=== PATIENT | female | born 1950 | race Hispanic/Latino ===

== ENCOUNTER 2017-07-13 16:51 | Inpatient (IN) | payer BC, MEDICARE ==
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
[2017-07-13 18:06] LABS: BASO # 0.05 K/mm3 (0.0-2.0); BASO % 0.6 % (0.0-3.0); EOS # 0.1 (0.0-0.7); EOS % 0.7 % (1.5-5.0); GRAN # 4.95 (1.4-6.5); GRAN % 60.2 % (50.0-68.0); LYMPH # 2.2 (1.2-3.4); LYMPH % 27.3 % (22.0-35.0); MEAN CELL VOLUME 53.1 fl (80.0-105.0); MEAN CORPUSCULAR HEMOGLOBIN 13.8 pg (25.0-35.0); MEAN PLATELET VOLUME 8.6 fl (7.0-11.0); MONO # 0.9 (0.1-0.6); MONO % 11.2 % (1.0-6.0); RED CELL DISTRIBUTION WIDTH 19.2 % (11.5-14.5); WHITE BLOOD COUNT 8.2 10^3/ul (4.5-11.0)
[2017-07-13 18:09] LABS: HEMATOCRIT 17.3 % (36.0-48.0)
[2017-07-13 18:13] LABS: PARTIAL THROMBOPLASTIN TIME 22.7 Seconds (23.7-30.8)
[2017-07-13 18:19] LABS: ALB/GLOB RATIO 1.3 (1.1-1.8); ALKALINE PHOSPHATASE 119 U/L (38-126); ALT/SGPT 19 U/L (7-56); AMYLASE 57 U/L (35-125); AST/SGOT 71 U/L (14-36); BILIRUBIN,TOTAL 0.6 mg/dL (0.2-1.3); BLOOD UREA NITROGEN 15 mg/dL (7-21); CARBON DIOXIDE 22 mmol/L (21-33); CHLORIDE 100 mmol/L (98-107); GFR AFRICAN-AMERICAN > 60; GLUCOSE,RANDOM 108 mg/dL (70-110); LIPASE 113 U/L (23-300); POTASSIUM 4.6 mmol/L (3.6-5.0); SODIUM 132 mmol/L (132-148); TOTAL PROTEIN 7.3 g/dL (5.8-8.3)
[2017-07-13 18:41] LABS: TROPONIN I 0.01 ng/mL
[2017-07-13 18:52] LABS: PH,URINE 6.5 (4.7-8.0); URINE APPEARANCE CLEAR (CLEAR); URINE BILIRUBIN NEGATIVE (NEGATIVE); URINE BLOOD NEGATIVE (NEGATIVE); URINE COLOR YELLOW (YELLOW); URINE GLUCOSE (UA) NEGATIVE (NEGATIVE); URINE KETONE NEGATIVE (NEGATIVE)
[2017-07-13 18:53] LABS: URINE LEUKOCYTE ESTERASE SMALL Leu/uL (NEGATIVE); URINE PROTEIN NEGATIVE mg/dL (<30 mg/dL); URINE UROBILINOGEN 0.2 E.U./dL (<1 E.U./dL)
[2017-07-13 18:54] LABS: URINE BACTERIA OCC (NEG); URINE RBC NEGATIVE /hpf (0-2)
[2017-07-13 22:00] VITALS: BMI 30.9
[2017-07-14 06:26] LABS: HEMATOCRIT 24.3 % (36.0-48.0)
[2017-07-14 06:51] LABS: ALB/GLOB RATIO 1.1 (1.1-1.8); ALKALINE PHOSPHATASE 113 U/L (38-126); ALT/SGPT 27 U/L (7-56); AST/SGOT 26 U/L (14-36); BILIRUBIN,TOTAL 1.7 mg/dL (0.2-1.3); BLOOD UREA NITROGEN 12 mg/dL (7-21); CALCIUM 8.9 mg/dL (8.4-10.5); CARBON DIOXIDE 24 mmol/L (21-33); CHLORIDE 101 mmol/L (95-110); GFR AFRICAN-AMERICAN > 60; GLUCOSE,RANDOM 103 mg/dL (70-110); SODIUM 138 mmol/L (132-148); TOTAL PROTEIN 7.2 g/dL (5.8-8.3)
--- NOTE | 2017-07-14 07:28 | RAD ---
HISTORY: gen weakness COMPARISON: 08/07/2012 radiographs. FINDINGS: LUNGS: No active pulmonary disease. PLEURA: No significant pleural effusion identified, no pneumothorax apparent. CARDIOVASCULAR: Cardiac silhouette appears somewhat prominent in the interval with possible magnification in effect technically though mild cardiac enlargement is possible intrinsically. No pulmonary vascular derangement nevertheless. OSSEOUS STRUCTURES: No significant abnormalities. VISUALIZED UPPER ABDOMEN: Normal. OTHER FINDINGS: None. IMPRESSION: No acute pulmonary disease. Cardiac silhouette is in the technically magnified or intrinsically borderline enlarged in the interval. No pulmonary vascular derangement appreciated.
--- NOTE | 2017-07-14 09:17 | CARD ---
APPROVED REPORT EKG Measurement Heart [id number] <Conclusion> Sinus rhythm with premature atrial complexes Possible Inferior infarct,old Improved repolarization c/w ECG 04/27/15
[2017-07-14] MEDS ORDERED: Barium Sulfate Susp 2.1% w/v, 2.0% w/w 450 mL Bottle PO ONE (14:18)
--- NOTE | 2017-07-14 14:31 | HP ---
HISTORY OF PRESENT ILLNESS: A 67-year-old white female with a history of mild aortic stenosis and hypertension. The patient was found to be more short of breath and dyspnea on exertion and was found to have an increase in her systolic ejection murmur at the left sternal border. Blood work revealed a hemoglobin of 4.4. The patient was directed to the emergency room for admission. PHYSICAL EXAMINATION: GENERAL: The patient is a 67-year-old well-developed, well-nourished white female, in mild distress. HEENT: Essentially normal. HEART: Regular sinus rhythm with systolic ejection murmur present, 3/6 at the left sternal border with radiation to the neck. ABDOMEN: Benign. EXTREMITIES: Without cyanosis, clubbing, or edema. NEUROLOGIC: Grossly intact. IMPRESSION: A 67-year-old white male presenting with severe anemia, Hemoglobin in the emergency room was 4.5 with MCV of 53 and platelet count of 604,000. Rest of the laboratory data were unremarkable. Platelets for transfusion and GI workup and hematology consultation. Alexis Bush MD
--- NOTE | 2017-07-14 15:01 | CON ---
DATE: 07/14/2017 GASTROENTEROLOGY CONSULTATION REASON FOR CONSULT: I have been asked to see this 67-year-old female who came to the emergency room because of increasing fatigue over the last several weeks. She felt extremely weak. In the emergency room, the patient was found to be severely anemic with hemoglobin at 4.5. She denies any abdominal pain, nausea, vomiting, rectal bleeding, chest pain or shortness of breath. The patient states that she did have an endoscopy and colonoscopy many years ago but does not recall exactly when. She denies any chest pain, shortness of breath or palpitations. She denies use of any nonsteroidals, but is on a baby aspirin. PAST MEDICAL HISTORY: Notable for mitral valve prolapse, hypertension, fracture of the left wrist. PAST SURGICAL HISTORY: Notable for right knee surgery and D&C. SOCIAL HISTORY: She denies cigarette smoking or alcohol use. She quit smoking many years ago. FAMILY HISTORY: Noncontributory. REVIEW OF SYSTEMS: A 14-point review of systems is notable for generalized weakness. PHYSICAL EXAMINATION: GENERAL: A well-developed female lying in bed, in no acute distress. VITAL SIGNS: Reveal temperature of 98.5, blood pressure 150/71, heart rate 78. HEENT: Reveal sclerae to be white. Conjunctivae pale. NECK: Supple. CHEST: Reveal lungs to be clear. HEART: Exam reveals a regular rate and rhythm. ABDOMEN: Soft, nontender. EXTREMITIES: Show no edema. LABORATORY DATA: Reveal on admission to the hospital, hemoglobin of 4.5. Her hemoglobin has increased to 7 after blood transfusion. Chemistries reveal normal electrolytes. AST, ALT, alkaline phosphatase this morning are all normal. IMPRESSION: A 67-year-old female with profound anemia without clinical evidence of active GI bleeding, one must rule out chronic gastrointestinal blood loss. RECOMMENDATIONS: 1. We will transfuse 2 more units of packed red blood cells. 2. We will check stool guaiacs. 3. We will schedule the patient for an upper endoscopy for the morning. Satinder Bruno MD
[2017-07-14 17:16] LABS: HEMATOCRIT 30.9 % (36.0-48.0); MEAN CELL VOLUME 65.5 fl (80.0-105.0); MEAN CORPUSCULAR HEMOGLOBIN 20.1 pg (25.0-35.0); MEAN CORPUSCULAR HGB CONC 30.7 g/dl (31.0-37.0); MEAN PLATELET VOLUME 8.9 fl (7.0-11.0); PLATELET COUNT 492 10^3/uL (120.0-450.0); WHITE BLOOD COUNT 8.6 10^3/ul (4.5-11.0)
[2017-07-14] MEDS ORDERED: Iohexol 350 MG/100 ML VIAL ONE (18:30)
--- NOTE | 2017-07-14 20:59 | CT ---
EXAM: CT Abdomen and Pelvis With Intravenous Contrast CLINICAL HISTORY: 67 years old, female; Screening exam; Other: R/O abd mass; Additional info: R/O abdominal mass, hb 4.2 TECHNIQUE: Axial computed tomography images of the abdomen and pelvis with intravenous contrast. All CT scans at this facility use one or more dose reduction techniques, viz.: automated exposure control; ma/kV adjustment per patient size (including targeted exams where dose is matched to indication; i.e. head); or iterative reconstruction technique. Coronal and sagittal reformatted images were created and reviewed. CONTRAST: 93 mL of OMNI 350 administered intravenously. COMPARISON: No relevant prior studies available. FINDINGS: Lower thorax: Mild cardiomegaly. Mild peripheral atelectasis/scarring. Trace LEFT pleural effusion/thickening. Moderate-sized hiatal hernia. ABDOMEN: Liver: Unremarkable. No mass. Gallbladder and bile ducts: No calcified stones. No ductal dilation. Pancreas: No ductal dilation. No mass. Spleen: No splenomegaly. Adrenals: No mass. Kidneys and ureters: No mass. No hydronephrosis. Stomach and bowel: Scattered diverticula within colon. No associated inflammatory stranding. No definite mural thickening. No obstruction. Appendix: Normal caliber. No inflammation. PELVIS: Bladder: Unremarkable. Reproductive: Unremarkable as visualized. ABDOMEN and PELVIS: Intraperitoneal space: No significant fluid collection. No free air. Bones/joints: Mild degenerative changes of spine. Moderate degenerative changes of RIGHT hip joint. Chronic compression deformity superior endplate L2 vertebral body. No acute fracture. Soft tissues: Unremarkable. Vasculature: Mild to moderate atherosclerotic disease of aorta and iliac arteries. No aneurysm. Lymph nodes: No pathologically enlarged lymph nodes. IMPRESSION: 1. No CT evidence of intraabdominal mass. 2. Incidental/non-acute findings are described above.
--- NOTE | 2017-07-14 22:50 | CP.PCM.CON ---
History of Present Illness - History of Present Illness History of Present Illness: HISTORY OF PRESENT ILLNESS: Ms. Mcneil is a 67-year-old female admitted to the hospital with fatigue and shortness of breath. She was found to have hemoglobin of 4 g/dL. She denies any dark colored stools. No nausea, vomiting. No bleeding from any site. She never had low hemoglobin. She has hypertension, which has fairly controlled on Losartan. She had colonoscopy many years ago, never had EGD. Denies any weight loss. She does not remember when she had her last mammogram. She denies any abdominal pain. She also has a history of mitral valve prolapse. She sees cardiology once a year. Currently, she has dizziness, shortness of breath, and fatigue for few weeks. PAST MEDICAL HISTORY: Hypertension, mitral valve prolapse, dizziness. PAST SURGICAL HISTORY: Left wrist fracture. Right knee surgery. FAMILY HISTORY: Noncontributory. PERSONAL HISTORY: Former smoker. No history of alcohol abuse. SOCIAL HISTORY: Lives at home. ALLERGIES: NO KNOWN DRUG ALLERGIES. HOME MEDICATION: Losartan 50 mg daily, aspirin 81 mg daily. REVIEW OF SYSTEMS: As per HPI. Rest of the 12-point review of systems reviewed negative. PHYSICAL EXAMINATION: GENERAL: Comfortable in bed, in no acute distress. VITAL SIGNS: Temperature 98.5, heart rate 88 per minute, respiratory 18 per minute, blood pressure 114/51, pulse oximetry 100% on room air. HEENT: Pallor positive. Oral mucosa moist. NECK: Supple. No lymphadenopathy. CHEST: Air entry present and equal bilateral. No added sound. BREAST: Bilateral no lumps felt. CARDIOVASCULAR: Tachycardia present. S1 and S2 normal. No murmur and no gallop. ABDOMEN: Soft and nontender. No hepatosplenomegaly. Obese. EXTREMITIES: No edema. SKIN: Warm and dry. Pallor positive. No petechia and no rash. LABORATORY DATA: White count 8.2, hemoglobin 4.5, hematocrit 17.3, platelet count 604. Sodium 132, potassium 4.6, BUN 15, creatinine 0.8, glucose 108. Chest x-ray, no infiltrate. ASSESSMENT: 1. Severe anemia. 2. Hypertension. 3. Dizziness. PLAN: She will be admitted to the hospital. I would recommend telemetry monitoring, 2 units of blood ongoing, Lasix after second unit of blood transfusion, 20 mg IV ordered. Repeat hemoglobin an hour after 2 units of blood transfusion 7 g/dL, 2 more units of PRBC ordered. CAT scan of the abdomen and pelvis with p.o. and IV contrast ordered to be done today. GI consultation Dr. Bruno, she will be for EGD tomorrow. Colonoscopy will be done electively as an outpatient. Stool occult blood ordered, iron studies will not be accurate now because of the blood transfusion. Differential diagnosis include occult GI bleed. She does not have any signs of hemolysis. If iron studies are normal, she might have myelodysplasia, possibly refractory anemia. Bone marrow aspiration biopsy would be helpful in diagnosis of that. Discussed the differential diagnosis with the patient. Answered all her question to her satisfaction. Discussed with the staff nurse. Thank You Dr. Bush for allowing us to participate in her care. Raina Kohler MD Past Patient History - Infectious Disease Hx of Infectious Diseases: None - Past Social History Smoking Status: Never Smoked - CARDIAC Hx Hypercholesterolemia: Yes Hx Hypertension: Yes - PULMONARY Hx Bronchitis: Yes Hx Pneumonia: Yes Hx Respiratory Tract Infection: Yes - NEUROLOGICAL Hx Neurological Disorder: Yes Hx Dizziness: Yes - HEENT Hx HEENT Problems: No - RENAL Hx Chronic Kidney Disease: No - ENDOCRINE/METABOLIC Hx Endocrine Disorders: No - HEMATOLOGICAL/ONCOLOGICAL Hx Blood Disorders: No - INTEGUMENTARY Hx Dermatological Problems: No - MUSCULOSKELETAL/RHEUMATOLOGICAL Hx Falls: No - GASTROINTESTINAL Hx Gastrointestinal Disorders: No - GENITOURINARY/GYNECOLOGICAL Hx Urinary Tract Infection: Yes - PSYCHIATRIC Hx Panic Symptoms: Yes - SURGICAL HISTORY Hx Dilation and Curettage: Yes Other/Comment: R knee surgery - ANESTHESIA Hx Anesthesia: Yes Hx Anesthesia Reactions: No Meds Allergies/Adverse Reactions: Allergies Allergy/AdvReac Type Severity Reaction Status Date / Time No Known Allergies Allergy Verified 07/13/17 17:09 - Medications Medications: Current Medications Sodium Chloride (Sodium Chloride 0.9%) 1,000 mls @ 80 mls/hr IV .[id number] ORION Losartan Potassium (Cozaar) 50 mg PO DAILY ORION Last Admin: 07/14/17 10:02 Dose: 50 mg Results - Vital Signs Recent Vital Signs: Last Vital Signs Temp 98.3 F 07/14/17 18:53 Pulse 79 07/14/17 18:53 Resp 20 07/14/17 18:53 BP 179/89 H 07/14/17 21:46 Pulse Ox 99 07/14/17 06:00 - Labs Result Diagrams: 07/14/17 16:45 07/14/17 06:00 Labs: Laboratory Results - last 24 hr 07/14/17 07/14/17 07/14/17 06:00 06:00 16:45 WBC 8.6 RBC 4.72 Hgb 7.0 L D 9.5 L D Hct 24.3 L 30.9 L MCV 65.5 L D MCH 20.1 L MCHC 30.7 L Plt Count 492 H MPV 8.9 Sodium 138 Potassium 4.0 Chloride 101 Carbon Dioxide 24 Anion Gap 17 BUN 12 Creatinine 0.8 Est GFR ( Amer) > 60 Est GFR (Non-Af Amer) > 60 Random Glucose 103 Calcium 8.9 Total Bilirubin 1.7 H AST 26 ALT 27 Alkaline Phosphatase 113 Lactate Dehydrogenase 425 Total Protein 7.2 Albumin 3.8 Globulin 3.4 Albumin/Globulin Ratio 1.1 Stool Occult Blood 07/14/17 19:45 WBC RBC Hgb Hct MCV MCH MCHC Plt Count MPV Sodium Potassium Chloride Carbon Dioxide Anion Gap BUN Creatinine Est GFR ( Amer) Est GFR (Non-Af Amer) Random Glucose Calcium Total Bilirubin AST ALT Alkaline Phosphatase Lactate Dehydrogenase Total Protein Albumin Globulin Albumin/Globulin Ratio Stool Occult Blood Negative
[2017-07-15] MEDS ORDERED: Sodium Chloride 0.9% 1,000 ML IV SCH ×2 (06:00→11:00)
[2017-07-15 07:00] VITALS: TEMP 98.5
[2017-07-15 07:23] LABS: HEMATOCRIT 33.7 % (36.0-48.0); MEAN CELL VOLUME 65.3 fl (80.0-105.0); MEAN CORPUSCULAR HEMOGLOBIN 20.2 pg (25.0-35.0); MEAN CORPUSCULAR HGB CONC 30.9 g/dl (31.0-37.0); MEAN PLATELET VOLUME 9.2 fl (7.0-11.0); PLATELET COUNT 486 10^3/uL (120.0-450.0); WHITE BLOOD COUNT 9.4 10^3/ul (4.5-11.0)
[2017-07-15 07:38] LABS: IRON 28 ug/dL (45-180)
[2017-07-15 07:58] LABS: ALB/GLOB RATIO 1.2 (1.1-1.8); ALKALINE PHOSPHATASE 136 U/L (38-126); ALT/SGPT 26 U/L (7-56); AST/SGOT 37 U/L (14-36); BILIRUBIN,TOTAL 1.9 mg/dL (0.2-1.3); BLOOD UREA NITROGEN 8 mg/dL (7-21); CALCIUM 9.4 mg/dL (8.4-10.5); CARBON DIOXIDE 22 mmol/L (21-33); CHLORIDE 101 mmol/L (98-107); GFR AFRICAN-AMERICAN > 60; GLUCOSE,RANDOM 102 mg/dL (70-110); POTASSIUM 4.2 mmol/L (3.6-5.0); SODIUM 137 mmol/L (132-148); TOTAL PROTEIN 7.9 g/dL (5.8-8.3)
[2017-07-15] MEDS ORDERED: Midazolam 2 MG/2 ML VIAL ONE (10:30)
[2017-07-15] MEDS ORDERED: Propofol 10 mg/ml Inj (20 ML) ONE (10:30)
[2017-07-15 11:16] VITALS: RESP 16
[2017-07-15 11:28] VITALS: O2SAT 99
[2017-07-15 12:08] VITALS: BP 165/79
[2017-07-15 15:24] VITALS: PULSE 80
[2017-07-15] MEDS ORDERED: Pantoprazole 40 mg EC Tab PO SCH (16:00)
== END 2017-07-15 17:16 | disposition home or self-care (01) | DRG 812 ==
LOC: ED 16:51 → ERH 18:38 → 3RNO 20:49 → 2RSO 07-14 00:29
PROVIDERS: ADMIT Internal Medicine; ATTEND Internal Medicine
PROC: 30233N1 Transfusion of Nonautologous Red Blood Cells into Peripheral Vein, Percutaneous Approach (ICD-10-PCS; 2017-07-13)
PROC: 0DB68ZX Excision of Stomach, Via Natural or Artificial Opening Endoscopic, Diagnostic (ICD-10-PCS; principal; 2017-07-15 10:00)
DX: D64.9 Anemia, unspecified (principal); K25.9 Gastric ulcer, unspecified as acute or chronic, without hemorrhage or perforation; K29.50 Unspecified chronic gastritis without bleeding; I10 Essential (primary) hypertension; E78.00 Pure hypercholesterolemia, unspecified; I34.1 Nonrheumatic mitral (valve) prolapse; I35.0 Nonrheumatic aortic (valve) stenosis; Z79.82 Long term (current) use of aspirin; Z87.01 Personal history of pneumonia (recurrent); Z87.440 Personal history of urinary (tract) infections; Z87.891 Personal history of nicotine dependence; Z87.81 Personal history of (healed) traumatic fracture; R42 Dizziness and giddiness; K44.9 Diaphragmatic hernia without obstruction or gangrene

== ENCOUNTER 2017-07-16 10:12 | Inpatient (IN) | payer BC, MEDICARE ==
[2017-07-16] MEDS ORDERED: Morphine 2 mg/ml ISec IVP STA (10:36)
[2017-07-16 11:00] LABS: BASO # 0.04 K/mm3 (0.0-2.0); BASO % 0.4 % (0.0-3.0); EOS # 0.1 (0.0-0.7); EOS % 1.2 % (1.5-5.0); GRAN # 7.18 (1.4-6.5); GRAN % 70.3 % (50.0-68.0); HEMATOCRIT 34.3 % (36.0-48.0); LYMPH # 2.1 (1.2-3.4); LYMPH % 20.1 % (22.0-35.0); MEAN CELL VOLUME 65.8 fl (80.0-105.0); MEAN CORPUSCULAR HEMOGLOBIN 20.3 pg (25.0-35.0); MEAN CORPUSCULAR HGB CONC 30.9 g/dl (31.0-37.0); MEAN PLATELET VOLUME 8.5 fl (7.0-11.0); MONO # 0.8 (0.1-0.6); PLATELET COUNT 425 10^3/uL (120.0-450.0); WHITE BLOOD COUNT 10.2 10^3/ul (4.5-11.0)
[2017-07-16 11:21] LABS: ALB/GLOB RATIO 1.2 (1.1-1.8); ALKALINE PHOSPHATASE 128 U/L (38-126); ALT/SGPT 17 U/L (7-56); AST/SGOT 30 U/L (14-36); BILIRUBIN,TOTAL 1.4 mg/dL (0.2-1.3); BLOOD UREA NITROGEN 16 mg/dL (7-21); CALCIUM 9.3 mg/dL (8.4-10.5); CARBON DIOXIDE 20 mmol/L (21-33); CHLORIDE 100 mmol/L (98-107); GFR AFRICAN-AMERICAN > 60; GLUCOSE,RANDOM 144 mg/dL (70-110); POTASSIUM 3.8 mmol/L (3.6-5.0); SODIUM 134 mmol/L (132-148); TOTAL PROTEIN 7.7 g/dL (5.8-8.3)
[2017-07-16 12:23] LABS: INR 1.04 (0.93-1.08); PARTIAL THROMBOPLASTIN TIME 24.3 Seconds (23.7-30.8)
[2017-07-16] MEDS: Heparin 25,000units in D5W 25,000 UNITS/250 ML BAG IV PRN (12:31)
[2017-07-16] MEDS ORDERED: Iohexol 350 MG/100 ML VIAL ONE (13:29)
[2017-07-16] MEDS ORDERED: Morphine 4 mg/ml ISec IVP STA (13:59)
--- NOTE | 2017-07-16 14:49 | CT ---
PROCEDURE: CT Angiography Abdomen, Pelvis and Lower Extremity with Contrast HISTORY: f/u to arterial duplex done today ?embolism COMPARISON: None. TECHNIQUE: Technique: CT angiography of the abdomen, pelvis and bilateral lower extremities performed in the arterial phase of enhancement. Coronal and sagittal reformats, and well as rotating MIP images of the vessels generated at the workstation. Intravenous contrast dose: Visipaque 320, 150 cc Radiation dose: Total exam DLP = 2542.93 mGy-cm. This CT exam was performed using one or more of the following dose reduction techniques: Automated exposure control, adjustment of the mA and/or kV according to patient size, and/or use of iterative reconstruction technique. FINDINGS: CT ANGIOGRAPHY: ABDOMINAL AORTA:: Atherosclerotic without significant stenosis or aneurysm formation. Patent through its bifurcation. MAJOR AORTIC BRANCHES: Celiac Colgate: Unremarkable. Superior mesenteric artery: Unremarkable. Inferior mesenteric artery: Unremarkable. Renal arteries: Unremarkable. PELVIC ARTERIES: Right Common Iliac: Atherosclerotic but widely patent nevertheless. Right External Iliac: Widely patent. Right Internal Iliac: Moderately diseased. Left Common Iliac: Widely patent. Left External Iliac: Widely patent. Left Internal Iliac: Mildly diseased. RIGHT LOWER EXTREMITY ARTERIES: Right Common Femoral: Distally occluded without reconstitution. Right Superficial Femoral: Occluded without reconstitution. Right Profunda Femoris: Reconstituted by inferior epigastric branch collaterals. Right Popliteal:Occluded. Right Anterior Tibial: Occluded. Right Tibioperoneal Trunk: Occluded. Right Posterior Tibial: Occluded. Right Peroneal: Occluded.. Right dorsalis pedis : Occluded. LEFT LOWER EXTREMITY ARTERIES: Left Common Femoral: Mildly atherosclerotic but widely patent nevertheless. . Left Superficial Femoral: Minimally disease without significant stenosis. Widely patent from its origin to the popliteal artery. Left Profunda Femoris: Occludes distally without reconstitution. Left Popliteal: No significant stenosis identified throughout. Left Anterior Tibial: Patent at throughout the proximal 2/3 but occludes distally just above the level of the ankle. Left Tibioperoneal Trunk: Occluded without reconstitution. Left Posterior Tibial: Occluded proximally with collateral reconstitution seen at the mid calf level and remains patent subsequently occluding a few cm proximal to the ankle. It reconstitutes at the level of the medial malleolus feeding the plantar arch subsequently. Left Peroneal: Reconstitutes in short segments from the mid calf to several cm chest approximately ankle with variable segmental occlusion scattered throughout. Proximal segment is completely occluded. Left Dorsalis pedis: Occluded. NON-ANGIOGRAPHIC ASPECT OF THE EXAM: LOWER THORAX: COPD and pulmonary fibrosis are identified as well as a moderate size hiatal hernia. LIVER: Unremarkable. No gross lesion or ductal dilatation. GALLBLADDER AND BILE DUCTS: Unremarkable. PANCREAS: Unremarkable. No gross lesion or ductal dilatation. SPLEEN: Unremarkable. ADRENALS: Unremarkable. No mass. KIDNEYS AND URETERS: Unremarkable. No hydronephrosis. No solid mass. STOMACH AND BOWEL: Sigmoid diverticulosis without diverticulitis. No bowel obstruction is appreciated. No suspicious mural thickness grossly evident. Evaluation the bowel is compromised by lack of oral contrast administration in the CT angiogram based examination. APPENDIX: Normal appendix. PERITONEUM: Unremarkable. No free fluid. No free air. LYMPH NODES: Unremarkable. No enlarged lymph nodes. BLADDER: Unremarkable. REPRODUCTIVE: Unremarkable. BONES: No acute fracture. OTHER FINDINGS: None. IMPRESSION: 1. Occluded right common femoral artery with remaining main arterial systems occluded from the right groin to the ankle as per above. Please see details above. 2. Severely diseased left lower extremity runoff with plantar arch served by the posterior artery. The entire extent of the posterior tibial artery at the left exhibits numerous occlusions followed by reconstitution is as discussed above. The age to artery is patent at its proximal and mid segments and included distally just above the ankle. The parent artery is severely diseased nearly throughout its entire extent.
--- NOTE | 2017-07-16 15:06 | RAD ---
HISTORY: pre-op COMPARISON: 07/13/2017 FINDINGS: LUNGS: No active pulmonary disease. PLEURA: No significant pleural effusion identified, no pneumothorax apparent. CARDIOVASCULAR: Normal heart size. Hiatal hernia noted. OSSEOUS STRUCTURES: No significant abnormalities. VISUALIZED UPPER ABDOMEN: Normal. OTHER FINDINGS: None. IMPRESSION: No infiltrate. Hiatal hernia noted.
--- NOTE | 2017-07-16 15:39 | US ---
PROCEDURE: Lower extremity EVA exam HISTORY: Peripheral vascular disease with acute onset right lower extremity pain PHYSICIAN(S): Saeed Caballero MD. FINDINGS: The right PVR waveforms are flat at all levels. The right EVA is not obtainable. The findings are consistent with right iliac and/ or common femoral artery occlusive disease. The PVR waveforms are normal on the left. The left VEA is normal, 1.12. IMPRESSION: 1. The PVR waveforms are flat at all levels on the right. Given asymmetry of the disease, this likely represents a right iliac and/ or common femoral artery embolus.
--- NOTE | 2017-07-16 15:40 | US ---
PROCEDURE: Right lower extremity venous US HISTORY: Leg pain and swelling. Evaluate for DVT. PHYSICIAN(S): Saeed Caballero M.D. TECHNIQUE: Duplex sonography and color-flow Doppler with graded compression were used to evaluate the deep venous system of the right lower extremity. FINDINGS: The visualized deep venous system of the right lower extremity is sonographically normal and compressible. Normal waveforms and augmentation are seen. There is no sonographic evidence for deep venous thrombosis in the visualized segments of the right lower extremity. IMPRESSION: 1. No sonographic evidence for deep venous thrombosis in the visualized segments of the right lower extremity.
[2017-07-16] MEDS ORDERED: Lidocaine 2% Inj (20ml) ONE (15:41)
[2017-07-16] MEDS ORDERED: Iodixanol 320 MG/ML 200 ML BOTTLE IV ONE (15:42)
[2017-07-16] MEDS ORDERED: Nitroglycerin 50mg in D5W 0 MG/0 ML BOTTLE IV ONE (15:42)
[2017-07-16] MEDS ORDERED: Iodixanol 320 mg/ml 150 ml Bottle IV ONE (15:42)
[2017-07-16] MEDS ORDERED: Heparin 25,000units in D5W 25,000 UNITS/250 ML BAG IV ONE (15:43)
--- NOTE | 2017-07-16 16:05 | CP.PCM.CON ---
<Benji Zelayaophe - Last Filed: 07/16/17 18:09> History of Present Illness - History of Present Illness History of Present Illness: ICU Consult Note - Edson Zelaya PGY-[address] Pickett CC: Right lower extremity pain HPI: Patient is a 67 yo female with PMH of HTN, MVP, mild , anemia, and hx of syncopal episodes who presents to the [facility] ED for left lower extremity pain. Patient reports that earlier this AM she began to feel a cramping sensation in her right lower leg at rest. She reports that as the cramping began to worsen she also began to experience weakness in her right leg, numbness in her toes, and sharp shooting pains. She stated that the pain was worse with movement. Patient reports her symptoms have progressively worsened since their initial onset this AM. She denies any alleviating factors or taking any analgesic medication. She denies any previous history of such symptoms. Patient was recently treated at [facility] on 07/14 for a Hgb of 4.1. Patient was admitted and transfused 4 units of blood. An EGD was done showing 3 medium sized non- bleeding ulcers with no evidence of bleeding during the exam. The patient was discharged to home and reported no symptoms of dizziness or syncope upon return. Patient reports feeling fine prior to going to bed last evening and states her symptoms came on at rest and without evidence of trauma or compression. Patient denies chest pain, shob, abdominal pain, n/v/f/c. PMH: As stated above PSH: R knee meniscus repair 2011, D&C FMH: HTN, Mother with history of phlebitis SocHx: - Tobacco: Former smoker. 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 All: Levaquin Meds: ASA 81mg, Losartan, Protonix 40 Daily , Ferosol 325mg TID Review of Systems - Review of Systems Review of Systems: 12 point ROS is negative except for as stated in HPI Past Patient History - Infectious Disease Hx of Infectious Diseases: None - Past Social History Smoking Status: Former Smoker Alcohol: None Drugs: Denies - CARDIAC Hx Hypercholesterolemia: Yes Hx Hypertension: Yes - PULMONARY Hx Bronchitis: Yes Hx Pneumonia: Yes Hx Respiratory Tract Infection: Yes - NEUROLOGICAL Hx Neurological Disorder: Yes Hx Dizziness: Yes - HEENT Hx HEENT Problems: No - RENAL Hx Chronic Kidney Disease: No - ENDOCRINE/METABOLIC Hx Endocrine Disorders: No - HEMATOLOGICAL/ONCOLOGICAL Hx Blood Transfusions: Yes (07/14/17) Hx Blood Transfusion Reaction: No - INTEGUMENTARY Hx Dermatological Problems: No - MUSCULOSKELETAL/RHEUMATOLOGICAL Hx Falls: No - GASTROINTESTINAL Hx Gastrointestinal Disorders: No - GENITOURINARY/GYNECOLOGICAL Hx Urinary Tract Infection: Yes - PSYCHIATRIC Hx Panic Symptoms: Yes Hx Substance Use: No - SURGICAL HISTORY Hx Surgeries: Yes - ANESTHESIA Hx Anesthesia Reactions: No Hx Malignant Hyperthermia: No Meds Allergies/Adverse Reactions: Allergies Allergy/AdvReac Type Severity Reaction Status Date / Time levofloxacin [From Levaquin] Allergy RASH Verified 07/16/17 15:50 - Medications Medications: Current Medications Heparin Sodium/Dextrose (Heparin 25,000 Units/250ml In D5w) 25,000 units in 250 mls @ 14.696 mls/hr IV .Q17H1M PRN; Protocol; 18 UNITS/KG/HR PRN Reason: ADJUST RATE PER PROTOCOL Last Admin: 07/16/17 12:31 Dose: 14.696 mls/hr Physical Exam - Head Exam Head Exam: ATRAUMATIC, NORMAL INSPECTION, NORMOCEPHALIC - Eye Exam Eye Exam: EOMI, Normal appearance, PERRL Pupil Exam: NORMAL ACCOMODATION Additional comments: Pale conjunctiva - ENT Exam ENT Exam: Mucous Membranes Dry, Normal Exam - Neck Exam Neck exam: Positive for: Full Rom, Normal Inspection - Respiratory Exam Respiratory Exam: Clear to Auscultation Bilateral, NORMAL BREATHING PATTERN. absent: Rhonchi - Cardiovascular Exam Cardiovascular Exam: REGULAR RHYTHM, +S1, +S2, Systolic Murmur (3/6) - GI/Abdominal Exam GI & Abdominal Exam: Normal Bowel Sounds, Soft - Extremities Exam Extremities exam: Positive for: calf tenderness Additional comments: RLE: tenderness to palpation, mottled skin appearance from toes to mid thigh, cool to touch, peripheral pulses absent, no discolaration of toes noted on exam LLE: warm, dry, FOM, no tenderness to palpation, DP and PT present - Back Exam Back exam: NORMAL INSPECTION - Neurological Exam Neurological exam: Alert, CN II-XII Intact, Oriented x3 - Psychiatric Exam Psychiatric exam: Normal Affect, Normal Mood - Skin Additional comments: RLE with evidence of livedo reticularis, otherwise rest of exam normal warm and dry Results - Vital Signs Recent Vital Signs: Last Vital Signs Temp 98.2 F 07/16/17 10:19 Pulse 73 07/16/17 15:40 Resp 16 07/16/17 14:32 BP 181/94 H 07/16/17 15:40 Pulse Ox 100 07/16/17 14:32 - Labs Result Diagrams: 07/16/17 10:50 07/16/17 10:50 Assessment & Plan (1) Lower limb ischemia Status: Acute - Assessment and Plan (Free Text) Assessment: Patient is a 67 year old female with PMH of anemia, HTN, MVP, and stomach ulcer who presents to the [facility] ED with RLE pain. Patient evaluated to have cool limb with absence of peripheral pulses per US. Patient to be taken to vascular lab for IR intervention for possible acute limb ischemia. Patient will be transferred to ICU s/p procedure for further management and observation. Plan: Neuro: AAOx3 Stable CV: RLE pain likely 2/2 acute limb ischemia Diff Dx: arterial thrombus (possibly 2/2 afib vs. plaque rupture) vs. transfusion induced vs. trauma, vs. thomboangitis obliterans - Patient denies trauma, hx of 4 units of pRBC transfusion on recent prior admission on 07/14, denies hx of raynauds phenomenon like symptoms, unknown hx of peripheral artery disease - Doppler US showing absence of pulses in RLE - Patient given heparin bolus for anticoagulation in ED - Patient to go for IR procedure with possible intervention - Will return to ICU s/p procedure for further management and observation BP 181/94, HR 72 NSR, Maintain MAP >65 Hx of HTN. - Will hold anti-HTN meds at this time, allowing for permissive HTN for aid in perfusion of RLE Hemodynamically stable. Cont to monitor. Pulm: - On RA. Saturating well. - Maintain O2 sat>90% - Stable GI: - NPO.Protonix for PPX : - Stable Renal: BUN/Cr: 16/0.9 - Replace lytes, maintain euvolemia. Continue to monitor. ID: - Afebrile, no leukocytosis. Heme: - H/H: 10.6/34.3 - Plts: 425 - Stable. Cont to monitor. Psych: - Normal mood. DVT ppx: Heparin GI ppx: Protonix Case and plan discussed with attending - Date & Time Date: 07/16/17 Time: 16:23 <Everotn Pickett MD - Last Filed: 07/16/17 18:22> Meds - Medications Medications: Current Medications Gabapentin (Neurontin) 100 mg PO Q8 ORION PRN Reason: Protocol Hydromorphone HCl (Dilaudid) 1 mg IVP Q4H PRN PRN Reason: Pain, severe (8-10) Heparin Sodium/Dextrose (Heparin 25,000 Units/250ml In D5w) 25,000 units in 250 mls @ 14.696 mls/hr IV .Q17H1M PRN; Protocol; 18 UNITS/KG/HR PRN Reason: ADJUST RATE PER PROTOCOL Last Admin: 07/16/17 12:31 Dose: 14.696 mls/hr Alteplase, Recombinant 10 mg/ (Sodium Chloride) 250 mls @ 25 mls/hr IV .Q10H ONE Stop: 07/17/17 02:19 Heparin Sodium (Porcine) 1,000 (units/ Sodium Chloride) 1,000 mls @ 5 mls/hr IV ONCE ONE Stop: 07/25/17 01:32 Ramipril (Altace) 5 mg PO DAILY [facility] Results - Vital Signs Recent Vital Signs: Last Vital Signs Temp 98.2 F 07/16/17 18:12 Pulse 86 07/16/17 18:12 Resp 19 07/16/17 18:12 BP 140/65 07/16/17 18:12 Pulse Ox 98 07/16/17 18:09 - Labs Result Diagrams: 07/16/17 10:50 07/16/17 10:50 Attending/Attestation - Attestation I have personally seen and examined this patient.: Yes I have fully participated in the care of the patient.: Yes I have reviewed all pertinent clinical information: Yes Notes (Text): 07/16/17 18:20 67 y/o F seen in the ER prior to IR intervention. Acute ischemic limb. Confirmed arterial thrombus Recent blood transfusion PRBC no platelets , EPO . No signs or history of a.fib or PFO. NO malignancy history or symptoms. Will need full hypercoag work up after this episode. Ir intervention w/ Heparin and TPA/ EKOS to be done. If flow is not established then Vascular surgery ,may need to intervene from thrombectomy. Neuro/ limb check q 1hr. Pain control. Follow up blood work for EKOS per IR and nursing protocol. cc time 65 min
[2017-07-16] MEDS ORDERED: Midazolam 2 MG/2 ML VIAL ONE ×3 (16:17→22:11)
--- NOTE | 2017-07-16 16:57 | ED PDOC ---
Arrival/HPI - General Chief Complaint: Lower Extremity Problem/Injury Time Seen by Provider: 07/16/17 10:14 Historian: Patient - History of Present Illness Narrative History of Present Illness (Text): 07/16/17 16:54 A year old female whose past medical history includes, hypertension, presents to the emergency department with a complaint of right leg pain and numbness. She states that the symptoms suddenly began at 9/9:30 AM. She notes that she was taking a shower when the pain began. The patient states that she has never experience these symptoms in the past. She also mentioned that she was discharged yesterday for anemia s/p transfusion. She denies fevers, chills, headache, dizziness, chest pain, shortness of breath, dyspnea on exertion, cough , abdominal pain, nausea, vomiting, diarrhea, back pain, neck pain, urinary/ bowel changes, trauma/injury or any other complaint. PMD: Dr. Alexis Bush Time/Duration: Other (9/9:30AM) Symptom Onset: Sudden Symptom Course: Unchanged Activities at Onset: Rest, Light Context: Home Past Medical History - Provider Review Nursing Documentation Reviewed: Yes - Infectious Disease Hx of Infectious Diseases: None - Cardiac Hx Hypertension: Yes - Pulmonary Hx Bronchitis: Yes Hx Pneumonia: Yes Hx Respiratory Tract Infection: Yes - Neurological Hx Neurological Disorder: Yes Hx Dizziness: Yes - HEENT Hx HEENT Disorder: No - Renal Hx Renal Disorder: No - Endocrine/Metabolic Hx Endocrine Disorders: No - Hematological/Oncological Hx Blood Transfusions: Yes (07/14/17) Hx Blood Transfusion Reaction: No - Integumentary Hx Dermatological Disorder: No - Musculoskeletal/Rheumatological Hx Falls: No - Gastrointestinal Hx Gastrointestinal Disorders: No - Genitourinary/Gynecological Hx Urinary Tract Infection: Yes - Psychiatric Hx Panic Disorder: Yes Hx Substance Use: No - Surgical History Hx Dilation and Curettage: Yes Other/Comment: R knee surgery - Anesthesia Hx Anesthesia Reactions: No Hx Malignant Hyperthermia: No - Suicidal Assessment Feels Threatened In Home Enviroment: No Family/Social History - Physician Review Nursing Documentation Reviewed: Yes Family/Social History: No Known Family HX Smoking Status: Former Smoker Hx Alcohol Use: No Hx Substance Use: No Hx Substance Use Treatment: No Allergies/Home Meds Allergies/Adverse Reactions: Allergies levofloxacin [From Levaquin] Allergy (Verified 07/16/17 15:50) RASH Home Medications: Home Meds Medication Instructions Recorded Confirmed Aspirin [Adult Low Dose Aspirin EC] 81 mg PO DAILY 07/13/17 07/16/17 Losartan [Cozaar] 50 g PO DAILY 07/13/17 07/16/17 Pantoprazole Sodium [Protonix] 40 mg PO DAILY 07/15/17 07/16/17 Review of Systems - Physician Review All systems were reviewed & negative as marked: Yes - Review of Systems Constitutional: absent: Fevers, Night Sweats ENT: absent: Sore Throat Respiratory: absent: SOB Cardiovascular: absent: Chest Pain, RIVERA Gastrointestinal: absent: Abdominal Pain, Stool Changes, Diarrhea, Nausea, Vomiting Genitourinary Female: absent: Urine Output Changes Musculoskeletal: Other (Right Leg Pain). absent: Back Pain, Neck Pain Neurological: absent: Headache, Dizziness Physical Exam Vital Signs Reviewed: Yes Vital Signs Temp Pulse Resp BP Pulse Ox 07/16/17 18:12 98.2 F 86 19 140/65 07/16/17 18:09 98.2 F 86 19 140/65 98 07/16/17 15:40 73 181/94 H 07/16/17 14:32 73 16 186/95 H 100 07/16/17 10:19 98.2 F 72 18 138/67 100 Temperature: Afebrile Blood Pressure: Normal Pulse: Regular Respiratory Rate: Normal Appearance: Positive for: Well-Appearing, Non-Toxic, Comfortable Pain Distress: Mild Mental Status: Positive for: Alert and Oriented X 3 - Systems Exam Head: Present: Atraumatic, Normocephalic Pupils: Present: PERRL Extroacular Muscles: Present: EOMI Conjunctiva: Present: Normal Mouth: Present: Moist Mucous Membranes Neck: Present: Normal Range of Motion Respiratory/Chest: Present: Clear to Auscultation, Good Air Exchange. No: Respiratory Distress, Accessory Muscle Use Cardiovascular: Present: Regular Rate and Rhythm, Normal S1, S2. No: Murmurs Abdomen: Present: Normal Bowel Sounds. No: Tenderness, Distention, Peritoneal Signs Back: Present: Normal Inspection Upper Extremity: Present: Normal Inspection. No: Cyanosis, Edema Lower Extremity: Present: Capillary Refill < 2 s (Right lower extremity: delayed cap refill), Other (subjective numbness from mid thigh distally ). No: NORMAL PULSES (lle good pulses. Right lower extremity: No palpable pulses.), Normal ROM (Decreased ROM right lower extremity), Tenderness Neurological: Present: GCS=15, CN II-XII Intact, Speech Normal Skin: Present: Cold (On initial exam, the right leg was cold to the touch. ) Psychiatric: Present: Alert, Oriented x 3, Normal Insight, Normal Concentration Medical Decision Making ED Course and Treatment: 07/16/17 17:05 Impression: A 67 year old female presents to the emergency department with right lower extremity pain and numbness since this morning (99:30AM) Plan: -- EKG -- Right Lower Extremity US -- Abdominal Angiogram -- Heparin, Neutronin, Morphine, Alctace, and IV Fluids, -- Reassess and disposition Prior Visits: Notes and results from previous visits were reviewed. Patient was last seen in the emergency department on 07/13/2017. Patient presented to the emergency department complaining of fatigue for several weeks. Progress Notes: EKG: Ordered, reviewed, and independently interpreted the EKG. Rate : 75 BPM Rhythm : NSR Interpretation : Left [place] Deviation. Chest X-ray read and interpreted by me, within normal limit. Progress note: Upon completion of the Physical Exam, the patient emergently sent for US venous outputs and arterial duplexes of the right lower extremity. Received a call from radiology with result which showed occlusion of right common femoral artery. Upon obtaining the report, Heparin was immediately ordered and vascular surgeons were contacted. Janes Ohara, and Jake (spoke to them and they were unable to respond to the hospital) Dr. Santiago initially left message ,called back after OR procedure at another hopital. Dr. Herrera was called, and left a message for emergent call back, no response. Dr. Sarwat Sierra who requested CT angiogram of the RLE. CT angiogram done immediately upon request, Dr. Sierra called immediately after completion who stated he will do an intervention at [facility]. Dr. 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 Patient went to IR suite at 15:30. Patient was given 2 doses of morphine IV push with slight resolution of pain symptoms. - Lab Interpretations Lab Results: 07/16/17 10:50 07/16/17 10:50 Lab Results 07/16/17 10:50: Blood Type AB POSITIVE, Antibody Screen Negative, BBK History Checked Patient has bt 07/16/17 10:50: PT 11.2, INR 1.04, APTT 24.3 07/16/17 10:50: Sodium 134, Potassium 3.8, Chloride 100, Carbon Dioxide 20 L, Anion Gap 18, BUN 16, Creatinine 0.9, Est GFR ( Amer) > 60, Est GFR (Non- Af Amer) > 60, Random Glucose 144 H, Calcium 9.3, Total Bilirubin 1.4 H, AST 30 , ALT 17, Alkaline Phosphatase 128 H, Total Protein 7.7, Albumin 4.2, Globulin 3.5, Albumin/Globulin Ratio 1.2 07/16/17 10:50: WBC 10.2, RBC 5.21, Hgb 10.6 L, Hct 34.3 L, MCV 65.8 L, MCH 20.3 L, MCHC 30.9 L, Plt Count 425, MPV 8.5, Gran % 70.3 H, Lymph % (Auto) 20.1 L, [place] % (Auto) 8.0 H, Eos % (Auto) 1.2 L, Baso % (Auto) 0.4, Gran # 7.18 H, Lymph # 2.1, [place] # 0.8 H, Eos # 0.1, Baso # 0.04 I have reviewed the lab results: Yes - RAD Interpretation Radiology Orders: 07/16/17 10:34 DUPLEX LOWER EXTRM VEIN RIGHT [US] Stat LOWER EXT ART NON-INV COMPL [US] Stat 07/16/17 12:44 ANGIOGRAPHY ABD ILEOFEM RUNOFF [CT] Stat 07/16/17 14:39 CHEST PORTABLE [RAD] Stat - EKG Interpretation Interpreted by ED Physician: Yes Type: 12 lead EKG - Medication Orders Current Medication Orders: Gabapentin (Neurontin) 100 mg PO Q8 ORION PRN Reason: Protocol Hydromorphone HCl (Dilaudid) 1 mg IVP Q4H PRN PRN Reason: Pain, severe (8-10) Heparin Sodium/Dextrose (Heparin 25,000 Units/250ml In D5w) 25,000 units in 250 mls @ 14.696 mls/hr IV .Q17H1M PRN; Protocol; 18 UNITS/KG/HR PRN Reason: ADJUST RATE PER PROTOCOL Last Admin: 07/16/17 12:31 Dose: 14.696 mls/hr eMAR Start Stop Document 07/16/17 12:31 AD (Rec: 07/16/17 12:32 AD [id number]) Intravenous Solution Start Date 07/16/17 Start Time 12:32 MAR aPTT Document 07/16/17 12:31 AD (Rec: 07/16/17 12:32 AD [id number]) aPTT aPTT (secs) 24.3 Alteplase, Recombinant 10 mg/ (Sodium Chloride) 250 mls @ 25 mls/hr IV .Q10H ONE Stop: 07/17/17 02:19 Heparin Sodium (Porcine) 1,000 (units/ Sodium Chloride) 1,000 mls @ 5 mls/hr IV ONCE ONE Stop: 07/25/17 01:32 Ramipril (Altace) 5 mg PO DAILY ORION Discontinued Medications Heparin Sodium (Porcine) (Heparin) 6,500 units 80 units/kg (6500 units) IV ONCE ONE PRN Reason: Protocol Stop: 07/16/17 12:15 Last Admin: 07/16/17 12:30 Dose: 6,500 units eMAR Start Stop Document 07/16/17 12:30 AD (Rec: 07/16/17 12:31 AD [id number]) Intravenous Solution Start Date 07/16/17 Start Time 12:31 End Date 07/16/17 End time 12:32 Total Infusion Time 1 DEC aPTT Document 07/16/17 12:30 AD (Rec: 07/16/17 12:31 AD [id number]) aPTT aPTT (secs) 24.3 Morphine Sulfate (Morphine) 2 mg IVP STAT STA Stop: 07/16/17 10:37 Last Admin: 07/16/17 10:50 Dose: 2 mg MAR Pain Assessment Document 07/16/17 10:50 AD (Rec: 07/16/17 10:50 AD [id number]) Pain Reassessment Is this a pain reassessment? No Sleep Is patient sleeping during reassessment? No Pain Scale Used Pain Scale Used Numeric Location Left, Right or Bilateral Right Pain Location Body Site Leg Description Description Constant Pain Behavior Moaning Guarding IVP Administration Document 07/16/17 10:50 AD (Rec: 07/16/17 10:50 AD [id number]) Charges for Administration # of IVP Administrations 1 Re-Assess: SHARRON Pain Assessment Document 07/16/17 11:50 AD (Rec: 07/16/17 11:55 AD [id number]) Pain Reassessment Is this a pain reassessment? Yes Sleep Is patient sleeping during reassessment? No Presence of Pain Presence of Pain Yes Pain Scale Used Pain Scale Used Numeric Location Left, Right or Bilateral Right Pain Location Body Site Leg Description Description Constant Intensity of Pain at present 7 Pain Behavior Moaning Facial Grimacing Aggravating Factors Changing Position Exercise/Activity Pain not relieved and LIP/MD was Yes notified Morphine Sulfate (Morphine) 4 mg IVP STAT STA Stop: 07/16/17 14:00 Last Admin: 07/16/17 14:06 Dose: 4 mg [facility] Pain Assessment Document 07/16/17 14:06 EWO (Rec: 07/16/17 14:06 [facility] [id number]) Pain Reassessment Is this a pain reassessment? Yes Sleep Is patient sleeping during reassessment? No Presence of Pain Presence of Pain Yes Pain Scale Used Pain Scale Used Numeric Location Pain Location Body Site Leg Description Description Constant Intensity of Pain at present 8 IVP Administration Document 07/16/17 14:06 EWO (Rec: 07/16/17 14:06 [facility] [id number]) Charges for Administration # of IVP Administrations 1 - Scribe Statement The provider has reviewed the documentation as recorded by the Scribe Bri Ghotra Provider Scribe Attestation: All medical record entries made by the Scribe were at my direction and personally dictated by me. I have reviewed the chart and agree that the record accurately reflects my personal performance of the history, physical exam, medical decision making, and the department course for this patient. I have also personally directed, reviewed, and agree with the discharge instructions and disposition. Disposition/Present on Arrival - Present on Arrival Any Indicators Present on Arrival: No History of DVT/PE: No History of Uncontrolled Diabetes: No Urinary Catheter: No History of Decub. Ulcer: No History Surgical Site Infection Following: None - Disposition Have Diagnosis and Disposition been Completed?: Yes Diagnosis: Lower limb ischemia Disposition: HOSPITALIZED Disposition Time: 14:22 Patient Problems: Current Active Problems Problem Status Onset Lower limb ischemia Acute Condition: GUARDED Critical Care Time - Critical Care Note Total Time (in mins): 120 Documented critical care: time excludes all time spent performing seperately billable procedures.
--- NOTE | 2017-07-16 17:33 | PCM.SURG1 ---
Surgeon's Initial Post Op Note - Surgeon's Notes Surgeon: Sarwat Sierra MD Furniture Upholsterer Apprentice: None Type of Anesthesia: Moderate Sedation{RN} Pre-Operative Diagnosis: Acute arterial thrombosis. Operative Findings: Arterial thrombosis Post-Operative Diagnosis: Occlusion of SFA, Profunda femoral artery, Popliteal artery, PT atery, peroneal artery. Operation Performed: Arterial thrombosis Specimen/Specimens Removed: Right lower extremity angiogram,. Rheolytic thrombectomy with Angiojet, NEON TECHNICIAN 5 mm x 200 mm, placement of EKOS catheter 50 cm treatment for catheter directed thrombolysis. Estimated Blood Loss: EBL {In ML}: 30 Blood Products Given: N/A Drains Used: No Drains Post-Op Condition: Poor Date of Surgery/Procedure: 07/16/17 Time of Surgery/Procedure: 17:30
[2017-07-16] MEDS: HYDROmorphone 1 mg/ml ISec IVP PRN (18:21)
[2017-07-16 18:59] VITALS: BMI 31.4
[2017-07-16] MEDS ORDERED: Pneumococcal 23-Valent Vaccine IM ONE (18:59)
--- NOTE | 2017-07-16 20:59 | CP.PCM.CON ---
History of Present Illness - History of Present Illness History of Present Illness: SURGERY CONSULT NOTE FOR DR. ISLAS Consult: ischemic lower extremities 67F presents to [facility] [place] for sudden right leg pain. Patient states the pain stated this morning after getting out the shower. She describes it has sudden, sharp and beginning in the right foot. Pain has made it's way up the leg into the calf. She admits to loss of sensation and is unable to bare weight on it. She states she had a pain in her left leg in the past but no has severe as what she had earlier in the day. She denies dizziness, chest pain, shortness of breath, abdominal pain, nausea, vomiting. She denies any current symptoms in her right leg. Admits to generalized fatigue. PMH: HTN PSH: R knee meniscus repair Social: distant history of tobacco, smoked for 10 years, quit 30 years ago Allergies: NKDA Past Patient History - Infectious Disease Hx of Infectious Diseases: None - Past Social History Smoking Status: Former Smoker - CARDIAC Hx Cardiac Disorders: Yes (MV PROLAPSE) Hx Hypercholesterolemia: Yes Hx Hypertension: Yes Hx Peripheral Vascular Disease: Yes - PULMONARY Hx Respiratory Disorders: Yes (SMOKED PPD .QUIT 10 YRS AGO) Hx Bronchitis: Yes Hx Pneumonia: Yes Hx Respiratory Tract Infection: Yes - NEUROLOGICAL Hx Neurological Disorder: Yes Hx Dizziness: Yes - HEENT Hx HEENT Problems: No - RENAL Hx Chronic Kidney Disease: No - ENDOCRINE/METABOLIC Hx Endocrine Disorders: No - HEMATOLOGICAL/ONCOLOGICAL Hx Blood Transfusions: Yes Hx Blood Transfusion Reaction: No - INTEGUMENTARY Hx Dermatological Problems: No - MUSCULOSKELETAL/RHEUMATOLOGICAL Hx Musculoskeletal Disorders: Yes (RIGHT LEG NUMBNESS,PAIN AND WEAK-ISCHEMIC LOWER EXTREMITY) Hx Falls: No Hx Unsteady Gait: Yes - GASTROINTESTINAL Hx Gastrointestinal Disorders: Yes Hx Ulcer: Yes (NON BLEEDING.) - GENITOURINARY/GYNECOLOGICAL Hx Genitourinary Disorders: Yes Hx Urinary Tract Infection: Yes - PSYCHIATRIC Hx Psychophysiologic Disorder: Yes Hx Panic Symptoms: Yes Hx Substance Use: No - SURGICAL HISTORY Hx Surgeries: Yes - ANESTHESIA Hx Anesthesia Reactions: No Hx Malignant Hyperthermia: No Meds Allergies/Adverse Reactions: Allergies Allergy/AdvReac Type Severity Reaction Status Date / Time levofloxacin [From Levaquin] Allergy RASH Verified 07/16/17 15:50 - Medications Medications: Current Medications Gabapentin (Neurontin) 100 mg PO Q8 ORION PRN Reason: Protocol Hydromorphone HCl (Dilaudid) 1 mg IVP Q4H PRN PRN Reason: Pain, severe (8-10) Last Admin: 07/16/17 18:21 Dose: 1 mg Heparin Sodium/Dextrose (Heparin 25,000 Units/250ml In D5w) 25,000 units in 250 mls @ 14.696 mls/hr IV .Q17H1M PRN; Protocol; 18 UNITS/KG/HR PRN Reason: ADJUST RATE PER PROTOCOL Last Admin: 07/16/17 12:31 Dose: 14.696 mls/hr Alteplase, Recombinant 10 mg/ (Sodium Chloride) 250 mls @ 25 mls/hr IV .Q10H ONE Stop: 07/17/17 02:19 Last Admin: 07/16/17 18:31 Dose: 25 mls/hr Heparin Sodium (Porcine) 1,000 (units/ Sodium Chloride) 1,000 mls @ 5 mls/hr IV ONCE ONE Stop: 07/25/17 01:32 Ramipril (Altace) 5 mg PO DAILY ORION Last Admin: 07/16/17 18:24 Dose: 5 mg Physical Exam - Constitutional Appears: Non-toxic, No Acute Distress, Other (uncomfortable) - Head Exam Head Exam: ATRAUMATIC - ENT Exam ENT Exam: Mucous Membranes Moist - Respiratory Exam Respiratory Exam: Clear to Auscultation Bilateral, NORMAL BREATHING PATTERN - Cardiovascular Exam Cardiovascular Exam: REGULAR RHYTHM, +S1, +S2 - GI/Abdominal Exam GI & Abdominal Exam: Soft. absent: Distended, Firm, Guarding, Rebound, Rigid, Tenderness - Extremities Exam Additional comments: No doppler signal on the right leg/ No doppler signal DP on left Dopplerable signals PT on left leg No sensation on right leg from feet to mid calf Poor sensation till the knee on right leg Normal left sensation on left leg Unable to wiggle toes and move feet on right leg. - Neurological Exam Neurological exam: Alert, Oriented x3 - Psychiatric Exam Psychiatric exam: Normal Affect, Normal Mood - Skin Skin Exam: Dry, Intact, Normal Color Additional comments: cold leg up until knee on right leg Results - Vital Signs Recent Vital Signs: Last Vital Signs Temp 98.2 F 07/16/17 18:29 Pulse 101 H 07/16/17 18:57 Resp 22 07/16/17 18:57 BP 137/80 07/16/17 18:57 Pulse Ox 98 07/16/17 18:09 - Labs Result Diagrams: 07/16/17 10:50 07/16/17 10:50 Assessment & Plan - Assessment and Plan (Free Text) Assessment: 67F with Acute ischemic right leg Plan: - Pre-op patienT - emergent OR intervention - Consent patient thrombectomy/embolectomy/fasciotomy Case discussed with Dr. Khoa Bazan, PGY2
[2017-07-16 21:01] LABS: INR 1.08 (0.93-1.08); PARTIAL THROMBOPLASTIN TIME 62.3 Seconds (23.7-30.8)
[2017-07-16] MEDS ORDERED: Lidocaine 1% Inj (20ml) ONE (21:20)
[2017-07-16] MEDS ORDERED: Thrombin Topical 20,000 Intl Units Spray Kit TOP ONE (21:20)
[2017-07-16] MEDS ORDERED: Heparin 10,000 Units/ml ONE (21:20)
[2017-07-16] MEDS ORDERED: Propofol 10 mg/ml Inj (20 ML) ONE (21:41)
[2017-07-16] MEDS ORDERED: Succinylcholine 200 mg/10 ml Inj IV ONE (21:43)
[2017-07-16] MEDS ORDERED: Iohexol 240 (50 ml) ONE (22:36)
[2017-07-16] MEDS ORDERED: CeFAZolin 1 gm in NS 100ml IVPB ONE (23:00)
[2017-07-16] MEDS ORDERED: Rocuronium 10 mg/ml (5 ml) ONE (23:04)
[2017-07-17] MEDS ORDERED: Iohexol 240 (50 ml) ONE ×2 (00:26→02:03)
[2017-07-17] MEDS ORDERED: Heparin 10,000 Units/ml ONE (00:29)
[2017-07-17 00:46] LABS: INR 1.18 (0.93-1.08)
[2017-07-17 00:47] LABS: PARTIAL THROMBOPLASTIN TIME > 180.0 Seconds (23.7-30.8)
[2017-07-17] MEDS ORDERED: Midazolam 2 MG/2 ML VIAL ONE ×2 (00:56→02:47)
[2017-07-17 03:07] LABS: INR 1.19 (0.93-1.08)
[2017-07-17 03:11] LABS: PARTIAL THROMBOPLASTIN TIME > 180.0 Seconds (23.7-30.8)
[2017-07-17] MEDS ORDERED: Propofol 10 mg/ml 1,000 MG/100 ML VIAL IV PRN (03:18)
[2017-07-17] MEDS ORDERED: Propofol 10 mg/ml 1,000 MG/100 ML VIAL ONE (03:25)
[2017-07-17] MEDS: HYDROmorphone 1 mg/ml ISec IVP PRN (03:30)
--- NOTE | 2017-07-17 03:37 | PCM.SURG1 ---
Surgeon's Initial Post Op Note - Surgeon's Notes Surgeon: MD Khoa Steel Rod Buster: Hortensia PGY2. Ana Maria PGY1. Pre-Operative Diagnosis: Acute right ischemic leg Operative Findings: Femoral embolus/popliteal embolus - white plaque removed with composition suspicious of cardiac origin Post-Operative Diagnosis: Acute right ischemic leg Operation Performed: Right leg Femoral embolectomy. Right leg Popliteal embolectomy. Right leg Popliteal/Tibial/Peroneal bypass with reversed saphaneous vein. Full 4 compartment right leg fasciotomy. Right lower extremity angiogram Specimen/Specimens Removed: multiple femoral emboli and popliteal emboli Estimated Blood Loss: EBL {In ML}: 400 Date of Surgery/Procedure: 07/16/17 Time of Surgery/Procedure: 22:00
[2017-07-17 03:41] LABS: ALB/GLOB RATIO 1.1 (1.1-1.8); ALKALINE PHOSPHATASE 87 U/L (38-126); ALT/SGPT 45 U/L (7-56); AST/SGOT 126 U/L (14-36); BILIRUBIN,TOTAL 1.1 mg/dL (0.2-1.3); BLOOD UREA NITROGEN 14 mg/dL (7-21); CARBON DIOXIDE 19 mmol/L (21-33); CHLORIDE 102 mmol/L (98-107); GFR AFRICAN-AMERICAN > 60; GLUCOSE,RANDOM 136 mg/dL (70-110); PHOSPHOROUS 5.9 mg/dL (2.5-4.5); POTASSIUM 5.1 mmol/L (3.6-5.0); SODIUM 130 mmol/L (132-148); TOTAL PROTEIN 5.8 g/dL (5.8-8.3)
[2017-07-17 03:45] LABS: WHITE BLOOD COUNT 17.3 10^3/ul (4.5-11.0)
[2017-07-17 03:48] LABS: BASO # 0.04 K/mm3 (0.0-2.0); BASO % 0.2 % (0.0-3.0); GRAN # 14.46 (1.4-6.5); GRAN % 83.6 % (50.0-68.0); HEMATOCRIT 25.4 % (36.0-48.0); LYMPH # 1.2 (1.2-3.4); LYMPH % 6.9 % (22.0-35.0); MEAN CELL VOLUME 65.6 fl (80.0-105.0); MEAN CORPUSCULAR HEMOGLOBIN 20.1 pg (25.0-35.0); MEAN CORPUSCULAR HGB CONC 30.7 g/dl (31.0-37.0); MEAN PLATELET VOLUME 9.4 fl (7.0-11.0); MONO # 1.6 (0.1-0.6); MONO % 9.3 % (1.0-6.0); PLATELET COUNT 365 10^3/uL (120.0-450.0)
[2017-07-17] MEDS ORDERED: Phenylephrine 10 mg/ml Inj ONE (03:48)
[2017-07-17 03:52] LABS: ARTERIAL BLOOD GAS HCO3 20.3 mmol/L (21-28); ARTERIAL BLOOD GAS PH 7.36 (7.35-7.45)
[2017-07-17] MEDS ORDERED: Sodium Chloride 0.9% 500 ML IV STA (04:01)
[2017-07-17] MEDS: Sodium Chloride 0.9% 1,000 ML IV SCH ×4 (04:34→21:37)
--- NOTE | 2017-07-17 05:17 | CON ---
DATE: REASON FOR CONSULTATION: Right leg ischemia. HISTORY OF PRESENT ILLNESS: The patient is a 67-year-old female with a past medical history of hypertension, mild aortic stenosis, anemia, who was presented to the emergency room with right lower extremities pain. Her history started five days ago on Tuesday when she presented at her PMD's office for weakness. CBC showed hemoglobin of 4.5. She was admitted. She was transfused four units of blood. An upper GI endoscopy showed gastric and peptic ulcers. A lower endoscopy was planned as an outpatient. She was discharged home yesterday and was fine until this morning when she complained of not feeling the ground she walked on. She was brought to the emergency room and found to have thrombosis of the entire right leg vasculature. CT angiogram showed a iliofemoral thrombosis with a clot extending to the tibial vessels. The left leg appeared to be normal. Interventional radiology was consulted and she was taken to the angio suite. AngioJet thrombectomy was attempted, with not much progress, so an Eco catheter for TPA infusion was placed and the patient sent to the ICU. I was consulted. PAST MEDICAL HISTORY: As stated above. PAST SURGICAL HISTORY: She had right knee meniscus repair in 2012, D and C. FAMILY HISTORY: Mother at 60s of possible cardiac disease and she also had a history of phlebitis. SOCIAL HISTORY: She is a former smoker, stopped smoking at least 25 years ago. MEDICATIONS: She took a aspirin, losartan, Protonix, and Seroquel. REVIEW OF SYSTEMS: A 12-point review of systems is negative otherwise. PHYSICAL EXAMINATION: GENERAL: The patient is awake, alert. HEENT: Appeared to be normal. CARDIAC: Appeared to be normal. VASCULAR: Pertinent physical exam from the vascular standpoint, she has palpable femoral pulse bilaterally. On the left side, there is no palpable pulse distal to that. There is a Doppler signal at the PT and no signal at the AT. On the right side, the leg is warm to the mid thigh and was cold distally, she has no motor function of the foot sensation. LABORATORY DATA: She has a hemoglobin of 10.6, WBC of 10.2. Chemistry was within normal limits. IMPRESSION: Hypercoagulable state, right leg ischemia, based on the AngioJet and angiogram findings. OR for emergency thrombectomy of the intravascular clot as indicated. The grim outlook was discussed with the patient and her . Elma Couch MD SHIVAM
[2017-07-17 06:11] LABS: BASO # 0.03 K/mm3 (0.0-2.0); BASO % 0.2 % (0.0-3.0); GRAN # 15.89 (1.4-6.5); GRAN % 84.6 % (50.0-68.0); HEMATOCRIT 31.5 % (36.0-48.0); LYMPH # 1.4 (1.2-3.4); LYMPH % 7.3 % (22.0-35.0); MEAN CELL VOLUME 69.8 fl (80.0-105.0); MEAN CORPUSCULAR HEMOGLOBIN 21.5 pg (25.0-35.0); MEAN CORPUSCULAR HGB CONC 30.8 g/dl (31.0-37.0); MEAN PLATELET VOLUME 8.9 fl (7.0-11.0); MONO # 1.5 (0.1-0.6); MONO % 7.9 % (1.0-6.0); PLATELET COUNT 290 10^3/uL (120.0-450.0); WHITE BLOOD COUNT 18.8 10^3/ul (4.5-11.0)
[2017-07-17 06:17] LABS: INR 1.12 (0.93-1.08)
[2017-07-17 06:25] LABS: ALB/GLOB RATIO 1.1 (1.1-1.8); ALKALINE PHOSPHATASE 84 U/L (38-126); ALT/SGPT 58 U/L (7-56); AST/SGOT 211 U/L (14-36); BILIRUBIN,TOTAL 1.3 mg/dL (0.2-1.3); BLOOD UREA NITROGEN 14 mg/dL (7-21); CALCIUM 7.6 mg/dL (8.4-10.5); CARBON DIOXIDE 18 mmol/L (21-33); CHLORIDE 103 mmol/L (98-107); GFR AFRICAN-AMERICAN > 60; GLUCOSE,RANDOM 129 mg/dL (70-110); POTASSIUM 5.3 mmol/L (3.6-5.0); SODIUM 132 mmol/L (132-148); TOTAL PROTEIN 5.7 g/dL (5.8-8.3)
[2017-07-17 07:37] LABS: TROPONIN I 0.17 ng/mL
--- NOTE | 2017-07-17 07:57 | CP.CCUPN ---
<Rajat Zelaya - Last Filed: 07/17/17 13:06> CCU Subjective - Physician Review Subjective (Free Text): 07/17/17 07:52 Patient is s/e at bedside this AM in ICU. Patient is intubated and sedated on ventilator. Patient was found to have minimal motor response in right leg and taken to the OR this AM with vascular surgery for right femoral endarterectomy, right leg fasciotomy and right pop/tib/per/ bypass. Patient was brought back to ICU sedated on ventilator. Patient was monitored and evaluated overnight. Patient is hemodynamically stable at this point and will be weaned off sedation and plan for extubation today. CCU Objective - Vital Signs / Intake & Output Vital Signs (Last 4 hours): Vital Signs Temp Pulse Resp BP Pulse Ox 07/17/17 07:05 70 17 100 07/17/17 07:00 70 16 100 07/17/17 06:55 70 17 100 07/17/17 06:50 70 16 100 07/17/17 06:45 70 15 100 07/17/17 06:40 69 15 100 07/17/17 06:35 70 16 100 07/17/17 06:30 70 15 100 07/17/17 06:25 70 16 100 07/17/17 06:20 72 15 100 07/17/17 06:15 76 17 100 07/17/17 06:10 70 15 100 07/17/17 06:05 69 15 100 07/17/17 06:00 72 16 100 07/17/17 05:55 72 16 100 07/17/17 05:50 72 17 100 07/17/17 05:45 98.7 F 74 16 100 07/17/17 05:40 73 19 100 07/17/17 05:35 79 19 100 07/17/17 05:30 74 19 100 07/17/17 05:25 73 19 100 07/17/17 05:20 76 17 100 07/17/17 05:15 75 15 100 07/17/17 05:10 74 15 100 07/17/17 05:05 75 17 100 07/17/17 05:00 76 19 100 07/17/17 04:55 77 17 100 07/17/17 04:50 76 17 100 07/17/17 04:45 78 18 100 07/17/17 04:40 77 16 100 07/17/17 04:30 78 16 100 07/17/17 04:15 73 15 100 07/17/17 04:00 99.0 F 75 15 124/60 100 Intake and Output (Last 8hrs): Intake & Output 07/16/17 07/17/17 07/17/17 22:59 06:59 14:59 Intake Total 140 1414 Output Total 125 Balance 140 1289 Weight 189 lb Intake: IV 140 814 .9NS Coolant 100 Activase 25 Heparin drip 15 Right Antecubital 787 Right Hand 27 Blood Product 600 Output: Urine 125 Urethral (Weaver) 125 Other: Voiding Method Indwelling Catheter - Physical Exam Head: Positive for: Atraumatic, Normocephalic Pupils: Positive for: PERRL Extroacular Muscles: Positive for: EOMI Conjunctiva: Positive for: Normal Mouth: Positive for: Moist Mucous Membranes Neck: Positive for: Normal Range of Motion Respiratory/Chest: Positive for: Clear to Auscultation, Good Air Exchange. Negative for: Respiratory Distress, Accessory Muscle Use Cardiovascular: Positive for: Regular Rate and Rhythm, Normal S1, S2, Other ( systolic ejection murmur grade 3/6). Negative for: Murmurs Abdomen: Positive for: Normal Bowel Sounds. Negative for: Tenderness, Distention, Peritoneal Signs Back: Positive for: Normal Inspection Upper Extremity: Positive for: Normal Inspection. Negative for: Cyanosis, Edema Lower Extremity: Positive for: Capillary Refill < 2 s (Right lower extremity: delayed cap refill), Other (Right leg immobolized and with surgical dressing c/d /i, RLE cool to touch but improvement from previous exam, Right DP pulses present via Doppler, Left DP, PT present via doppler ). Negative for: NORMAL PULSES (lle good pulses. Right lower extremity: No palpable pulses.), Normal ROM (Decreased ROM right lower extremity), Tenderness Neurological: Positive for: GCS=15, CN II-XII Intact, Speech Normal Skin: Positive for: Cold (Right leg cool to touch, improved from 24H prior,), Other (left antecubital fossa with bullous phemgoid appearing blister and open blister that is non-oozing and erythematous ) Psychiatric: Positive for: Other (patient sedated and on ventilator) - Medications Active Medications: Active Medications Generic Name Dose Route Start Last Admin Trade Name Freq PRN Reason Stop Dose Admin Fentanyl 75 mcg 07/17/17 07:22 Fentanyl IVP Q3H PRN Pain, severe (8-10) Heparin Sodium/Dextrose 25,000 units in 250 mls @ 14.696 mls/hr 07/16/17 12: 14 07/16/17 12:31 Heparin 25,000 Units/250ml In D5w IV 14.696 mls/hr .Q17H1M PRN Administration ADJUST RATE PER PROTOCOL Protocol 18 UNITS/KG/HR Heparin Sodium (Porcine) 1,000 1,000 mls @ 5 mls/hr 07/16/17 17:33 07/16/17 21:43 units/ Sodium Chloride IV 07/25/17 01:32 Not Given ONCE ONE Sodium Chloride 1,000 mls @ 150 mls/hr 07/17/17 03:30 07/17/17 04:34 Sodium Chloride 0.9% IV 150 mls/hr .Q6H40M ORION Administration Propofol 1,000 mg in 100 mls @ 2.572 mls/hr 07/17/17 03:18 07/17/17 03:35 Diprivan IV 15 mcg/kg/min .Q24H PRN 7.716 mls/hr TITRATE PER MD ORDER Administration Protocol 5 MCG/KG/MIN - Patient Studies Lab Studies: Lab Studies 07/17/17 07/17/17 07/17/17 Range/Units 05:45 05:45 05:45 WBC 18.8 H (4.5-11.0) 10^3/ul RBC 4.51 (3.5-6.1) 10^6/uL Hgb 9.7 L (12.0-16.0) g/dL Hct 31.5 L (36.0-48.0) % MCV 69.8 L D (80.0-105.0) fl MCH 21.5 L (25.0-35.0) pg MCHC 30.8 L (31.0-37.0) g/dl Plt Count 290 (120.0-450.0) 10^3/uL MPV 8.9 (7.0-11.0) fl Gran % 84.6 H (50.0-68.0) % Lymph % (Auto) 7.3 L (22.0-35.0) % Pinal % (Auto) 7.9 H (1.0-6.0) % Eos % (Auto) 0.0 L (1.5-5.0) % Baso % (Auto) 0.2 (0.0-3.0) % Gran # 15.89 H (1.4-6.5) Lymph # 1.4 (1.2-3.4) Pinal # 1.5 H (0.1-0.6) Eos # 0.0 (0.0-0.7) Baso # 0.03 (0.0-2.0) K/mm3 PT 12.1 H (9.9-11.8) Seconds INR 1.12 H (0.93-1.08) APTT (23.7-30.8) Seconds pCO2 (35-45) mm/Hg pO2 (80-100) mm/Hg HCO3 (21-28) mmol/L ABG pH (7.35-7.45) ABG Total CO2 (22-28) mmol.L ABG O2 Saturation (95-98) % ABG Base Excess (-2.0-3.0) mmol/L ABG Potassium (3.6-5.2) mmol/L Glucose (65-105) mg/dl Lactate (0.7-2.1) mmol/L FiO2 % Sodium 132 (132-148) mmol/L Potassium 5.3 H (3.6-5.0) mmol/L Chloride 103 (98-107) mmol/L Carbon Dioxide 18 L (21-33) mmol/L Anion Gap 16 (10-20) BUN 14 (7-21) mg/dL Creatinine 0.9 (0.5-1.4) mg/dL Est GFR ( Amer) > 60 Est GFR (Non-Af Amer) > 60 Random Glucose 129 H (70-110) mg/dL Calcium 7.6 L (8.4-10.5) mg/dL Phosphorus (2.5-4.5) mg/dL Magnesium (1.7-2.2) mg/dL Total Bilirubin 1.3 (0.2-1.3) mg/dL AST 211 H D (14-36) U/L ALT 58 H (7-56) U/L Alkaline Phosphatase 84 (38-126) U/L Lactate Dehydrogenase 1390 H (333-699) U/L Total Creatine Kinase 11859 H (35-230) U/L Troponin I 0.17 H* ng/mL Total Protein 5.7 L (5.8-8.3) g/dL Albumin 3.0 (3.0-4.8) g/dL Globulin 2.7 gm/dL Albumin/Globulin Ratio 1.1 (1.1-1.8) Arterial Blood Potassium (3.6-5.2) mmol/L 07/17/17 07/17/17 07/17/17 Range/Units 05:30 03:40 03:20 WBC (4.5-11.0) 10^3/ul RBC (3.5-6.1) 10^6/uL Hgb (12.0-16.0) g/dL Hct (36.0-48.0) % MCV (80.0-105.0) fl MCH (25.0-35.0) pg MCHC (31.0-37.0) g/dl Plt Count (120.0-450.0) 10^3/uL MPV (7.0-11.0) fl Gran % (50.0-68.0) % Lymph % (Auto) (22.0-35.0) % Pinal % (Auto) (1.0-6.0) % Eos % (Auto) (1.5-5.0) % Baso % (Auto) (0.0-3.0) % Gran # (1.4-6.5) Lymph # (1.2-3.4) Pinal # (0.1-0.6) Eos # (0.0-0.7) Baso # (0.0-2.0) K/mm3 PT (9.9-11.8) Seconds INR (0.93-1.08) APTT 58.9 H (23.7-30.8) Seconds pCO2 36 (35-45) mm/Hg pO2 273.0 H (80-100) mm/Hg HCO3 20.3 L (21-28) mmol/L ABG pH 7.36 (7.35-7.45) ABG Total CO2 21.4 L (22-28) mmol.L ABG O2 Saturation 100.1 H (95-98) % ABG Base Excess -4.5 L (-2.0-3.0) mmol/L ABG Potassium 4.9 (3.6-5.2) mmol/L Glucose 154 H (65-105) mg/dl Lactate 1.3 (0.7-2.1) mmol/L FiO2 100.0 % Sodium 129.0 L 130 L (132-148) mmol/L Potassium 5.1 H (3.6-5.0) mmol/L Chloride 103.0 102 (98-107) mmol/L Carbon Dioxide 19 L (21-33) mmol/L Anion Gap 14 (10-20) BUN 14 (7-21) mg/dL Creatinine 0.8 (0.5-1.4) mg/dL Est GFR ( Amer) > 60 Est GFR (Non-Af Amer) > 60 Random Glucose 136 H (70-110) mg/dL Calcium 8.0 L (8.4-10.5) mg/dL Phosphorus 5.9 H (2.5-4.5) mg/dL Magnesium 2.0 (1.7-2.2) mg/dL Total Bilirubin 1.1 (0.2-1.3) mg/dL AST 126 H D (14-36) U/L ALT 45 (7-56) U/L Alkaline Phosphatase 87 (38-126) U/L Lactate Dehydrogenase (333-699) U/L Total Creatine Kinase (35-230) U/L Troponin I ng/mL Total Protein 5.8 (5.8-8.3) g/dL Albumin 3.0 (3.0-4.8) g/dL Globulin 2.8 gm/dL Albumin/Globulin Ratio 1.1 (1.1-1.8) Arterial Blood Potassium 4.9 (3.6-5.2) mmol/L 07/17/17 07/17/17 07/17/17 Range/Units 03:20 02:25 02:00 WBC 17.3 H D (4.5-11.0) 10^3/ul RBC 3.88 (3.5-6.1) 10^6/uL Hgb 7.8 L D (12.0-16.0) g/dL Hct 25.4 L (36.0-48.0) % MCV 65.6 L (80.0-105.0) fl MCH 20.1 L (25.0-35.0) pg MCHC 30.7 L (31.0-37.0) g/dl Plt Count 365 (120.0-450.0) 10^3/uL MPV 9.4 (7.0-11.0) fl Gran % 83.6 H (50.0-68.0) % Lymph % (Auto) 6.9 L (22.0-35.0) % Pinal % (Auto) 9.3 H (1.0-6.0) % Eos % (Auto) 0.0 L (1.5-5.0) % Baso % (Auto) 0.2 (0.0-3.0) % Gran # 14.46 H (1.4-6.5) Lymph # 1.2 (1.2-3.4) Pinal # 1.6 H (0.1-0.6) Eos # 0.0 (0.0-0.7) Baso # 0.04 (0.0-2.0) K/mm3 PT 12.9 H (9.9-11.8) Seconds INR 1.19 H (0.93-1.08) APTT > 180.0 H* (23.7-30.8) Seconds pCO2 (35-45) mm/Hg pO2 (80-100) mm/Hg HCO3 (21-28) mmol/L ABG pH (7.35-7.45) ABG Total CO2 (22-28) mmol.L ABG O2 Saturation (95-98) % ABG Base Excess (-2.0-3.0) mmol/L ABG Potassium (3.6-5.2) mmol/L Glucose (65-105) mg/dl Lactate (0.7-2.1) mmol/L FiO2 % Sodium (132-148) mmol/L Potassium (3.6-5.0) mmol/L Chloride (98-107) mmol/L Carbon Dioxide (21-33) mmol/L Anion Gap (10-20) BUN (7-21) mg/dL Creatinine (0.5-1.4) mg/dL Est GFR ( Amer) Est GFR (Non-Af Amer) Random Glucose (70-110) mg/dL Calcium (8.4-10.5) mg/dL Phosphorus (2.5-4.5) mg/dL Magnesium (1.7-2.2) mg/dL Total Bilirubin (0.2-1.3) mg/dL AST (14-36) U/L ALT (7-56) U/L Alkaline Phosphatase (38-126) U/L Lactate Dehydrogenase (333-699) U/L Total Creatine Kinase (35-230) U/L Troponin I 0.18 H* D ng/mL Total Protein (5.8-8.3) g/dL Albumin (3.0-4.8) g/dL Globulin gm/dL Albumin/Globulin Ratio (1.1-1.8) Arterial Blood Potassium (3.6-5.2) mmol/L 07/16/17 07/16/17 Range/Units 23:55 20:40 WBC (4.5-11.0) 10^3/ul RBC (3.5-6.1) 10^6/uL Hgb (12.0-16.0) g/dL Hct (36.0-48.0) % MCV (80.0-105.0) fl MCH (25.0-35.0) pg MCHC (31.0-37.0) g/dl Plt Count (120.0-450.0) 10^3/uL MPV (7.0-11.0) fl Gran % (50.0-68.0) % Lymph % (Auto) (22.0-35.0) % Pinal % (Auto) (1.0-6.0) % Eos % (Auto) (1.5-5.0) % Baso % (Auto) (0.0-3.0) % Gran # (1.4-6.5) Lymph # (1.2-3.4) Pinal # (0.1-0.6) Eos # (0.0-0.7) Baso # (0.0-2.0) K/mm3 PT 12.7 H 11.7 (9.9-11.8) Seconds INR 1.18 H 1.08 (0.93-1.08) APTT > 180.0 H* 62.3 H (23.7-30.8) Seconds pCO2 (35-45) mm/Hg pO2 (80-100) mm/Hg HCO3 (21-28) mmol/L ABG pH (7.35-7.45) ABG Total CO2 (22-28) mmol.L ABG O2 Saturation (95-98) % ABG Base Excess (-2.0-3.0) mmol/L ABG Potassium (3.6-5.2) mmol/L Glucose (65-105) mg/dl Lactate (0.7-2.1) mmol/L FiO2 % Sodium (132-148) mmol/L Potassium (3.6-5.0) mmol/L Chloride (98-107) mmol/L Carbon Dioxide (21-33) mmol/L Anion Gap (10-20) BUN (7-21) mg/dL Creatinine (0.5-1.4) mg/dL Est GFR ( Amer) Est GFR (Non-Af Amer) Random Glucose (70-110) mg/dL Calcium (8.4-10.5) mg/dL Phosphorus (2.5-4.5) mg/dL Magnesium (1.7-2.2) mg/dL Total Bilirubin (0.2-1.3) mg/dL AST (14-36) U/L ALT (7-56) U/L Alkaline Phosphatase (38-126) U/L Lactate Dehydrogenase (333-699) U/L Total Creatine Kinase (35-230) U/L Troponin I ng/mL Total Protein (5.8-8.3) g/dL Albumin (3.0-4.8) g/dL Globulin gm/dL Albumin/Globulin Ratio (1.1-1.8) Arterial Blood Potassium (3.6-5.2) mmol/L Laboratory Results - last 24 hr 07/16/17 07/16/17 07/17/17 20:40 23:55 02:00 WBC RBC Hgb Hct MCV MCH MCHC Plt Count MPV Gran % Lymph % (Auto) Pinal % (Auto) Eos % (Auto) Baso % (Auto) Gran # Lymph # Pinal # Eos # Baso # PT 11.7 12.7 H INR 1.08 1.18 H APTT 62.3 H > 180.0 H* pCO2 pO2 HCO3 ABG pH ABG Total CO2 ABG O2 Saturation ABG Base Excess ABG Potassium Glucose Lactate FiO2 Sodium Potassium Chloride Carbon Dioxide Anion Gap BUN Creatinine Est GFR ( Amer) Est GFR (Non-Af Amer) Random Glucose Calcium Phosphorus Magnesium Total Bilirubin AST ALT Alkaline Phosphatase Lactate Dehydrogenase Total Creatine Kinase Troponin I 0.18 H* D Total Protein Albumin Globulin Albumin/Globulin Ratio Arterial Blood Potassium 07/17/17 07/17/17 07/17/17 02:25 03:20 03:20 WBC 17.3 H D RBC 3.88 Hgb 7.8 L D Hct 25.4 L MCV 65.6 L MCH 20.1 L MCHC 30.7 L Plt Count 365 MPV 9.4 Gran % 83.6 H Lymph % (Auto) 6.9 L Pinal % (Auto) 9.3 H Eos % (Auto) 0.0 L Baso % (Auto) 0.2 Gran # 14.46 H Lymph # 1.2 Pinal # 1.6 H Eos # 0.0 Baso # 0.04 PT 12.9 H INR 1.19 H APTT > 180.0 H* pCO2 pO2 HCO3 ABG pH ABG Total CO2 ABG O2 Saturation ABG Base Excess ABG Potassium Glucose Lactate FiO2 Sodium 130 L Potassium 5.1 H Chloride 102 Carbon Dioxide 19 L Anion Gap 14 BUN 14 Creatinine 0.8 Est GFR ( Amer) > 60 Est GFR (Non-Af Amer) > 60 Random Glucose 136 H Calcium 8.0 L Phosphorus 5.9 H Magnesium 2.0 Total Bilirubin 1.1 AST 126 H D ALT 45 Alkaline Phosphatase 87 Lactate Dehydrogenase Total Creatine Kinase Troponin I Total Protein 5.8 Albumin 3.0 Globulin 2.8 Albumin/Globulin Ratio 1.1 Arterial Blood Potassium 07/17/17 07/17/17 07/17/17 03:40 05:30 05:45 WBC 18.8 H RBC 4.51 Hgb 9.7 L Hct 31.5 L MCV 69.8 L D MCH 21.5 L MCHC 30.8 L Plt Count 290 MPV 8.9 Gran % 84.6 H Lymph % (Auto) 7.3 L P[place] % (Auto) 7.9 H Eos % (Auto) 0.0 L Baso % (Auto) 0.2 Gran # 15.89 H Lymph # 1.4 Pinal # 1.5 H Eos # 0.0 Baso # 0.03 PT INR APTT 58.9 H pCO2 36 pO2 273.0 H HCO3 20.3 L ABG pH 7.36 ABG Total CO2 21.4 L ABG O2 Saturation 100.1 H ABG Base Excess -4.5 L ABG Potassium 4.9 Glucose 154 H Lactate 1.3 FiO2 100.0 Sodium 129.0 L Potassium Chloride 103.0 Carbon Dioxide Anion Gap BUN Creatinine Est GFR ( Amer) Est GFR (Non-Af Amer) Random Glucose Calcium Phosphorus Magnesium Total Bilirubin AST ALT Alkaline Phosphatase Lactate Dehydrogenase Total Creatine Kinase Troponin I Total Protein Albumin Globulin Albumin/Globulin Ratio Arterial Blood Potassium 4.9 07/17/17 07/17/17 05:45 05:45 WBC RBC Hgb Hct MCV MCH MCHC Plt Count MPV Gran % Lymph % (Auto) Pinal % (Auto) Eos % (Auto) Baso % (Auto) Gran # Lymph # Pinal # Eos # Baso # PT 12.1 H INR 1.12 H APTT pCO2 pO2 HCO3 ABG pH ABG Total CO2 ABG O2 Saturation ABG Base Excess ABG Potassium Glucose Lactate FiO2 Sodium 132 Potassium 5.3 H Chloride 103 Carbon Dioxide 18 L Anion Gap 16 BUN 14 Creatinine 0.9 Est GFR ( Amer) > 60 Est GFR (Non-Af Amer) > 60 Random Glucose 129 H Calcium 7.6 L Phosphorus Magnesium Total Bilirubin 1.3 AST 211 H D ALT 58 H Alkaline Phosphatase 84 Lactate Dehydrogenase 1390 H Total Creatine Kinase 67474 H Troponin I 0.17 H* Total Protein 5.7 L Albumin 3.0 Globulin 2.7 Albumin/Globulin Ratio 1.1 Arterial Blood Potassium Review of Systems - Review of Systems Review of Systems: unable to obtain due to patient being sedated and on ventilator Critical Care Progress Note - Nutrition Nutrition: Nutrition Category Date Time Status NPO Diet [DIET] Diets 07/16/17 Breakfast Ordered Assessment/Plan (1) Lower limb ischemia Current Visit: Yes Status: Acute - Assessment and Plan (Free Text) Assessment: Patient is a 67 yo female with PMH of HTN, MVP, mild , anemia, and hx of syncopal episodes who presents to the [facility] ED for left lower extremity pain. Patient found to have absent pulses in RLE via US. Patient was taken by IR on for intervention with Dr. Sierra. IR unable to open Right femoral artery and placed EKOS catheter with alteplase drip. Patient was monitored in ICU and found overnight found to have limited motor function of RLE and taken to OR for vascular surgery. An endarterectomy of the right femoral artery, fasciotomy, and right pop/tib/peron bypass was preformed. Patient is currently in ICU intubated and sedated with plan for extubation today and further monitoring and management of her acute limb ischemia. Plan: Neuro: Intubated and sedated,. with plan to wean off sedation for possible extubation Stable CV: Acute Limb Ischemia of RLE - Patient underwent IR intervention 07/[address] Sierra, unable to open occluded right common femoral artery, EKOS catheter placed and transferred back to ICU for further observation - Overnight patient noted to have limited motor response of RLE, vascular team notified and patient taken to OR - Vascular preformed endarterectomy of right femoral artery, fasciotomy, and Right popliteal/tibial/peroneal bypass - Continue to keep patient in ICU for observation and management of acute condition - Continue with Vascular surgery protocol for anticoagulation and observation of limb - Q1H neuro checks BP 137/63, HR 70 NSR, Maintain MAP >65 Hx of HTN. - Will hold anti-HTN meds at this time, allowing for permissive HTN for aid in perfusion of RLE Hemodynamically stable. Cont to monitor. Pulm: - Extubate patient - Place patient on O2 NC with goal to maintain O2 sat >92% - Stable GI: - NPO.Protonix for PPX : - Stable Renal: BUN/Cr: 16/0.9 - Replace lytes, maintain euvolemia. Continue to monitor. ID: - Afebrile, no leukocytosis. Heme: - H/H: 9.7/31.5 - Plts: 290 - Patient on Heparin gtt protocol via vascular surgery - Stable. Cont to monitor. DVT ppx: Heparin GI ppx: Protonix Case and plan discussed with attending - Date & Time Date: 07/17/17 Time: 08:01 <Everton Pickett MD H - Last Filed: 07/17/17 13:29> CCU Objective - Vital Signs / Intake & Output Intake and Output (Last 8hrs): Intake & Output 07/16/17 07/17/17 07/17/17 22:59 06:59 14:59 Intake Total 140 1414 Output Total 125 Balance 140 1289 Weight 189 lb Intake: IV 140 814 .9NS Coolant 100 Activase 25 Heparin drip 15 Right Antecubital 787 Right Hand 27 Blood Product 600 Output: Urine 125 Urethral (Weaver) 125 Other: Voiding Method Indwelling Catheter - Medications Active Medications: Active Medications Generic Name Dose Route Start Last Admin Trade Name Freq PRN Reason Stop Dose Admin Fentanyl 75 mcg 07/17/17 07:22 Fentanyl IVP Q3H PRN Pain, severe (8-10) Heparin Sodium/Dextrose 25,000 units in 250 mls @ 14.696 mls/hr 07/16/17 12: 14 07/17/17 08:34 Heparin 25,000 Units/250ml In D5w IV 18.98 units/kg/hr .Q17H1M PRN 15.5 mls/hr ADJUST RATE PER PROTOCOL Administration Protocol 18 UNITS/KG/HR Heparin Sodium (Porcine) 1,000 1,000 mls @ 5 mls/hr 07/16/17 17:33 07/16/17 21:43 units/ Sodium Chloride IV 07/25/17 01:32 Not Given ONCE ONE Sodium Chloride 1,000 mls @ 150 mls/hr 07/17/17 03:30 07/17/17 10:25 Sodium Chloride 0.9% IV 150 mls/hr .Q6H40M ORION Administration Propofol 1,000 mg in 100 mls @ 2.572 mls/hr 07/17/17 03:18 07/17/17 03:35 Diprivan IV 15 mcg/kg/min .Q24H PRN 7.716 mls/hr TITRATE PER MD ORDER Administration Protocol 5 MCG/KG/MIN - Patient Studies Lab Studies: Lab Studies 07/17/17 07/17/17 07/17/17 Range/Units 05:45 05:45 05:45 WBC 18.8 H (4.5-11.0) 10^3/ul RBC 4.51 (3.5-6.1) 10^6/uL Hgb 9.7 L (12.0-16.0) g/dL Hct 31.5 L (36.0-48.0) % MCV 69.8 L D (80.0-105.0) fl MCH 21.5 L (25.0-35.0) pg MCHC 30.8 L (31.0-37.0) g/dl Plt Count 290 (120.0-450.0) 10^3/uL MPV 8.9 (7.0-11.0) fl Gran % 84.6 H (50.0-68.0) % Lymph % (Auto) 7.3 L (22.0-35.0) % Pinal % (Auto) 7.9 H (1.0-6.0) % Eos % (Auto) 0.0 L (1.5-5.0) % Baso % (Auto) 0.2 (0.0-3.0) % Gran # 15.89 H (1.4-6.5) Lymph # 1.4 (1.2-3.4) Pinal # 1.5 H (0.1-0.6) Eos # 0.0 (0.0-0.7) Baso # 0.03 (0.0-2.0) K/mm3 PT 12.1 H (9.9-11.8) Seconds INR 1.12 H (0.93-1.08) APTT (23.7-30.8) Seconds pCO2 (35-45) mm/Hg pO2 (80-100) mm/Hg HCO3 (21-28) mmol/L ABG pH (7.35-7.45) ABG Total CO2 (22-28) mmol.L ABG O2 Saturation (95-98) % ABG Base Excess (-2.0-3.0) mmol/L ABG Potassium (3.6-5.2) mmol/L Glucose (65-105) mg/dl Lactate (0.7-2.1) mmol/L FiO2 % Sodium 132 (132-148) mmol/L Potassium 5.3 H (3.6-5.0) mmol/L Chloride 103 (98-107) mmol/L Carbon Dioxide 18 L (21-33) mmol/L Anion Gap 16 (10-20) BUN 14 (7-21) mg/dL Creatinine 0.9 (0.5-1.4) mg/dL Est GFR ( Amer) > 60 Est GFR (Non-Af Amer) > 60 Random Glucose 129 H (70-110) mg/dL Calcium 7.6 L (8.4-10.5) mg/dL Phosphorus (2.5-4.5) mg/dL Magnesium (1.7-2.2) mg/dL Total Bilirubin 1.3 (0.2-1.3) mg/dL AST 211 H D (14-36) U/L ALT 58 H (7-56) U/L Alkaline Phosphatase 84 (38-126) U/L Lactate Dehydrogenase 1390 H (333-699) U/L Total Creatine Kinase 17503 H (35-230) U/L CK-MB (CK-2) 83.1 H (0.0-3.6) ng/mL CK-MB (CK-2) % 0.4 L (2.5-3.0) % Troponin I 0.17 H* ng/mL Total Protein 5.7 L (5.8-8.3) g/dL Albumin 3.0 (3.0-4.8) g/dL Globulin 2.7 gm/dL Albumin/Globulin Ratio 1.1 (1.1-1.8) Arterial Blood Potassium (3.6-5.2) mmol/L 07/17/17 07/17/17 07/17/17 Range/Units 05:30 03:40 03:20 WBC (4.5-11.0) 10^3/ul RBC (3.5-6.1) 10^6/uL Hgb (12.0-16.0) g/dL Hct (36.0-48.0) % MCV (80.0-105.0) fl MCH (25.0-35.0) pg MCHC (31.0-37.0) g/dl Plt Count (120.0-450.0) 10^3/uL MPV (7.0-11.0) fl Gran % (50.0-68.0) % Lymph % (Auto) (22.0-35.0) % Pinal % (Auto) (1.0-6.0) % Eos % (Auto) (1.5-5.0) % Baso % (Auto) (0.0-3.0) % Gran # (1.4-6.5) Lymph # (1.2-3.4) Pinal # (0.1-0.6) Eos # (0.0-0.7) Baso # (0.0-2.0) K/mm3 PT (9.9-11.8) Seconds INR (0.93-1.08) APTT 58.9 H (23.7-30.8) Seconds pCO2 36 (35-45) mm/Hg pO2 273.0 H (80-100) mm/Hg HCO3 20.3 L (21-28) mmol/L ABG pH 7.36 (7.35-7.45) ABG Total CO2 21.4 L (22-28) mmol.L ABG O2 Saturation 100.1 H (95-98) % ABG Base Excess -4.5 L (-2.0-3.0) mmol/L ABG Potassium 4.9 (3.6-5.2) mmol/L Glucose 154 H (65-105) mg/dl Lactate 1.3 (0.7-2.1) mmol/L FiO2 100.0 % Sodium 129.0 L 130 L (132-148) mmol/L Potassium 5.1 H (3.6-5.0) mmol/L Chloride 103.0 102 (98-107) mmol/L Carbon Dioxide 19 L (21-33) mmol/L Anion Gap 14 (10-20) BUN 14 (7-21) mg/dL Creatinine 0.8 (0.5-1.4) mg/dL Est GFR ( Amer) > 60 Est GFR (Non-Af Amer) > 60 Random Glucose 136 H (70-110) mg/dL Calcium 8.0 L (8.4-10.5) mg/dL Phosphorus 5.9 H (2.5-4.5) mg/dL Magnesium 2.0 (1.7-2.2) mg/dL Total Bilirubin 1.1 (0.2-1.3) mg/dL AST 126 H D (14-36) U/L ALT 45 (7-56) U/L Alkaline Phosphatase 87 (38-126) U/L Lactate Dehydrogenase (333-699) U/L Total Creatine Kinase (35-230) U/L CK-MB (CK-2) (0.0-3.6) ng/mL CK-MB (CK-2) % (2.5-3.0) % Troponin I ng/mL Total Protein 5.8 (5.8-8.3) g/dL Albumin 3.0 (3.0-4.8) g/dL Globulin 2.8 gm/dL Albumin/Globulin Ratio 1.1 (1.1-1.8) Arterial Blood Potassium 4.9 (3.6-5.2) mmol/L 07/17/17 07/17/17 07/17/17 Range/Units 03:20 02:25 02:00 WBC 17.3 H D (4.5-11.0) 10^3/ul RBC 3.88 (3.5-6.1) 10^6/uL Hgb 7.8 L D (12.0-16.0) g/dL Hct 25.4 L (36.0-48.0) % MCV 65.6 L (80.0-105.0) fl MCH 20.1 L (25.0-35.0) pg MCHC 30.7 L (31.0-37.0) g/dl Plt Count 365 (120.0-450.0) 10^3/uL MPV 9.4 (7.0-11.0) fl Gran % 83.6 H (50.0-68.0) % Lymph % (Auto) 6.9 L (22.0-35.0) % Pinal % (Auto) 9.3 H (1.0-6.0) % Eos % (Auto) 0.0 L (1.5-5.0) % Baso % (Auto) 0.2 (0.0-3.0) % Gran # 14.46 H (1.4-6.5) Lymph # 1.2 (1.2-3.4) Pinal # 1.6 H (0.1-0.6) Eos # 0.0 (0.0-0.7) Baso # 0.04 (0.0-2.0) K/mm3 PT 12.9 H (9.9-11.8) Seconds INR 1.19 H (0.93-1.08) APTT > 180.0 H* (23.7-30.8) Seconds pCO2 (35-45) mm/Hg pO2 (80-100) mm/Hg HCO3 (21-28) mmol/L ABG pH (7.35-7.45) ABG Total CO2 (22-28) mmol.L ABG O2 Saturation (95-98) % ABG Base Excess (-2.0-3.0) mmol/L ABG Potassium (3.6-5.2) mmol/L Glucose (65-105) mg/dl Lactate (0.7-2.1) mmol/L FiO2 % Sodium (132-148) mmol/L Potassium (3.6-5.0) mmol/L Chloride (98-107) mmol/L Carbon Dioxide (21-33) mmol/L Anion Gap (10-20) BUN (7-21) mg/dL Creatinine (0.5-1.4) mg/dL Est GFR ( Amer) Est GFR (Non-Af Amer) Random Glucose (70-110) mg/dL Calcium (8.4-10.5) mg/dL Phosphorus (2.5-4.5) mg/dL Magnesium (1.7-2.2) mg/dL Total Bilirubin (0.2-1.3) mg/dL AST (14-36) U/L ALT (7-56) U/L Alkaline Phosphatase (38-126) U/L Lactate Dehydrogenase (333-699) U/L Total Creatine Kinase (35-230) U/L CK-MB (CK-2) (0.0-3.6) ng/mL CK-MB (CK-2) % (2.5-3.0) % Troponin I 0.18 H* D ng/mL Total Protein (5.8-8.3) g/dL Albumin (3.0-4.8) g/dL Globulin gm/dL Albumin/Globulin Ratio (1.1-1.8) Arterial Blood Potassium (3.6-5.2) mmol/L 07/16/17 07/16/17 Range/Units 23:55 20:40 WBC (4.5-11.0) 10^3/ul RBC (3.5-6.1) 10^6/uL Hgb (12.0-16.0) g/dL Hct (36.0-48.0) % MCV (80.0-105.0) fl MCH (25.0-35.0) pg MCHC (31.0-37.0) g/dl Plt Count (120.0-450.0) 10^3/uL MPV (7.0-11.0) fl Gran % (50.0-68.0) % Lymph % (Auto) (22.0-35.0) % Pinal % (Auto) (1.0-6.0) % Eos % (Auto) (1.5-5.0) % Baso % (Auto) (0.0-3.0) % Gran # (1.4-6.5) Lymph # (1.2-3.4) Pinal # (0.1-0.6) Eos # (0.0-0.7) Baso # (0.0-2.0) K/mm3 PT 12.7 H 11.7 (9.9-11.8) Seconds INR 1.18 H 1.08 (0.93-1.08) APTT > 180.0 H* 62.3 H (23.7-30.8) Seconds pCO2 (35-45) mm/Hg pO2 (80-100) mm/Hg HCO3 (21-28) mmol/L ABG pH (7.35-7.45) ABG Total CO2 (22-28) mmol.L ABG O2 Saturation (95-98) % ABG Base Excess (-2.0-3.0) mmol/L ABG Potassium (3.6-5.2) mmol/L Glucose (65-105) mg/dl Lactate (0.7-2.1) mmol/L FiO2 % Sodium (132-148) mmol/L Potassium (3.6-5.0) mmol/L Chloride (98-107) mmol/L Carbon Dioxide (21-33) mmol/L Anion Gap (10-20) BUN (7-21) mg/dL Creatinine (0.5-1.4) mg/dL Est GFR ( Amer) Est GFR (Non-Af Amer) Random Glucose (70-110) mg/dL Calcium (8.4-10.5) mg/dL Phosphorus (2.5-4.5) mg/dL Magnesium (1.7-2.2) mg/dL Total Bilirubin (0.2-1.3) mg/dL AST (14-36) U/L ALT (7-56) U/L Alkaline Phosphatase (38-126) U/L Lactate Dehydrogenase (333-699) U/L Total Creatine Kinase (35-230) U/L CK-MB (CK-2) (0.0-3.6) ng/mL CK-MB (CK-2) % (2.5-3.0) % Troponin I ng/mL Total Protein (5.8-8.3) g/dL Albumin (3.0-4.8) g/dL Globulin gm/dL Albumin/Globulin Ratio (1.1-1.8) Arterial Blood Potassium (3.6-5.2) mmol/L Laboratory Results - last 24 hr 07/16/17 07/16/17 07/17/17 20:40 23:55 02:00 WBC RBC Hgb Hct MCV MCH MCHC Plt Count MPV Gran % Lymph % (Auto) [place] % (Auto) Eos % (Auto) Baso % (Auto) Gran # Lymph # [place] # Eos # Baso # PT 11.7 12.7 H INR 1.08 1.18 H APTT 62.3 H > 180.0 H* pCO2 pO2 HCO3 ABG pH ABG Total CO2 ABG O2 Saturation ABG Base Excess ABG Potassium Glucose Lactate FiO2 Sodium Potassium Chloride Carbon Dioxide Anion Gap BUN Creatinine Est GFR ( Amer) Est GFR (Non-Af Amer) Random Glucose Calcium Phosphorus Magnesium Total Bilirubin AST ALT Alkaline Phosphatase Lactate Dehydrogenase Total Creatine Kinase CK-MB (CK-2) CK-MB (CK-2) % Troponin I 0.18 H* D Total Protein Albumin Globulin Albumin/Globulin Ratio Arterial Blood Potassium 07/17/17 07/17/17 07/17/17 02:25 03:20 03:20 WBC 17.3 H D RBC 3.88 Hgb 7.8 L D Hct 25.4 L MCV 65.6 L MCH 20.1 L MCHC 30.7 L Plt Count 365 MPV 9.4 Gran % 83.6 H Lymph % (Auto) 6.9 L [place] % (Auto) 9.3 H Eos % (Auto) 0.0 L Baso % (Auto) 0.2 Gran # 14.46 H Lymph # 1.2 [place] # 1.6 H Eos # 0.0 Baso # 0.04 PT 12.9 H INR 1.19 H APTT > 180.0 H* pCO2 pO2 HCO3 ABG pH ABG Total CO2 ABG O2 Saturation ABG Base Excess ABG Potassium Glucose Lactate FiO2 Sodium 130 L Potassium 5.1 H Chloride 102 Carbon Dioxide 19 L Anion Gap 14 BUN 14 Creatinine 0.8 Est GFR ( Amer) > 60 Est GFR (Non-Af Amer) > 60 Random Glucose 136 H Calcium 8.0 L Phosphorus 5.9 H Magnesium 2.0 Total Bilirubin 1.1 AST 126 H D ALT 45 Alkaline Phosphatase 87 Lactate Dehydrogenase Total Creatine Kinase CK-MB (CK-2) CK-MB (CK-2) % Troponin I Total Protein 5.8 Albumin 3.0 Globulin 2.8 Albumin/Globulin Ratio 1.1 Arterial Blood Potassium 07/17/17 07/17/17 07/17/17 03:40 05:30 05:45 WBC 18.8 H RBC 4.51 Hgb 9.7 L Hct 31.5 L MCV 69.8 L D MCH 21.5 L MCHC 30.8 L Plt Count 290 MPV 8.9 Gran % 84.6 H Lymph % (Auto) 7.3 L [place] % (Auto) 7.9 H Eos % (Auto) 0.0 L Baso % (Auto) 0.2 Gran # 15.89 H Lymph # 1.4 [place] # 1.5 H Eos # 0.0 Baso # 0.03 PT INR APTT 58.9 H pCO2 36 pO2 273.0 H HCO3 20.3 L ABG pH 7.36 ABG Total CO2 21.4 L ABG O2 Saturation 100.1 H ABG Base Excess -4.5 L ABG Potassium 4.9 Glucose 154 H Lactate 1.3 FiO2 100.0 Sodium 129.0 L Potassium Chloride 103.0 Carbon Dioxide Anion Gap BUN Creatinine Est GFR ( Amer) Est GFR (Non-Af Amer) Random Glucose Calcium Phosphorus Magnesium Total Bilirubin AST ALT Alkaline Phosphatase Lactate Dehydrogenase Total Creatine Kinase CK-MB (CK-2) CK-MB (CK-2) % Troponin I Total Protein Albumin Globulin Albumin/Globulin Ratio Arterial Blood Potassium 4.9 07/17/17 07/17/17 05:45 05:45 WBC RBC Hgb Hct MCV MCH MCHC Plt Count MPV Gran % Lymph % (Auto) [place] % (Auto) Eos % (Auto) Baso % (Auto) Gran # Lymph # [place] # Eos # Baso # PT 12.1 H INR 1.12 H APTT pCO2 pO2 HCO3 ABG pH ABG Total CO2 ABG O2 Saturation ABG Base Excess ABG Potassium Glucose Lactate FiO2 Sodium 132 Potassium 5.3 H Chloride 103 Carbon Dioxide 18 L Anion Gap 16 BUN 14 Creatinine 0.9 Est GFR ( Amer) > 60 Est GFR (Non-Af Amer) > 60 Random Glucose 129 H Calcium 7.6 L Phosphorus Magnesium Total Bilirubin 1.3 AST 211 H D ALT 58 H Alkaline Phosphatase 84 Lactate Dehydrogenase 1390 H Total Creatine Kinase 23923 H CK-MB (CK-2) 83.1 H CK-MB (CK-2) % 0.4 L Troponin I 0.17 H* Total Protein 5.7 L Albumin 3.0 Globulin 2.7 Albumin/Globulin Ratio 1.1 Arterial Blood Potassium Critical Care Progress Note - Nutrition Nutrition: Nutrition Category Date Time Status Heart Healthy Diet [DIET] Diets 07/17/17 Lunch Ordered Attending/Attestation - Attestation I have personally seen and examined this patient.: Yes I have fully participated in the care of the patient.: Yes I have reviewed all pertinent clinical information: Yes Notes (Text): 07/17/17 13:27 67 y/o F s/p Ischemic limb s/p interventional Vascular procedure and Vascular surgery thereafter w/ fem-pop bypass and fasciotomy . Currently pulses restored, pain improved and movement enabled. Intubated post -op, extubated today without difficulty. Post -op check by surgery , pt/ ot . Vascular checks. Will eventually need hypercoag -work up. dvt P w/ Heparin. Transition to p.o soon. cc time 55 min
[2017-07-17] MEDS: Heparin 25,000units in D5W 25,000 UNITS/250 ML BAG IV PRN ×2 (08:34→21:34)
--- NOTE | 2017-07-17 08:38 | CARD ---
APPROVED REPORT EKG Measurement Heart [id number] <Conclusion> Sinus rhythm with premature atrial complexes Minimal voltage criteria for LVH, may be normal variant Inferior infarct, age undetermined No change
--- NOTE | 2017-07-17 12:54 | OP ---
PREOPERATIVE DIAGNOSES: Acute ischemia, right leg paralysis, status post AngioJet pharmaco-mechanical thrombectomy, persistent ischemia. POSTOPERATIVE DIAGNOSES: Acute ischemia, right leg paralysis, status post AngioJet mechanical and chemical thrombectomy, persistent ischemia, right leg ischemia from embolism most likely from the heart. SURGEON: Elma Couch MD TYPE OF ANESTHESIA: General. PROCEDURE: Removal of Ecos catheter, Right leg popliteal anterior tibial and tibioperoneal thrombectomy, femoral embolectomy on-table angiogram x5, patch angioplasty popliteal artery, srjhpjpro-wprlqa-zvsnomav trunk bypass using reverse, greatest saphenous vein, right lower leg 4 compartment fasciotomy, muscle flap closure of popliteal fossa DESCRIPTION OF PROCEDURE: The patient was brought to the OR and placed supine on the OR table. After adequate general anesthesia had been accomplished, the entire right leg and the left groin were prepped with ChloraPrep and draped out as a sterile field. The Eco catheter was removed, and incision was made in the medial calf area to access the popliteal artery. The incision was extended down to subcutaneous tissue and fascia. The gastrocnemius muscle was retracted posteriorly exposing the popliteal artery was dissected out. The soleus muscle was taken down from the tibia to expose the popliteal bifurcation. After ligation of the anterior tibial vein, the anterior tibial artery was identified looped by using vessel loop and the tibial peroneal trunk was also looped by using vessel loop. After the patient was systematically heparinized an oblique arteriotomy in the popliteal artery just cephalad out to its bifurcation was made. Retrograde thrombectomy of the femoral and superficial femoral artery was attempted, this was productive of small amount of whitish fibrous material, however, there was no pulsatile flow. At this time, the left groin sheath was pulled back into the left iliac artery and secured. A femoral incision was made, a femoral artery and its bifurcation was dissected out and looped using vessel loop via a transverse common femoral arteriotomy both the superficial femoral artery and the profundus femoral artery were embolectomized using with a Sarika catheter, this was productive of large amount of whitish fibrous tissue. After that, pulsatile flow was noted. The femoral arteriotomy was repaired with 5-0 nylon continuous suture. Next, attention was turned to the popliteal artery. Attempted primary repair of the popliteal artery was unsuccessful, angiogram via the right groin showed occlusion at the popliteal artery. After multiple attempts at closure, we elected to take a piece of the greatest saphenous vein from the groin, reversed it and performed a popliteal to tibial peroneal trunk bypass. This was performed using 6-0 Prolene continuous suture, both the proximal and distal anastomosis. Upon completion of that a triphasic Doppler signal was noted at the posterior tibia at the ankle and on table angiogram also showed dye going into the foot. At this point, we elected to close. The groin was closed in layers using 2-0 Monocryl for the subcutaneous tissue and 4-0 Monocryl for subcuticular suture for skin. The medial calf was closed in layers using the medial head of the gastrocnemius muscle to cover the popliteal artery bypass. This was performed by approximating the gastrocnemius muscle to the fascia of the leg using 2-0 Monocryl interrupted suture. The skin was closed in 2 layers using a combination of full thickness 2-0 nylon mattress suture and skin boom. A full compartment fasciotomy was performed in the single incision manner by making incision into the anterior and lateral compartment aiming backward to posterior to the fibula at the ankle. Incision was extended through subcutaneous tissue and the fascia. The muscle was already bulging through the fascia. The intercompartmental fascia between the anterior and lateral compartment, and the lateral and superficial posterior compartment was incised using a Bovie and the deep posterior compartment was also released just posterior to the fibula. Sterile dressing was applied. The patient tolerated the procedure. She was left intubated towards the end of the procedure. She had runs of V-tach, she was left extubated and brought to the intensive care in critical condition. FINDINGS: The embolus removed from the blood vessel consists of whitish hard fibrin material suggestive of cardiac origin. Elma Couch MD [facility]
--- NOTE | 2017-07-17 13:10 | RAD ---
HISTORY: eval ett COMPARISON: 07/16/2017 FINDINGS: LUNGS: No active pulmonary disease. PLEURA: No significant pleural effusion identified, no pneumothorax apparent. CARDIOVASCULAR: ET tube tip approximately 3.8 cm above tracheal becky. Retrocardiac opacity on left side may represent hernia. OSSEOUS STRUCTURES: No significant abnormalities. VISUALIZED UPPER ABDOMEN: Normal. OTHER FINDINGS: None. IMPRESSION: ETT tip positioned approximately 3.8 cm above tracheal becky.
[2017-07-17 13:53] LABS: TROPONIN I 0.11 ng/mL
[2017-07-17 15:15] LABS: INR 1.19 (0.93-1.08); PARTIAL THROMBOPLASTIN TIME 72.8 Seconds (23.7-30.8)
--- NOTE | 2017-07-18 00:06 | CP.PCM.HP ---
History of Present Illness - History of Present Illness History of Present Illness: Patient is a 67 year old female discharged from hospital when she was admitted with hemoglobin of 4 gm/dl . She presented to ED with inability to walk, pain , numbness, whitish discoloration of right leg. Doppler of right leg showed complete occlusion of illac, femoral artery. She underwent chemical thrombectomy by IR, Dr. Sierra. Spoke to Dr. Sierra yesterday. Spoke to Dr. Couch, Vacsular Surgeon. She did emergent surgery on the limb. Extensive thrombosis was found in entire leg. Whitish fibrinious material aspirated from the arteries. Leg is warm now. She is unable to move leg yet. Troponins elevated. Hb/Hct stable. She had EGD prior to discharge showed gastric ulcer. Present on Admission - Present on Admission Any Indicators Present on Admission: No Review of Systems - Review of Systems Systems not reviewed;Unavailable: Acuity of Condition - Constitutional Constitutional: Fatigue, Malaise, Weakness - EENT Eyes: absent: As Per HPI, Blind Spots, Blurred Vision, Change in Vision, Decreased Night Vision, Diplopia, Discharge, Dry Eye, Exophthalmos, Floaters, Irritation, Itchy Eyes, Loss of Peripheral Vision, Pain, Photophobia, Requires Corrective Lenses, Sees Flashes, Spots in Vision, Tunnel Vision, Other Visual Disturbances, Loss of Vision, Other Ears: absent: As Per HPI, Decreased Hearing, Ear Discharge, Ear Pain, Tinnitus, Abnormal Hearing, Disequilibrium, Dizziness, Other Nose/Mouth/Throat: absent: As Per HPI, Epistaxis, Nasal Congestion, Nasal Discharge, Nasal Obstruction, Nasal Trauma, Nose Pain, Post Nasal Drip, Sinus Pain, Sinus Pressure, Bleeding Gums, Change in Voice, Dental Pain, Dry Mouth, Dysphagia, Halitosis, Hoarsness, Lip Swelling, Mouth Lesions, Mouth Pain, Odynophagia, Sore Throat, Throat Swelling, Tongue Swelling, Facial Pain, Neck Pain, Neck Mass, Other - Breasts Breasts: absent: As Per HPI, Change in Shape, Mass, Pain, Nipple Discharge, Nipple Inversion, Skin Changes, Swelling, Other - Cardiovascular Cardiovascular: As Per HPI - Respiratory Respiratory: absent: As Per HPI, Cough, Dyspnea, Hemoptysis, Dyspnea on Exertion , Wheezing, Snoring, Stridor, Pain on Inspiration, Chest Congestion, Excessive Mucous Production, Change in Mucous Color, Pain with Coughing, Other - Gastrointestinal Gastrointestinal: absent: As Per HPI, Abdominal Pain, Belching, Bloating, Change in Bowel Habits, Change in Stool Character, Coffee Ground Emesis, Constipation, Cramping, Diarrhea, Dyspepsia, Dysphagia, Early Satiety, Excessive Flatus, Fecal Incontinence, Heartburn, Hematemesis, Hematochezia, Loose Stools, Melena, Nausea, Odynophagia, Temesmus, Vomiting, Other - Genitourinary Genitourinary: absent: As Per HPI, Change in Urinary Stream, Difficulty Urinating, Dysuria, Flank Pain, Hematuria, Pyuria, Nocturia, Urinary Incontinence, Urinary Frequency, Urinary Hesitance, Urinary Urgency, Voiding Freq/Small Amts, Freq UTI, Hx Renal/Bladder Calculi, Hx /Renal Surgery, Bladder Distension, Other - Musculoskeletal Musculoskeletal: As Per HPI - Neurological Neurological: absent: As Per HPI, Abnormal Gait, Abnormal Hearing, Abnormal Movements, Abnormal Speech, Behavioral Changes, Burning Sensations, Confusion, Convulsions, Disequilibrium, Dizziness, Numbness, Focal Weakness, Frequent Falls , Headaches, Lack of Coordination, Loss of Vision, Memory Loss, Paresthesias, Radicular Pain, Restless Legs, Sensory Deficit, Syncope, Tingling, Tremor, Vertigo, Weakness, Other Visual Disturbances, Other - Psychiatric Psychiatric: absent: As Per HPI, Abnormal Sleep Pattern, Anhedonia, Anxiety, Auditory Hallucinations, Behavioral Changes, Change in Appetite, Change in Libido, Confusion, Depression, Difficulty Concentrating, Hallucinations, Homicidal Ideation, Hopelessness, Irritability, Memory Loss, Mood Swings, Panic Attacks, Paranoia, Suicidal Ideation, Visual Hallucinations, Tactile Hallucinations, Other - Endocrine Endocrine: absent: As Per HPI, Change in Body Appearance, Change in Libido, Cold Intolorance, Deepening of Voice, Excessive Sweating, Fatigue, Flushing, Heat Intolorance, Increase in Ring/Shoe/Hat Size, Palpitations, Polydipsia, Polyphagia, Polyuria, Other - Hematologic/Lymphatic Hematologic: As Per HPI Past Patient History - Infectious Disease Hx of Infectious Diseases: None - Past Medical History & Family History Past Medical History?: Yes Past Family History: Reviewed and not pertinent - Past Social History Smoking Status: Former Smoker - CARDIAC Hx Cardiac Disorders: Yes (MV PROLAPSE) Hx Hypercholesterolemia: Yes Hx Hypertension: Yes Hx Peripheral Vascular Disease: Yes - PULMONARY Hx Respiratory Disorders: Yes (SMOKED PPD .QUIT 10 YRS AGO) Hx Bronchitis: Yes Hx Pneumonia: Yes Hx Respiratory Tract Infection: Yes - NEUROLOGICAL Hx Neurological Disorder: Yes Hx Dizziness: Yes - HEENT Hx HEENT Problems: No - RENAL Hx Chronic Kidney Disease: No - ENDOCRINE/METABOLIC Hx Endocrine Disorders: No - HEMATOLOGICAL/ONCOLOGICAL Hx Blood Transfusions: Yes Hx Blood Transfusion Reaction: No - INTEGUMENTARY Hx Dermatological Problems: No - MUSCULOSKELETAL/RHEUMATOLOGICAL Hx Musculoskeletal Disorders: Yes (RIGHT LEG NUMBNESS,PAIN AND WEAK-ISCHEMIC LOWER EXTREMITY) Hx Falls: No Hx Unsteady Gait: Yes - GASTROINTESTINAL Hx Gastrointestinal Disorders: Yes Hx Ulcer: Yes (NON BLEEDING.) - GENITOURINARY/GYNECOLOGICAL Hx Genitourinary Disorders: Yes Hx Urinary Tract Infection: Yes - PSYCHIATRIC Hx Psychophysiologic Disorder: Yes Hx Panic Symptoms: Yes Hx Substance Use: No - SURGICAL HISTORY Hx Surgeries: Yes - ANESTHESIA Hx Anesthesia Reactions: No Hx Malignant Hyperthermia: No Meds Allergies/Adverse Reactions: Allergies Allergy/AdvReac Type Severity Reaction Status Date / Time levofloxacin [From Levaquin] Allergy RASH Verified 07/16/17 15:50 Physical Exam - Constitutional Appears: Well - Head Exam Head Exam: ATRAUMATIC, NORMAL INSPECTION, NORMOCEPHALIC - Eye Exam Eye Exam: Normal appearance - ENT Exam ENT Exam: Mucous Membranes Dry, Mucous Membranes Moist, Normal Exam - Neck Exam Neck exam: Positive for: Normal Inspection - Respiratory Exam Respiratory Exam: Clear to Auscultation Bilateral, NORMAL BREATHING PATTERN - Cardiovascular Exam Cardiovascular Exam: REGULAR RHYTHM, +S1, +S2 - GI/Abdominal Exam GI & Abdominal Exam: Normal Bowel Sounds, Soft - Extremities Exam Additional comments: right leg in dressing. - Neurological Exam Neurological exam: Alert, CN II-XII Intact, Oriented x3 - Psychiatric Exam Psychiatric exam: Normal Affect, Normal Mood - Skin Skin Exam: Normal Color, Pallor Results - Vital Signs Recent Vital Signs: Last Vital Signs Temp 98.2 F 07/17/17 12:00 Pulse 90 07/17/17 21:41 Resp 21 07/17/17 21:41 BP 146/72 07/17/17 21:41 Pulse Ox 100 07/17/17 21:35 - Labs Result Diagrams: 07/17/17 05:45 07/17/17 05:45 Labs: Laboratory Results - last 24 hr 07/16/17 07/17/17 07/17/17 23:55 02:00 02:25 WBC RBC Hgb Hct MCV MCH MCHC Plt Count MPV Gran % Lymph % (Auto) [place] % (Auto) Eos % (Auto) Baso % (Auto) Gran # Lymph # [place] # Eos # Baso # PT 12.7 H 12.9 H INR 1.18 H 1.19 H APTT > 180.0 H* > 180.0 H* pCO2 pO2 HCO3 ABG pH ABG Total CO2 ABG O2 Saturation ABG Base Excess ABG Potassium Glucose Lactate FiO2 Sodium Potassium Chloride Carbon Dioxide Anion Gap BUN Creatinine Est GFR ( Amer) Est GFR (Non-Af Amer) POC Glucose (mg/dL) Random Glucose Calcium Phosphorus Magnesium Total Bilirubin AST ALT Alkaline Phosphatase Lactate Dehydrogenase Total Creatine Kinase CK-MB (CK-2) CK-MB (CK-2) % Troponin I 0.18 H* D Total Protein Albumin Globulin Albumin/Globulin Ratio Arterial Blood Potassium 07/17/17 07/17/17 07/17/17 03:20 03:20 03:40 WBC 17.3 H D RBC 3.88 Hgb 7.8 L D Hct 25.4 L MCV 65.6 L MCH 20.1 L MCHC 30.7 L Plt Count 365 MPV 9.4 Gran % 83.6 H Lymph % (Auto) 6.9 L [place] % (Auto) 9.3 H Eos % (Auto) 0.0 L Baso % (Auto) 0.2 Gran # 14.46 H Lymph # 1.2 [place] # 1.6 H Eos # 0.0 Baso # 0.04 PT INR APTT pCO2 36 pO2 273.0 H HCO3 20.3 L ABG pH 7.36 ABG Total CO2 21.4 L ABG O2 Saturation 100.1 H ABG Base Excess -4.5 L ABG Potassium 4.9 Glucose 154 H Lactate 1.3 FiO2 100.0 Sodium 130 L 129.0 L Potassium 5.1 H Chloride 102 103.0 Carbon Dioxide 19 L Anion Gap 14 BUN 14 Creatinine 0.8 Est GFR ( Amer) > 60 Est GFR (Non-Af Amer) > 60 POC Glucose (mg/dL) Random Glucose 136 H Calcium 8.0 L Phosphorus 5.9 H Magnesium 2.0 Total Bilirubin 1.1 AST 126 H D ALT 45 Alkaline Phosphatase 87 Lactate Dehydrogenase Total Creatine Kinase CK-MB (CK-2) CK-MB (CK-2) % Troponin I Total Protein 5.8 Albumin 3.0 Globulin 2.8 Albumin/Globulin Ratio 1.1 Arterial Blood Potassium 4.9 07/17/17 07/17/17 07/17/17 05:30 05:45 05:45 WBC 18.8 H RBC 4.51 Hgb 9.7 L Hct 31.5 L MCV 69.8 L D MCH 21.5 L MCHC 30.8 L Plt Count 290 MPV 8.9 Gran % 84.6 H Lymph % (Auto) 7.3 L [place] % (Auto) 7.9 H Eos % (Auto) 0.0 L Baso % (Auto) 0.2 Gran # 15.89 H Lymph # 1.4 [place] # 1.5 H Eos # 0.0 Baso # 0.03 PT 12.1 H INR 1.12 H APTT 58.9 H pCO2 pO2 HCO3 ABG pH ABG Total CO2 ABG O2 Saturation ABG Base Excess ABG Potassium Glucose Lactate FiO2 Sodium Potassium Chloride Carbon Dioxide Anion Gap BUN Creatinine Est GFR ( Amer) Est GFR (Non-Af Amer) POC Glucose (mg/dL) Random Glucose Calcium Phosphorus Magnesium Total Bilirubin AST ALT Alkaline Phosphatase Lactate Dehydrogenase Total Creatine Kinase CK-MB (CK-2) CK-MB (CK-2) % Troponin I Total Protein Albumin Globulin Albumin/Globulin Ratio Arterial Blood Potassium 07/17/17 07/17/17 07/17/17 05:45 13:20 14:15 WBC RBC Hgb Hct MCV MCH MCHC Plt Count MPV Gran % Lymph % (Auto) [place] % (Auto) Eos % (Auto) Baso % (Auto) Gran # Lymph # [place] # Eos # Baso # PT 12.8 H INR 1.19 H APTT 72.8 H* pCO2 pO2 HCO3 ABG pH ABG Total CO2 ABG O2 Saturation ABG Base Excess ABG Potassium Glucose Lactate FiO2 Sodium 132 Potassium 5.3 H Chloride 103 Carbon Dioxide 18 L Anion Gap 16 BUN 14 Creatinine 0.9 Est GFR ( Amer) > 60 Est GFR (Non-Af Amer) > 60 POC Glucose (mg/dL) Random Glucose 129 H Calcium 7.6 L Phosphorus Magnesium Total Bilirubin 1.3 AST 211 H D ALT 58 H Alkaline Phosphatase 84 Lactate Dehydrogenase 1390 H 2869 H Total Creatine Kinase 55629 H 82313 H CK-MB (CK-2) 83.1 H 311.0 H CK-MB (CK-2) % 0.4 L 0.5 L Troponin I 0.17 H* 0.11 D Total Protein 5.7 L Albumin 3.0 Globulin 2.7 Albumin/Globulin Ratio 1.1 Arterial Blood Potassium 07/17/17 07/17/17 17:56 20:42 WBC RBC Hgb Hct MCV MCH MCHC Plt Count MPV Gran % Lymph % (Auto) [place] % (Auto) Eos % (Auto) Baso % (Auto) Gran # Lymph # [place] # Eos # Baso # PT INR APTT pCO2 pO2 HCO3 ABG pH ABG Total CO2 ABG O2 Saturation ABG Base Excess ABG Potassium Glucose Lactate FiO2 Sodium Potassium Chloride Carbon Dioxide Anion Gap BUN Creatinine Est GFR ( Amer) Est GFR (Non-Af Amer) POC Glucose (mg/dL) 43 L 148 H Random Glucose Calcium Phosphorus Magnesium Total Bilirubin AST ALT Alkaline Phosphatase Lactate Dehydrogenase Total Creatine Kinase CK-MB (CK-2) CK-MB (CK-2) % Troponin I Total Protein Albumin Globulin Albumin/Globulin Ratio Arterial Blood Potassium Assessment & Plan - Assessment and Plan (Free Text) Assessment: 1. Right leg ischemia, s/p revascularization 2. s/p thrombectomy, fasciotomy right calf 3. Hypercoaguable state. 4. severe anemia s/p 4 units PRBC recent 5. Severe iron deficiency Plan : on heparin drip. therapeutic. Hypercoaguable work up ordered. She will need work to rule out occult malignancy because of extensive arterial thrombosis. She will need life long anticoagulation. Work for anemia in progress- EGD no evidence of active bleed. Colonoscopy electively. Cardiology consult Dr. Shannon requested. Discussed with the , daughter bed side. discussed with Dr. Couch.
[2017-07-18] MEDS: Sodium Chloride 0.9% 1,000 ML IV SCH (05:24)
[2017-07-18 07:29] LABS: BASO # 0.02 K/mm3 (0.0-2.0); BASO % 0.1 % (0.0-3.0); GRAN # 13.65 (1.4-6.5); GRAN % 79.5 % (50.0-68.0); LYMPH # 1.7 (1.2-3.4); LYMPH % 9.7 % (22.0-35.0); MEAN CELL VOLUME 70.8 fl (80.0-105.0); MEAN CORPUSCULAR HEMOGLOBIN 22.5 pg (25.0-35.0); MEAN CORPUSCULAR HGB CONC 31.8 g/dl (31.0-37.0); MONO # 1.8 (0.1-0.6); MONO % 10.7 % (1.0-6.0); PLATELET COUNT 179 10^3/uL (120.0-450.0); WHITE BLOOD COUNT 17.2 10^3/ul (4.5-11.0)
[2017-07-18 07:35] LABS: HEMATOCRIT 23.3 % (36.0-48.0)
[2017-07-18 07:45] LABS: ALB/GLOB RATIO 0.9 (1.1-1.8); BILIRUBIN,TOTAL 0.9 mg/dL (0.2-1.3); CALCIUM 7.2 mg/dL (8.4-10.5); MAGNESIUM 1.9 mg/dL (1.7-2.2); PHOSPHOROUS 3.6 mg/dL (2.5-4.5); POTASSIUM 4.6 mmol/L (3.6-5.0); TOTAL PROTEIN 4.5 g/dL (5.8-8.3)
[2017-07-18 07:54] LABS: INR 1.26 (0.93-1.08)
[2017-07-18 07:58] LABS: PARTIAL THROMBOPLASTIN TIME 171.8 Seconds (23.7-30.8)
--- NOTE | 2017-07-18 08:13 | CP.PCM.PN ---
Subjective - Date & Time of Evaluation Date of Evaluation: 07/18/17 Time of Evaluation: 07:30 - Subjective Subjective: SURGERY NOTE FOR DR. ISLAS 67F seen and examined at bedside. Patient resting comfortably, admits to mild pain in the leg at the site of operation, Denies numbness and tingling in the foot. Denies increase in pain. Objective - Vital Signs/Intake and Output Vital Signs (last 24 hours): Temp Pulse Resp BP Pulse Ox 98.8 F 84 18 122/68 99 07/18/17 02:00 07/18/17 06:00 07/18/17 02:00 07/18/17 02:00 07/18/17 02:00 Intake and Output: 07/18/17 07/18/17 06:59 18:59 Intake Total 2716 Output Total 600 Balance 2116 - Medications Medications: Current Medications Clopidogrel Bisulfate (Plavix) 75 mg PO DAILY ORION Fentanyl (Fentanyl) 75 mcg IVP Q3H PRN PRN Reason: Pain, severe (8-10) Heparin Sodium/Dextrose (Heparin 25,000 Units/250ml In D5w) 25,000 units in 250 mls @ 14.696 mls/hr IV .Q17H1M PRN; Protocol; 18 UNITS/KG/HR PRN Reason: ADJUST RATE PER PROTOCOL Last Admin: 07/17/17 21:34 Dose: 18.98 units/kg/hr, 15.5 mls/hr Heparin Sodium (Porcine) 1,000 (units/ Sodium Chloride) 1,000 mls @ 5 mls/hr IV ONCE ONE Stop: 07/25/17 01:32 Last Admin: 07/16/17 21:43 Dose: Not Given Sodium Chloride (Sodium Chloride 0.9%) 1,000 mls @ 150 mls/hr IV .Q6H40M ORION Last Admin: 07/18/17 05:24 Dose: 150 mls/hr Propofol (Diprivan) 1,000 mg in 100 mls @ 2.572 mls/hr IV .Q24H PRN; Protocol; 5 MCG/KG/MIN PRN Reason: TITRATE PER MD ORDER Last Admin: 07/17/17 03:35 Dose: 15 mcg/kg/min, 7.716 mls/hr - Labs Labs: 07/18/17 07:20 07/18/17 07:20 PT 13.6 Seconds (9.9-11.8) H 07/18/17 07:20 INR 1.26 (0.93-1.08) H 07/18/17 07:20 APTT 171.8 Seconds (23.7-30.8) H* 07/18/17 07:20 - Constitutional Appears: Non-toxic, No Acute Distress - Respiratory Exam Respiratory Exam: Clear to Ausculation Bilateral, NORMAL BREATHING PATTERN - Cardiovascular Exam Cardiovascular Exam: REGULAR RHYTHM, +S1, +S2 - Extremities Exam Additional comments: left leg: dopplerable signals in DP/PT Right leg: dopperable signals in DP/PT Right thigh incision/ mid lower leg incision CDI Right leg fasciotomy sign clean, dry. Dressing moderately saturated with serosang fluid. - leg redressed. - Neurological Exam Neurological Exam: Alert, Awake - Skin Skin Exam: Dry, Intact, Normal Color, Warm Assessment and Plan - Assessment and Plan (Free Text) Assessment: 67F s/p Right leg Femoral/Popliteal embolectomy. Right leg Popliteal/Tibial/ Peroneal bypass, Right leg fasciotomy. POD2 Plan: - LE vascular checks. - Continue to monitor vitals - continue heparin - Dressing changes - monitor Fasciotomy site - f/u CBC/PT/PTT this afternoon Further recs discuss with Dr. Khoa Bazan, PGY2
--- NOTE | 2017-07-18 09:02 | CP.CCUPN ---
<Rajat Zelaya - Last Filed: 07/18/17 17:11> CCU Subjective - Physician Review Subjective (Free Text): 07/18/17 08:59 Pt is s/e at bedside this AM in ICU. Overnight patient was noted to have saturated dressings of right lower leg, more dressings were applied. Hgb shown to drop today from 9.6 to 7.4. Patient is asymptomatic with VSS. Patient reports continued pain in right lower extremity. She reports motor and sensory intact and improved with in past 24H. Patient dressings were changed this AM. She remains hemodynamically stable at this time. Denies chest pain, shob, n/v/f/ c/ab pain. CCU Objective - Vital Signs / Intake & Output Vital Signs (Last 4 hours): Vital Signs Temp Pulse Resp BP Pulse Ox 07/18/17 08:10 82 25 H 97 07/18/17 08:05 84 22 96 07/18/17 08:00 83 25 H 98 07/18/17 07:55 79 18 100 07/18/17 07:50 84 30 H 100 07/18/17 07:49 82 17 07/18/17 07:48 83 13 07/18/17 07:47 82 27 H 07/18/17 07:45 83 20 100 07/18/17 07:43 83 18 07/18/17 07:42 87 07/18/17 07:40 82 21 96 07/18/17 07:35 86 25 H 95 07/18/17 07:33 87 17 112/58 L 99 07/18/17 07:30 89 99 07/18/17 07:25 89 28 H 100 07/18/17 07:20 84 27 H 99 07/18/17 07:17 85 27 H 127/57 L 97 07/18/17 07:15 85 26 H 98 07/18/17 07:13 86 25 H 120/66 98 07/18/17 07:10 94 H 26 H 100 07/18/17 07:05 84 26 H 98 07/18/17 07:00 87 27 H 99 07/18/17 06:55 85 31 H 99 07/18/17 06:50 87 31 H 99 07/18/17 06:45 84 25 H 99 07/18/17 06:42 85 28 H 115/55 L 97 07/18/17 06:40 85 26 H 98 07/18/17 06:35 85 28 H 98 07/18/17 06:30 82 27 H 99 07/18/17 06:25 84 22 98 07/18/17 06:20 86 27 H 100 07/18/17 06:15 85 26 H 99 07/18/17 06:12 83 29 H 124/65 99 07/18/17 06:10 84 23 97 07/18/17 06:05 83 26 H 99 07/18/17 06:00 98.9 F 82 26 H 122/68 98 07/18/17 05:55 85 21 100 07/18/17 05:50 85 24 97 07/18/17 05:45 90 29 H 99 07/18/17 05:40 85 28 H 98 07/18/17 05:35 86 29 H 98 07/18/17 05:30 87 29 H 98 Intake and Output (Last 8hrs): Intake & Output 07/17/17 07/18/17 07/18/17 22:59 06:59 14:59 Intake Total 2486 2466 147 Output Total 500 600 Balance 1985 1866 147 Intake: IV 2246 1985 147 Heparin drip 1985 186 Right Hand 10 1800 Oral 240 480 Output: Urine 500 600 Urethral (Weaver) 500 600 Other: # Bowel Movements 0 - Physical Exam Head: Positive for: Atraumatic, Normocephalic Pupils: Positive for: PERRL Extroacular Muscles: Positive for: EOMI Conjunctiva: Positive for: Normal Mouth: Positive for: Moist Mucous Membranes Neck: Positive for: Normal Range of Motion Respiratory/Chest: Positive for: Clear to Auscultation, Good Air Exchange. Negative for: Respiratory Distress, Accessory Muscle Use Cardiovascular: Positive for: Regular Rate and Rhythm, Normal S1, S2, Other ( systolic ejection murmur grade 3/6). Negative for: Murmurs Abdomen: Positive for: Normal Bowel Sounds. Negative for: Tenderness, Distention, Peritoneal Signs Back: Positive for: Normal Inspection Upper Extremity: Positive for: Normal Inspection. Negative for: Cyanosis, Edema Lower Extremity: Positive for: Capillary Refill < 2 s (Right lower extremity: delayed cap refill), Other (Right leg with surgical dressing c/d/i, RLE cool to touch continues to improve from previous exam, Right DP and PT pulses present via Doppler, Left DP, PT present via doppler ). Negative for: NORMAL PULSES ( lle good pulses. Right lower extremity: No palpable pulses.), Normal ROM ( Decreased ROM right lower extremity), Tenderness Neurological: Positive for: GCS=15, CN II-XII Intact, Speech Normal Skin: Positive for: Cold (Right leg cool to touch, improved from 24H prior,), Other (left antecubital fossa with bullous phemgoid appearing blister and open blister that is non-oozing and erythematous ) Psychiatric: Positive for: Alert, Oriented x 3, Normal Insight, Normal Concentration - Medications Active Medications: Active Medications Generic Name Dose Route Start Last Admin Trade Name Freq PRN Reason Stop Dose Admin Clopidogrel Bisulfate 75 mg 07/18/17 10:00 Plavix PO DAILY ORION Fentanyl 75 mcg 07/17/17 07:22 Fentanyl IVP Q3H PRN Pain, severe (8-10) Heparin Sodium/Dextrose 25,000 units in 250 mls @ 14.696 mls/hr 07/16/17 12: 14 07/18/17 08:29 Heparin 25,000 Units/250ml In D5w IV 0 units/kg/hr .Q17H1M PRN 0 mls/hr ADJUST RATE PER PROTOCOL Titration Protocol 18 UNITS/KG/HR Heparin Sodium (Porcine) 1,000 1,000 mls @ 5 mls/hr 07/16/17 17:33 07/16/17 21:43 units/ Sodium Chloride IV 07/25/17 01:32 Not Given ONCE ONE Sodium Chloride 1,000 mls @ 150 mls/hr 07/17/17 03:30 07/18/17 05:24 Sodium Chloride 0.9% IV 150 mls/hr .Q6H40M ORION Administration Propofol 1,000 mg in 100 mls @ 2.572 mls/hr 07/17/17 03:18 07/17/17 03:35 Diprivan IV 15 mcg/kg/min .Q24H PRN 7.716 mls/hr TITRATE PER MD ORDER Administration Protocol 5 MCG/KG/MIN - Patient Studies Lab Studies: Lab Studies 07/18/17 07/18/17 07/18/17 Range/Units 07:39 07:20 07:20 WBC 17.2 H RBC 3.29 L Hgb 7.4 L D Hct 23.3 L MCV 70.8 L MCH 22.5 L MCHC 31.8 RDW Plt Count 179 MPV Gran % 79.5 H Lymph % (Auto) 9.7 L [place] % (Auto) 10.7 H Eos % (Auto) 0.0 L Baso % (Auto) 0.1 Gran # 13.65 H Lymph # 1.7 [place] # 1.8 H Eos # 0.0 Baso # 0.02 PT 13.6 H (9.9-11.8) Seconds INR 1.26 H (0.93-1.08) APTT 171.8 H* (23.7-30.8) Seconds Sodium (132-148) mmol/L Potassium (3.6-5.0) mmol/L Chloride (98-107) mmol/L Carbon Dioxide (21-33) mmol/L Anion Gap (10-20) BUN (7-21) mg/dL Creatinine (0.5-1.4) mg/dL Est GFR ( Amer) Est GFR (Non-Af Amer) POC Glucose (mg/dL) 159 H (65-110) mg/dL Random Glucose (70-110) mg/dL Calcium (8.4-10.5) mg/dL Phosphorus (2.5-4.5) mg/dL Magnesium (1.7-2.2) mg/dL Total Bilirubin (0.2-1.3) mg/dL AST (14-36) U/L ALT (7-56) U/L Alkaline Phosphatase (38-126) U/L Lactate Dehydrogenase (333-699) U/L Total Creatine Kinase (35-230) U/L CK-MB (CK-2) (0.0-3.6) ng/mL CK-MB (CK-2) % (2.5-3.0) % Troponin I ng/mL Total Protein (5.8-8.3) g/dL Albumin (3.0-4.8) g/dL Globulin gm/dL Albumin/Globulin Ratio (1.1-1.8) 07/18/17 07/18/17 07/17/17 Range/Units 07:20 05:50 20:42 WBC Cancelled RBC Cancelled Hgb Cancelled Hct Cancelled MCV Cancelled MCH Cancelled MCHC Cancelled RDW Cancelled Plt Count Cancelled MPV Cancelled Gran % Cancelled Lymph % (Auto) Cancelled [place] % (Auto) Cancelled Eos % (Auto) Cancelled Baso % (Auto) Cancelled Gran # Cancelled Lymph # Cancelled [place] # Cancelled Eos # Cancelled Baso # Cancelled PT (9.9-11.8) Seconds INR (0.93-1.08) APTT (23.7-30.8) Seconds Sodium 132 (132-148) mmol/L Potassium 4.6 (3.6-5.0) mmol/L Chloride 108 H (98-107) mmol/L Carbon Dioxide 18 L (21-33) mmol/L Anion Gap 11 (10-20) BUN 37 H (7-21) mg/dL Creatinine 1.2 (0.5-1.4) mg/dL Est GFR ( Amer) 54 Est GFR (Non-Af Amer) 45 POC Glucose (mg/dL) 148 H (65-110) mg/dL Random Glucose 127 H (70-110) mg/dL Calcium 7.2 L (8.4-10.5) mg/dL Phosphorus 3.6 (2.5-4.5) mg/dL Magnesium 1.9 (1.7-2.2) mg/dL Total Bilirubin 0.9 (0.2-1.3) mg/dL AST 890 H D (14-36) U/L ALT 168 H (7-56) U/L Alkaline Phosphatase 59 (38-126) U/L Lactate Dehydrogenase (333-699) U/L Total Creatine Kinase (35-230) U/L CK-MB (CK-2) (0.0-3.6) ng/mL CK-MB (CK-2) % (2.5-3.0) % Troponin I ng/mL Total Protein 4.5 L (5.8-8.3) g/dL Albumin 2.1 L (3.0-4.8) g/dL Globulin 2.4 gm/dL Albumin/Globulin Ratio 0.9 L (1.1-1.8) 07/17/17 07/17/17 07/17/17 Range/Units 17:56 14:15 13:20 WBC RBC Hgb Hct MCV MCH MCHC RDW Plt Count MPV Gran % Lymph % (Auto) [place] % (Auto) Eos % (Auto) Baso % (Auto) Gran # Lymph # [place] # Eos # Baso # PT 12.8 H (9.9-11.8) Seconds INR 1.19 H (0.93-1.08) APTT 72.8 H* (23.7-30.8) Seconds Sodium (132-148) mmol/L Potassium (3.6-5.0) mmol/L Chloride (98-107) mmol/L Carbon Dioxide (21-33) mmol/L Anion Gap (10-20) BUN (7-21) mg/dL Creatinine (0.5-1.4) mg/dL Est GFR ( Amer) Est GFR (Non-Af Amer) POC Glucose (mg/dL) 43 L (65-110) mg/dL Random Glucose (70-110) mg/dL Calcium (8.4-10.5) mg/dL Phosphorus (2.5-4.5) mg/dL Magnesium (1.7-2.2) mg/dL Total Bilirubin (0.2-1.3) mg/dL AST (14-36) U/L ALT (7-56) U/L Alkaline Phosphatase (38-126) U/L Lactate Dehydrogenase 2869 H (333-699) U/L Total Creatine Kinase 86548 H (35-230) U/L CK-MB (CK-2) 311.0 H (0.0-3.6) ng/mL CK-MB (CK-2) % 0.5 L (2.5-3.0) % Troponin I 0.11 D ng/mL Total Protein (5.8-8.3) g/dL Albumin (3.0-4.8) g/dL Globulin gm/dL Albumin/Globulin Ratio (1.1-1.8) Laboratory Results - last 24 hr 07/17/17 07/17/17 07/17/17 13:20 14:15 17:56 WBC RBC Hgb Hct MCV MCH MCHC RDW Plt Count MPV Gran % Lymph % (Auto) [place] % (Auto) Eos % (Auto) Baso % (Auto) Gran # Lymph # [place] # Eos # Baso # PT 12.8 H INR 1.19 H APTT 72.8 H* Sodium Potassium Chloride Carbon Dioxide Anion Gap BUN Creatinine Est GFR ( Amer) Est GFR (Non-Af Amer) POC Glucose (mg/dL) 43 L Random Glucose Calcium Phosphorus Magnesium Total Bilirubin AST ALT Alkaline Phosphatase Lactate Dehydrogenase 2869 H Total Creatine Kinase 58984 H CK-MB (CK-2) 311.0 H CK-MB (CK-2) % 0.5 L Troponin I 0.11 D Total Protein Albumin Globulin Albumin/Globulin Ratio 07/17/17 07/18/17 07/18/17 20:42 05:50 07:20 WBC Cancelled RBC Cancelled Hgb Cancelled Hct Cancelled MCV Cancelled MCH Cancelled MCHC Cancelled RDW Cancelled Plt Count Cancelled MPV Cancelled Gran % Cancelled Lymph % (Auto) Cancelled [place] % (Auto) Cancelled Eos % (Auto) Cancelled Baso % (Auto) Cancelled Gran # Cancelled Lymph # Cancelled [place] # Cancelled Eos # Cancelled Baso # Cancelled PT INR APTT Sodium 132 Potassium 4.6 Chloride 108 H Carbon Dioxide 18 L Anion Gap 11 BUN 37 H Creatinine 1.2 Est GFR ( Amer) 54 Est GFR (Non-Af Amer) 45 POC Glucose (mg/dL) 148 H Random Glucose 127 H Calcium 7.2 L Phosphorus 3.6 Magnesium 1.9 Total Bilirubin 0.9 AST 890 H D ALT 168 H Alkaline Phosphatase 59 Lactate Dehydrogenase Total Creatine Kinase CK-MB (CK-2) CK-MB (CK-2) % Troponin I Total Protein 4.5 L Albumin 2.1 L Globulin 2.4 Albumin/Globulin Ratio 0.9 L 07/18/17 07/18/17 07/18/17 07:20 07:20 07:39 WBC 17.2 H RBC 3.29 L Hgb 7.4 L D Hct 23.3 L MCV 70.8 L MCH 22.5 L MCHC 31.8 RDW Plt Count 179 MPV Gran % 79.5 H Lymph % (Auto) 9.7 L [place] % (Auto) 10.7 H Eos % (Auto) 0.0 L Baso % (Auto) 0.1 Gran # 13.65 H Lymph # 1.7 [place] # 1.8 H Eos # 0.0 Baso # 0.02 PT 13.6 H INR 1.26 H APTT 171.8 H* Sodium Potassium Chloride Carbon Dioxide Anion Gap BUN Creatinine Est GFR ( Amer) Est GFR (Non-Af Amer) POC Glucose (mg/dL) 159 H Random Glucose Calcium Phosphorus Magnesium Total Bilirubin AST ALT Alkaline Phosphatase Lactate Dehydrogenase Total Creatine Kinase CK-MB (CK-2) CK-MB (CK-2) % Troponin I Total Protein Albumin Globulin Albumin/Globulin Ratio EKG/Cardiology Studies: Cardiology / EKG Studies 07/18/17 08:53 ELECTROCARDIOGRAM Routine Comment: Reason For Exam: post op, ischemic right leg Review of Systems - Constitutional Constitutional: absent: Fever, Chills - EENT Eyes: UNREMARKABLE Nose/Mouth/Throat: UNREMARKABLE - Cardiovascular Cardiovascular: absent: Chest Pain, Dyspnea, Orthopnea - Respiratory Respiratory: absent: Cough, Dyspnea, Hemoptysis - Gastrointestinal Gastrointestinal: absent: Abdominal Pain, Bloating, Nausea - Genitourinary Genitourinary: absent: Difficulty Urinating, Dysuria - Musculoskeletal Musculoskeletal: absent: Muscle Cramps, Muscle Weakness - Integumentary Additional comments: RLE fasciotomy with dressing c/d/i - Neurological Neurological: absent: Burning Sensations, Headaches, Tremor Additional comments: motor and sensory of right lower extremity intact - Psychiatric Psychiatric: absent: Anxiety, Depression - Endocrine Endocrine: absent: Fatigue, Flushing, Palpitations - Hematologic/Lymphatic Hematologic: As Per [facility] Critical Care Progress Note - Nutrition Nutrition: Nutrition Category Date Time Status Heart Healthy Diet [DIET] Diets 07/17/17 Lunch Ordered Assessment/Plan (1) Lower limb ischemia Current Visit: Yes Status: Acute - Assessment and Plan (Free Text) Assessment: 67 year old female with past medical history of HTN, non-bleeding GI ulcer, MVP , anemia who presented with RLE pain and subsequently managed for acute limb ischemia of RLE 2/2 atherosclerotic plaque. Patient is s/p interventional procedure with IR as well as s/p vascular surgery with femoral-popliteal bypass , endarterectomy and fasciotomy. Patient is currently hemodynamically stable Plan: Neuro : AAOx3 today. No change in mental status. Cont to monitor. Continue neuro checks Q1H CV : Acute Limb ischemia of RLE 2/2 atherosclerotic plaque - s/p IR intervention with EKOS catheter - s/p vascular surgery with Dr. Couch with femoral-popliteal bypass, endarterectomy and fasciotomy - surgery team following, dressings changed today c/d/i - H/H 7.4/23.3 showing decrease in Hgb from 9.6 yest, this in the setting of elevated troponin plan to transfuse patient 2 units of pRBC with goal Hgb >[address] Couch and Vascular surgery team - echocardiogram with bubble study pending BP 105/57, HR 92 NSR. Hx of HTN. Holding anti-HTN medication at this time Maintain MAP>65. Hemodynamically stable Cont to monitor Pulm: On RA. Saturating well. Maintain O2 sat>90% GI: Swallow eval passed, regular diet - Protonix. Renal : BUN/Cr: 37/1.2 - Replace lytes, maintain euvolemia. Continue to monitor. ID: Afebrile, WBC 17.2 likely 2/2 stress from intervention Continue to monitor Heme: H/H: 7.4/23.3 Plts 179 today, showing down trend - Patient w/ e levated troponins - Per curbside w/ Dr. Couch will plan to transfuse 2 units of pRBC with goal of Hgb >10 - factor V leiden, PT mutation pending - consider hyperhomocysteinemia workup Psych: Normal mood DVT ppx - heparin GI ppx - Protonix Case reviewed and discussed with attending - Date & Time Date: 07/18/17 Time: 09:10 <Tony Barakat - Last Filed: 07/28/17 09:46> CCU Objective - Vital Signs / Intake & Output Vital Signs (Last 4 hours): Vital Signs Pulse BP 07/28/17 09:00 94 H 115/50 L 07/28/17 06:00 93 H Intake and Output (Last 8hrs): Intake & Output 07/27/17 07/28/17 07/28/17 22:59 06:59 14:59 Intake Total 3400 4660 Output Total 475 205 Balance 2925 4455 Weight 227 lb 8 oz Intake: IV 1800 3160 Right Upper arm 1700 3160 Oral 1500 Blood Product 300 Red Blood Cells Cpd As1 0 Lr Unit [id number] Other 1300 Output: Drainage 75 55 Right Knee 75 55 Urine 400 150 Urine, Voided 400 150 Other: # Bowel Movements 1 1 - Medications Active Medications: Active Medications Generic Name Dose Route Start Last Admin Trade Name Freq PRN Reason Stop Dose Admin Acetaminophen 650 mg 07/27/17 13:59 07/27/17 14:07 Tylenol 325mg Tab PO 650 mg Q6H PRN Administration Headache Calcium Carbonate 600 mg 07/27/17 18:00 07/28/17 09:02 Caltrate PO 600 mg BID ORION Administration Clopidogrel Bisulfate 75 mg 07/18/17 10:00 07/28/17 09:02 Plavix PO 75 mg DAILY ORION Administration Digoxin 0.25 mg 07/28/17 14:00 Lanoxin PO 1400 ORION Docusate Sodium 100 mg 07/22/17 10:00 07/28/17 09:02 Colace PO 100 mg TID ORION Administration Enoxaparin Sodium 95 mg 07/24/17 18:00 07/28/17 09:02 Lovenox SC 95 mg BID ORION Administration Protocol Hydromorphone HCl 1 mg 07/25/17 08:55 07/28/17 05:58 Dilaudid IVP 1 mg Q3H PRN Administration Pain, severe (8-10) Sodium Chloride 1,000 mls @ 150 mls/hr 07/26/17 06:00 07/27/17 22:00 Sodium Chloride 0.9% IV 150 mls/hr .Q6H40M ORION Administration Meropenem 1g/NS 100mL IVPB 1 gm in 100 mls @ 100 mls/hr 07/27/17 10:00 09:03 Meropenem 1g/Ns 100ml Ivpb IVPB 08/05/17 10:01 100 mls/hr Q12 ORION Administration Protocol Daptomycin 250 mg/ Sodium 100 mls @ 200 mls/hr 07/27/17 08:15 07/28/17 08:59 Chloride IV 08/05/17 08:16 200 mls/hr Q24H ORION Administration diltiaZEM IVPB 100mg in NS 100 mls @ 5 mls/hr 07/27/17 08:46 07/27/17 22:01 Cardizem 100mg In Ns IV 5 mg/hr .Q20H PRN 5 mls/hr TITRATE PER MD ORDER Administration Protocol 5 MG/HR Metoprolol Tartrate 2.5 mg 07/21/17 08:00 07/21/17 23:42 Lopressor IV 2.5 mg Q8H ORION Administration Metoprolol Tartrate 12.5 mg 07/25/17 10:00 07/28/17 09:00 Lopressor PO 12.5 mg BID ORION Administration Morphine Sulfate 15 mg 07/28/17 09:15 Morphine Extended Release Tab PO Q12 PRN Pain, severe (8-10) Ondansetron HCl 4 mg 07/26/17 11:57 Zofran Inj IVP ONCE PRN Nausea/Vomiting Pantoprazole Sodium 40 mg 07/25/17 06:00 07/28/17 05:58 Protonix Ec Tab PO 40 mg 0600 ORION Administration Polyethylene Glycol 17 gm 07/25/17 18:00 07/28/17 09:02 Miralax PO 17 gm BID ORION Administration Silver Sulfadiazine 0 gm 07/20/17 18:00 07/28/17 09:11 Silvadene 1% 25 Gm TP 25 gm BID ORION Administration Sucralfate 1 gm 07/21/17 11:30 07/28/17 08:59 Carafate Oral Susp PO 1 gm ACHS ORION Administration - Patient Studies Lab Studies: Microbiology Studies 07/26/17 13:25 Gram Stain - Final Leg - Right Wound Culture - Preliminary Gram Negative Max Staphylococcus Aureus 07/27/17 06:29 Blood Culture - Preliminary Blood NO GROWTH AFTER 24 HOURS 07/27/17 06:29 Blood Culture - Preliminary Blood NO GROWTH AFTER 24 HOURS 07/25/17 18:56 Blood Culture - Preliminary Blood NO GROWTH AFTER 48 HOURS 07/26/17 13:25 Gram Stain - Final Leg - Right Wound Culture - Preliminary Gram Negative Max Gram Positive Cocci 07/26/17 13:25 Gram Stain - Final Leg - Right Wound Culture - Preliminary Gram Negative Max 07/25/17 23:15 Urine Culture - Final Urine,Clean Catch 50-100,000 CFU/ML. MULTIPLE SPECIES. SUGGEST REPEAT SPECIMEM. Lab Studies 07/28/17 07/27/17 07/27/17 Range/Units 05:45 23:30 23:30 WBC 29.0 H* 33.8 H* (4.5-11.0) 10^3/ul RBC 2.81 L 3.33 L (3.5-6.1) 10^6/uL Hgb 7.6 L 9.1 L (12.0-16.0) g/dL Hct 23.5 L 27.7 L (36.0-48.0) % MCV 83.6 83.2 (80.0-105.0) fl MCH 27.0 27.3 (25.0-35.0) pg MCHC 32.3 32.9 (31.0-37.0) g/dl RDW 22.4 H 21.9 H (11.5-14.5) % Plt Count 489 H 514 H (120.0-450.0) 10^3/uL MPV 9.5 9.8 (7.0-11.0) fl Gran % 96.4 H (50.0-68.0) % Lymph % (Auto) 1.2 L (22.0-35.0) % [place] % (Auto) 2.0 (1.0-6.0) % Eos % (Auto) 0.3 L (1.5-5.0) % Baso % (Auto) 0.1 (0.0-3.0) % Gran # 32.62 H (1.4-6.5) Lymph # 0.4 L (1.2-3.4) [place] # 0.7 H (0.1-0.6) Eos # 0.1 (0.0-0.7) Baso # 0.02 (0.0-2.0) K/mm3 Neutrophils % (Manual) (50.0-70.0) % Band Neutrophils % (0-2) % Lymphocytes % (Manual) (22.0-35.0) % Monocytes % (Manual) (1.0-6.0) % Platelet Evaluation (NORMAL) Hypochromasia Anisocytosis (manual) PT (9.9-11.8) Seconds INR (0.93-1.08) APTT (23.7-30.8) Seconds dRVVT Confirm Interp pO2 (30-55) mm/Hg VBG pH (7.32-7.43) VBG pCO2 (40-60) VBG HCO3 (21-28) mmol/l VBG Total CO2 (22-28) mmol.L VBG O2 Sat (Calc) (40-65) % VBG Base Excess (0.0-2.0) mmol/L VBG Potassium (3.6-5.2) mmol/L Sodium 131 L (132-148) mmol/L Chloride 106 (98-107) mmol/L Glucose (65-105) mg/dl Lactate (0.7-2.1) mmol/L FiO2 % Potassium 4.0 (3.6-5.0) mmol/L Carbon Dioxide 17 L (21-33) mmol/L Anion Gap 12 (10-20) BUN 22 H (7-21) mg/dL Creatinine 1.6 H (0.7-1.2) mg/dL Est GFR ( Amer) 39 Est GFR (Non-Af Amer) 32 POC Glucose (mg/dL) (65-110) mg/dL Random Glucose 127 H (70-110) mg/dL Lactic Acid (0.7-2.1) mmol/L Calcium 6.3 L* (8.4-10.5) mg/dL Phosphorus 3.3 (2.5-4.5) mg/dL Magnesium 2.2 (1.7-2.2) mg/dL Total Bilirubin 2.3 H (0.2-1.3) mg/dL AST 65 H (14-36) U/L ALT 59 H (7-56) U/L Alkaline Phosphatase 165 H (38-126) U/L Total Protein 4.2 L (5.8-8.3) g/dL Albumin 1.8 L (3.0-4.8) g/dL Globulin 2.4 gm/dL Albumin/Globulin Ratio 0.8 L (1.1-1.8) Procalcitonin (0.19-0.49) NG/ML Venous Blood Potassium (3.6-5.2) mmol/L Stool Occult Blood (NEGATIVE) Blood Type Antibody Screen Crossmatch BBK History Checked 07/27/17 07/27/17 07/27/17 Range/Units 23:30 20:20 17:07 WBC (4.5-11.0) 10^3/ul RBC (3.5-6.1) 10^6/uL Hgb (12.0-16.0) g/dL Hct (36.0-48.0) % MCV (80.0-105.0) fl MCH (25.0-35.0) pg MCHC (31.0-37.0) g/dl RDW (11.5-14.5) % Plt Count (120.0-450.0) 10^3/uL MPV (7.0-11.0) fl Gran % (50.0-68.0) % Lymph % (Auto) (22.0-35.0) % [place] % (Auto) (1.0-6.0) % Eos % (Auto) (1.5-5.0) % Baso % (Auto) (0.0-3.0) % Gran # (1.4-6.5) Lymph # (1.2-3.4) [place] # (0.1-0.6) Eos # (0.0-0.7) Baso # (0.0-2.0) K/mm3 Neutrophils % (Manual) (50.0-70.0) % Band Neutrophils % (0-2) % Lymphocytes % (Manual) (22.0-35.0) % Monocytes % (Manual) (1.0-6.0) % Platelet Evaluation (NORMAL) Hypochromasia Anisocytosis (manual) PT 16.1 H (9.9-11.8) Seconds INR 1.49 H (0.93-1.08) APTT 42.8 H (23.7-30.8) Seconds dRVVT Confirm Interp pO2 38 (30-55) mm/Hg VBG pH 7.34 (7.32-7.43) VBG pCO2 33.0 L (40-60) VBG HCO3 17.8 L (21-28) mmol/l VBG Total CO2 18.8 L (22-28) mmol.L VBG O2 Sat (Calc) 79.2 H (40-65) % VBG Base Excess -7.0 L (0.0-2.0) mmol/L VBG Potassium 4.1 (3.6-5.2) mmol/L Sodium 130.0 L (132-148) mmol/L Chloride 108.0 H (98-107) mmol/L Glucose 163 H (65-105) mg/dl Lactate 2.0 (0.7-2.1) mmol/L FiO2 21.0 % Potassium (3.6-5.0) mmol/L Carbon Dioxide (21-33) mmol/L Anion Gap (10-20) BUN (7-21) mg/dL Creatinine (0.7-1.2) mg/dL Est GFR ( Amer) Est GFR (Non-Af Amer) POC Glucose (mg/dL) (65-110) mg/dL Random Glucose (70-110) mg/dL Lactic Acid 1.9 (0.7-2.1) mmol/L Calcium (8.4-10.5) mg/dL Phosphorus (2.5-4.5) mg/dL Magnesium (1.7-2.2) mg/dL Total Bilirubin (0.2-1.3) mg/dL AST (14-36) U/L ALT (7-56) U/L Alkaline Phosphatase (38-126) U/L Total Protein (5.8-8.3) g/dL Albumin (3.0-4.8) g/dL Globulin gm/dL Albumin/Globulin Ratio (1.1-1.8) Procalcitonin (0.19-0.49) NG/ML Venous Blood Potassium 4.1 (3.6-5.2) mmol/L Stool Occult Blood (NEGATIVE) Blood Type Antibody Screen Crossmatch BBK History Checked 07/27/17 07/27/17 07/27/17 Range/Units 17:07 17:07 17:07 WBC 36.7 H* (4.5-11.0) 10^3/ul RBC 2.90 L (3.5-6.1) 10^6/uL Hgb 7.8 L (12.0-16.0) g/dL Hct 24.0 L (36.0-48.0) % MCV 82.8 (80.0-105.0) fl MCH 26.9 (25.0-35.0) pg MCHC 32.5 (31.0-37.0) g/dl RDW 23.1 H (11.5-14.5) % Plt Count 543 H (120.0-450.0) 10^3/uL MPV 9.4 (7.0-11.0) fl Gran % 95.9 H (50.0-68.0) % Lymph % (Auto) 0.8 L (22.0-35.0) % [place] % (Auto) 3.1 (1.0-6.0) % Eos % (Auto) 0.1 L (1.5-5.0) % Baso % (Auto) 0.1 (0.0-3.0) % Gran # 35.23 H (1.4-6.5) Lymph # 0.3 L (1.2-3.4) [place] # 1.1 H (0.1-0.6) Eos # 0.0 (0.0-0.7) Baso # 0.02 (0.0-2.0) K/mm3 Neutrophils % (Manual) 92 H (50.0-70.0) % Band Neutrophils % 6 H (0-2) % Lymphocytes % (Manual) 1 L (22.0-35.0) % Monocytes % (Manual) 1 (1.0-6.0) % Platelet Evaluation High (NORMAL) Hypochromasia Slight Anisocytosis (manual) Slight PT (9.9-11.8) Seconds INR (0.93-1.08) APTT (23.7-30.8) Seconds dRVVT Confirm Interp pO2 48 (30-55) mm/Hg VBG pH 7.37 (7.32-7.43) VBG pCO2 31.0 L (40-60) VBG HCO3 17.9 L (21-28) mmol/l VBG Total CO2 18.9 L (22-28) mmol.L VBG O2 Sat (Calc) 91.2 H (40-65) % VBG Base Excess -6.2 L (0.0-2.0) mmol/L VBG Potassium 4.3 (3.6-5.2) mmol/L Sodium 131 L 131.0 L (132-148) mmol/L Chloride 105 106.0 (98-107) mmol/L Glucose 131 H (65-105) mg/dl Lactate 2.0 (0.7-2.1) mmol/L FiO2 21.0 % Potassium 4.2 (3.6-5.0) mmol/L Carbon Dioxide 18 L (21-33) mmol/L Anion Gap 12 (10-20) BUN 19 (7-21) mg/dL Creatinine 1.7 H (0.7-1.2) mg/dL Est GFR ( Amer) 36 Est GFR (Non-Af Amer) 30 POC Glucose (mg/dL) (65-110) mg/dL Random Glucose 125 H (70-110) mg/dL Lactic Acid (0.7-2.1) mmol/L Calcium 6.2 L* (8.4-10.5) mg/dL Phosphorus 3.5 (2.5-4.5) mg/dL Magnesium 1.0 L* (1.7-2.2) mg/dL Total Bilirubin 2.2 H (0.2-1.3) mg/dL AST 59 H (14-36) U/L ALT 54 (7-56) U/L Alkaline Phosphatase 150 H (38-126) U/L Total Protein 4.1 L (5.8-8.3) g/dL Albumin 1.8 L (3.0-4.8) g/dL Globulin 2.3 gm/dL Albumin/Globulin Ratio 0.8 L (1.1-1.8) Procalcitonin (0.19-0.49) NG/ML Venous Blood Potassium 4.3 (3.6-5.2) mmol/L Stool Occult Blood (NEGATIVE) Blood Type Antibody Screen Crossmatch BBK History Checked 07/27/17 07/27/17 07/27/17 Range/Units 16:21 14:00 11:32 WBC (4.5-11.0) 10^3/ul RBC (3.5-6.1) 10^6/uL Hgb (12.0-16.0) g/dL Hct (36.0-48.0) % MCV (80.0-105.0) fl MCH (25.0-35.0) pg MCHC (31.0-37.0) g/dl RDW (11.5-14.5) % Plt Count (120.0-450.0) 10^3/uL MPV (7.0-11.0) fl Gran % (50.0-68.0) % Lymph % (Auto) (22.0-35.0) % [place] % (Auto) (1.0-6.0) % Eos % (Auto) (1.5-5.0) % Baso % (Auto) (0.0-3.0) % Gran # (1.4-6.5) Lymph # (1.2-3.4) [place] # (0.1-0.6) Eos # (0.0-0.7) Baso # (0.0-2.0) K/mm3 Neutrophils % (Manual) (50.0-70.0) % Band Neutrophils % (0-2) % Lymphocytes % (Manual) (22.0-35.0) % Monocytes % (Manual) (1.0-6.0) % Platelet Evaluation (NORMAL) Hypochromasia Anisocytosis (manual) PT (9.9-11.8) Seconds INR (0.93-1.08) APTT (23.7-30.8) Seconds dRVVT Confirm Interp pO2 (30-55) mm/Hg VBG pH (7.32-7.43) VBG pCO2 (40-60) VBG HCO3 (21-28) mmol/l VBG Total CO2 (22-28) mmol.L VBG O2 Sat (Calc) (40-65) % VBG Base Excess (0.0-2.0) mmol/L VBG Potassium (3.6-5.2) mmol/L Sodium (132-148) mmol/L Chloride (98-107) mmol/L Glucose (65-105) mg/dl Lactate (0.7-2.1) mmol/L FiO2 % Potassium (3.6-5.0) mmol/L Carbon Dioxide (21-33) mmol/L Anion Gap (10-20) BUN (7-21) mg/dL Creatinine (0.7-1.2) mg/dL Est GFR ( Amer) Est GFR (Non-Af Amer) POC Glucose (mg/dL) 126 H 103 (65-110) mg/dL Random Glucose (70-110) mg/dL Lactic Acid (0.7-2.1) mmol/L Calcium (8.4-10.5) mg/dL Phosphorus (2.5-4.5) mg/dL Magnesium (1.7-2.2) mg/dL Total Bilirubin (0.2-1.3) mg/dL AST (14-36) U/L ALT (7-56) U/L Alkaline Phosphatase (38-126) U/L Total Protein (5.8-8.3) g/dL Albumin (3.0-4.8) g/dL Globulin gm/dL Albumin/Globulin Ratio (1.1-1.8) Procalcitonin (0.19-0.49) NG/ML Venous Blood Potassium (3.6-5.2) mmol/L Stool Occult Blood Negative (NEGATIVE) Blood Type Antibody Screen Crossmatch BBK History Checked 07/27/17 07/27/17 07/27/17 Range/Units 08:33 06:29 05:06 WBC (4.5-11.0) 10^3/ul RBC (3.5-6.1) 10^6/uL Hgb (12.0-16.0) g/dL Hct (36.0-48.0) % MCV (80.0-105.0) fl MCH (25.0-35.0) pg MCHC (31.0-37.0) g/dl RDW (11.5-14.5) % Plt Count (120.0-450.0) 10^3/uL MPV (7.0-11.0) fl Gran % (50.0-68.0) % Lymph % (Auto) (22.0-35.0) % [place] % (Auto) (1.0-6.0) % Eos % (Auto) (1.5-5.0) % Baso % (Auto) (0.0-3.0) % Gran # (1.4-6.5) Lymph # (1.2-3.4) [place] # (0.1-0.6) Eos # (0.0-0.7) Baso # (0.0-2.0) K/mm3 Neutrophils % (Manual) (50.0-70.0) % Band Neutrophils % (0-2) % Lymphocytes % (Manual) (22.0-35.0) % Monocytes % (Manual) (1.0-6.0) % Platelet Evaluation (NORMAL) Hypochromasia Anisocytosis (manual) PT (9.9-11.8) Seconds INR (0.93-1.08) APTT (23.7-30.8) Seconds dRVVT Confirm Interp pO2 (30-55) mm/Hg VBG pH (7.32-7.43) VBG pCO2 (40-60) VBG HCO3 (21-28) mmol/l VBG Total CO2 (22-28) mmol.L VBG O2 Sat (Calc) (40-65) % VBG Base Excess (0.0-2.0) mmol/L VBG Potassium (3.6-5.2) mmol/L Sodium (132-148) mmol/L Chloride (98-107) mmol/L Glucose (65-105) mg/dl Lactate (0.7-2.1) mmol/L FiO2 % Potassium (3.6-5.0) mmol/L Carbon Dioxide (21-33) mmol/L Anion Gap (10-20) BUN (7-21) mg/dL Creatinine (0.7-1.2) mg/dL Est GFR ( Amer) Est GFR (Non-Af Amer) POC Glucose (mg/dL) 91 123 H (65-110) mg/dL Random Glucose (70-110) mg/dL Lactic Acid (0.7-2.1) mmol/L Calcium (8.4-10.5) mg/dL Phosphorus (2.5-4.5) mg/dL Magnesium (1.7-2.2) mg/dL Total Bilirubin (0.2-1.3) mg/dL AST (14-36) U/L ALT (7-56) U/L Alkaline Phosphatase (38-126) U/L Total Protein (5.8-8.3) g/dL Albumin (3.0-4.8) g/dL Globulin gm/dL Albumin/Globulin Ratio (1.1-1.8) Procalcitonin 5.28 H (0.19-0.49) NG/ML Venous Blood Potassium (3.6-5.2) mmol/L Stool Occult Blood (NEGATIVE) Blood Type Antibody Screen Crossmatch BBK History Checked 07/25/17 07/19/17 Range/Units 11:08 06:20 WBC (4.5-11.0) 10^3/ul RBC (3.5-6.1) 10^6/uL Hgb (12.0-16.0) g/dL Hct (36.0-48.0) % MCV (80.0-105.0) fl MCH (25.0-35.0) pg MCHC (31.0-37.0) g/dl RDW (11.5-14.5) % Plt Count (120.0-450.0) 10^3/uL MPV (7.0-11.0) fl Gran % (50.0-68.0) % Lymph % (Auto) (22.0-35.0) % [place] % (Auto) (1.0-6.0) % Eos % (Auto) (1.5-5.0) % Baso % (Auto) (0.0-3.0) % Gran # (1.4-6.5) Lymph # (1.2-3.4) [place] # (0.1-0.6) Eos # (0.0-0.7) Baso # (0.0-2.0) K/mm3 Neutrophils % (Manual) (50.0-70.0) % Band Neutrophils % (0-2) % Lymphocytes % (Manual) (22.0-35.0) % Monocytes % (Manual) (1.0-6.0) % Platelet Evaluation (NORMAL) Hypochromasia Anisocytosis (manual) PT (9.9-11.8) Seconds INR (0.93-1.08) APTT (23.7-30.8) Seconds dRVVT Confirm Interp Negative pO2 (30-55) mm/Hg VBG pH (7.32-7.43) VBG pCO2 (40-60) VBG HCO3 (21-28) mmol/l VBG Total CO2 (22-28) mmol.L VBG O2 Sat (Calc) (40-65) % VBG Base Excess (0.0-2.0) mmol/L VBG Potassium (3.6-5.2) mmol/L Sodium (132-148) mmol/L Chloride (98-107) mmol/L Glucose (65-105) mg/dl Lactate (0.7-2.1) mmol/L FiO2 % Potassium (3.6-5.0) mmol/L Carbon Dioxide (21-33) mmol/L Anion Gap (10-20) BUN (7-21) mg/dL Creatinine (0.7-1.2) mg/dL Est GFR ( Amer) Est GFR (Non-Af Amer) POC Glucose (mg/dL) (65-110) mg/dL Random Glucose (70-110) mg/dL Lactic Acid (0.7-2.1) mmol/L Calcium (8.4-10.5) mg/dL Phosphorus (2.5-4.5) mg/dL Magnesium (1.7-2.2) mg/dL Total Bilirubin (0.2-1.3) mg/dL AST (14-36) U/L ALT (7-56) U/L Alkaline Phosphatase (38-126) U/L Total Protein (5.8-8.3) g/dL Albumin (3.0-4.8) g/dL Globulin gm/dL Albumin/Globulin Ratio (1.1-1.8) Procalcitonin (0.19-0.49) NG/ML Venous Blood Potassium (3.6-5.2) mmol/L Stool Occult Blood (NEGATIVE) Blood Type AB POSITIVE Antibody Screen Negative Crossmatch See Detail BBK History Checked Patient has bt Laboratory Results - last 24 hr 07/19/17 07/25/17 07/27/17 06:20 11:08 05:06 WBC RBC Hgb Hct MCV MCH MCHC RDW Plt Count MPV Gran % Lymph % (Auto) [place] % (Auto) Eos % (Auto) Baso % (Auto) Gran # Lymph # [place] # Eos # Baso # Neutrophils % (Manual) Band Neutrophils % Lymphocytes % (Manual) Monocytes % (Manual) Platelet Evaluation Hypochromasia Anisocytosis (manual) PT INR APTT dRVVT Confirm Interp Negative pO2 VBG pH VBG pCO2 VBG HCO3 VBG Total CO2 VBG O2 Sat (Calc) VBG Base Excess VBG Potassium Sodium Chloride Glucose Lactate FiO2 Potassium Carbon Dioxide Anion Gap BUN Creatinine Est GFR ( Amer) Est GFR (Non-Af Amer) POC Glucose (mg/dL) 123 H Random Glucose Lactic Acid Calcium Phosphorus Magnesium Total Bilirubin AST ALT Alkaline Phosphatase Total Protein Albumin Globulin Albumin/Globulin Ratio Procalcitonin Venous Blood Potassium Stool Occult Blood Blood Type AB POSITIVE Antibody Screen Negative Crossmatch See Detail BBK History Checked Patient has bt 07/27/17 07/27/17 07/27/17 06:29 08:33 11:32 WBC RBC Hgb Hct MCV MCH MCHC RDW Plt Count MPV Gran % Lymph % (Auto) [place] % (Auto) Eos % (Auto) Baso % (Auto) Gran # Lymph # [place] # Eos # Baso # Neutrophils % (Manual) Band Neutrophils % Lymphocytes % (Manual) Monocytes % (Manual) Platelet Evaluation Hypochromasia Anisocytosis (manual) PT INR APTT dRVVT Confirm Interp pO2 VBG pH VBG pCO2 VBG HCO3 VBG Total CO2 VBG O2 Sat (Calc) VBG Base Excess VBG Potassium Sodium Chloride Glucose Lactate FiO2 Potassium Carbon Dioxide Anion Gap BUN Creatinine Est GFR ( Amer) Est GFR (Non-Af Amer) POC Glucose (mg/dL) 91 103 Random Glucose Lactic Acid Calcium Phosphorus Magnesium Total Bilirubin AST ALT Alkaline Phosphatase Total Protein Albumin Globulin Albumin/Globulin Ratio Procalcitonin 5.28 H Venous Blood Potassium Stool Occult Blood Blood Type Antibody Screen Crossmatch BBK History Checked 07/27/17 07/27/17 07/27/17 14:00 16:21 17:07 WBC RBC Hgb Hct MCV MCH MCHC RDW Plt Count MPV Gran % Lymph % (Auto) [place] % (Auto) Eos % (Auto) Baso % (Auto) Gran # Lymph # [place] # Eos # Baso # Neutrophils % (Manual) Band Neutrophils % Lymphocytes % (Manual) Monocytes % (Manual) Platelet Evaluation Hypochromasia Anisocytosis (manual) PT INR APTT dRVVT Confirm Interp pO2 48 VBG pH 7.37 VBG pCO2 31.0 L VBG HCO3 17.9 L VBG Total CO2 18.9 L VBG O2 Sat (Calc) 91.2 H VBG Base Excess -6.2 L VBG Potassium 4.3 Sodium 131.0 L Chloride 106.0 Glucose 131 H Lactate 2.0 FiO2 21.0 Potassium Carbon Dioxide Anion Gap BUN Creatinine Est GFR ( Amer) Est GFR (Non-Af Amer) POC Glucose (mg/dL) 126 H Random Glucose Lactic Acid Calcium Phosphorus Magnesium Total Bilirubin AST ALT Alkaline Phosphatase Total Protein Albumin Globulin Albumin/Globulin Ratio Procalcitonin Venous Blood Potassium 4.3 Stool Occult Blood Negative Blood Type Antibody Screen Crossmatch BBK History Checked 07/27/17 07/27/17 07/27/17 17:07 17:07 17:07 WBC 36.7 H* RBC 2.90 L Hgb 7.8 L Hct 24.0 L MCV 82.8 MCH 26.9 MCHC 32.5 RDW 23.1 H Plt Count 543 H MPV 9.4 Gran % 95.9 H Lymph % (Auto) 0.8 L [place] % (Auto) 3.1 Eos % (Auto) 0.1 L Baso % (Auto) 0.1 Gran # 35.23 H Lymph # 0.3 L [place] # 1.1 H Eos # 0.0 Baso # 0.02 Neutrophils % (Manual) 92 H Band Neutrophils % 6 H Lymphocytes % (Manual) 1 L Monocytes % (Manual) 1 Platelet Evaluation High Hypochromasia Slight Anisocytosis (manual) Slight PT INR APTT dRVVT Confirm Interp pO2 VBG pH VBG pCO2 VBG HCO3 VBG Total CO2 VBG O2 Sat (Calc) VBG Base Excess VBG Potassium Sodium 131 L Chloride 105 Glucose Lactate FiO2 Potassium 4.2 Carbon Dioxide 18 L Anion Gap 12 BUN 19 Creatinine 1.7 H Est GFR ( Amer) 36 Est GFR (Non-Af Amer) 30 POC Glucose (mg/dL) Random Glucose 125 H Lactic Acid 1.9 Calcium 6.2 L* Phosphorus 3.5 Magnesium 1.0 L* Total Bilirubin 2.2 H AST 59 H ALT 54 Alkaline Phosphatase 150 H Total Protein 4.1 L Albumin 1.8 L Globulin 2.3 Albumin/Globulin Ratio 0.8 L Procalcitonin Venous Blood Potassium Stool Occult Blood Blood Type Antibody Screen Crossmatch BBK History Checked 07/27/17 07/27/17 07/27/17 20:20 23:30 23:30 WBC RBC Hgb Hct MCV MCH MCHC RDW Plt Count MPV Gran % Lymph % (Auto) [place] % (Auto) Eos % (Auto) Baso % (Auto) Gran # Lymph # [place] # Eos # Baso # Neutrophils % (Manual) Band Neutrophils % Lymphocytes % (Manual) Monocytes % (Manual) Platelet Evaluation Hypochromasia Anisocytosis (manual) PT 16.1 H INR 1.49 H APTT 42.8 H dRVVT Confirm Interp pO2 38 VBG pH 7.34 VBG pCO2 33.0 L VBG HCO3 17.8 L VBG Total CO2 18.8 L VBG O2 Sat (Calc) 79.2 H VBG Base Excess -7.0 L VBG Potassium 4.1 Sodium 130.0 L 131 L Chloride 108.0 H 106 Glucose 163 H Lactate 2.0 FiO2 21.0 Potassium 4.0 Carbon Dioxide 17 L Anion Gap 12 BUN 22 H Creatinine 1.6 H Est GFR ( Amer) 39 Est GFR (Non-Af Amer) 32 POC Glucose (mg/dL) Random Glucose 127 H Lactic Acid Calcium 6.3 L* Phosphorus 3.3 Magnesium 2.2 Total Bilirubin 2.3 H AST 65 H ALT 59 H Alkaline Phosphatase 165 H Total Protein 4.2 L Albumin 1.8 L Globulin 2.4 Albumin/Globulin Ratio 0.8 L Procalcitonin Venous Blood Potassium 4.1 Stool Occult Blood Blood Type Antibody Screen Crossmatch BBK History Checked 07/27/17 07/28/17 23:30 05:45 WBC 33.8 H* 29.0 H* RBC 3.33 L 2.81 L Hgb 9.1 L 7.6 L Hct 27.7 L 23.5 L MCV 83.2 83.6 MCH 27.3 27.0 MCHC 32.9 32.3 RDW 21.9 H 22.4 H Plt Count 514 H 489 H MPV 9.8 9.5 Gran % 96.4 H Lymph % (Auto) 1.2 L [place] % (Auto) 2.0 Eos % (Auto) 0.3 L Baso % (Auto) 0.1 Gran # 32.62 H Lymph # 0.4 L [place] # 0.7 H Eos # 0.1 Baso # 0.02 Neutrophils % (Manual) Band Neutrophils % Lymphocytes % (Manual) Monocytes % (Manual) Platelet Evaluation Hypochromasia Anisocytosis (manual) PT INR APTT dRVVT Confirm Interp pO2 VBG pH VBG pCO2 VBG HCO3 VBG Total CO2 VBG O2 Sat (Calc) VBG Base Excess VBG Potassium Sodium Chloride Glucose Lactate FiO2 Potassium Carbon Dioxide Anion Gap BUN Creatinine Est GFR ( Amer) Est GFR (Non-Af Amer) POC Glucose (mg/dL) Random Glucose Lactic Acid Calcium Phosphorus Magnesium Total Bilirubin AST ALT Alkaline Phosphatase Total Protein Albumin Globulin Albumin/Globulin Ratio Procalcitonin Venous Blood Potassium Stool Occult Blood Blood Type Antibody Screen Crossmatch BBK History Checked EKG/Cardiology Studies: Cardiology / EKG Studies 07/27/17 17:02 EKG [ELECTROCARDIOGRAM] Stat Comment: Reason For Exam: afib, reassess Critical Care Progress Note - Nutrition Nutrition: Nutrition Category Date Time Status Heart Healthy Diet [DIET] Diets 07/26/17 Lunch Ordered Attending/Attestation - Attestation I have personally seen and examined this patient.: Yes I have fully participated in the care of the patient.: Yes I have reviewed all pertinent clinical information: Yes Notes (Text): 07/28/17 09:45 67 yo with acute limb ischemia, s/p plasty. Hemodynamically and respiratory zee stable, able to protect airways. early mobilization when cleared by surgery. ccm time 40 min
[2017-07-18] MEDS: Heparin 25,000units in D5W 25,000 UNITS/250 ML BAG IV PRN ×2 (09:23→18:12)
--- NOTE | 2017-07-18 11:39 | VASCULAR ---
PROCEDURE: Date of procedure: 07/16/2017 Procedure: 1. Right lower extremity angiogram 2. Thrombectomy right superficial femoral artery 3. Percutaneous balloon angioplasty of right superficial femoral artery Medications: 8 cubic centimeters 1 percent lidocaine, 1 milligram Versed said 50 microgram fentanyl administered by the interventional radiology nurse along with physiologic monitoring. HISTORY: Acute thrombosis right superficial femoral artery with cold like. TECHNIQUE: Following informed consent and procedure time-out, the patient placed supine on the interventional in both right and left groin were prepped and draped in the usual sterile fashion. The patient left groin was anesthetized with 1 percent lidocaine and the patient received IV sedation administered by the interventional radiology nurse. The left common femoral artery was accessed with ultrasound guidance using micropuncture needle and a guidewire was advanced under fluoroscopic guidance into the in abdominal aorta. The 5 Czech I was exchanged for a 5 Czech vascular sheath. Through sheath, a flush catheter was positioned within the contralateral right external iliac artery in the right lower extremity angiogram was performed. The flush catheter and 5 Czech vascular sheath or then exchanged over a stiff Glidewire for a 6 Czech vascular sheath position within the contralateral right external iliac artery. On angled glide catheter was advanced over the guidewire across the SFA into the popliteal artery. An angiogram was repeated with PICC catheter present in the popliteal artery. The guidewire was advanced into the proximal peroneal artery. The angled glide catheter was removed. Angiojet Rheolytic thrombectomy was then performed across the SFA. Following multiple passes the Angiojet device, repeat angiograms performed through the 6 Czech vascular sheath. There was no improvement in the flow throughout the SFA. 5 millimeter x 200 millimeter balloon angioplasty was then performed across the SFA beginning distal segment in the proximal segment. There was no obvious stenosis with balloon angioplasty. Following balloon angioplasty repeat fistulogram was performed which showed no improvement in the flow throughout the SFA. Given the extensive nature the arterial thrombus, catheter directed thrombolysis using an EKOS catheter within 50 centimeter treatment length was then performed. The EKOS catheter was advanced over the wire and position within the proximal peroneal to the common femoral artery. The patient received tPA infusion and return for follow-up angiogram. Findings: There is occlusion of the superficial femoral artery secondary to thrombus. Right lower extremity angiogram performed with a catheter present within the popliteal artery shows significant thrombus within the peroneal artery. Anterior tibial artery is patent. The posterior tibial is partially patent. Post Angiojet thrombectomy angiogram showed no improvement in the arch of thrombus throughout the SFA and peroneal artery. Following percutaneous balloon angioplasty of the superficial femoral artery with 5 millimeter x 200 millimeter balloon, repeat angiogram was performed. The angiogram showed no improvement in the arterial thrombus. EKOS catheter was placed within 50 centimeter treatment length extending from the peroneal artery to the common femoral artery for prolonged tPA infusion. The catheter was secured and patient room will return for follow-up angiogram. IMPRESSION: 1. Extensive arterial thrombus beginning in the left SFA and also involving the peroneal artery and posterior tibial artery. There is also partial thrombus noted within the profunda femoral artery. 2. Despite Angiojet rheolytic thrombectomy and percutaneous balloon angioplasty, there was no improvement and arterial flow in the SFA and peroneal artery. There remains significant thrombus. 3. The patient will receive catheter directed thrombolysis with prolonged tPA infusion and a follow-up angiogram. If patient conditions deteriorate, patient will reintervention later this evening or embolectomy.
--- NOTE | 2017-07-18 13:05 | CON ---
I went to see the patient who admitted with acute limb ischemia. After reviewing the patient mentioned that she used to go to Dr. Hernandez, so the consult is put to Dr. Shannon. We will transfer the case to Dr. Shannon. We will sign off. Nany Ying MD
--- NOTE | 2017-07-18 13:10 | RAD ---
PROCEDURE: Fluoroscopy up to 1 hour. Intraoperative angiography HISTORY: THROMBECTOMY FASCIAOTOMY COMPARISON: TECHNIQUE: Fluoroscopy was provided in the operating room. 151 seconds of fluoroscopy time was utilized. FINDINGS: Multiple angiographic images were obtained on the right side. The study was performed by Dr. Couch IMPRESSION: As above
--- NOTE | 2017-07-18 13:29 | CON ---
DATE: 07/18/2017 CONSULTATION INDICATIONS: Ischemic right leg status post vascular surgery, possible cardiac source of embolization. HISTORY OF PRESENT ILLNESS: This is a 67-year-old woman who has a complex recent medical history. She presented with severe anemia with a hemoglobin of 4.5. Apparently, she underwent evaluation including 4 units of blood transfusion and upper endoscopy, which demonstrated esophageal and gastric ulcers. Shewas discharged and on the following day 07/16/2017 developed pain and numbness in the right leg and was found to have an ischemic leg. She was taken to interventional radiology where an attempt was made to open an occluded right common femoral artery utilizing Angiojet and mechanical measures. This was apparently unsuccessful. She was taking to the OR by Dr. Couch who performed an operative thrombectomy, distal bypasses and a fasciotomy yesterday. Today, she is in the intensive care unit extubated and a cardiac consultation was requested with regard to mildly elevated troponin and the possibility of a cardiac source as embolization. She has not described chest pain, orthopnea, PND,recent syncope, palpitation, f ever, chills, cough, sputum production,hemoptysis, abdominal pain, nausea, vomiting, diarrhea, constipation or melena. She was SOB when her hemoglobin was 4.5. PAST MEDICAL HISTORY: Notable for a bicuspid valve with mild aortic stenosis and moderate aortic insufficiency on an echocardiogram a couple of years ago, at which time she presented with syncope. There is a history of hypertension, arthritis of the right knee, status post arthroscopic surgery. She is a former smoker with a family history of coronary artery disease. She has moderate bilateral cerebrovascular disease documented by a prior carotid ultrasound. There was no history of rheumatic fever, myocardial infarction, congestive heart failure, angina, arrhythmia, stroke, TIA, diabetes, or gout. She is not known to have a coagulation disorder. There is no prior history of peptic ulcer disease. MEDIATIONS AT THE TIME OF ADMISSION: Included aspirin, Cozaar, Protonix, and iron supplementation. ALLERGIES: LEVOFLOXACIN. 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 She is ambulatory. She is a former smoker. She does not drink alcohol significantly. FAMILY HISTORY: Notable for heart disease, coronary artery disease, and myocardial infarction. REVIEW OF SYSTEMS: A 10-point review of systems is limited. She is sedated at this time. PHYSICAL EXAMINATION: GENERAL: She is a well-developed woman, lying in bed in the intensive care unit, no acute distress. VITAL SIGNS: Notable for sinus rhythm, afebrile. Blood pressure 112/58, respirations 18 to 31, O2 saturations 97% to 99% on room air and nasal cannula. HEENT: Exam reveals no neck vein distention, thyromegaly or carotid bruit. Mucous membranes are moist. Conjunctivae are pale. NECK: Supple. CHEST: Lung weeks scattered rhonchi. CARDIOVASCULAR: Examination of the heart revealed a systolic murmur along the left sternal border. The rhythm was regular. PMI is not palpable. ABDOMEN: Soft. Bowel sounds present. No mass or organomegaly, tenderness, rebound or guarding. NEUROLOGIC: She is awake. She still has difficulty moving the right leg, which is bandaged. SKIN: Warm and dry. No rash or cellulitis. LABORATORY AND IMAGING: Extremity ultrasound reports are noted. Abdominal angiography report is noted. Interventional vascular procedure is noted. Dr. Couch's operative note is noted. Chest x-ray revealed no CHF, ET tube was in placed, hiatal hernia is noted. EKG demonstrates sinus rhythm, premature atrial complexes, voltage criteria for LVH, age undetermined inferior infarct, and no change from prior EKG. White count 17,200, hemoglobin 7.4, hematocrit 23.3 and platelet count 179,000. PT/INR mildly elevated, and PTT 171.8. Blood gases noted. Electrolytes, BUN, creatinine, blood sugars noted. Magnesium 1.9. Liver function tests abnormal and elevated. CK was 66,000, troponin initially 0.17 and repeat 0.11. IMPRESSION: Bell Mcneil is a 67-year-old woman status post acute ischemia of the right leg due to iliofemoral thrombosis with extensive clot throughout the leg status post attempt at Angiojet and mechanical thrombectomy, status post surgical thrombectomy with distal bypass and fasciotomy performed by Dr. Couch yesterday. She has been extubated and she is in the ICU with stable hemodynamics and evidence of improved circulation of the right leg, although it is still not moving. PLAN: I will order echocardiogram at the bedside for today, to evaluate the possibility of a cardiac source of embolization. Hypercoagul able state and occult malignancy are also being considered. She is status post GI bleed. Non-bleeding esophageal and gastric ulcers were demonstrated on EGD. She presented with severe anemia and requird of 4 units of blood transfusion. She has a history of valvular heart disease with mild and moderate aortic insufficiency previously documented. I and Os should be monitored as well as the stool for occult blood. Additional transfusion is indicated. She should have a hematology evaluation as well as follow up with interventional radiology and vascular surgery. GI follow up would be appropriate also. I will repeat a troponin. Heparin will be adjusted by PTT. I will review old records and prior echocardiograms. I will follow along with you. I will make additional recommendations based on her clinical course. Her current medications include heparin and Plavix. Mitchell Shannon MD MTDD
--- NOTE | 2017-07-18 15:35 | PN ---
SUBJECTIVE: Seen in the ICU. A 67-year-old white female, awake and alert, unable to move the toes of her right foot, status post vascular intervention due to complete loss of blood flow in the right leg by Dr. Elma Couch. The patient has a recent history, was found to be severely anemic with a hemoglobin down to less than 5, was admitted to the hospital, was transfused, had an endoscopy done by Dr. Bruno, found to have some esophageal and gastric ulcers with some minimal bleeding. The patient was discharged home on iron that were infused as an outpatient; however, developed severe pain and loss of healing in the right leg, was readmitted to the hospital. Attempt at revascularization was ineffective, and the patient was taken to emergency service of Dr. Couch to revascularize and do a fem-fem bypass on the patient. The patient did well. Postop, her leg is warm, pulses are intact; however, she is still unable to move the toes of the right foot. She is able to move the lower and upper leg. PHYSICAL EXAMINATION: The patient is afebrile. Vital signs are stable. She is with minimal pain. LABORATORY DATA: BUN and creatinine are slightly elevated at 37 and 1.2. Blood sugar is 127. Hemoglobin is now at 7.4, white count is 17,200. PLAN: To continue postoperative care, start rehabilitation, and transfuse as necessary. Continue heparin drip at this point. Workup for hypercoagulable state and occult malignancy because of clotting in the right leg. Alexis Bush MD
[2017-07-18 16:18] LABS: INR 1.23 (0.93-1.08)
[2017-07-18 20:30] LABS: HEMATOCRIT 25.8 % (36.0-48.0); MEAN CELL VOLUME 73.3 fl (80.0-105.0); MEAN CORPUSCULAR HEMOGLOBIN 24.7 pg (25.0-35.0); MEAN CORPUSCULAR HGB CONC 33.7 g/dl (31.0-37.0); PLATELET COUNT 143 10^3/uL (120.0-450.0); WHITE BLOOD COUNT 16.7 10^3/ul (4.5-11.0)
--- NOTE | 2017-07-18 23:52 | CP.PCM.PN ---
Subjective - Date & Time of Evaluation Date of Evaluation: 07/18/17 Time of Evaluation: 18:00 - Subjective Subjective: She is comfortable in bed. Status post thrombectomy, fasciotomy. Still not able to move right leg. Dressing changed twice today. Hb declined to 7.4 gm/dl. Received 2 units of PRBC. hypercoaguable work up ordered, results pending. Tumor markers ordered, pending. No shortness of breath. Objective - Vital Signs/Intake and Output Vital Signs (last 24 hours): Temp Pulse Resp BP Pulse Ox 98.2 F 93 H 30 H 145/97 H 95 07/18/17 20:00 07/18/17 22:00 07/18/17 22:00 07/18/17 22:00 07/18/17 22:00 Intake and Output: 07/18/17 07/19/17 18:59 06:59 Intake Total 1180 Output Total 250 Balance 930 - Medications Medications: Current Medications Clopidogrel Bisulfate (Plavix) 75 mg PO DAILY [facility] Last Admin: 07/18/17 09:31 Dose: 75 mg Fentanyl (Fentanyl) 75 mcg IVP Q3H PRN PRN Reason: Pain, severe (8-10) Heparin Sodium/Dextrose (Heparin 25,000 Units/250ml In D5w) 25,000 units in 250 mls @ 14.696 mls/hr IV .Q17H1M PRN; Protocol; 18 UNITS/KG/HR PRN Reason: ADJUST RATE PER PROTOCOL Last Admin: 07/18/17 18:12 Dose: 11.63 units/kg/hr, 9.5 mls/hr Heparin Sodium (Porcine) 1,000 (units/ Sodium Chloride) 1,000 mls @ 5 mls/hr IV ONCE ONE Stop: 07/25/17 01:32 Last Admin: 07/16/17 21:43 Dose: Not Given Sodium Chloride (Sodium Chloride 0.9%) 1,000 mls @ 150 mls/hr IV .Q6H40M [facility] Last Admin: 07/18/17 05:24 Dose: 150 mls/hr Propofol (Diprivan) 1,000 mg in 100 mls @ 2.572 mls/hr IV .Q24H PRN; Protocol; 5 MCG/KG/MIN PRN Reason: TITRATE PER MD ORDER Last Admin: 07/17/17 03:35 Dose: 15 mcg/kg/min, 7.716 mls/hr Pantoprazole Sodium (Protonix Inj) 40 mg IVP DAILY [facility] Last Admin: 07/18/17 09:31 Dose: 40 mg - Labs Labs: 07/18/17 20:00 07/18/17 07:20 PT 13.3 Seconds (9.9-11.8) H 07/18/17 15:40 INR 1.23 (0.93-1.08) H 07/18/17 15:40 APTT 97.0 Seconds (23.7-30.8) H* 07/18/17 15:40 - Constitutional Appears: Non-toxic - Head Exam Head Exam: ATRAUMATIC, NORMAL INSPECTION, NORMOCEPHALIC - Eye Exam Eye Exam: Normal appearance - ENT Exam ENT Exam: Mucous Membranes Moist - Neck Exam Neck Exam: Normal Inspection - Respiratory Exam Respiratory Exam: Clear to Ausculation Bilateral, NORMAL BREATHING PATTERN - Cardiovascular Exam Cardiovascular Exam: REGULAR RHYTHM, +S1, +S2 - GI/Abdominal Exam GI & Abdominal Exam: Soft, Normal Bowel Sounds - Extremities Exam Additional comments: right leg in dressing. - Back Exam Back Exam: NORMAL INSPECTION - Neurological Exam Neurological Exam: Alert, Oriented x3 - Skin Skin Exam: Pallor, Warm Assessment and Plan - Assessment and Plan (Free Text) Assessment: 1. Right leg arterial thrombosis : s/p thrombectomy, fasciotomy. on heparin drip. Dr. Couch following. Hypercoaguable work up ordered, results pending. 2. Severe iron deficiency anemia : s/p PRBC. EGD showed non bleeding ulcers. She will need colonoscopy upon recovery. 3. Occult malignancy to be ruled out. CT abdomen no mass lesion. Tumor markers pending. 4. CV -stable. Discussed with patient, all of the above. Thank you Dr. Bush for allowing us to participate in her care.
[2017-07-19 00:53] LABS: INR 1.45 (0.93-1.08)
[2017-07-19] MEDS: Sodium Chloride 0.9% 1,000 ML IV SCH ×2 (05:00→12:45)
[2017-07-19 06:48] LABS: INR 1.2 (0.93-1.08); PARTIAL THROMBOPLASTIN TIME 54.7 Seconds (23.7-30.8)
--- NOTE | 2017-07-19 07:50 | CARD ---
APPROVED REPORT EXAM: Two-dimensional and M-mode echocardiogram with Doppler and color Doppler. Other Information Quality : AverageRhythm : INDICATION Aortic Valve Disease , acute ischemia right leg, R/O CARDIAC SOURCE OF EMBOLUS 2D DIMENSIONS Left Atrium (2D)4.0 (1.6-4.0cm)IVSd1.2 (0.7-1.1cm) LVDd3.8 (3.9-5.9cm)LVOT Diameter1.7 (1.8-2.4cm) PWd1.2 (0.7-1.1cm)LVDs2.6 (2.5-4.0cm) FS (%) 31.6 %LVEF (%)60.0 (>50%) M-Mode DIMENSIONS Aortic Root2.80 (2.2-3.7cm)Aortic Cusp Exc.1.00 (1.5-2.0cm) Aortic Valve AoV Peak Pukjqjxc803.0cm/sAoV VTI74.5cmAO Peak GR.62mmHg LVOT Peak Xycleawp636.0cm/sLVOT VTI30.90cmAO Mean GR.31mmHg HARPER (VMAX)0.93qt3LSF (VTI)0.91qq0BP P 1/2 Famj764od Mitral Valve MV E Esjroqjv591.0cm/sMV A Nrakdvwq356.0cm/sE/A ratio0.9 TDI Lateral E' Peak V13.30cm/sMedial E' Peak V7.80cm/sE/Lateral E'8.2 E/Medial E'14.0 Pulmonary Valve PV Peak Cpenktjk831.0cm/sPV Peak Grad.7mmHg Tricuspid Valve TR Peak Wmrrdipm565mx/sRAP ZSIGZYHV10gyMnEY Peak Gr.35mmHg CAVL75rcPa LEFT VENTRICLE The left ventricle is normal size. There is normal left ventricular wall thickness. The left ventricular function is normal. The left ventricular ejection fraction is within the normal range. There is normal LV segmental wall motion. RIGHT VENTRICLE The right ventricle is normal size. ATRIA The left atrium size is normal. The right atrium size is normal. The interatrial septum is intact with no evidence for an atrial septal defect. AORTIC VALVE The aortic valve is moderately calcified. There is mild to moderate aortic regurgitation. There is moderate to severe valvular aortic stenosis. MITRAL VALVE The mitral valve is normal in structure. Mitral annular calcification is mild. Mitral regurgitation is mild. TRICUSPID VALVE The tricuspid valve is normal in structure. There is trace to mild tricuspid regurgitation. GREAT VESSELS The aortic root is normal in size. PERICARDIAL EFFUSION There is no pericardial effusion. <Conclusion> The left ventricle is normal size. There is normal left ventricular wall thickness. The left ventricular function is normal. The left ventricular ejection fraction is within the normal range. The aortic valve is moderately calcified. There is mild to moderate aortic regurgitation. There is moderate to severe valvular aortic stenosis. Mitral regurgitation is mild. There is trace to mild tricuspid regurgitation.
--- NOTE | 2017-07-19 08:29 | CP.PCM.PN ---
Subjective - Date & Time of Evaluation Date of Evaluation: 07/19/17 Time of Evaluation: 07:00 - Subjective Subjective: Stable in ICU. No CP or SOB. The right foot is numb and is not moving. Additional surgery is planned for today bt Dr. Couch. V/S noted. RSR. PE: Lungs: clear Cor.: S1S2, sys. murmur Abd.: soft Ext.: right foor bandaged Neuro: alert I/O= 3375/1450 Labs: H/H= 5.6/, Pl ct.= 117,000, PTT= 54 ECG 07/17: RSR, APCs Echo:NL LV function, mod/sev. , mild to mod AI, mild MR, trace TR. Objective - Vital Signs/Intake and Output Vital Signs (last 24 hours): Temp Pulse Resp BP Pulse Ox 98.8 F 82 25 H 143/69 100 07/19/17 04:00 07/19/17 06:00 07/19/17 06:00 07/19/17 06:00 07/19/17 06:00 Intake and Output: 07/19/17 07/19/17 06:59 18:59 Intake Total 2195 Output Total 1200 Balance 995 - Medications Medications: Current Medications Clopidogrel Bisulfate (Plavix) 75 mg PO DAILY [facility] Last Admin: 07/18/17 09:31 Dose: 75 mg Fentanyl (Fentanyl) 75 mcg IVP Q3H PRN PRN Reason: Pain, severe (8-10) Heparin Sodium/Dextrose (Heparin 25,000 Units/250ml In D5w) 25,000 units in 250 mls @ 14.696 mls/hr IV .Q17H1M PRN; Protocol; 18 UNITS/KG/HR PRN Reason: ADJUST RATE PER PROTOCOL Last Titration: 07/19/17 03:50 Dose: 8.6 units/kg/hr, 7.022 mls/hr Heparin Sodium (Porcine) 1,000 (units/ Sodium Chloride) 1,000 mls @ 5 mls/hr IV ONCE ONE Stop: 07/25/17 01:32 Last Admin: 07/16/17 21:43 Dose: Not Given Sodium Chloride (Sodium Chloride 0.9%) 1,000 mls @ 150 mls/hr IV .Q6H40M [facility] Last Admin: 07/19/17 05:00 Dose: 150 mls/hr Propofol (Diprivan) 1,000 mg in 100 mls @ 2.572 mls/hr IV .Q24H PRN; Protocol; 5 MCG/KG/MIN PRN Reason: TITRATE PER MD ORDER Last Admin: 07/17/17 03:35 Dose: 15 mcg/kg/min, 7.716 mls/hr Pantoprazole Sodium (Protonix Inj) 40 mg IVP DAILY [facility] Last Admin: 07/18/17 09:31 Dose: 40 mg - Labs Labs: 07/19/17 06:20 07/18/17 07:20 PT 13.0 Seconds (9.9-11.8) H 07/19/17 06:20 INR 1.20 (0.93-1.08) H 07/19/17 06:20 APTT 54.7 Seconds (23.7-30.8) H 07/19/17 06:20 Assessment and Plan - Assessment and Plan (Free Text) Assessment: Severe anemia/s/p multiple blood transfusions/Esophageal and gastric ulcers Acute iliofemoral thrombosis, s/p surgical thrombectomy, distal bypasses and fasciectomy Valvular heart disease: mod/sev , mild/mod AI, mild MR, trace TR HBP H/O syncope CVD DJD Former Smoker Plan: As per Dr. Couch, Dr. Kohler and Intensivists Transfuse to Hgb > 9.5 GI and Heme evaluation: R/O GIB, occult malignancy, hypercoaguable state Check stool for OB Await AM labs Cultures pending. Monitor I/O, H/H, labs, sats., etc. Will follow
[2017-07-19 08:43] LABS: HEMATOCRIT 24.6 % (36.0-48.0); MEAN CELL VOLUME 72.4 fl (80.0-105.0); MEAN CORPUSCULAR HEMOGLOBIN 24.1 pg (25.0-35.0); MEAN CORPUSCULAR HGB CONC 33.3 g/dl (31.0-37.0); MEAN PLATELET VOLUME 8.8 fl (7.0-11.0); RED CELL DISTRIBUTION WIDTH 25.3 % (11.5-14.5); WHITE BLOOD COUNT 13.3 10^3/ul (4.5-11.0)
[2017-07-19 08:54] LABS: ALB/GLOB RATIO 0.9 (1.1-1.8); ALKALINE PHOSPHATASE 71 U/L (38-126); ALT/SGPT 126 U/L (7-56); AST/SGOT 382 U/L (14-36); BILIRUBIN,TOTAL 1.1 mg/dL (0.2-1.3); BLOOD UREA NITROGEN 44 mg/dL (7-21); CALCIUM 7.4 mg/dL (8.4-10.5); CARBON DIOXIDE 17 mmol/L (21-33); CHLORIDE 112 mmol/L (98-107); GFR AFRICAN-AMERICAN 39; GLUCOSE,RANDOM 105 mg/dL (70-110); POTASSIUM 3.9 mmol/L (3.6-5.0); SODIUM 136 mmol/L (132-148); TOTAL PROTEIN 4.6 g/dL (5.8-8.3)
--- NOTE | 2017-07-19 09:44 | CARD ---
APPROVED REPORT EKG Measurement Heart [id number] <Conclusion> Sinus rhythm with premature supraventricular complexes Otherwise normal ECG
[2017-07-19 12:50] LABS: CA 19-9 < 1.4 U/mL (0-37)
[2017-07-19] MEDS ORDERED: Midazolam 2 MG/2 ML VIAL ONE (13:11)
[2017-07-19] MEDS ORDERED: Succinylcholine 200 mg/10 ml Inj IV ONE (13:12)
[2017-07-19] MEDS ORDERED: Phenylephrine 10 mg/ml Inj ONE (13:12)
[2017-07-19] MEDS ORDERED: ePHEDrine 50 mg/ml Inj ONE (13:12)
[2017-07-19] MEDS ORDERED: Etomidate 20 mg/10ml Inj IV ONE (13:12)
[2017-07-19] MEDS ORDERED: Propofol 10 mg/ml Inj (20 ML) ONE (14:12)
--- NOTE | 2017-07-19 15:11 | PCM.SURG1 ---
Surgeon's Initial Post Op Note - Surgeon's Notes Surgeon: MD Khoa Hr Generalist: Hortensia PGY2. BHARATHI BerriosY1 Pre-Operative Diagnosis: right leg ischemia, s/p fasciotomy Operative Findings: palpable pulse in anterior tibial artery Post-Operative Diagnosis: right leg ischemia, s/p fasciotomy Operation Performed: rght leg wound exploration, irrigation, lacing of wound with vessel loops. Specimen/Specimens Removed: n/a Estimated Blood Loss: EBL {In ML}: 5 Date of Surgery/Procedure: 07/19/17 Time of Surgery/Procedure: 14:18
[2017-07-19] MEDS ORDERED: Lactated Ringer's 1,000 ML IV SCH (15:30)
[2017-07-19] MEDS ORDERED: Oxycodone/Acetaminophen 5/325 mg Tab PO PRN (20:10)
--- NOTE | 2017-07-19 20:51 | PN ---
DATE: SUBJECTIVE: A 67-year-old white female seen in the ICU, post fem-fem bypass for loss of circulation in the right leg. The patient was taking back to surgery to have a clean debridement done of her groin by Dr. Couch. The patient has had successful debridement of this area in the wound. Her pulses are intact bilaterally. Her foot is warm. She does have loss of ability to move her toes on the right foot, but she is able to move the upper and lower leg and also the foot. PHYSICAL EXAMINATION: VITAL SIGNS: The patient is afebrile. Vital signs are stable. Blood pressure 167/84. CHEST: Clear to auscultation and percussion. HEART: Regular sinus rhythm. ABDOMEN: Benign. EXTREMITIES: No cyanosis, clubbing, or edema. NEUROLOGIC: Loss of strength in the right five toes. LABORATORY DATA: BUN and creatinine are slightly elevated at 44 and 1.6. Her white count is down to 13,300. Her hemoglobin is up to 8.2. She was recently transfused after having a severe drop in hemoglobin to less than 5. PLAN: Discussion with Dr. Shannon is that the patient did not have any evidence of vegetations. There is a fibrous material removed from her right femoral artery by Dr. Couch of unknown origin or source. Pathology is pending. The patient was being seen by Dr. Kohler for hypercoagulable workup. The patient is stable today. Alexis Bush MD
[2017-07-19] MEDS: HYDROmorphone 0.5 mg/0.5 ml ISec IVP PRN (23:10)
--- NOTE | 2017-07-20 04:45 | OP ---
PROCEDURE DATE: 07/19/2017 PREOPERATIVE DIAGNOSES: Right leg ischemia status post revascularization and full compartment fasciotomy. POSTOPERATIVE DIAGNOSES: Right leg ischemia status post re vascularization and full compartment fasciotomy. TYPE OF ANESTHESIA: IV sedation. PROCEDURE: Exploration of wound, Debridement of muscles, approximation of wound DESCRIPTION OF PROCEDURE: The patient was brought to the OR and placed supine on the OR table. After adequate IV sedation have been accomplished, the entire right lower leg was prepped with Betadine and draped out as a sterile field. The wound was examined. The muscle appeared to be red and viable and some small amount of muscle was deemed nonviable that was debrided. The wound was then pulse irrigated with 3 liters of normal saline. Skin staple was placed on the edge of the skin and the incision lies up with vessel loop. Sterile dressing was applied. Podiatry, Dr. Beckett was consulted and placed a posterior splint to keep the foot in the functional position. The patient tolerated the procedure well and was returned to the recovery room in stable. Elma Couch MD SHIVAM
[2017-07-20 05:57] LABS: BASO # 0.03 K/mm3 (0.0-2.0); BASO % 0.2 % (0.0-3.0); EOS # 0.2 (0.0-0.7); EOS % 1.4 % (1.5-5.0); GRAN # 10.8 (1.4-6.5); GRAN % 79.1 % (50.0-68.0); LYMPH # 1.7 (1.2-3.4); LYMPH % 12.4 % (22.0-35.0); MEAN CORPUSCULAR HEMOGLOBIN 24.1 pg (25.0-35.0); MEAN PLATELET VOLUME 9.7 fl (7.0-11.0); MONO # 0.9 (0.1-0.6); MONO % 6.9 % (1.0-6.0); RED CELL DISTRIBUTION WIDTH 25.9 % (11.5-14.5); WHITE BLOOD COUNT 13.7 10^3/ul (4.5-11.0)
[2017-07-20 06:11] LABS: INR 0.97 (0.93-1.08); PARTIAL THROMBOPLASTIN TIME 55.5 Seconds (23.7-30.8)
[2017-07-20 06:27] LABS: ALB/GLOB RATIO 0.9 (1.1-1.8); BILIRUBIN,TOTAL 0.6 mg/dL (0.2-1.3); CALCIUM 7.8 mg/dL (8.4-10.5); PHOSPHOROUS 4.9 mg/dL (2.5-4.5); POTASSIUM 3.7 mmol/L (3.6-5.0); TOTAL PROTEIN 4.6 g/dL (5.8-8.3)
--- NOTE | 2017-07-20 11:09 | CP.PCM.PN ---
Subjective - Date & Time of Evaluation Date of Evaluation: 07/20/17 Time of Evaluation: 07:30 - Subjective Subjective: Surgery note for Dr. Couch 67F seen and examined at bedside. Patient doing well, states her pain is controlled with medications. No acute events overnight, As per nurse, patient has been having melena. Objective - Vital Signs/Intake and Output Vital Signs (last 24 hours): Temp Pulse Resp BP Pulse Ox 98.1 F 80 18 144/66 100 07/20/17 04:00 07/20/17 06:00 07/20/17 06:00 07/20/17 06:00 07/20/17 06:00 Intake and Output: 07/20/17 07/20/17 06:59 18:59 Intake Total 1767 Output Total 2000 Balance -233 - Medications Medications: Current Medications Clopidogrel Bisulfate (Plavix) 75 mg PO DAILY [facility] Last Admin: 07/20/17 10:47 Dose: 75 mg Fentanyl (Fentanyl) 75 mcg IVP Q3H PRN PRN Reason: Pain, severe (8-10) Hydromorphone HCl (Dilaudid) 0.5 mg IVP Q4H PRN PRN Reason: Pain, severe (8-10) Last Admin: 07/19/17 23:10 Dose: 0.5 mg Heparin Sodium/Dextrose (Heparin 25,000 Units/250ml In D5w) 25,000 units in 250 mls @ 14.696 mls/hr IV .Q17H1M PRN; Protocol; 18 UNITS/KG/HR PRN Reason: ADJUST RATE PER PROTOCOL Last Titration: 07/20/17 02:30 Dose: 10.6 units/kg/hr, 8.655 mls/hr Heparin Sodium (Porcine) 1,000 (units/ Sodium Chloride) 1,000 mls @ 5 mls/hr IV ONCE ONE Stop: 07/25/17 01:32 Last Admin: 07/16/17 21:43 Dose: Not Given Propofol (Diprivan) 1,000 mg in 100 mls @ 2.572 mls/hr IV .Q24H PRN; Protocol; 5 MCG/KG/MIN PRN Reason: TITRATE PER MD ORDER Last Admin: 07/17/17 03:35 Dose: 15 mcg/kg/min, 7.716 mls/hr Pantoprazole Sodium (Protonix 40mg Ivpb) 40 mg in 100 mls @ 20 mls/hr IVPB .Q5H [facility] Oxycodone/Acetaminophen (Percocet 5/325 Mg Tab) 2 tab PO Q4H PRN PRN Reason: Pain, moderate (4-7) Stop: 07/22/17 20:11 - Labs Labs: 07/20/17 05:10 07/20/17 05:10 PT 10.5 Seconds (9.9-11.8) 07/20/17 05:10 INR 0.97 (0.93-1.08) 07/20/17 05:10 APTT 55.5 Seconds (23.7-30.8) H 07/20/17 05:10 - Constitutional Appears: Non-toxic, No Acute Distress - Respiratory Exam Respiratory Exam: Clear to Ausculation Bilateral, NORMAL BREATHING PATTERN - Cardiovascular Exam Cardiovascular Exam: REGULAR RHYTHM, +S1, +S2 - GI/Abdominal Exam GI & Abdominal Exam: Soft. absent: Distended, Firm, Guarding, Rigid, Tenderness , Rebound - Rectal Exam Additional comments: maroon colored stool s/p use of bedpan - Extremities Exam Additional comments: left arm excoriation --dresses with Xeroform/curlex left leg: dopplerable signals in DP/PT Right leg: dopperable signals in DP/PT Right thigh incision/ mid lower leg incision CDI Right leg fasciotomy site clean, dry - Dressings with vessel loops to approximate fasciotomy incision - All dressings changed - Neurological Exam Neurological Exam: Alert, Awake - Skin Skin Exam: Dry, Intact, Normal Color, Warm Assessment and Plan - Assessment and Plan (Free Text) Assessment: 67F s/p Right leg Femoral/Popliteal embolectomy. Right leg Popliteal/Tibial/ Peroneal bypass, Right leg fasciotomy. POD3, Irrigation/debridement POD1 Plan: 67F s/p Right leg Femoral/Popliteal embolectomy. Right leg Popliteal/Tibial/ Peroneal bypass, Right leg fasciotomy. POD2 Plan: - LE vascular checks. - Continue to monitor vitals - Dressing changes - monitor Fasciotomy site - Transfusion as per primary team - Recommend GI consult Further recs discuss with Dr. Khoa Bazan, PGY2
--- NOTE | 2017-07-20 12:10 | CP.PCM.CON ---
History of Present Illness - History of Present Illness History of Present Illness: Surgery Consult Note for Dr. Andrea Consult: left arm wound 67F presents to ICU s/p right leg embolectomy/bypass/fasciotomy for acute right lower limb ischemia and compartment syndrome. General surgery consulted for left arm wound. Wound occurred two days ago after an IV infiltrate. Area is tender to touch, bruised and has one fluid filled bullous. PMH: HTN PSH: R knee meniscus repair, Right Fem/PopEmbolectomy, right lower leg fasciotomy Social: distant history of tobacco, smoked for 10 years, quit 30 years ago Allergies: Levofloxacin Past Patient History - Infectious Disease Hx of Infectious Diseases: None - Past Medical History & Family History Past Medical History?: Yes Past Family History: Reviewed and not pertinent - Past Social History Smoking Status: Former Smoker - CARDIAC Hx Cardiac Disorders: Yes (MV PROLAPSE) Hx Hypercholesterolemia: Yes Hx Hypertension: Yes Hx Peripheral Vascular Disease: Yes - PULMONARY Hx Respiratory Disorders: Yes (SMOKED PPD .QUIT 10 YRS AGO) Hx Bronchitis: Yes Hx Pneumonia: Yes Hx Respiratory Tract Infection: Yes - NEUROLOGICAL Hx Neurological Disorder: Yes Hx Dizziness: Yes - HEENT Hx HEENT Problems: No - RENAL Hx Chronic Kidney Disease: No - ENDOCRINE/METABOLIC Hx Endocrine Disorders: No - HEMATOLOGICAL/ONCOLOGICAL Hx Blood Transfusions: Yes Hx Blood Transfusion Reaction: No - INTEGUMENTARY Hx Dermatological Problems: No - MUSCULOSKELETAL/RHEUMATOLOGICAL Hx Musculoskeletal Disorders: Yes (RIGHT LEG NUMBNESS,PAIN AND WEAK-ISCHEMIC LOWER EXTREMITY) Hx Falls: No Hx Unsteady Gait: Yes - GASTROINTESTINAL Hx Gastrointestinal Disorders: Yes Hx Ulcer: Yes (NON BLEEDING.) - GENITOURINARY/GYNECOLOGICAL Hx Genitourinary Disorders: Yes Hx Urinary Tract Infection: Yes - PSYCHIATRIC Hx Psychophysiologic Disorder: Yes Hx Panic Symptoms: Yes Hx Substance Use: No - SURGICAL HISTORY Hx Surgeries: Yes - ANESTHESIA Hx Anesthesia Reactions: No Hx Malignant Hyperthermia: No Meds Allergies/Adverse Reactions: Allergies Allergy/AdvReac Type Severity Reaction Status Date / Time levofloxacin [From Levaquin] Allergy RASH Verified 07/16/17 15:50 - Medications Medications: Current Medications Clopidogrel Bisulfate (Plavix) 75 mg PO DAILY [facility] Last Admin: 07/20/17 10:47 Dose: 75 mg Fentanyl (Fentanyl) 75 mcg IVP Q3H PRN PRN Reason: Pain, severe (8-10) Hydromorphone HCl (Dilaudid) 0.5 mg IVP Q4H PRN PRN Reason: Pain, severe (8-10) Last Admin: 07/19/17 23:10 Dose: 0.5 mg Heparin Sodium/Dextrose (Heparin 25,000 Units/250ml In D5w) 25,000 units in 250 mls @ 14.696 mls/hr IV .Q17H1M PRN; Protocol; 18 UNITS/KG/HR PRN Reason: ADJUST RATE PER PROTOCOL Last Titration: 07/20/17 02:30 Dose: 10.6 units/kg/hr, 8.655 mls/hr Heparin Sodium (Porcine) 1,000 (units/ Sodium Chloride) 1,000 mls @ 5 mls/hr IV ONCE ONE Stop: 07/25/17 01:32 Last Admin: 07/16/17 21:43 Dose: Not Given Propofol (Diprivan) 1,000 mg in 100 mls @ 2.572 mls/hr IV .Q24H PRN; Protocol; 5 MCG/KG/MIN PRN Reason: TITRATE PER MD ORDER Last Admin: 07/17/17 03:35 Dose: 15 mcg/kg/min, 7.716 mls/hr Pantoprazole Sodium (Protonix 40mg Ivpb) 40 mg in 100 mls @ 20 mls/hr IVPB .Q5H [facility] Oxycodone/Acetaminophen (Percocet 5/325 Mg Tab) 2 tab PO Q4H PRN PRN Reason: Pain, moderate (4-7) Stop: 07/22/17 20:11 Physical Exam - Constitutional Appears: Non-toxic, No Acute Distress - ENT Exam ENT Exam: Mucous Membranes Moist - Respiratory Exam Respiratory Exam: Clear to Auscultation Bilateral, NORMAL BREATHING PATTERN - Cardiovascular Exam Cardiovascular Exam: REGULAR RHYTHM, +S1, +S2 - GI/Abdominal Exam GI & Abdominal Exam: Soft. absent: Distended, Firm, Guarding, Rebound, Rigid, Tenderness - Extremities Exam Additional comments: left arm excoriation/bullae --dressed with silvadene left leg: dopplerable signals in DP/PT Right leg: dopperable signals in DP/PT Right thigh incision/ mid lower leg incision CDI Right leg fasciotomy site clean, dry - Dressings with vessel loops to approximate fasciotomy incision - Neurological Exam Neurological exam: Alert, Oriented x3 - Psychiatric Exam Psychiatric exam: Normal Affect, Normal Mood - Skin Skin Exam: Dry, Intact, Normal Color, Warm Results - Vital Signs Recent Vital Signs: Last Vital Signs Temp 98.1 F 07/20/17 04:00 Pulse 80 07/20/17 06:00 Resp 18 07/20/17 06:00 BP 144/66 07/20/17 06:00 Pulse Ox 100 07/20/17 06:00 - Labs Result Diagrams: 07/20/17 05:10 07/20/17 05:10 Labs: Laboratory Results - last 24 hr 07/19/17 07/19/17 07/19/17 07:40 13:00 16:30 WBC RBC Hgb Hct MCV MCH MCHC RDW Plt Count MPV Gran % Lymph % (Auto) [place] % (Auto) Eos % (Auto) Baso % (Auto) Gran # Lymph # [place]ombs # Eos # Baso # PT INR APTT Sodium Potassium Chloride Carbon Dioxide Anion Gap BUN Creatinine Est GFR ( Amer) Est GFR (Non-Af Amer) POC Glucose (mg/dL) 134 H Random Glucose Calcium Phosphorus Magnesium Total Bilirubin AST ALT Alkaline Phosphatase Total Protein Albumin Globulin Albumin/Globulin Ratio CA 19-9 Antigen < 1.4 CA 125 Antigen 12.9 Stool Occult Blood Positive H Blood Type Antibody Screen Crossmatch BBK History Checked 07/19/17 07/20/17 07/20/17 22:55 01:35 05:10 WBC RBC Hgb Hct MCV MCH MCHC RDW Plt Count MPV Gran % Lymph % (Auto) [place] % (Auto) Eos % (Auto) Baso % (Auto) Gran # Lymph # [place] # Eos # Baso # PT INR APTT 36.4 H Sodium 137 Potassium 3.7 Chloride 111 H Carbon Dioxide 18 L Anion Gap 12 BUN 34 H Creatinine 1.5 H Est GFR ( Amer) 42 Est GFR (Non-Af Amer) 34 POC Glucose (mg/dL) 124 H Random Glucose 102 Calcium 7.8 L Phosphorus 4.9 H Magnesium 2.0 Total Bilirubin 0.6 AST 313 H ALT 107 H Alkaline Phosphatase 80 Total Protein 4.6 L Albumin 2.2 L Globulin 2.4 Albumin/Globulin Ratio 0.9 L CA 19-9 Antigen CA 125 Antigen Stool Occult Blood Blood Type Antibody Screen Crossmatch BBK History Checked 07/20/17 07/20/1707/20/17 05:10 05:10 10:55 WBC 13.7 H RBC 2.74 L Hgb 6.6 L* Hct 20.0 L* MCV 73.0 L MCH 24.1 L MCHC 33.0 RDW 25.9 H Plt Count 198 MPV 9.7 Gran % 79.1 H Lymph % (Auto) 12.4 L [place] % (Auto) 6.9 H Eos % (Auto) 1.4 L Baso % (Auto) 0.2 Gran # 10.80 H Lymph # 1.7 [place]ombs # 0.9 H Eos # 0.2 Baso # 0.03 PT 10.5 INR 0.97 APTT 55.5 H 50.4 H Sodium Potassium Chloride Carbon Dioxide Anion Gap BUN Creatinine Est GFR ( Amer) Est GFR (Non-Af Amer) POC Glucose (mg/dL) Random Glucose Calcium Phosphorus Magnesium Total Bilirubin AST ALT Alkaline Phosphatase Total Protein Albumin Globulin Albumin/Globulin Ratio CA 19-9 Antigen CA 125 Antigen Stool Occult Blood Blood Type Antibody Screen Crossmatch BBK History Checked 07/20/17 10:55 WBC RBC Hgb Hct MCV MCH MCHC RDW Plt Count MPV Gran % Lymph % (Auto) [place] % (Auto) Eos % (Auto) Baso % (Auto) Gran # Lymph # [place]ombs # Eos # Baso # PT INR APTT Sodium Potassium Chloride Carbon Dioxide Anion Gap BUN Creatinine Est GFR ( Amer) Est GFR (Non-Af Amer) POC Glucose (mg/dL) Random Glucose Calcium Phosphorus Magnesium Total Bilirubin AST ALT Alkaline Phosphatase Total Protein Albumin Globulin Albumin/Globulin Ratio CA 19-9 Antigen CA 125 Antigen Stool Occult Blood Blood Type AB POSITIVE Antibody Screen Negative Crossmatch See Detail BBK History Checked Patient has bt Assessment & Plan - Assessment and Plan (Free Text) Assessment: 67F with left arm wound. s/p Fem/Pop Embolectomy with right leg fasciotomy Plan: - Silvadene - Arm elevation - Warm soaks - Non-stick Dressing Further recs discuss with Dr. Emre Bazan, PGY2
[2017-07-20] MEDS: HYDROmorphone 0.5 mg/0.5 ml ISec IVP PRN ×2 (14:19→22:44)
--- NOTE | 2017-07-20 14:21 | PN ---
DATE: 07/20/2017 SUBJECTIVE: The patient is seen lying in bed in the ICU. She is feeling somewhat better. Her right leg is wrapped. She denies any dyspnea at rest. Her hemoglobin this morning was 6.6. She continues to have some diminished sensation of her right foot, but has some minimal mobility of her toes. CURRENT MEDICATIONS: Include Dilaudid, IV heparin, oxycodone, Plavix 75 mg daily, Protonix, and Silvadene. PHYSICAL EXAMINATION GENERAL: She is anxious appearing, middle aged woman. VITAL SIGNS: Her blood pressure is 144/66 with a pulse of 80 and in sinus, and respirations are 14. She is afebrile. HEENT: No JVD. CHEST: Few scattered rhonchi heard. HEART: PMI in normal position, no pathological gallops noted. ABDOMEN: Soft and nontender with normoactive bowel sounds. EXTREMITIES: Right leg is wrapped. Her toes are warm. DIAGNOSTIC DATA: Potassium is 3.7 and BUN and creatinine are 34 and 1.5. White count is 13.7 and hemoglobin and hematocrit are 6.6 and 20.0, with an MCV of 73. Platelet count is 198,000. PTT is 55.5. AST and ALT are 313 and 107. IMPRESSION: 1. Recent acute right leg ischemia, status post fasciotomy and femoral-popliteal embolectomy as well as popliteal tibial peroneal bypass. 2. Mildly severe aortic stenosis. 3. [id number] aortic insufficiency. RECOMMENDATIONS: Continue the supportive care as advised. Transfusion of hemoglobin closer to 10 would be reasonable. Further evaluation of the causes of anemia is in progress. Given her recent embolic event, continued anticoagulation appears absolutely mandatory. Her prognosis remains extremely guarded. We will continue to follow and will make further recommendations as appropriate. Walt Hernandez MD
[2017-07-20] MEDS: Pantoprazole 40mg/100ml IVPB 40 MG/100 ML BAG IVPB SCH ×2 (15:54→22:47)
--- NOTE | 2017-07-20 18:48 | PN ---
DATE: SUBJECTIVE: A 67-year-old white female seen in the ICU. The patient's hemoglobin today is 6.6. She has been transfused 2 units. White count 13.7. She is status post debridement of her recent fem-fem bypass by Dr. Elma Couch. BUN and creatinine are 34 and 1.5. The patient has history of recent anemia, heme-positive stool. She had an upper endoscopy, but not a colonoscopy. We are waiting for Dr. Bruno for possible colonoscopy. Also, has hypercoagulable workup because of fibrous clot in the right leg, status post thrombectomy and bypass by Dr. Couch. The patient is also somewhat tachycardic today. PHYSICAL EXAMINATION VITAL SIGNS: Heart rate of 140 and a blood pressure 159/57. The patient is afebrile. HEART: Regular sinus rhythm. No S3 or murmur. CHEST: Clear to auscultation. EXTREMITIES: Without cyanosis, clubbing or edema. The patient is on heparin drip because of the leg thrombosis. The patient also has had loss of strength of her right foot toes, but not the foot or the leg. PLAN: Plan is to transfuse, continue heparin drip, possible GI workup for bleeding and continue hypercoagulable workup. Alexis Bush MD
[2017-07-20] MEDS: Silver Sulfadiazine 1% Cream (25 gm) TP SCH (18:50)
[2017-07-20 20:52] LABS: BASO # 0.03 K/mm3 (0.0-2.0); BASO % 0.2 % (0.0-3.0); EOS # 0.2 (0.0-0.7); EOS % 1.1 % (1.5-5.0); GRAN # 10.93 (1.4-6.5); HEMATOCRIT 28.1 % (36.0-48.0); LYMPH # 1.8 (1.2-3.4); MEAN CORPUSCULAR HEMOGLOBIN 26.3 pg (25.0-35.0); MEAN CORPUSCULAR HGB CONC 34.2 g/dl (31.0-37.0); MEAN PLATELET VOLUME 9.5 fl (7.0-11.0); MONO # 1.2 (0.1-0.6); MONO % 8.7 % (1.0-6.0); RED CELL DISTRIBUTION WIDTH 23.9 % (11.5-14.5); WHITE BLOOD COUNT 14.2 10^3/ul (4.5-11.0)
[2017-07-21] MEDS: Pantoprazole 40mg/100ml IVPB 40 MG/100 ML BAG IVPB SCH ×5 (06:09→20:39)
[2017-07-21 06:45] LABS: BASO # 0.03 K/mm3 (0.0-2.0); BASO % 0.3 % (0.0-3.0); EOS # 0.3 (0.0-0.7); EOS % 2.5 % (1.5-5.0); GRAN # 8.34 (1.4-6.5); GRAN % 74.2 % (50.0-68.0); HEMATOCRIT 26.6 % (36.0-48.0); LYMPH # 1.5 (1.2-3.4); LYMPH % 13.7 % (22.0-35.0); MEAN CELL VOLUME 77.6 fl (80.0-105.0); MEAN CORPUSCULAR HEMOGLOBIN 26.2 pg (25.0-35.0); MEAN CORPUSCULAR HGB CONC 33.8 g/dl (31.0-37.0); MEAN PLATELET VOLUME 9.3 fl (7.0-11.0); MONO # 1.1 (0.1-0.6); MONO % 9.3 % (1.0-6.0); RED CELL DISTRIBUTION WIDTH 24.1 % (11.5-14.5); WHITE BLOOD COUNT 11.2 10^3/ul (4.5-11.0)
[2017-07-21 06:52] LABS: INR 0.93 (0.93-1.08); PARTIAL THROMBOPLASTIN TIME 24.7 Seconds (23.7-30.8)
[2017-07-21 06:59] LABS: ALB/GLOB RATIO 0.9 (1.1-1.8); BILIRUBIN,TOTAL 1.7 mg/dL (0.2-1.3); CALCIUM 8.3 mg/dL (8.4-10.5); MAGNESIUM 1.9 mg/dL (1.7-2.2); PHOSPHOROUS 4.5 mg/dL (2.5-4.5); POTASSIUM 3.5 mmol/L (3.6-5.0); TOTAL PROTEIN 5.1 g/dL (5.8-8.3)
[2017-07-21] MEDS: HYDROmorphone 0.5 mg/0.5 ml ISec IVP PRN ×2 (07:30→18:55)
--- NOTE | 2017-07-21 08:07 | CP.PCM.PN ---
Subjective - Date & Time of Evaluation Date of Evaluation: 07/21/17 Time of Evaluation: 07:00 - Subjective Subjective: Stable in ICU. No CP or SOB. Pain in right foot, given tramodol. Now in AF. Off heparin drip b/o GI bleeding. V/S noted. AF ~ 130 BPM PE: Lungs: clear Cor.: S1S2, sys. murmur Abd.: soft Ext.: right foor bandaged Neuro: alert I/O= 2410/1730 Labs: H/H= 9/26.6, K+= 3.5, Cr.=1.4 Stool + OB ECG 07/17: RSR, APCs Echo:NL LV function, mod/sev. , mild to mod AI, mild MR, trace TR. Surgical spec cultures x 2: NG so far Objective - Vital Signs/Intake and Output Vital Signs (last 24 hours): Temp Pulse Resp BP Pulse Ox 97.5 F L 81 21 145/70 96 07/21/17 04:00 07/21/17 04:00 07/21/17 04:00 07/21/17 04:00 07/21/17 04:00 Intake and Output: 07/21/17 07/21/17 06:59 18:59 Intake Total 240 Output Total 780 Balance -540 - Medications Medications: Current Medications Clopidogrel Bisulfate (Plavix) 75 mg PO DAILY [facility] Last Admin: 07/20/17 10:47 Dose: 75 mg Hydromorphone HCl (Dilaudid) 0.5 mg IVP Q4H PRN PRN Reason: Pain, severe (8-10) Last Admin: 07/20/17 22:44 Dose: 0.5 mg Heparin Sodium (Porcine) 1,000 (units/ Sodium Chloride) 1,000 mls @ 5 mls/hr IV ONCE ONE Stop: 07/25/17 01:32 Last Admin: 07/16/17 21:43 Dose: Not Given Propofol (Diprivan) 1,000 mg in 100 mls @ 2.572 mls/hr IV .Q24H PRN; Protocol; 5 MCG/KG/MIN PRN Reason: TITRATE PER MD ORDER Last Admin: 07/17/17 03:35 Dose: 15 mcg/kg/min, 7.716 mls/hr Pantoprazole Sodium (Protonix 40mg Ivpb) 40 mg in 100 mls @ 20 mls/hr IVPB .Q5H [facility] Last Admin: 07/21/17 06:09 Dose: 20 mls/hr Oxycodone/Acetaminophen (Percocet 5/325 Mg Tab) 2 tab PO Q4H PRN PRN Reason: Pain, moderate (4-7) Stop: 07/22/17 20:11 Silver Sulfadiazine (Silvadene 1% 25 Gm) 0 gm TP BID [facility] Last Admin: 07/20/17 18:50 Dose: 25 gm - Labs Labs: 07/21/17 06:20 07/21/17 06:20 PT 10.0 Seconds (9.9-11.8) 07/21/17 06:20 INR 0.93 (0.93-1.08) 07/21/17 06:20 APTT 24.7 Seconds (23.7-30.8) 07/21/17 06:20 Assessment and Plan - Assessment and Plan (Free Text) Assessment: Severe anemia/s/p multiple blood transfusions/Esophageal and gastric ulcers/GIB/ Stool + OB Acute iliofemoral thrombosis, s/p surgical thrombectomy, distal bypasses and fasciectomy Atrial fibrillation this AM. PAF likely the cause for peripheral embolization originally. Valvular heart disease: mod/sev , mild/mod AI, mild MR, trace TR HBP H/O syncope CVD DJD Former Smoker Plan: IV metoprolol. As per Dr. Couch, Dr. Jose F Bruno, and Dr. Bush GI Consultation. Source of bleeding? Heme f/u. Resume IV heparin JALEN to prevent recurrent embolization. Very difficult situation. Await GI input. Monitor I/O, H/H, labs, sats., stool for OB, etc. Will follow
[2017-07-21] MEDS: Metoprolol 1 mg/ml Inj IV SCH ×3 (08:15→23:42)
--- NOTE | 2017-07-21 10:05 | CP.PCM.PN ---
Subjective - Date & Time of Evaluation Date of Evaluation: 07/21/17 Time of Evaluation: 05:50 - Subjective Subjective: Vascular Surgery Progress Note for Dr. Couch Patient seen and examined at bedside. No acute event overnight. Patient reports that her pain is well controlled with medications. She states her left arm is improving as well. Patient tolerating diet and having BM. Patient has no complaints at this time. Objective - Vital Signs/Intake and Output Vital Signs (last 24 hours): Temp Pulse Resp BP Pulse Ox 97.5 F L 135 H 21 153/101 H 96 07/21/17 04:00 07/21/17 08:15 07/21/17 04:00 07/21/17 08:15 07/21/17 04:00 Intake and Output: 07/21/17 07/21/17 06:59 18:59 Intake Total 240 Output Total 780 Balance -540 - Medications Medications: Current Medications Clopidogrel Bisulfate (Plavix) 75 mg PO DAILY [facility] Last Admin: 07/20/17 10:47 Dose: 75 mg Hydromorphone HCl (Dilaudid) 0.5 mg IVP Q4H PRN PRN Reason: Pain, severe (8-10) Last Admin: 07/21/17 07:30 Dose: 0.5 mg Heparin Sodium (Porcine) 1,000 (units/ Sodium Chloride) 1,000 mls @ 5 mls/hr IV ONCE ONE Stop: 07/25/17 01:32 Last Admin: 07/16/17 21:43 Dose: Not Given Propofol (Diprivan) 1,000 mg in 100 mls @ 2.572 mls/hr IV .Q24H PRN; Protocol; 5 MCG/KG/MIN PRN Reason: TITRATE PER MD ORDER Last Admin: 07/17/17 03:35 Dose: 15 mcg/kg/min, 7.716 mls/hr Pantoprazole Sodium (Protonix 40mg Ivpb) 40 mg in 100 mls @ 20 mls/hr IVPB .Q5H [facility] Last Admin: 07/21/17 06:09 Dose: 20 mls/hr Iron Sucrose (Venofer) 100 mg IVP QD5 [facility] Stop: 07/23/17 12:00 Metoprolol Tartrate (Lopressor) 2.5 mg IV Q8H [facility] Last Admin: 07/21/17 08:15 Dose: 2.5 mg Oxycodone/Acetaminophen (Percocet 5/325 Mg Tab) 2 tab PO Q4H PRN PRN Reason: Pain, moderate (4-7) Stop: 07/22/17 20:11 Silver Sulfadiazine (Silvadene 1% 25 Gm) 0 gm TP BID [facility] Last Admin: 07/20/17 18:50 Dose: 25 gm Sucralfate (Carafate Oral Susp) 1 gm PO ACHS [facility] - Labs Labs: 07/21/17 06:20 07/21/17 06:20 PT 10.0 Seconds (9.9-11.8) 07/21/17 06:20 INR 0.93 (0.93-1.08) 07/21/17 06:20 APTT 24.7 Seconds (23.7-30.8) 07/21/17 06:20 - Constitutional Appears: No Acute Distress - Head Exam Head Exam: ATRAUMATIC, NORMOCEPHALIC - Eye Exam Eye Exam: Normal appearance - ENT Exam ENT Exam: Mucous Membranes Moist - Respiratory Exam Respiratory Exam: NORMAL BREATHING PATTERN - Cardiovascular Exam Cardiovascular Exam: REGULAR RHYTHM - GI/Abdominal Exam GI & Abdominal Exam: Soft. absent: Tenderness - Extremities Exam Additional comments: LUE excoriation dressed with silvadene, gauze and kerlix LLE has dopplerable signals in DP/PT RLE has dopperable signals in DP/PT Right thigh incision and mid R lower leg incision are clean, dry and intact RLE fasciotomy site clean, dry - vessel loops tightened to approximate fasciotomy incision and dressed with xeroform abdominal pads and kerlix Splint and ludwin bandage applied to RLE to prevent foot drop All dressings were changed today - Neurological Exam Neurological Exam: Alert, Awake, Oriented x3 - Psychiatric Exam Psychiatric exam: Normal Affect, Normal Mood - Skin Skin Exam: Dry, Warm Assessment and Plan - Assessment and Plan (Free Text) Plan: 67 F s/p Right leg Femoral/Popliteal embolectomy. Right leg Popliteal/Tibial/ Peroneal bypass, Right leg fasciotomy. POD #4, s/p wound exploration with irrigation POD #2 - Vascular checks - Monitor H/H - Dressing changes daily on LUE and RLE - monitor Fasciotomy site - f/u GI Recommendations - Management as per primary team - DW Dr. Khoa Pachecoia PGY1
--- NOTE | 2017-07-21 11:39 | CON ---
DATE: 07/21/2017 GASTROENTEROLOGY CONSULTATION REQUESTING PHYSICIAN: Alexis Bush MD REASON FOR CONSULTATION: I have been asked to see this 67-year-old female, who was hospitalized on 07/14/2017 for severe anemia with a hemoglobin of 4.6. The patient, at that time, had stool for occult blood negative. She was transfused several units of packed red blood cells to hemoglobin of 9 g. She underwent an upper endoscopy, which showed 3 linear ulcers which were not bleeding in the fundus of the stomach. The patient was treated with PPI and discharged home for plans for an elective colonoscopy. CT scan of the abdomen and pelvis during her hospitalization was negative for any masses throughout the GI tract to explain possible GI blood loss. She was discharged home on the 07/15/2017. Following afternoon on 07/16/2017, the patient developed severe pain, numbness, whitish discoloration of her right leg and inability to walk. Workup in the emergency room showed complete occlusion of her iliac and femoral artery. She underwent attempt at thrombolysis by Interventional Radiology, this was unsuccessful. The patient subsequently underwent thrombectomy by Dr. Elma Couch. She was found to have extensive thrombosis in the right leg. The patient has done well postop with good pulses in the right leg. She has required several units of packed red blood cells postoperatively for drop in her blood count. She did have one episode of dark stools yesterday which were heme-positive. The patient has been on IV heparin and Plavix. She denies any abdominal pain, nausea, or vomiting. She denies any chest pain or shortness of breath. She has not had a bowel movement in 24 hours. Her BUN is mildly elevated and trending downward. It was 34 yesterday and is down to 26 and 1.4 creatinine today. Again, she denies any abdominal pain, nausea or vomiting. PAST MEDICAL HISTORY: Notable for profound anemia, superficial gastric ulcers, bicuspid aortic valve with moderate to severe aortic stenosis and moderate aortic insufficiency, hypertension, DJD of the right knee, and atherosclerosis of her carotid arteries. SOCIAL HISTORY: She is a former cigarette smoker. She denies alcohol use. 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 FAMILY HISTORY: Noncontributory. There is no history of hypercoagulable disorders in the family. REVIEW OF SYSTEMS: A 14-point review of systems is noted for right leg pain and dark stools. PHYSICAL EXAMINATION: GENERAL: Middle-aged female lying in bed, appearing comfortable. VITAL SIGNS: Reveal temperature of 97.5, blood pressure of 145/70, and heart rate of 81. HEENT: Reveal sclerae to be white, conjunctivae pale. NECK: Supple. CHEST: Reveals scattered rhonchi. HEART: Exam reveals a regular rate and rhythm. ABDOMEN: Soft, nontender. EXTREMITIES: Show her right leg in a surgical dressing. There are no blood stains on the surgical dressing. LABORATORY DATA: From today reveal potassium 3.5, BUN 26, creatinine 1.4, total bilirubin 1.7, AST 358, and ALT 117. Coags reveal a PT of 24.7. CBC reveals hemoglobin of 9, it was 9.6 last night; white blood cell count 11.2; and platelet count of 228,000. IMPRESSION: A 67-year-old female admitted with acute arterial thrombus of her right iliac and femoral artery causing ischemia to the right leg status post attempted thrombolysis and thrombectomy of her right leg with anemia, history of superficial gastric ulcers with gastrointestinal bleeding exacerbated by required anticoagulation with heparin and Plavix. The patient is known to have superficial gastric ulcers, anticoagulation cannot be stopped for fear of re-thrombosis of her right leg. She clinically is not bleeding at this time with stable hemoglobin and downtrending BUN. RECOMMENDATIONS: We will start the patient on Protonix drip at 8 mg per hour as well as Carafate suspension q.6 hours. I will follow CBC daily. If the patient has signs of active bleeding, we will consider obtaining a nuclear bleeding scan. Satinder Bruno MD MTDJuliet
--- NOTE | 2017-07-21 13:25 | PN ---
DATE: SUBJECTIVE: The patient is seen in the ICU. A 67-year-old white female with irregular tachyarrhythmia, seen in consultation with Dr. Shannon. Started on heparin and rate control medication. The patient is status post thrombectomy and fem-fem bypass of the leg after having total occlusion of the right superficial femoral artery with loss of feeling and movement in the toes of the right foot. The patient is status post anemia of unknown origin, guaiac positive stools. The patient has been transfused, back up to hemoglobin of 9. BUN and creatinine are stable at 26 and 1.4, potassium is 3.5, white count is 11,200. The patient is on heparin drip. She has been seen also by Dr. Kohler for hypercoagulable state. The patient will be continued on heparin and rate controlled atrial fibrillation. PHYSICAL EXAMINATION: GENERAL: A well-developed, well-nourished white female. The right leg is warm. The pulses are intact. There is no movement of the toes of the right foot. HEART: Regular rate with rapid ventricular response. CHEST: Clear to auscultation and percussion. EXTREMITIES: Shows some swelling in the upper extremities secondary to anemia and blood products. PLAN: Plan is to continue as above and continue ICU until the patient is stabilized. Alexis Bush MD
[2017-07-21] MEDS: Sucralfate 1 gm/10 ml Oral Susp UD PO SCH ×3 (14:48→21:07)
[2017-07-21] MEDS ORDERED: Heparin 25,000units in D5W 25,000 UNITS/250 ML BAG IV PRN (16:05)
[2017-07-21] MEDS ORDERED: Iron Sucrose 100 mg/5 ml Inj IVP SCH (17:00)
[2017-07-21] MEDS: Heparin 25,000units in D5W 25,000 UNITS/250 ML BAG IV PRN (20:45)
--- NOTE | 2017-07-21 21:20 | CARD ---
APPROVED REPORT EKG Measurement Heart [id number] <Conclusion> Sinus rhythm with occasional APCs Cannot rule out Inferior infarct, age undetermined Abnormal ECG
[2017-07-22] MEDS: HYDROmorphone 0.5 mg/0.5 ml ISec IVP PRN (00:02)
[2017-07-22] MEDS: Pantoprazole 40mg/100ml IVPB 40 MG/100 ML BAG IVPB SCH ×6 (00:53→23:00)
[2017-07-22 04:55] LABS: BASO # 0.04 K/mm3 (0.0-2.0); BASO % 0.3 % (0.0-3.0); EOS # 0.3 (0.0-0.7); GRAN # 8.92 (1.4-6.5); HEMATOCRIT 27.9 % (36.0-48.0); LYMPH % 16.2 % (22.0-35.0); MEAN CELL VOLUME 78.2 fl (80.0-105.0); MEAN CORPUSCULAR HEMOGLOBIN 26.3 pg (25.0-35.0); MEAN CORPUSCULAR HGB CONC 33.7 g/dl (31.0-37.0); MEAN PLATELET VOLUME 9.6 fl (7.0-11.0); MONO # 1.3 (0.1-0.6); MONO % 10.5 % (1.0-6.0); WHITE BLOOD COUNT 12.6 10^3/ul (4.5-11.0)
[2017-07-22 05:05] LABS: CALCIUM 8.1 mg/dL (8.4-10.5); MAGNESIUM 1.8 mg/dL (1.7-2.2); PHOSPHOROUS 4.3 mg/dL (2.5-4.5); POTASSIUM 3.2 mmol/L (3.6-5.0)
--- NOTE | 2017-07-22 08:11 | CP.PCM.PN ---
Subjective - Date & Time of Evaluation Date of Evaluation: 07/22/17 Time of Evaluation: 07:00 - Subjective Subjective: Stable in ICU. No CP or SOB. V/S noted. RSR/Sinus Jeremi. No AF since yesterday PE: Lungs: clear Cor.: S1S2, sys. murmur Abd.: soft Ext.: right foor bandaged Neuro: alert I/O= 1551/800 Labs: H/H= 9.4/27.9, WBC=12,600, PTT= 48, K+= 3.2, Cr.= 1.3 Stool + OB ECG 07/21: RSR, APCs Echo:NL LV function, mod/sev. , mild to mod AI, mild MR, trace TR. Surgical spec cultures x 2: NG at 3 days Objective - Vital Signs/Intake and Output Vital Signs (last 24 hours): Temp Pulse Resp BP Pulse Ox 98.5 F 87 18 148/86 98 07/22/17 00:01 07/22/17 05:57 07/22/17 04:50 07/22/17 04:04 07/22/17 00:01 Intake and Output: 07/22/17 07/22/17 06:59 18:59 Intake Total 760 Balance 760 - Medications Medications: Current Medications Clopidogrel Bisulfate (Plavix) 75 mg PO DAILY [facility] Last Admin: 07/21/17 10:34 Dose: 75 mg Hydromorphone HCl (Dilaudid) 0.5 mg IVP Q4H PRN PRN Reason: Pain, severe (8-10) Last Admin: 07/22/17 00:02 Dose: 0.5 mg Heparin Sodium (Porcine) 1,000 (units/ Sodium Chloride) 1,000 mls @ 5 mls/hr IV ONCE ONE Stop: 07/25/17 01:32 Last Admin: 07/16/17 21:43 Dose: Not Given Pantoprazole Sodium (Protonix 40mg Ivpb) 40 mg in 100 mls @ 20 mls/hr IVPB .Q5H [facility] Last Admin: 07/22/17 02:12 Dose: 20 mls/hr Iron Sucrose 100 mg/ Sodium (Chloride) 105 mls @ 210 mls/hr IVPB QD5 [facility] Stop: 07/23/17 12:00 Last Admin: 07/21/17 16:58 Dose: 210 mls/hr Heparin Sodium/Dextrose (Heparin 25,000 Units/250ml In D5w) 25,000 units in 250 mls @ 9.73 mls/hr IV .Q24H PRN; Protocol; 10 UNITS/KG/HR PRN Reason: ADJUST RATE PER PROTOCOL Last Titration: 07/22/17 05:29 Dose: 12 units/kg/hr, 11.676 mls/hr Metoprolol Tartrate (Lopressor) 2.5 mg IV Q8H [facility] Last Admin: 07/21/17 23:42 Dose: 2.5 mg Metoprolol Tartrate (Lopressor) 25 mg PO BID [facility] Oxycodone/Acetaminophen (Percocet 5/325 Mg Tab) 2 tab PO Q4H PRN PRN Reason: Pain, moderate (4-7) Stop: 07/22/17 20:11 Silver Sulfadiazine (Silvadene 1% 25 Gm) 0 gm TP BID [facility] Last Admin: 07/20/17 18:50 Dose: 25 gm Sucralfate (Carafate Oral Susp) 1 gm PO ACHS [facility] Last Admin: 07/21/17 21:07 Dose: 1 gm - Labs Labs: 07/22/17 04:35 07/22/17 04:35 PT 10.0 Seconds (9.9-11.8) 07/21/17 06:20 INR 0.93 (0.93-1.08) 07/21/17 06:20 APTT 48.0 Seconds (23.7-30.8) H 07/22/17 04:35 Assessment and Plan - Assessment and Plan (Free Text) Assessment: Severe anemia/s/p multiple blood transfusions/Esophageal and gastric ulcers/GIB/ Stool + OB Acute iliofemoral thrombosis, s/p surgical thrombectomy, distal bypasses and fasciectomy Atrial fibrillation this AM. PAF likely the cause for peripheral embolization originally. Valvular heart disease: mod/sev , mild/mod AI, mild MR, trace TR HBP H/O syncope CVD DJD Former Smoker Plan: PO metoprolol. Continue IV heparin for now. If tolerated>oral a/c skilled nursing. As per Dr. Couch, Dr. Jose F Bruno, Intensivists and Dr. Bush I discussed the case with Dr. Bruno yesterday. Risk of bleeding vs. risk of recurrent embolization discussed. Heme f/u. Monitor I/O, H/H, labs, sats., stool for OB, etc. Will follow
--- NOTE | 2017-07-22 08:28 | CP.PCM.PN ---
Subjective - Date & Time of Evaluation Date of Evaluation: 07/22/17 Time of Evaluation: 08:00 - Subjective Subjective: Surgery note for Dr Couch 67F seen and examined at bedside. No acute events overnight. Patient states pain is well controlled. Objective - Vital Signs/Intake and Output Vital Signs (last 24 hours): Temp Pulse Resp BP Pulse Ox 98.5 F 87 18 148/86 98 07/22/17 00:01 07/22/17 05:57 07/22/17 04:50 07/22/17 04:04 07/22/17 00:01 Intake and Output: 07/22/17 07/22/17 06:59 18:59 Intake Total 760 Balance 760 - Medications Medications: Current Medications Clopidogrel Bisulfate (Plavix) 75 mg PO DAILY [facility] Last Admin: 07/21/17 10:34 Dose: 75 mg Hydromorphone HCl (Dilaudid) 0.5 mg IVP Q4H PRN PRN Reason: Pain, severe (8-10) Last Admin: 07/22/17 00:02 Dose: 0.5 mg Heparin Sodium (Porcine) 1,000 (units/ Sodium Chloride) 1,000 mls @ 5 mls/hr IV ONCE ONE Stop: 07/25/17 01:32 Last Admin: 07/16/17 21:43 Dose: Not Given Pantoprazole Sodium (Protonix 40mg Ivpb) 40 mg in 100 mls @ 20 mls/hr IVPB .Q5H [facility] Last Admin: 07/22/17 02:12 Dose: 20 mls/hr Iron Sucrose 100 mg/ Sodium (Chloride) 105 mls @ 210 mls/hr IVPB QD5 [facility] Stop: 07/23/17 12:00 Last Admin: 07/21/17 16:58 Dose: 210 mls/hr Heparin Sodium/Dextrose (Heparin 25,000 Units/250ml In D5w) 25,000 units in 250 mls @ 9.73 mls/hr IV .Q24H PRN; Protocol; 10 UNITS/KG/HR PRN Reason: ADJUST RATE PER PROTOCOL Last Titration: 07/22/17 05:29 Dose: 12 units/kg/hr, 11.676 mls/hr Potassium Chloride (Potassium Chloride 20 Meq/100 Ml) 20 meq in 100 mls @ 50 mls/hr IV Q2H [facility] Stop: 07/22/17 12:14 Metoprolol Tartrate (Lopressor) 2.5 mg IV Q8H [facility] Last Admin: 07/21/17 23:42 Dose: 2.5 mg Metoprolol Tartrate (Lopressor) 25 mg PO BID [facility] Oxycodone/Acetaminophen (Percocet 5/325 Mg Tab) 2 tab PO Q4H PRN PRN Reason: Pain, moderate (4-7) Stop: 07/22/17 20:11 Silver Sulfadiazine (Silvadene 1% 25 Gm) 0 gm TP BID [facility] Last Admin: 07/20/17 18:50 Dose: 25 gm Sucralfate (Carafate Oral Susp) 1 gm PO ACHS [facility] Last Admin: 07/21/17 21:07 Dose: 1 gm - Labs Labs: 07/22/17 04:35 07/22/17 04:35 PT 10.0 Seconds (9.9-11.8) 07/21/17 06:20 INR 0.93 (0.93-1.08) 07/21/17 06:20 APTT 48.0 Seconds (23.7-30.8) H 07/22/17 04:35 - Constitutional Appears: Non-toxic, No Acute Distress - Respiratory Exam Respiratory Exam: Clear to Ausculation Bilateral, NORMAL BREATHING PATTERN - Cardiovascular Exam Cardiovascular Exam: REGULAR RHYTHM, +S1, +S2 - GI/Abdominal Exam GI & Abdominal Exam: Soft. absent: Distended, Firm, Guarding, Rigid, Tenderness , Rebound - Extremities Exam Additional comments: LUE excoriation dressed with silvadene, kerlix and DACIA wrap LLE has dopplerable signals in DP/PT RLE has dopperable signals in DP/PT Right thigh incision and mid R lower leg incision are clean, dry and intact RLE fasciotomy site clean, dry - vessel loops in place Splint and dacia bandage applied to RLE to prevent foot drop All dressings were changed. - Neurological Exam Neurological Exam: Alert, Awake - Skin Skin Exam: Dry, Intact, Normal Color, Warm Assessment and Plan - Assessment and Plan (Free Text) Assessment: 67 F s/p Right leg Femoral/Popliteal embolectomy. Right leg Popliteal/Tibial/ Peroneal bypass, Right leg fasciotomy. POD #5, s/p wound exploration with irrigation POD #3 Plan: - Vascular checks - Monitor H/H - Dressing changes daily on LUE and RLE - monitor Fasciotomy site - OR next week for wound closure - f/u GI Recommendations - Management as per primary team Further recs discuss with Dr. Khoa Bazan, PGY2
[2017-07-22] MEDS: Sucralfate 1 gm/10 ml Oral Susp UD PO SCH ×4 (10:12→22:05)
--- NOTE | 2017-07-22 10:31 | PN ---
SUBJECTIVE: The patient is a 67-year-old white female, status post thrombolysis of the right leg by Dr. Couch, recent history of atrial fibrillation, recent history of GI bleed of unknown source, the patient is presently guaiac positive. She is on heparin drip because of her thrombosed legs, status post fem-fem bypass and debridement of wounds. The patient is doing well. She is awake, alert and oriented x3. PHYSICAL EXAMINATION: VITAL SIGNS: She is converted from atrial fibrillation to sinus rhythm with heart rate of 84. Blood pressure is stable. She is afebrile. GENERAL: She is awake and alert. CHEST: Clear to auscultation and percussion. HEART EXAMINATION: Regular sinus rhythm. The patient does have a systolic ejection murmur over left sternal border which has been present for many years. The patient is currently doing physical therapy and occupational therapy. She is still being anticoagulated and she is receiving local wound care. IMPRESSION: A 67-year-old white female with gastrointestinal bleed, hypercoagulable state, status post thrombosis of the right leg, status post femoral-femoral bypass and debridement and recent atrial fibrillation. Alexis Bush MD
[2017-07-22] MEDS: Heparin 25,000units in D5W 25,000 UNITS/250 ML BAG IV PRN (10:41)
[2017-07-22] MEDS: Silver Sulfadiazine 1% Cream (25 gm) TP SCH ×2 (10:43→17:59)
--- NOTE | 2017-07-22 10:53 | PN ---
DATE: 07/22/2017 SUBJECTIVE: The patient is lying in bed comfortable. The patient apparently had a run of atrial fibrillation yesterday. She is currently in sinus rhythm. She denies any rectal bleeding or melena. She is currently on a heparin drip and Plavix. OBJECTIVE: VITAL SIGNS: Reveal that she is afebrile, blood pressure 138/73, and heart rate of 78. HEENT: Reveal sclerae to be white. Conjunctivae pale. NECK: Supple. CHEST: Reveal lungs to be clear. HEART: Reveals a regular rate and rhythm. She has a 2/6 systolic murmur. ABDOMEN: Soft, flabby, and nontender. EXTREMITIES: Show right lower leg to be in a dressing and her thigh is warm. LABORATORY DATA: Reveal white blood cell count 12.6 and hemoglobin 9.4, which has been stable over the last 48 hours. Chemistries reveal BUN 20 and creatinine 1.3, which are trending downward. Potassium of 3.2. IMPRESSION: A 67-year-old female admitted to the hospital with arterial occlusion of her right iliac and femoral arteries requiring thrombectomy and arterial bypass of the lower extremities with a history of anemia and gastrointestinal bleeding while on heparin. The patient was found to be in atrial fibrillation and has now converted spontaneously to sinus rhythm. It is suspected that the patient had an embolus from her atrial fibrillation leading to the clot in her right lower extremity. She remains on heparin and Plavix. She is at risk for rebleeding. Her count has remained stable over the last 48 hours. RECOMMENDATIONS: 1. Continue Protonix drip and Carafate suspension for recently discovered superficial gastric ulcers. 2. The patient is to remain on heparin and Plavix for recent arterial occlusion of her right leg. 3. If the patient rebleed, she may need colonoscopy sooner than later. I have discussed this case with Dr. Shannon and Dr. Bush. Satinder Bruno MD MTDD
[2017-07-22] MEDS: HYDROmorphone 1 mg/ml ISec IVP PRN ×2 (14:07→22:05)
--- NOTE | 2017-07-22 15:35 | PN ---
DATE: 07/22/2017 SUBJECTIVE: She is comfortable in bed, in no acute distress. She has new onset atrial fibrillation. Yesterday, she was tachycardic up to 140 beats per minute. She has GI bleed. Hemoglobin dropped to 6.6 g/dL on 07/20/2017. Since then, hemoglobin has been stable at 9.4. She received several units of blood transfusion. She has extensive arterial thrombosis in the right leg, status post thrombectomy, femoral-femoral bypass, fasciotomy. No bleeding from the surgical site. Pain well controlled on current medication. She is currently on Protonix drip and heparin drip. REVIEW OF SYSTEMS: As per HPI. Rest of 12-point review of systems reviewed and negative. PHYSICAL EXAMINATION: GENERAL: Comfortable in bed, in no acute distress. VITAL SIGNS: Heart rate 76 per minute, blood pressure 138/78, oxygen saturation is 98% on room air, respiratory rate 17 per minute. HEENT: Pallor positive. NECK: No lymphadenopathy. CHEST: Air entry present and equal bilateral. No added sound. CARDIOVASCULAR: S1 and S2 normal. No murmur. No gallop. ABDOMEN: Soft and nontender. No hepatosplenomegaly. EXTREMITIES: Right extremity in dressing, elevated. SKIN: No petechiae. No rash. Pallor positive. GUN NUMBERER: Alert and oriented x3. No focal sensory or motor deficit. Unable to move the right leg. Slight movement appeared as of yesterday on the right leg. She is able to move little bit. LABORATORY DATA: White count 12.6, hemoglobin 9.4, hematocrit 27.9 and platelet count 267. Neutrophil 71%, lymphocyte 16%. PTT is 72. Sodium 134, potassium 3.2, creatinine 1.3, calcium 8.1. CA-19.9 less than 1, CA-125, 12.5, CEA less than 0.3. Lupus anticoagulant positive. MANJU positive at 1:80 titer, homogenous pattern. MEDICATIONS: Plavix 75 mg daily, heparin drip, Dilaudid 1 mg q. 4 hours p.r.n., IV iron, metoprolol 2.5 mg IV q. 8 hours, metoprolol oral 2.5 mg b.i.d., Percocet p.r.n., Protonix drip, Carafate 1 mg p.o. at bedtime. ASSESSMENT AND PLAN: 1. Arterial thrombosis, right leg extensive, starting from iliac artery to lower in the leg, status post embolectomy, fasciotomy, bypass surgery by Dr. Couch. Discussed with Dr. Couch. She will consider skin grafting next week. I would recommend continuing heparin drip until hemoglobin, hematocrit is stable for few days. She has active gastrointestinal bleeding. We will convert to Lovenox once hemoglobin is stable. Hemoglobin, hematocrit 9.4 now, she is on IV iron, continue that. 2. Hypercoagulable state. Thrombophilia workup pending except lupus anticoagulant is positive, antinuclear antibodies positive. Factor V Leiden and other results are still pending. She will need lifelong anticoagulation because of extensive arterial thrombosis. We will do further workup for rheumatological disorders because of antinuclear antibodies positivity. 3. New onset atrial fibrillation. She is followed by Dr. Shannon. Currently on heparin drip. Heart rate is better controlled today. She was tachycardic yesterday. 4. Renal function stable. Creatinine improved to 1.3 previously it was 1.6. 5. Occult malignancy. Tumor markers are negative. CAT scan of abdomen negative for mass lesion. She will have colonoscopy once in stable condition. Dr. Bruno following. We will consider mammogram as an outpatient. She did not have screening for cancer in recent few years. Raina Jose F, MD MTDJuliet
[2017-07-23] MEDS: Pantoprazole 40mg/100ml IVPB 40 MG/100 ML BAG IVPB SCH ×3 (04:00→13:50)
[2017-07-23 05:23] LABS: BASO # 0.05 K/mm3 (0.0-2.0); BASO % 0.3 % (0.0-3.0); EOS # 0.4 (0.0-0.7); EOS % 2.4 % (1.5-5.0); GRAN # 10.46 (1.4-6.5); HEMATOCRIT 27.7 % (36.0-48.0); LYMPH # 2.5 (1.2-3.4); LYMPH % 17.3 % (22.0-35.0); MEAN CELL VOLUME 79.6 fl (80.0-105.0); MEAN CORPUSCULAR HEMOGLOBIN 26.4 pg (25.0-35.0); MEAN CORPUSCULAR HGB CONC 33.2 g/dl (31.0-37.0); MEAN PLATELET VOLUME 9.4 fl (7.0-11.0); MONO # 1.3 (0.1-0.6); RED CELL DISTRIBUTION WIDTH 24.1 % (11.5-14.5); WHITE BLOOD COUNT 14.7 10^3/ul (4.5-11.0)
[2017-07-23 05:32] LABS: CALCIUM 8.2 mg/dL (8.4-10.5); MAGNESIUM 1.7 mg/dL (1.7-2.2); POTASSIUM 3.4 mmol/L (3.6-5.0)
[2017-07-23] MEDS: Sucralfate 1 gm/10 ml Oral Susp UD PO SCH ×4 (09:08→21:48)
[2017-07-23] MEDS: HYDROmorphone 1 mg/ml ISec IVP PRN ×3 (09:09→18:40)
--- NOTE | 2017-07-23 09:35 | CP.PCM.PN ---
Subjective - Date & Time of Evaluation Date of Evaluation: 07/23/17 Time of Evaluation: 09:00 - Subjective Subjective: Vascular Surgery Progress note. Dr. Couch Pt seen and examined at bedside. No acute events overnight. Patient states that the pain is tolerable. She states that her distal RLE sensation is improving. She denies any F/C. No CP/SOB. No N/V/D. tolerating diet. no new complaints. Objective - Vital Signs/Intake and Output Vital Signs (last 24 hours): Temp Pulse Resp BP Pulse Ox 98.0 F 83 23 104/54 L 95 07/22/17 18:00 07/23/17 09:15 07/23/17 06:45 07/23/17 09:15 07/23/17 06:45 Intake and Output: 07/23/17 07/23/17 06:59 18:59 Intake Total 590 0 Output Total 400 Balance 190 0 - Medications Medications: Current Medications Clopidogrel Bisulfate (Plavix) 75 mg PO DAILY [facility] Last Admin: 07/23/17 09:15 Dose: 75 mg Docusate Sodium (Colace) 100 mg PO TID [facility] Last Admin: 07/23/17 09:14 Dose: 100 mg Hydromorphone HCl (Dilaudid) 1 mg IVP Q4H PRN PRN Reason: Pain, severe (8-10) Last Admin: 07/23/17 09:09 Dose: 1 mg Heparin Sodium (Porcine) 1,000 (units/ Sodium Chloride) 1,000 mls @ 5 mls/hr IV ONCE ONE Stop: 07/25/17 01:32 Last Admin: 07/16/17 21:43 Dose: Not Given Pantoprazole Sodium (Protonix 40mg Ivpb) 40 mg in 100 mls @ 20 mls/hr IVPB .Q5H [facility] Last Admin: 07/23/17 09:16 Dose: 20 mls/hr Iron Sucrose 100 mg/ Sodium (Chloride) 105 mls @ 210 mls/hr IVPB QD5 [facility] Stop: 07/23/17 12:00 Last Admin: 07/22/17 16:31 Dose: 210 mls/hr Heparin Sodium/Dextrose (Heparin 25,000 Units/250ml In D5w) 25,000 units in 250 mls @ 9.73 mls/hr IV .Q24H PRN; Protocol; 10 UNITS/KG/HR PRN Reason: ADJUST RATE PER PROTOCOL Last Titration: 07/23/17 08:00 Dose: 12 units/kg/hr, 11.676 mls/hr Metoprolol Tartrate (Lopressor) 2.5 mg IV Q8H [facility] Last Admin: 07/21/17 23:42 Dose: 2.5 mg Metoprolol Tartrate (Lopressor) 25 mg PO BID [facility] Last Admin: 07/23/17 09:15 Dose: 25 mg Silver Sulfadiazine (Silvadene 1% 25 Gm) 0 gm TP BID [facility] Last Admin: 07/22/17 17:59 Dose: 25 gm Sucralfate (Carafate Oral Susp) 1 gm PO ACHS [facility] Last Admin: 07/23/17 09:08 Dose: 1 gm - Labs Labs: 07/23/17 05:00 07/23/17 05:00 PT 10.0 Seconds (9.9-11.8) 07/21/17 06:20 INR 0.93 (0.93-1.08) 07/21/17 06:20 APTT 70.6 Seconds (23.7-30.8) H* 07/23/17 05:00 - Constitutional Appears: Well, No Acute Distress - Head Exam Head Exam: ATRAUMATIC, NORMAL INSPECTION, NORMOCEPHALIC - Eye Exam Eye Exam: EOMI, Normal appearance - Respiratory Exam Respiratory Exam: NORMAL BREATHING PATTERN - Cardiovascular Exam Cardiovascular Exam: REGULAR RHYTHM, RRR, +S1, +S2 - GI/Abdominal Exam GI & Abdominal Exam: Soft. absent: Distended, Firm, Guarding, Rigid, Rebound - Extremities Exam Additional comments: LUE - Small well healing wound to medial proximal forearm. Dressed with silvadene, kerlix and DACIA wrap. RLE fasciotomy site. Dressing changed. Clean wound, vessel loops in place. Xeroform, Kerlix, splint and DACIA wrap in place. Foot warm. Sensation to deep painful stimuli. RLE medial thigh/mid right leg incision clean, dry and intact. - Neurological Exam Neurological Exam: Alert, Awake, Oriented x3 Assessment and Plan - Assessment and Plan (Free Text) Assessment: 67yo F s/p Right leg Femoral/Popliteal embolectomy. Right leg Popliteal/Tibial/ Peroneal bypass, Right leg fasciotomy. POD #6, s/p wound exploration with irrigation POD #4 - Vascular checks - Monitor H/H - Dressing changes daily on LUE and RLE - monitor Fasciotomy site - OR next week for wound closure - f/u GI Recommendations - Management as per primary team Further recs as per Dr. Khoa Diaz PGY1 surgery pager: [phone]
[2017-07-23] MEDS ORDERED: Potassium Chloride 20 mEq/15 ml LIQ UD PO STA (09:43)
[2017-07-23] MEDS ORDERED: oxyCODONE 5 mg Immediate Release Tab PO STA (10:44)
--- NOTE | 2017-07-23 10:44 | PN ---
DATE: 07/23/2017 SUBJECTIVE: The patient is seen lying in bed in ICU. She continues to complain of right leg pain. She recently had her dressing changed. She is currently in sinus rhythm and remains afebrile. CURRENT MEDICATIONS: Include Carafate, Colace, Dilaudid, intravenous heparin, intravenous iron, metoprolol 25 mg b.i.d., Plavix 75 mg daily, Protonix 40 mg daily. OBJECTIVE: GENERAL: She is a middle-aged woman, appears uncomfortable due to her pain. VITAL SIGNS: Blood pressure is 104/54; the pulse rate 80, in sinus; respirations are 16. She is afebrile. NECK: No JVD. CHEST: Few scattered rhonchi heard. HEART: PMI displaced laterally with a systolic murmur at the base. ABDOMEN: Soft, nontender, normoactive bowel sounds. EXTREMITIES: Left upper extremity and right lower extremity are wrapped. Right foot is warm to touch. DIAGNOSTIC DATA: Potassium is 3.4, BUN and creatinine are 16 and 1.2. White count 14.7, hemoglobin and hematocrit of 9.2 and 27.7 with platelet count 346,000. PTT is 71. IMPRESSION: 1. Recent acute iliofemoral thrombosis, status post thrombectomy with distal bypass and fasciotomy. 2. Paroxysmal atrial fibrillation, currently in sinus rhythm. 3. Bicuspid aortic valve with moderately severe aortic stenosis. 4. History of hypertension. 5. Severe anemia with history of gastric ulcer and esophagitis. RECOMMENDATIONS: Her current medications will be continued for now. Pain control should proceed. She will remain on anticoagulant therapy. The rest of her hypercoagulable workup remains pending. Plans are for closure of fasciotomy next week. Given these events, long-term anticoagulation would be appropriate. We will continue to follow and make further recommendations as appropriate. Walt Hernandez MD
--- NOTE | 2017-07-23 23:47 | PN ---
DATE: 07/23/2017 SUBJECTIVE: The patient has no complaints of any chest pain, No shortness of breath. No headaches. PHYSICAL EXAMINATION: VITAL SIGNS: Temperature is 98, pulse of 130, blood pressure is 109/53, and respirations 19. GENERAL: The patient is lying in bed, flat, comfortable. HEENT: No oral lesion. Anicteric sclerae. Moist mucosa. NECK: No JVD, adenopathy, or thyromegaly. CARDIOVASCULAR: S1 and S2, regular. No murmurs, rubs, or gallops. LUNGS: Clear to auscultation bilaterally. No wheeze, rales, or rhonchi. ABDOMEN: Bowel sounds are positive, soft, nontender and nondistended. EXTREMITIES: The right leg is wrapped. LABORATORY DATA: White count is 14.7, and potassium is 3.4. ASSESSMENT: 1. Right iliofemoral thrombosis, status post thrombectomy with distal bypass and fasciotomy. 2. Paroxysmal atrial fibrillation. 3. Bicuspid aortic valve with aortic stenosis, moderate. 4. Hypertension. 5. Anemia secondary to gastric ulcer and esophagitis. PLAN: The patient is currently on continue in the ICU. She is on Colace. The patient is receiving Plavix daily. She is on Protonix daily. She is currently comfortable on her pain medications. Brandyn Sanchez MD SHIVAM
[2017-07-24] MEDS: Heparin 25,000units in D5W 25,000 UNITS/250 ML BAG IV PRN (05:10)
[2017-07-24] MEDS: HYDROmorphone 1 mg/ml ISec IVP PRN ×4 (05:12→21:41)
[2017-07-24] MEDS: Pantoprazole 40mg/100ml IVPB 40 MG/100 ML BAG IVPB SCH (05:28)
[2017-07-24] MEDS ORDERED: HYDROmorphone 1 mg/ml ISec IVP STA (08:11)
[2017-07-24] MEDS ORDERED: Potassium Chloride 20 mEq ER Tab PO ONE (08:12)
--- NOTE | 2017-07-24 08:33 | PN ---
SUBJECTIVE: The patient has no complaints of any chest pain. No shortness of breath. No headaches or dizziness. PHYSICAL EXAMINATION: VITAL SIGNS: Temperature is 98.6, pulse of 84, blood pressure is 147/71, and respirations 18. GENERAL: The patient is lying in bed, flat, comfortable. HEENT: No oral lesion. Anicteric sclerae. Moist mucosa. NECK: No JVD, adenopathy, or thyromegaly. CARDIOVASCULAR: S1 and S2 is regular. There is 3/6 systolic ejection murmur. LUNGS: Clear to auscultation bilaterally. No wheeze, rales, or rhonchi. ABDOMEN: Bowel sounds are positive, soft, nontender and nondistended. EXTREMITIES: No cyanosis, clubbing or edema. Right leg is wrapped. LABORATORY DATA: White count is 14.7, hemoglobin 9.2, creatinine is 1.2, and potassium is 3.4. ASSESSMENT: 1. Right iliofemoral thrombosis, status post thrombectomy with distal bypass and fasciotomy. 2. Paroxysmal atrial fibrillation. 3. Bicuspid aortic valve with aortic stenosis, moderate. 4. Hypertension. 5. Anemia secondary to gastric ulcer and esophagitis. PLAN: The patient is currently receiving Dilaudid for pain. She is going to continue with her heparin. The patient's metoprolol is on hold. She is receiving Plavix. She is on Protonix daily. I will change her Protonix to IV. The patient is on sucralfate as well. She says her pain is controlled. She has been transferred from the ICU to the telemetry unit. Her potassium is 3.4. I will give an additional dose of potassium. Brandyn Sanchez MD
--- NOTE | 2017-07-24 08:37 | CP.PCM.PN ---
Subjective - Date & Time of Evaluation Date of Evaluation: 07/24/17 Time of Evaluation: 08:00 - Subjective Subjective: SURGERY NOTE FOR DR. ISLAS 67F seen and examined at bedside. Moved on the tele floor earlier this morning. No current complaints Objective - Vital Signs/Intake and Output Vital Signs (last 24 hours): Temp Pulse Resp BP Pulse Ox 98.6 F 84 18 147/71 95 07/24/17 06:00 07/24/17 06:00 07/24/17 06:00 07/24/17 06:00 07/23/17 20:30 Intake and Output: 07/24/17 07/24/17 06:59 18:59 Intake Total 250 Balance 250 - Medications Medications: Current Medications Clopidogrel Bisulfate (Plavix) 75 mg PO DAILY [facility] Last Admin: 07/23/17 09:15 Dose: 75 mg Docusate Sodium (Colace) 100 mg PO TID [facility] Last Admin: 07/23/17 18:41 Dose: 100 mg Hydromorphone HCl (Dilaudid) 1 mg IVP Q4H PRN PRN Reason: Pain, severe (8-10) Last Admin: 07/24/17 05:12 Dose: 1 mg Heparin Sodium (Porcine) 1,000 (units/ Sodium Chloride) 1,000 mls @ 5 mls/hr IV ONCE ONE Stop: 07/25/17 01:32 Last Admin: 07/16/17 21:43 Dose: Not Given Heparin Sodium/Dextrose (Heparin 25,000 Units/250ml In D5w) 25,000 units in 250 mls @ 9.73 mls/hr IV .Q24H PRN; Protocol; 10 UNITS/KG/HR PRN Reason: ADJUST RATE PER PROTOCOL Last Admin: 07/24/17 05:10 Dose: 12 units/kg/hr, 11.676 mls/hr Metoprolol Tartrate (Lopressor) 2.5 mg IV Q8H [facility] Last Admin: 07/21/17 23:42 Dose: 2.5 mg Metoprolol Tartrate (Lopressor) 25 mg PO BID [facility] Last Admin: 07/23/17 09:15 Dose: 25 mg Pantoprazole Sodium (Protonix Ec Tab) 40 mg PO 0600 [facility] Silver Sulfadiazine (Silvadene 1% 25 Gm) 0 gm TP BID [facility] Last Admin: 07/22/17 17:59 Dose: 25 gm Sucralfate (Carafate Oral Susp) 1 gm PO ACHS [facility] Last Admin: 07/23/17 21:48 Dose: 1 gm - Labs Labs: 07/23/17 05:00 07/23/17 05:00 PT 10.0 Seconds (9.9-11.8) 07/21/17 06:20 INR 0.93 (0.93-1.08) 07/21/17 06:20 APTT 49.1 Seconds (23.7-30.8) H 07/24/17 06:00 - Constitutional Appears: Non-toxic, No Acute Distress - Respiratory Exam Respiratory Exam: Clear to Ausculation Bilateral, NORMAL BREATHING PATTERN - Cardiovascular Exam Cardiovascular Exam: REGULAR RHYTHM, +S1, +S2 - GI/Abdominal Exam GI & Abdominal Exam: Soft. absent: Distended, Firm, Guarding, Rigid, Tenderness , Rebound - Extremities Exam Additional comments: LUE excoriation dressed with silvadene, kerlix and ISMAEL wrap LLE has dopplerable signals in DP/PT RLE has dopperable signals in DP/PT Right thigh incision and mid R lower leg incision are clean, dry and intact RLE fasciotomy site clean, dry - vessel loops in place Splint readjusted to size for comfort and Ismael bandage placed around it. All dressings were changed. - Neurological Exam Neurological Exam: Alert, Awake - Skin Skin Exam: Intact, Normal Color, Warm Assessment and Plan - Assessment and Plan (Free Text) Assessment: 67 F s/p Right leg Femoral/Popliteal embolectomy. Right leg Popliteal/Tibial/ Peroneal bypass, Right leg fasciotomy. POD #7, s/p wound exploration with irrigation POD #5 Plan: - Vascular checks - Dressing changes daily on LUE and RLE - monitor Fasciotomy site - OR next week for wound closure Further recs discuss with Dr. Khoa Bazan, PGY2
[2017-07-24] MEDS: Sucralfate 1 gm/10 ml Oral Susp UD PO SCH ×4 (09:10→21:41)
[2017-07-24] MEDS: Silver Sulfadiazine 1% Cream (25 gm) TP SCH ×2 (13:25→17:12)
--- NOTE | 2017-07-24 13:48 | PN ---
DATE: 07/24/2017 SUBJECTIVE: The patient is seen lying in bed in the ICU. She remains in sinus rhythm. There has been no further events of recurrent gastrointestinal bleeding. Morning blood work is pending. CURRENT MEDICATIONS: Include Carafate, Colace, intravenous heparin, metoprolol 25 mg b.i.d., which has been placed on hold; Plavix 75 mg daily, Protonix 40 mg daily. OBJECTIVE: GENERAL: She is a middle-aged woman who appears comfortable at the present time. VITAL SIGNS: Blood pressure is 110/52 with a pulse of 100, respirations are 14. She is afebrile. HEENT: No JVD. CHEST: Few scattered rhonchi. HEART: PMI in normal position, no pathological gallops noted. ABDOMEN: Soft, nontender, normoactive bowel sounds. EXTREMITIES: Right foot is warm, dressing remains in place on her right lower leg. DIAGNOSTIC DATA: Morning blood work is pending. IMPRESSION: 1. Recent acute thrombosis of her iliofemoral arteries, status post thrombectomy and distal bypass. 2. Status post fasciotomy. 3. Paroxysmal atrial fibrillation, currently in sinus rhythm. 4. Bicuspid aortic valve with moderately severe aortic stenosis. 5. History of hypertension. 6. Anemia, stable at present. RECOMMENDATIONS: Her current treatment should continue. IV heparin will be maintained and eventual switching to an oral anticoagulant will be planned. She is however scheduled for closure of her fasciotomy wound next week. Transfer to telemetry at this time appears reasonable. We will continue to follow and make further recommendations as appropriate. Walt Hernandez MD
[2017-07-24] MEDS: Enoxaparin 100 mg Syringe SC SCH (17:11)
--- NOTE | 2017-07-24 17:27 | PN ---
DATE: 07/24/2017 SUBJECTIVE: She is comfortable in bed, in no acute distress. Complaining of her right leg pain. She is able to stand with support. Hemoglobin has been stable for past few days around 9 g/dL. She has not received blood transfusion in the past few days. She is status post right leg thrombectomy, fasciotomy, and bypass. She is being planned for OR for skin grafting on the right calf. Denies any nausea or vomiting. Heart controlled on the current medication. She has new-onset atrial fibrillation, hemodynamically stable. REVIEW OF SYSTEMS: As per HPI. Rest of 12-point review of systems reviewed and negative. PHYSICAL EXAMINATION: VITAL SIGNS: Heart rate is 84 per minute, blood pressure 147/71, respiratory rate 18 per minute, temperature 98.6. HEENT: Pallor positive. NECK: No lymphadenopathy. CHEST: Air entry present and equal bilateral. No added sound. CARDIOVASCULAR: S1 and S2 normal. No murmur. No gallop. ABDOMEN: Soft and nontender. No hepatosplenomegaly. EXTREMITIES: Right extremity in dressing. Left leg no edema. Left arm in dressing. Multiple stitches there on left arm. 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 No focal sensory or motor deficit. SPINE: Nontender. LABORATORY DATA: White count 14.7, hemoglobin 9.2, hematocrit 27.7, MCV 79.6, platelet count 346. Sodium 134, potassium 3.4, BUN 16, creatinine 1.2, calcium 8.2, magnesium 1.7. MEDICATIONS: Plavix 75 mg daily, Colace 100 mg p.o. t.i.d., heparin drip, Dilaudid 1 mg q. 4 hours p.r.n., metoprolol 2.5 mg IV q. 8 hours p.r.n., metoprolol 25 mg p.o. b.i.d., Protonix 40 mg daily, silver sulfadiazine topical, Carafate 1 g p.o. at bedtime. ASSESSMENT AND PLAN: 1. Extensive arterial thrombosis, status post thrombectomy, fasciotomy. Currently on heparin drip with therapeutic partial thromboplastin time. Hemoglobin has been stable for past few days. I will stop heparin drip. Start Lovenox 95 mg subcutaneous b.i.d. Lovenox will be held tomorrow evening dose for OR on Tuesday for skin grafting. Lovenox will be resumed Tuesday evening after skin grafting. 2. Hypercoagulable state. Thrombophilia workup pending. Lupus anticoagulant positive, rest of workup is pending. 3. Atrial fibrillation new onset, currently heart rate is controlled on anticoagulation. 4. Renal function is improved. 5. Workup in progress for occult malignancy, tumor markers negative. CAT scan of abdomen negative. Colonoscopy will be scheduled at later date. Mammogram will be scheduled once discharge from the hospital. 6. Bedside physical therapy continuing. Able to stand with support. Thank you Dr. Bush for allowing us to participate in Ms. Mcneil's care. Raina Kohler MD MTDD
[2017-07-25] MEDS: Pantoprazole 40 mg EC Tab PO SCH (05:54)
[2017-07-25] MEDS: HYDROmorphone 1 mg/ml ISec IVP PRN ×3 (05:54→21:03)
[2017-07-25 06:27] LABS: HEMATOCRIT 26.1 % (36.0-48.0); MEAN CELL VOLUME 81.8 fl (80.0-105.0); MEAN CORPUSCULAR HEMOGLOBIN 26.3 pg (25.0-35.0); MEAN CORPUSCULAR HGB CONC 32.2 g/dl (31.0-37.0); MEAN PLATELET VOLUME 9.6 fl (7.0-11.0); RED CELL DISTRIBUTION WIDTH 25.5 % (11.5-14.5); WHITE BLOOD COUNT 11.3 10^3/ul (4.5-11.0)
[2017-07-25] MEDS ORDERED: HYDROmorphone 0.5 mg/0.5 ml ISec IVP STA (08:03)
[2017-07-25 08:25] LABS: ALB/GLOB RATIO 0.9 (1.1-1.8); BILIRUBIN,TOTAL 0.7 mg/dL (0.2-1.3); CALCIUM 8.1 mg/dL (8.4-10.5); POTASSIUM 3.5 mmol/L (3.6-5.0)
--- NOTE | 2017-07-25 08:53 | CP.PCM.PN ---
Subjective - Date & Time of Evaluation Date of Evaluation: 07/25/17 Time of Evaluation: 07:00 - Subjective Subjective: Vascular Surgery Progress Note for Dr. Couch Patient seen and examined at bedside. No acute event overnight. Pain is well controlled with medications. Patient has no complaints at this time. Dressings changed today. OR tomorrow at 10 am. Objective - Vital Signs/Intake and Output Vital Signs (last 24 hours): Temp Pulse Resp BP Pulse Ox 99 F 80 20 159/76 H 93 L 07/25/17 06:00 07/25/17 06:00 07/25/17 06:00 07/25/17 06:00 07/25/17 06:00 Intake and Output: 07/25/17 07/25/17 06:59 18:59 Intake Total 180 Output Total 300 Balance -120 - Medications Medications: Current Medications Clopidogrel Bisulfate (Plavix) 75 mg PO DAILY [facility] Last Admin: 07/24/17 09:10 Dose: 75 mg Docusate Sodium (Colace) 100 mg PO TID [facility] Last Admin: 07/24/17 17:11 Dose: 100 mg Enoxaparin Sodium (Lovenox) 95 mg SC BID [facility] PRN Reason: Protocol Last Admin: 07/24/17 17:11 Dose: 95 mg Hydromorphone HCl (Dilaudid) 1 mg IVP Q4H PRN PRN Reason: Pain, severe (8-10) Last Admin: 07/25/17 05:54 Dose: 1 mg Metoprolol Tartrate (Lopressor) 2.5 mg IV Q8H [facility] Last Admin: 07/21/17 23:42 Dose: 2.5 mg Metoprolol Tartrate (Lopressor) 25 mg PO BID [facility] Last Admin: 07/23/17 09:15 Dose: 25 mg Pantoprazole Sodium (Protonix Ec Tab) 40 mg PO 0600 [facility] Last Admin: 07/25/17 05:54 Dose: 40 mg Potassium Chloride (K-Dur 20 Meq Er Tab) 40 meq PO Q2H [facility] Stop: 07/25/17 11:01 Silver Sulfadiazine (Silvadene 1% 25 Gm) 0 gm TP BID [facility] Last Admin: 07/24/17 17:12 Dose: 1 gm Sucralfate (Carafate Oral Susp) 1 gm PO ACHS [facility] Last Admin: 07/24/17 21:41 Dose: 1 gm - Labs Labs: 07/25/17 06:00 07/23/17 05:00 PT 10.0 Seconds (9.9-11.8) 07/21/17 06:20 INR 0.93 (0.93-1.08) 07/21/17 06:20 APTT 47.1 Seconds (23.7-30.8) H 07/24/17 19:00 - Constitutional Appears: No Acute Distress - Head Exam Head Exam: ATRAUMATIC, NORMOCEPHALIC - Eye Exam Eye Exam: Normal appearance - ENT Exam ENT Exam: Mucous Membranes Moist - Respiratory Exam Respiratory Exam: NORMAL BREATHING PATTERN - Cardiovascular Exam Cardiovascular Exam: REGULAR RHYTHM - GI/Abdominal Exam GI & Abdominal Exam: Soft. absent: Tenderness - Extremities Exam Extremities Exam: Tenderness Additional comments: LUE excoriation dressed with silvadene, gauze and kerlix RLE/LLE has dopplerable signals in DP/PT Right thigh incision and mid R lower leg incision are clean/dry/intact RLE fasciotomy site clean, dry - vessel loops tightened to approximate fasciotomy incision and dressed with xeroform abdominal pads and kerlix Splint and ludwin bandage applied to RLE All dressings were changed today - Neurological Exam Neurological Exam: Alert, Awake, Oriented x3 - Psychiatric Exam Psychiatric exam: Normal Affect, Normal Mood - Skin Skin Exam: Dry, Warm Assessment and Plan - Assessment and Plan (Free Text) Plan: 67 F s/p Right leg Femoral/Popliteal embolectomy. Right leg Popliteal/Tibial/ Peroneal bypass, Right leg fasciotomy. POD #8, s/p wound exploration with irrigation POD #6 - Vascular checks - Dressing changes daily on LUE and RLE - monitor Fasciotomy site - OR tomorrow for STSG and wound closure - DW Dr. Khoa Berrios PGY1
--- NOTE | 2017-07-25 09:19 | CP.PCM.PN ---
Subjective - Date & Time of Evaluation Date of Evaluation: 07/25/17 Time of Evaluation: 07:00 - Subjective Subjective: Stable on 2R. No CP or SOB. V/S noted. RSR PE: Lungs: clear Cor.: S1S2, sys. murmur Abd.: soft Ext.: right foor bandaged. Can't move toes. Can lift leg. Neuro: alert I/O= 180/300 recorded Labs: H/H= 8.4/26.1 Stool + OB ECG 07/21: RSR, APCs Echo:NL LV function, mod/sev. , mild to mod AI, mild MR, trace TR. Surgical spec cultures: one of two + for coag neg. Staph Objective - Vital Signs/Intake and Output Vital Signs (last 24 hours): Temp Pulse Resp BP Pulse Ox 99 F 80 20 159/76 H 93 L 07/25/17 06:00 07/25/17 06:00 07/25/17 06:00 07/25/17 06:00 07/25/17 06:00 Intake and Output: 07/25/17 07/25/17 06:59 18:59 Intake Total 180 Output Total 300 Balance -120 - Medications Medications: Current Medications Clopidogrel Bisulfate (Plavix) 75 mg PO DAILY [facility] Last Admin: 07/24/17 09:10 Dose: 75 mg Docusate Sodium (Colace) 100 mg PO TID [facility] Last Admin: 07/24/17 17:11 Dose: 100 mg Enoxaparin Sodium (Lovenox) 95 mg SC BID [facility] PRN Reason: Protocol Last Admin: 07/24/17 17:11 Dose: 95 mg Hydromorphone HCl (Dilaudid) 1 mg IVP Q3H PRN PRN Reason: Pain, severe (8-10) Metoprolol Tartrate (Lopressor) 2.5 mg IV Q8H [facility] Last Admin: 07/21/17 23:42 Dose: 2.5 mg Metoprolol Tartrate (Lopressor) 12.5 mg PO BID [facility] Pantoprazole Sodium (Protonix Ec Tab) 40 mg PO 0600 [facility] Last Admin: 07/25/17 05:54 Dose: 40 mg Potassium Chloride (K-Dur 20 Meq Er Tab) 40 meq PO Q2H [facility] Stop: 07/25/17 11:01 Silver Sulfadiazine (Silvadene 1% 25 Gm) 0 gm TP BID [facility] Last Admin: 07/24/17 17:12 Dose: 1 gm Sucralfate (Carafate Oral Susp) 1 gm PO ACHS [facility] Last Admin: 07/24/17 21:41 Dose: 1 gm - Labs Labs: 07/25/17 06:00 07/25/17 08:05 PT 10.0 Seconds (9.9-11.8) 07/21/17 06:20 INR 0.93 (0.93-1.08) 07/21/17 06:20 APTT 47.1 Seconds (23.7-30.8) H 07/24/17 19:00 Assessment and Plan - Assessment and Plan (Free Text) Assessment: Severe anemia/s/p multiple blood transfusions/Esophageal and gastric ulcers/GIB/ Stool + OB Acute iliofemoral thrombosis, s/p surgical thrombectomy, distal bypasses and fasciectomy Atrial fibrillation. PAF likely the cause for peripheral embolization originally. Valvular heart disease: mod/sev , mild/mod AI, mild MR, trace TR HBP H/O syncope CVD DJD Former Smoker Plan: PO metoprolol 12.5 BID trial. Lovenox as per Dr. Kohler Skin graft as per Dr. Couch As per Dr. Couch, Dr. Jose F Bruno, and Dr. Bush Monitor I/O, H/H, labs, sats., stool for OB, etc. Will follow
[2017-07-25] MEDS: Sucralfate 1 gm/10 ml Oral Susp UD PO SCH ×4 (09:45→21:12)
[2017-07-25] MEDS: Potassium Chloride 20 mEq ER Tab PO SCH ×2 (09:45→11:50)
[2017-07-25] MEDS: Enoxaparin 100 mg Syringe SC SCH ×2 (09:46→17:32)
--- NOTE | 2017-07-25 11:27 | PN ---
DATE: SUBJECTIVE: A 67-year-old white female, status post fasciotomy, fem-fem bypass, atrial fibrillation, clot in the right leg, anemia, and blood loss. The patient is transferred to the floor. She is stable. She is being transitioned from heparin to Lovenox. She will be having debridement after fasciotomy tomorrow. She is going to be transfused today, so hemoglobin has dropped to 8.4. PHYSICAL EXAMINATION: GENERAL: The patient is awake, alert, and oriented x3. VITAL SIGNS: Stable. Her atrial fibrillation has converted to sinus rhythm. HEART: Regular sinus rhythm, systolic ejection murmur over the left sternal border. CHEST: Clear to auscultation and percussion. EXTREMITIES: No cyanosis, clubbing, or edema. There is loss of strength in the toes of the right foot. LABORATORY DATA: Hemoglobin is 8.4, platelet count is 504, and potassium is 3.5. MEDICATIONS: The patient is currently on Lovenox and Plavix. She is getting local wound treatment to her fasciotomy and her groin. Her potassium is being replaced. She is on sucralfate for her stomach. PLAN: Continue wound care, physical therapy, occupational therapy, and transfuse as necessary. The case was also discussed with Dr. Bruno for possible colonoscopy in the near future. Alexis Bush MD
[2017-07-25] MEDS: Silver Sulfadiazine 1% Cream (25 gm) TP SCH (11:43)
--- NOTE | 2017-07-25 13:28 | PN ---
DATE: 07/25/2017 SUBJECTIVE: The patient is lying in bed comfortable. She has not had any bowel movements for the last 3 or 4 days despite taking Colace. She has not had any overt GI bleeding. PHYSICAL EXAMINATION: VITAL SIGNS: Reveal temperature of 99, blood pressure 159/76, heart rate of 89. HEENT: Reveal sclerae to be white. Conjunctivae pink. NECK: Supple. CHEST: Reveal lungs to be clear. HEART: Reveals regular rate and rhythm. ABDOMEN: Obese, soft, nontender. EXTREMITIES: Reveal her right leg in a surgical dressing. LABORATORY DATA: Reveal hemoglobin this morning down to 8.4, platelet count 504,000, white blood cell count 11.3, BUN 14, creatinine 1.1, potassium of 3.5, AST 87, ALT 59, alkaline phosphatase is 143. IMPRESSION: A 67-year-old female with paroxysmal atrial fibrillation, recent thrombosis of her right iliofemoral artery requiring thrombectomy and an arterial bypass of the lower extremities with a history of severe anemia requiring multiple blood transfusions with known multiple superficial gastric fundic ulcers. The patient has not had any overt GI bleeding although her blood count did drop from 9.2 to 8.4 g. She has been constipated for the last several days despite receiving Colace. RECOMMENDATIONS: 1. The patient is to have closure over her fasciotomy wounds tomorrow as per vascular surgery. 2. She will receive a unit of packed red blood cells. 3. I will start the patient on MiraLax 70 g b.i.d. as well as Feosol 325 mg 3 times a day with food. 4. Follow serial hematocrits. 5. The patient will be transitioned to Lovenox from heparin drip. Satinder Bruno MD
[2017-07-25 15:06] LABS: BASO # 0.04 K/mm3 (0.0-2.0); BASO % 0.3 % (0.0-3.0); EOS # 0.1 (0.0-0.7); EOS % 0.9 % (1.5-5.0); GRAN # 11.24 (1.4-6.5); HEMATOCRIT 27.4 % (36.0-48.0); LYMPH # 1.1 (1.2-3.4); LYMPH % 8.2 % (22.0-35.0); MEAN CORPUSCULAR HGB CONC 31.8 g/dl (31.0-37.0); MEAN PLATELET VOLUME 9.4 fl (7.0-11.0); MONO # 1.3 (0.1-0.6); MONO % 9.6 % (1.0-6.0); RED CELL DISTRIBUTION WIDTH 24.5 % (11.5-14.5); WHITE BLOOD COUNT 13.9 10^3/ul (4.5-11.0)
[2017-07-25] MEDS: POLYETHYLENE GLYCOL 3350 17 GM/Dose PACKET PO SCH (17:32)
[2017-07-25] MEDS ORDERED: POLYETHYLENE GLYCOL 3350 17 GM/Dose PACKET PO STA (20:03)
--- NOTE | 2017-07-25 23:04 | CP.PCM.PN ---
Subjective - Date & Time of Evaluation Date of Evaluation: 07/25/17 Time of Evaluation: 08:00 - Subjective Subjective: She is comfortable in bed. Complaining of right leg pain after dressing change. Hb declined to 8.4 gm/dl. No dark colored stools. On lovenox since yesterday. For OR tomorrow for skin grafting. Objective - Vital Signs/Intake and Output Vital Signs (last 24 hours): Temp Pulse Resp BP Pulse Ox 100.8 F H 83 20 134/63 93 L 07/25/17 19:33 07/25/17 18:59 07/25/17 18:00 07/25/17 18:59 07/25/17 06:00 Intake and Output: 07/25/17 07/26/17 18:59 06:59 Intake Total 360 Output Total 800 Balance -440 - Medications Medications: Current Medications Clopidogrel Bisulfate (Plavix) 75 mg PO DAILY [facility] Last Admin: 07/25/17 09:46 Dose: 75 mg Docusate Sodium (Colace) 100 mg PO TID [facility] Last Admin: 07/25/17 17:32 Dose: 100 mg Enoxaparin Sodium (Lovenox) 95 mg SC BID [facility] PRN Reason: Protocol Last Admin: 07/25/17 17:32 Dose: 95 mg Ferrous Sulfate (Feosol) 324 mg PO TID [facility] Last Admin: 07/25/17 17:32 Dose: 324 mg Hydromorphone HCl (Dilaudid) 1 mg IVP Q3H PRN PRN Reason: Pain, severe (8-10) Last Admin: 07/25/17 21:03 Dose: 1 mg Metoprolol Tartrate (Lopressor) 2.5 mg IV Q8H [facility] Last Admin: 07/21/17 23:42 Dose: 2.5 mg Metoprolol Tartrate (Lopressor) 12.5 mg PO BID [facility] Last Admin: 07/25/17 17:32 Dose: 12.5 mg Pantoprazole Sodium (Protonix Ec Tab) 40 mg PO 0600 [facility] Last Admin: 07/25/17 05:54 Dose: 40 mg Polyethylene Glycol (Miralax) 17 gm PO BID [facility] Last Admin: 07/25/17 17:32 Dose: 17 gm Silver Sulfadiazine (Silvadene 1% 25 Gm) 0 gm TP BID [facility] Last Admin: 07/25/17 11:43 Dose: Not Given Sucralfate (Carafate Oral Susp) 1 gm PO ACHS [facility] Last Admin: 07/25/17 21:12 Dose: Not Given - Labs Labs: 07/25/17 15:00 07/25/17 08:05 PT 10.0 Seconds (9.9-11.8) 07/21/17 06:20 INR 0.93 (0.93-1.08) 07/21/17 06:20 APTT 47.1 Seconds (23.7-30.8) H 07/24/17 19:00 - Constitutional Appears: Well, Non-toxic - Head Exam Head Exam: ATRAUMATIC, NORMAL INSPECTION, NORMOCEPHALIC - Eye Exam Eye Exam: Normal appearance Pupil Exam: NORMAL ACCOMODATION - ENT Exam ENT Exam: Mucous Membranes Moist, Normal Exam - Neck Exam Neck Exam: Normal Inspection - Respiratory Exam Respiratory Exam: Clear to Ausculation Bilateral, NORMAL BREATHING PATTERN - Cardiovascular Exam Cardiovascular Exam: REGULAR RHYTHM, +S1, +S2 - GI/Abdominal Exam GI & Abdominal Exam: Soft, Normal Bowel Sounds - Extremities Exam Extremities Exam: Normal Capillary Refill, Normal Inspection - Back Exam Back Exam: NORMAL INSPECTION - Neurological Exam Neurological Exam: Alert, Normal Gait, Oriented x3 - Skin Skin Exam: Normal Color, Warm Assessment and Plan - Assessment and Plan (Free Text) Assessment: 1. arterial thrombosis : s/p thrombectomy, fasciotomy. On lovenox . hold pm dose for OR tomorrow. resume pm dose tomorrow. 2. Hb declined to 8.4. One unit of PRBC ordered to be given today. will monitor Hb/Hct. 3. Hypercoaguable state. Lupus anticoagulant positive. rest of the work up pending. 4. Able to stand with support. 5. Pain : complaining for more pain prior to 4 hr dose. Change dilaudid Q 3 hr 1 mg prn. She can get a dose prior to dressing change. Thank you Dr. Bush for allowing us to participate in her care.
[2017-07-26] MEDS: Pantoprazole 40 mg EC Tab PO SCH (05:00)
[2017-07-26 06:45] LABS: HEMATOCRIT 31.5 % (36.0-48.0); MEAN CORPUSCULAR HEMOGLOBIN 26.8 pg (25.0-35.0); MEAN CORPUSCULAR HGB CONC 32.7 g/dl (31.0-37.0); MEAN PLATELET VOLUME 9.8 fl (7.0-11.0); RED CELL DISTRIBUTION WIDTH 22.7 % (11.5-14.5); WHITE BLOOD COUNT 13.2 10^3/ul (4.5-11.0)
[2017-07-26] MEDS: Sodium Chloride 0.9% 1,000 ML IV SCH ×3 (06:45→21:04)
[2017-07-26] MEDS ORDERED: HYDROmorphone 0.5 mg/0.5 ml ISec IVP STA (07:20)
--- NOTE | 2017-07-26 08:23 | CP.PCM.PN ---
Subjective - Date & Time of Evaluation Date of Evaluation: 07/26/17 Time of Evaluation: 07:00 - Subjective Subjective: Stable on 2R. No CP or SOB. S/P transfusion yesterday. V/S noted. RSR. Episode PAF with RVR last night x ~ 2hrs, reverted to sinus. PE: Lungs: clear Cor.: S1S2, sys. murmur Abd.: soft Ext.: right foot bandaged. Can't move toes. Can lift leg. Neuro: alert I/O= 1010/800 recorded Labs: H/H= 103/31.5 07/25 K+= 3.5 Stool + OB x several ECG 07/21: RSR, APCs Echo:NL LV function, mod/sev. , mild to mod AI, mild MR, trace TR. Surgical spec cultures: one of two + for coag neg. Staph Objective - Vital Signs/Intake and Output Vital Signs (last 24 hours): Temp Pulse Resp BP Pulse Ox 99.5 F 86 20 145/99 H 97 07/26/17 02:55 07/26/17 05:55 07/26/17 02:55 07/26/17 02:55 07/26/17 00:01 Intake and Output: 07/26/17 07/26/17 06:59 18:59 Intake Total 650 Balance 650 - Medications Medications: Current Medications Clopidogrel Bisulfate (Plavix) 75 mg PO DAILY [facility] Last Admin: 07/25/17 09:46 Dose: 75 mg Docusate Sodium (Colace) 100 mg PO TID [facility] Last Admin: 07/25/17 17:32 Dose: 100 mg Enoxaparin Sodium (Lovenox) 95 mg SC BID [facility] PRN Reason: Protocol Last Admin: 07/25/17 17:32 Dose: 95 mg Ferrous Sulfate (Feosol) 324 mg PO TID [facility] Last Admin: 07/25/17 17:32 Dose: 324 mg Hydromorphone HCl (Dilaudid) 1 mg IVP Q3H PRN PRN Reason: Pain, severe (8-10) Last Admin: 07/25/17 21:03 Dose: 1 mg Sodium Chloride (Sodium Chloride 0.9%) 1,000 mls @ 150 mls/hr IV .Q6H40M [facility] Last Admin: 07/26/17 06:45 Dose: 150 mls/hr Metoprolol Tartrate (Lopressor) 2.5 mg IV Q8H [facility] Last Admin: 07/21/17 23:42 Dose: 2.5 mg Metoprolol Tartrate (Lopressor) 12.5 mg PO BID [facility] Last Admin: 07/25/17 17:32 Dose: 12.5 mg Pantoprazole Sodium (Protonix Ec Tab) 40 mg PO 0600 [facility] Last Admin: 07/26/17 05:00 Dose: Not Given Polyethylene Glycol (Miralax) 17 gm PO BID [facility] Last Admin: 07/25/17 17:32 Dose: 17 gm Silver Sulfadiazine (Silvadene 1% 25 Gm) 0 gm TP BID [facility] Last Admin: 07/25/17 11:43 Dose: Not Given Sucralfate (Carafate Oral Susp) 1 gm PO ACHS [facility] Last Admin: 07/25/17 21:12 Dose: Not Given - Labs Labs: 07/26/17 06:37 07/25/17 08:05 PT 10.0 Seconds (9.9-11.8) 07/21/17 06:20 INR 0.93 (0.93-1.08) 07/21/17 06:20 APTT 47.1 Seconds (23.7-30.8) H 07/24/17 19:00 Assessment and Plan - Assessment and Plan (Free Text) Assessment: Severe anemia/s/p multiple blood transfusions/Esophageal and gastric ulcers/GIB/ Stool + OB Acute iliofemoral thrombosis, s/p surgical thrombectomy, distal bypasses and fasciotomy Atrial fibrillation. PAF likely the cause for peripheral embolization originally. Valvular heart disease: mod/sev , mild/mod AI, mild MR, trace TR HBP H/O syncope CVD DJD Former Smoker Plan: Closure of fasciotomy today planned. PO metoprolol 12.5 BID. Only one dose given yesterday. Lovenox as per Dr. Kohler Skin graft as per Dr. Couch Colonoscopy being planned. As per Dr. Couch, Dr. Jose F Bruno, and Dr. Bush Monitor I/O, H/H, labs, sats., stool for OB, etc. Will need PT. Will follow
[2017-07-26 08:28] LABS: INR 1.07 (0.93-1.08); PARTIAL THROMBOPLASTIN TIME 29.9 Seconds (23.7-30.8)
[2017-07-26 08:45] LABS: ALB/GLOB RATIO 0.9 (1.1-1.8); BILIRUBIN,TOTAL 1.4 mg/dL (0.2-1.3); CALCIUM 8.1 mg/dL (8.4-10.5); POTASSIUM 3.8 mmol/L (3.6-5.0); TOTAL PROTEIN 5.3 g/dL (5.8-8.3)
[2017-07-26] MEDS ORDERED: Midazolam 2 MG/2 ML VIAL ONE ×2 (10:16)
[2017-07-26] MEDS ORDERED: Propofol 10 mg/ml Inj (20 ML) ONE (10:16)
[2017-07-26] MEDS: Sucralfate 1 gm/10 ml Oral Susp UD PO SCH ×4 (11:54→21:14)
[2017-07-26] MEDS: Silver Sulfadiazine 1% Cream (25 gm) TP SCH ×3 (11:55→17:59)
[2017-07-26] MEDS: POLYETHYLENE GLYCOL 3350 17 GM/Dose PACKET PO SCH ×2 (11:55→17:59)
[2017-07-26] MEDS ORDERED: HYDROmorphone 0.5 mg/0.5 ml ISec IVP PRN (11:57)
[2017-07-26] MEDS ORDERED: Lactated Ringer's 1,000 ML IV SCH (12:00)
--- NOTE | 2017-07-26 12:00 | PCM.SURG1 ---
Surgeon's Initial Post Op Note - Surgeon's Notes Surgeon: Dr. Couch Director Mba: Yash GARVINY1, Solomon OCHOA Type of Anesthesia: General LMA Anesthesia Administered By: Dr. Dudley Pre-Operative Diagnosis: right leg ischemia, s/p embolectomy, s/p RLE fasciotomy Operative Findings: see operative report Post-Operative Diagnosis: right leg ischemia, s/p embolectomy, s/p RLE fasciotomy Operation Performed: RLE wound exploration, irrigation, wound vac application and dressing change Specimen/Specimens Removed: N/A Estimated Blood Loss: EBL {In ML}: 5 Blood Products Given: N/A Drains Used: No Drains Post-Op Condition: Good Date of Surgery/Procedure: 07/26/17 Time of Surgery/Procedure: 12:00
[2017-07-26] MEDS ORDERED: HYDROmorphone 0.5 mg/0.5 ml ISec ONE (12:02)
--- NOTE | 2017-07-26 12:27 | OP ---
PROCEDURE DATE: 07/26/2017 PREOPERATIVE DIAGNOSES: Right leg ischemia, status post revascularization, status post wound debridement, persistent fever, and possible wound infection. POSTOPERATIVE DIAGNOSES: Right leg ischemia, status post revascularization, status post wound debridement, persistent fever, and possible wound infection. PROCEDURE: Right leg wound exploration and debridement, pus irrigation, application of silver-impregnated wound VAC. TYPE OF ANESTHESIA: General. DESCRIPTION OF PROCEDURE: The patient was brought to the OR for dressing change under anesthesia due to persistent fever. After adequate general anesthesia have been accomplished, the entire right leg dressing was removed. The right leg was prepped with Betadine and draped out as a sterile field. The muscle appeared to be viable, however, there are collection in between muscle at different compartments. Those were all removed and sent for culture. The necrotic muscle was debrided. Using a pulse laser beam machine operator, the wound was irrigated with 3 liters of normal saline. Upon completion of that, the wound appeared clean and the muscle all bleeding and viable. Again, there was a good signal in the anterior tibial artery. After that, a silver-impregnated wound VAC was applied and hooked up to continue with 125 mmHg suction. The right leg splint was reapplied. The patient tolerated the procedure well and was returned to the recovery room in stable condition. Elma Couch MD
--- NOTE | 2017-07-26 13:51 | PN ---
DATE: 07/26/2017 SUBJECTIVE: The patient is seen in the recovery room. She is status post right leg debridement, wound exploration, and wound VAC placement. She is having some mild pain at the surgical site. She is awake and alert. PHYSICAL EXAMINATION: VITAL SIGNS: Reveal temperature of 98.2, blood pressure 156/66, heart rate of 81. HEENT: Reveal sclerae to be white. Conjunctivae pale. NECK: Supple. CHEST: Reveal lungs to be clear. HEART: Reveals regular rate and rhythm. ABDOMEN: Soft, nontender. Her right leg is in a surgical dressing with a wound VAC in place. LABORATORY DATA: Reveal white blood cell count of 13.2, hemoglobin 10.3 after transfusion of packed red blood cells. Chemistries reveal normal electrolytes, AST 85, ALT 69, alkaline phosphatase of 210. Her stool for occult blood has been repeatedly positive. IMPRESSION: This is a 67-year-old male with right lower extremity arterial occlusion from a thrombus status post thrombectomy, arterial bypass status post wound exploration, debridement, and wound VAC placement this morning, with history of anemia, known superficial gastric ulcers with multiple blood transfusion requirements with heme-positive stool, known history of aortic stenosis and atrial fibrillation, currently on Lovenox. RECOMMENDATIONS: We will schedule the patient for colonoscopy for later this week. She is agreeable to this. We will stop Lovenox 12 hours prior to her procedure. Satinder Bruno MD
[2017-07-26] MEDS: HYDROmorphone 1 mg/ml ISec IVP PRN ×2 (14:30→18:45)
[2017-07-26] MEDS: Enoxaparin 100 mg Syringe SC SCH (17:33)
[2017-07-27] MEDS: Sodium Chloride 0.9% 1,000 ML IV SCH ×3 (03:00→22:00)
[2017-07-27] MEDS: HYDROmorphone 1 mg/ml ISec IVP PRN (03:36)
[2017-07-27] MEDS ORDERED: Sodium Chloride 0.9% 1,000 ML IV STA ×3 (05:10→16:52)
[2017-07-27] MEDS ORDERED: Meropenem 1g/NS 100mL IVPB 1 GM/100 ML PIGGYBACK IVPB STA (05:15)
[2017-07-27] MEDS ORDERED: Vancomycin 1gm in NS 250ml 1 GM/250 ML BAG IVPB STA (05:16)
--- NOTE | 2017-07-27 05:23 | PCM.RRT ---
INSURANCE AGENCY SALES MANAGER Nurse Assessment - Situation Date: 07/27/17 Time INSURANCE AGENCY SALES MANAGER was called: 05:04 INSURANCE AGENCY SALES MANAGER Responder Arrival Time: 05:06 INSURANCE AGENCY SALES MANAGER Location:: [address] [place] [address] Room Number: 263-2 INSURANCE AGENCY SALES MANAGER Reason for Call: Tachycardia, Hypotension INSURANCE AGENCY SALES MANAGER Called By: RN - IV IV Inserted during INSURANCE AGENCY SALES MANAGER?: No IV Fluids Initiated During INSURANCE AGENCY SALES MANAGER?: N/A - Respiratory Oxygen Delivery Method: Nasal Cannula @L/min Oxygen Flow Rate: 2 Received Nebulizer Treatments:: No Was the Patient Ventilated with Bag/Mask 100% O2?: No Secretions Suctioned?: No Was the Patient Intubated?: No Was the Patient Placed on a Ventilator?: No CPR started during INSURANCE AGENCY SALES MANAGER?: No - Vital Signs Vital Sign: Rapid Response Vital Sign Blood Pressure 68/43 Pulse Rate 180 Respiratory Rate 22 Temperature 104 F Oxygen Saturation 97 - Finger Stick Blood Glucose Finger Stick Blood Glucose: 123 - Sepsis Screen Part 1 Sepsis Screen Part 1: Hypotensive, Temperature over 100.6F I.Reason for INSURANCE AGENCY SALES MANAGER - A) Acute Change in Patient: Subjective: Pt is a 67 F s/p right leg Femoral/Popliteal embolectomy, R leg Popliteal/ Tibial/Peroneal bypass, R leg fasciotomy POD #10 and s/p wound exploration with irrigation POD #6 was found by nursing to have HR of 199 and BP of 68/43. Rapid response was called at 5:04 am. On arrival, pt also found to have rectal temperature of 104 F. At this time, code sepsis was called as pt met criteria for SIRS and source of infection from post-op site. Pt was awake and AOx3. Pt denied any CP, SOB, n/v/d, abdominal pain, dizziness, FOSTER, fatigue, or pain elsewhere. Pt was given bolus of NS with appropriate response in BP 106/56 and HR 115. Pt given tylenol suppository and cooling blanket for fever and labs were ordered for septic shock workup. - Neurological Status (Select all that apply): Alert, Responsive, Oriented, Verbal, Follows Commands - Respiratory Oxygen Delivery Method: Nasal Cannula @L/min Oxygen Flow Rate: 2 - Head Head Exam: ATRAUMATIC, NORMOCEPHALIC - Eyes Eye Exam: EOMI, PERRL - Respiratory Exam Respiratory Exam: Clear to Ausculation Bilateral. absent: Accessory Muscle Use , Rales, Rhonchi, Wheezes Additional comments: tachypnic shallow breaths - Cardiovascular Exam Cardiovascular Exam: Tachycardia, +S1, +S2. absent: Diastolic murmur, Gallop, Rubs, Murmur - GI/Abdominal Exam GI & Abdominal Exam: Soft. absent: Distended, Guarding, Tenderness, Mass, Rebound - Neurological Exam Neurological Exam: Alert, Awake, Oriented x3 - Extremities Exam Additional comments: right leg wrapped with splint and ludwin bandage Plan - Assessment of Findings&Treatment Plan 67 yo female found to be hypotensive, tachycardiac, febrile, and probable source of infection from post op-site. Code sepsis was called. Labs and treatment ordered for septic shock. 1. Septic Shock - Blood, urine, wound cultures - VBG shock panel - Procalcitonin - NS bolus - Tylenol suppository - Merrem, Vancomycin
[2017-07-27] MEDS: Pantoprazole 40 mg EC Tab PO SCH (05:46)
[2017-07-27 06:36] LABS: VENOUS BLOOD GAS BASE EXCESS -1.7 mmol/L (0.0-2.0); VENOUS BLOOD PH 7.42 (7.32-7.43)
[2017-07-27 06:38] LABS: HEMATOCRIT 24.7 % (36.0-48.0); MEAN CELL VOLUME 84.6 fl (80.0-105.0); MEAN CORPUSCULAR HEMOGLOBIN 27.1 pg (25.0-35.0); MEAN PLATELET VOLUME 9.5 fl (7.0-11.0); RED CELL DISTRIBUTION WIDTH 23.6 % (11.5-14.5)
[2017-07-27 06:45] LABS: WHITE BLOOD COUNT 32.8 10^3/ul (4.5-11.0)
--- NOTE | 2017-07-27 07:24 | CP.PCM.PN ---
Subjective - Date & Time of Evaluation Date of Evaluation: 07/27/17 Time of Evaluation: 07:15 - Subjective Subjective: Vascular Surgery Progress Note for Dr. Couch Patient seen and examined at bedside. Patient had LEASE ANALYST called around 5 am for tachycardia (180 bpm) and Hypotension (68/43). Her temperature was 104 F rectally at that time. Code sepsis was called. She was given a bolus and her vitals responded appropriately (115 bpm and 106/56). Tylenol was given and septic work up was done. Patient was transferred to ICU. Patient complaining of feeling warm and thirsty. Denied cp and sob. Objective - Vital Signs/Intake and Output Vital Signs (last 24 hours): Temp Pulse Resp BP Pulse Ox 102.3 F H 115 H 20 90/45 L 97 07/27/17 06:00 07/27/17 06:00 07/27/17 06:00 07/27/17 06:00 07/27/17 06:00 Intake and Output: 07/27/17 07/27/17 06:59 18:59 Intake Total 3860 Output Total 190 Balance 3670 - Medications Medications: Current Medications Clopidogrel Bisulfate (Plavix) 75 mg PO DAILY [facility] Last Admin: 07/25/17 09:46 Dose: 75 mg Docusate Sodium (Colace) 100 mg PO TID [facility] Last Admin: 07/26/17 17:38 Dose: 100 mg Enoxaparin Sodium (Lovenox) 95 mg SC BID [facility] PRN Reason: Protocol Last Admin: 07/26/17 17:33 Dose: Not Given Fentanyl (Fentanyl) 25 mcg IV Q5M PRN PRN Reason: Pain, moderate (4-7) Last Admin: 07/26/17 12:42 Dose: 25 mcg Ferrous Sulfate (Feosol) 324 mg PO TID [facility] Last Admin: 07/26/17 17:38 Dose: 324 mg Hydromorphone HCl (Dilaudid) 1 mg IVP Q3H PRN PRN Reason: Pain, severe (8-10) Last Admin: 07/27/17 03:36 Dose: 1 mg Sodium Chloride (Sodium Chloride 0.9%) 1,000 mls @ 150 mls/hr IV .Q6H40M [facility] Last Admin: 07/27/17 03:00 Dose: 150 mls/hr Metoprolol Tartrate (Lopressor) 2.5 mg IV Q8H [facility] Last Admin: 07/21/17 23:42 Dose: 2.5 mg Metoprolol Tartrate (Lopressor) 12.5 mg PO BID [facility] Last Admin: 07/26/17 17:38 Dose: 12.5 mg Ondansetron HCl (Zofran Inj) 4 mg IVP ONCE PRN PRN Reason: Nausea/Vomiting Pantoprazole Sodium (Protonix Ec Tab) 40 mg PO 0600 [facility] Last Admin: 07/27/17 05:46 Dose: Not Given Polyethylene Glycol (Miralax) 17 gm PO BID [facility] Last Admin: 07/26/17 17:59 Dose: 17 gm Silver Sulfadiazine (Silvadene 1% 25 Gm) 0 gm TP BID [facility] Last Admin: 07/26/17 17:59 Dose: Not Given Sucralfate (Carafate Oral Susp) 1 gm PO ACHS [facility] Last Admin: 07/26/17 21:14 Dose: Not Given - Labs Labs: 07/27/17 06:29 07/26/17 08:05 PT 11.6 Seconds (9.9-11.8) 07/26/17 08:05 INR 1.07 (0.93-1.08) 07/26/17 08:05 APTT 29.9 Seconds (23.7-30.8) 07/26/17 08:05 - Constitutional Appears: No Acute Distress - Respiratory Exam Respiratory Exam: NORMAL BREATHING PATTERN - Cardiovascular Exam Cardiovascular Exam: REGULAR RHYTHM - GI/Abdominal Exam GI & Abdominal Exam: Soft. absent: Distended, Tenderness - Extremities Exam Additional comments: wound vac on RLE fasciotomy site - dressing with splint, ludwin bandages, and splint - Neurological Exam Neurological Exam: Alert, Awake, Oriented x3 - Psychiatric Exam Psychiatric exam: Normal Affect, Normal Mood - Skin Skin Exam: Dry, Normal Color, Warm Assessment and Plan - Assessment and Plan (Free Text) Plan: 67 F s/p Right leg Femoral/Popliteal embolectomy. Right leg Popliteal/Tibial/ Peroneal bypass, Right leg fasciotomy. POD #10, s/p wound exploration with irrigation POD #8, s/p 2nd wound exploration, irrigation and wound vac application POD #1 -Wound vac change on Sunday 07/29 -IV antibiotics as per ID -Anti-pyretics PRN -Management as per ICU -Will DW Dr. Khoa Berrios PGY1
[2017-07-27 07:38] LABS: INR 1.28 (0.93-1.08); PARTIAL THROMBOPLASTIN TIME 29.6 Seconds (23.7-30.8)
[2017-07-27 07:39] LABS: ALB/GLOB RATIO 0.9 (1.1-1.8); POTASSIUM 3.3 mmol/L (3.6-5.0); TOTAL PROTEIN 4.1 g/dL (5.8-8.3)
[2017-07-27 07:47] LABS: CALCIUM 6.9 mg/dL (8.4-10.5)
[2017-07-27] MEDS ORDERED: DAPTOmycin 500 mg Inj (Cubicin) IV SCH (08:15)
--- NOTE | 2017-07-27 08:17 | RAD ---
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 Central emphysematous changes probable PLEURA: No significant pleural effusion identified, no pneumothorax apparent. CARDIOVASCULAR: Mild cardiomegaly-unchanged OSSEOUS STRUCTURES: No significant abnormalities. VISUALIZED UPPER ABDOMEN: Normal. OTHER FINDINGS: Interval endotracheal tube removal. Interval right PICC line tip in superior vena cava. IMPRESSION: Interval increased mild pulmonary venous congestion -cardiomegaly as before. Background interstitial lung disease with central emphysematous changes probable Interval right PICC insertion -interval endotracheal tube removal
[2017-07-27] MEDS: diltiaZEM IVPB 100mg in NS 100 ML IV PRN ×2 (08:45→22:01)
--- NOTE | 2017-07-27 08:49 | PN ---
DATE: 07/26/2017 SUBJECTIVE: The patient is 67-year-old white female, status post GI bleed, status post transfusion, status post right leg arterial occlusion with fibrous clot, status post embolectomy, thrombectomy, lysis, fem-fem pop bypass, fasciotomy by Dr. Elma Couch. The patient is status post wound cleaning and debridement today. PHYSICAL EXAMINATION GENERAL: Patient is awake, alert and oriented x3. VITAL SIGNS: Stable. She does have loss to use toes in the right foot. However, the leg is warm and dry. Wounds are clean. Patient also had low grade fevers in the last 24-48 hours. Temperature is 99.3. CHEST: Clear to auscultation and percussion. HEART: Regular sinus rhythm. Blood cultures and urine cultures are negative at this point. Infectious Disease consult is called. Patient does have an elevated white count of 13,200 with left shift, hemoglobin is 10.3. BUN and creatinine are stable. She is without pain. She is post wound cleaning today. Patient is also status post recent atrial fibrillation controlled with medication by Dr. Shannon. PLAN: Plan is for colonoscopy later on this week. ID consult and continue septic workup. Alexis Bush MD
[2017-07-27] MEDS: Sucralfate 1 gm/10 ml Oral Susp UD PO SCH ×4 (09:36→22:01)
--- NOTE | 2017-07-27 10:08 | CARD ---
APPROVED REPORT EKG Measurement Heart [id number] <Conclusion> Atrial fibrillation with rapid ventricular response Nonspecific ST and T wave abnormality, probably digitalis effect Abnormal ECG
[2017-07-27] MEDS ORDERED: Digoxin 500 mcg/2ml (0.5 mg/2ml) Inj IV ONE (10:16)
[2017-07-27] MEDS ORDERED: Potassium Chloride 40 mEq/30 ml LIQ UD PO ONE (10:21)
[2017-07-27] MEDS: Meropenem 1g/NS 100mL IVPB 1 GM/100 ML PIGGYBACK IVPB SCH ×2 (10:37→21:57)
[2017-07-27] MEDS: POLYETHYLENE GLYCOL 3350 17 GM/Dose PACKET PO SCH ×2 (10:37→18:26)
[2017-07-27] MEDS: Enoxaparin 100 mg Syringe SC SCH ×2 (10:41→20:48)
--- NOTE | 2017-07-27 11:48 | PN ---
DATE: SUBJECTIVE: The patient is postop fem-fem bypass thrombectomy, history of GI bleed, history of rapid atrial fibrillation, history of aortic valve stenosis. The patient recently had debridement surgery and wound care yesterday. She last night spiked to a temperature to 100.4, dropped her blood pressure, developed atrial fibrillation. A code sepsis, the patient was given fluids, IV antibiotics, hydrated, Cardizem to reduce her heart rate. The patient was found to have an elevated white count of 32,800. She has had low-grade fevers over the last several days, however, cultures have been negative. She has had postoperative wound debridement over the last several days. Recent hemoglobin is 7.9. Blood pressure responded with IV fluids to a systolic of up to , heart rate was still in the 115 to 150 range, temperature has dropped from 104 down to 102.3. As stated, blood cultures have been negative, but wound culture has shown Staphylococcus epidermidis, most likely contaminant. The patient is on IV antibiotics. She has been evaluated by the supply chain engineer for a transfer to intensive care unit. PHYSICAL EXAMINATION: GENERAL: The patient is awake and alert, oriented x3. She has no complaints. RESPIRATORY: She had a mild nonproductive cough. Chest x-ray did not show any evidence of pneumonia, there is some vascular congestion. EXTREMITIES: Her foot is warm and wounds are clean and dry. Pulses are intact. ABDOMEN: Soft. HEART: Atrial fibrillation, rapid, irregular rate. PLAN: To transfer to the ICU, Cardizem drip to control the heart rate. Continue IV fluids, IV antibiotics, septic workup. ID consult with Dr. Hargrove. Transfuse when temperature is below 100 and close observation. Alexis Bush MD
--- NOTE | 2017-07-27 12:53 | PN ---
DATE: 07/27/2017 SUBJECTIVE: The patient is lying in bed. She went into SVT with a heart rate of 150 overnight. Her blood pressure went down into the 70s systolic range. She also had a fever to 104. Her white blood cell count is up to 32.8. She feels weak and rundown. She had multiple bowel movements without any overt GI bleeding. OBJECTIVE: VITAL SIGNS: Reveal temperature of 102.3, blood pressure of 90/45, and heart rate of 130. HEENT: Reveal sclerae to be white. Conjunctivae pale. NECK: Supple. CHEST: Reveals lungs to be clear. HEART: Reveals tachycardia. ABDOMEN: Soft and nontender. EXTREMITIES: Reveal her right leg to be in a surgical dressing with a wound VAC in place. LABORATORY DATA: Revealed white blood cell count 32.8, hemoglobin dropped to 7.9, and platelet count 590,000. Chemistries reveal BUN 14 and creatinine 1.4. AST 51, ALT 63, alkaline phosphatase of 166 with total bilirubin of 2. IMPRESSION: A 67-year-old female with a history of severe anemia who developed an acute thrombosis of her right leg with arterial occlusion, status post thrombectomy, arterial bypass of the lower extremities, status post debridement of the wound and wound vacuum assisted closure placement yesterday, now with supraventricular tachycardia, fever, elevated white blood cell count, and rule out sepsis. Her blood count has also dropped from 10.3 to 7.9 g, on Lovenox and Plavix. There is no overt gastrointestinal bleeding at this point. RECOMMENDATIONS: The patient will be transferred to Intensive Care Unit for further management and closer monitoring. She will need cardiac evaluation and infectious disease evaluation for SVT and sepsis respectively. We will defer colonoscopy at this time given her tenuous cardiovascular status and possible sepsis. transfuse PRBC's to HCT 30. Satinder Bruno MD MTDD
--- NOTE | 2017-07-27 13:44 | PCM.SEPTIC ---
Sepsis Progress Note - Reassessment Type Date of Evaluation: 07/27/17 Time of Evaluation: 11:03 Reassessment Type: Non-invasive reassessment - Non Invasive Reassessment Were the most recent vital sign reviewed: Yes Vital Sign (Latest): Temp Pulse Resp BP Pulse Ox 102.3 F H 124 H 20 95/47 L 97 07/27/17 06:00 07/27/17 10:37 07/27/17 06:00 07/27/17 10:37 07/27/17 06:00 Cardiovascular: Yes: Regular Rate, Rhythm. No: Bradycardia, Tachycardia, Ectopy Respiratory: Yes: Normal Breath Sounds. No: Decreased Breath Sounds, Rhonchi, Stridor, Wheezing Capillary Refill: Normal (Less than 2 sec) Skin: Dry - Invasive Reassessment (complete 2 of 4) Was a Central Venous Pressure Measurement obtained within 6 Hours after the presentation of septic shock: No Was a central venous oxygen measurement obtained within 6 hours after the presentation of septic shock: No Was a bedside cardiovascular ultrasound performed within 6 hours after the presentation of septic shock: No Was a passive leg raise performed or was a fluid challenge performed within 6 hrs of the initial fluid bolus: No Passive Leg Raise Result: Not Applicable Fluid Challenge performed: Yes
--- NOTE | 2017-07-27 13:59 | CP.PCM.CON ---
<Rajat Zelaya - Last Filed: 07/27/17 13:54> History of Present Illness - History of Present Illness History of Present Illness: 67 year old female with PMH of HTN, MVP, hx of stomach ulcers who is admitted and treated for acute limb ischemia of her right lower extremity. Brief hospital course for her is as follows: The patient was admitted to [facility] on [place] and went for vascular intervention on 07/17/2017 and vascular surgery on 07/17 for right femoral endarterectomy, right pop/tib/peroneal bypass and fasciotomy POD#10. After a short course in the ICU the patient was transferred to telemetry. Patient has undergone debridement and drainage of wound x 2. Most recent debridement and drainage was on 07/26 with placement of wound vac. She was brought back to telemetry floor for continued observation. At 5:04 this AM a PATIENT ACCOUNT REPRESENTATIVE was called for elevated heart rate of 199, BP of 68/43 and temperature of 104F(rectal). Patient was evaluated in the room and found to be AAOx3 with c/o dizziness and headache. Pt was given bolus of NS and 10mg IV Cardizem push and her HR went from 160s to 110-140 range while her MAP was in the 60s. A manual cuff reading with dupplex achieved a SBP of 98. These vital signs and drop in her Hgb of 10.3 to 7.9 warrented concern for the patients hemodynamic stability and thus she was transferred to the ICU for further management and observation. Review of Systems - Review of Systems All systems: reviewed and no additional remarkable complaints except - Constitutional Constitutional: Fever - EENT Eyes: absent: Blurred Vision, Change in Vision, Pain Nose/Mouth/Throat: absent: Nasal Congestion, Nasal Discharge - Cardiovascular Cardiovascular: absent: Chest Pain, Dyspnea, Palpitations - Respiratory Respiratory: absent: Cough, Hemoptysis - Gastrointestinal Gastrointestinal: absent: Abdominal Pain, Bloating - Genitourinary Genitourinary: absent: Change in Urinary Stream, Difficulty Urinating, Dysuria - Musculoskeletal Musculoskeletal: As Per HPI Additional comments: RLE wrapped in DACIA wrap over surgical dressing and wound vac - Integumentary Integumentary: absent: Change in Pigmentation - Neurological Neurological: Numbness - Psychiatric Psychiatric: absent: Anxiety, Depression - Hematologic/Lymphatic Hematologic: absent: Easy Bleeding Past Patient History - Infectious Disease Hx of Infectious Diseases: None - Past Medical History & Family History Past Medical History?: Yes Past Family History: Reviewed and not pertinent - Past Social History Smoking Status: Former Smoker - CARDIAC Hx Cardiac Disorders: Yes (MV PROLAPSE) Hx Hypercholesterolemia: Yes Hx Hypertension: Yes Hx Peripheral Vascular Disease: Yes - PULMONARY Hx Respiratory Disorders: Yes (SMOKED PPD .QUIT 10 YRS AGO) Hx Bronchitis: Yes Hx Pneumonia: Yes Hx Respiratory Tract Infection: Yes - NEUROLOGICAL Hx Neurological Disorder: Yes Hx Dizziness: Yes - HEENT Hx HEENT Problems: No - RENAL Hx Chronic Kidney Disease: No - ENDOCRINE/METABOLIC Hx Endocrine Disorders: No - HEMATOLOGICAL/ONCOLOGICAL Hx Blood Transfusions: Yes Hx Blood Transfusion Reaction: No - INTEGUMENTARY Hx Dermatological Problems: No - MUSCULOSKELETAL/RHEUMATOLOGICAL Hx Musculoskeletal Disorders: Yes (RIGHT LEG NUMBNESS,PAIN AND WEAK-ISCHEMIC LOWER EXTREMITY) Hx Falls: No Hx Unsteady Gait: Yes - GASTROINTESTINAL Hx Gastrointestinal Disorders: Yes Hx Ulcer: Yes (NON BLEEDING.) - GENITOURINARY/GYNECOLOGICAL Hx Genitourinary Disorders: Yes Hx Urinary Tract Infection: Yes - PSYCHIATRIC Hx Psychophysiologic Disorder: Yes Hx Panic Symptoms: Yes Hx Substance Use: No - SURGICAL HISTORY Hx Surgeries: Yes - ANESTHESIA Hx Anesthesia Reactions: No Hx Malignant Hyperthermia: No Meds Allergies/Adverse Reactions: Allergies Allergy/AdvReac Type Severity Reaction Status Date / Time levofloxacin [From Levaquin] Allergy RASH Verified 07/16/17 15:50 - Medications Medications: Current Medications Clopidogrel Bisulfate (Plavix) 75 mg PO DAILY [facility] Last Admin: 07/27/17 10:40 Dose: 75 mg Digoxin (Lanoxin) 0.25 mg IV Q6H [facility] Stop: 07/27/17 22:31 Digoxin (Lanoxin) 0.25 mg PO 1400 [facility] Docusate Sodium (Colace) 100 mg PO TID [facility] Last Admin: 07/27/17 10:39 Dose: 100 mg Enoxaparin Sodium (Lovenox) 95 mg SC BID [facility] PRN Reason: Protocol Last Admin: 07/27/17 10:41 Dose: 95 mg Ferrous Sulfate (Feosol) 324 mg PO TID [facility] Last Admin: 07/27/17 10:40 Dose: 324 mg Hydromorphone HCl (Dilaudid) 1 mg IVP Q3H PRN PRN Reason: Pain, severe (8-10) Last Admin: 07/27/17 03:36 Dose: 1 mg Sodium Chloride (Sodium Chloride 0.9%) 1,000 mls @ 150 mls/hr IV .Q6H40M [facility] Last Admin: 07/27/17 03:00 Dose: 150 mls/hr Meropenem 1g/NS 100mL IVPB (Meropenem 1g/Ns 100ml Ivpb) 1 gm in 100 mls @ 100 mls/hr IVPB Q12 [facility] PRN Reason: Protocol Stop: 08/05/17 10:01 Last Admin: 07/27/17 10:37 Dose: 100 mls/hr Daptomycin 250 mg/ Sodium (Chloride) 100 mls @ 200 mls/hr IV Q24H [facility] Stop: 08/05/17 08:16 diltiaZEM IVPB 100mg in NS (Cardizem 100mg In Ns) 100 mls @ 5 mls/hr IV .Q20H PRN; Protocol; 5 MG/HR PRN Reason: TITRATE PER MD ORDER Last Admin: 07/27/17 08:45 Dose: 5 mg/hr, 5 mls/hr Metoprolol Tartrate (Lopressor) 2.5 mg IV Q8H [facility] Last Admin: 07/21/17 23:42 Dose: 2.5 mg Metoprolol Tartrate (Lopressor) 12.5 mg PO BID [facility] Last Admin: 07/27/17 10:37 Dose: 12.5 mg Ondansetron HCl (Zofran Inj) 4 mg IVP ONCE PRN PRN Reason: Nausea/Vomiting Pantoprazole Sodium (Protonix Ec Tab) 40 mg PO 0600 [facility] Last Admin: 07/27/17 05:46 Dose: Not Given Polyethylene Glycol (Miralax) 17 gm PO BID [facility] Last Admin: 07/27/17 10:37 Dose: 17 gm Silver Sulfadiazine (Silvadene 1% 25 Gm) 0 gm TP BID [facility] Last Admin: 07/26/17 17:59 Dose: Not Given Sucralfate (Carafate Oral Susp) 1 gm PO ACHS [facility] Last Admin: 07/27/17 09:36 Dose: Not Given Physical Exam - Head Exam Head Exam: ATRAUMATIC, NORMAL INSPECTION, NORMOCEPHALIC - Eye Exam Eye Exam: EOMI, PERRL Pupil Exam: NORMAL ACCOMODATION, PERRL - ENT Exam ENT Exam: Mucous Membranes Dry - Neck Exam Neck exam: Positive for: Full Rom, Normal Inspection - Respiratory Exam Respiratory Exam: Clear to Auscultation Bilateral, NORMAL BREATHING PATTERN - Cardiovascular Exam Cardiovascular Exam: Tachycardia, +S1, +S2, Systolic Murmur (3/6 systolic murmur ) - GI/Abdominal Exam GI & Abdominal Exam: Normal Bowel Sounds, Soft - Extremities Exam Extremities exam: Positive for: full ROM (except for RLE, noted to be limited ) , pedal pulses present Additional comments: RLE wrapped in DACIA wrap protecting a wound vac draining alcon/dark serosanguious fluid - Back Exam Back exam: NORMAL INSPECTION - Psychiatric Exam Psychiatric exam: Normal Affect, Normal Mood - Skin Skin Exam: Dry, Intact Results - Vital Signs Recent Vital Signs: Last Vital Signs Temp 102.3 F H 07/27/17 06:00 Pulse 124 H 07/27/17 10:37 Resp 20 07/27/17 06:00 BP 95/47 L 07/27/17 10:37 Pulse Ox 97 07/27/17 06:00 - Labs Result Diagrams: 07/27/17 06:29 07/27/17 06:30 Labs: Laboratory Results - last 24 hr 07/19/17 07/19/17 07/19/17 06:20 06:20 06:20 WBC RBC Hgb Hct MCV MCH MCHC RDW Plt Count MPV PT INR APTT dRVVT Confirm Interp Negative Factor V see note H pO2 VBG pH VBG pCO2 VBG HCO3 VBG Total CO2 VBG O2 Sat (Calc) VBG Base Excess VBG Potassium Sodium Chloride Glucose Lactate FiO2 Potassium Carbon Dioxide Anion Gap BUN Creatinine Est GFR ( Amer) Est GFR (Non-Af Amer) POC Glucose (mg/dL) Random Glucose Lactic Acid Calcium Total Bilirubin AST ALT Alkaline Phosphatase Total Protein Albumin Globulin Albumin/Globulin Ratio Procalcitonin Venous Blood Potassium Seyi-3-Mpfsjyhafchc Ab Beta-2 GPI IgG Ab Beta-2 GPI IgM Ab Phosphatidylserine IgG Phosphatidylserine IgA Phosphatidylserine IgM Anti-Phospholipid Intrp Anti-Cardiolipin IgG Ab Anti-Cardiolipin IgA Ab Anti-Cardiolipin IgM Ab MTHFR DNA Mutation Anal MTHFR Interpretation MTHFR Reviewed By Prothrombin Mut Interp see note Prothrombin Gene Mutate see note Prothromb Gene Review see note 07/19/17 07/19/17 07/27/17 06:20 06:20 05:06 WBC RBC Hgb Hct MCV MCH MCHC RDW Plt Count MPV PT INR APTT dRVVT Confirm Interp Factor V pO2 VBG pH VBG pCO2 VBG HCO3 VBG Total CO2 VBG O2 Sat (Calc) VBG Base Excess VBG Potassium Sodium Chloride Glucose Lactate FiO2 Potassium Carbon Dioxide Anion Gap BUN Creatinine Est GFR ( Amer) Est GFR (Non-Af Amer) POC Glucose (mg/dL) 123 H Random Glucose Lactic Acid Calcium Total Bilirubin AST ALT Alkaline Phosphatase Total Protein Albumin Globulin Albumin/Globulin Ratio Procalcitonin Venous Blood Potassium Vxyl-4-Hsmnlocaxiuw Ab <9 Beta-2 GPI IgG Ab <9 Beta-2 GPI IgM Ab <9 Phosphatidylserine IgG <10 Phosphatidylserine IgA <20 Phosphatidylserine IgM <25 Anti-Phospholipid Intrp see note Anti-Cardiolipin IgG Ab <14 Anti-Cardiolipin IgA Ab <11 Anti-Cardiolipin IgM Ab <12 MTHFR DNA Mutation Anal see note H MTHFR Interpretation see note MTHFR Reviewed By see note Prothrombin Mut Interp Prothrombin Gene Mutate Prothromb Gene Review 07/27/17 07/27/17 07/27/17 05:54 06:28 06:29 WBC 32.8 H* D RBC 2.92 L Hgb 7.9 L D Hct 24.7 L MCV 84.6 MCH 27.1 MCHC 32.0 RDW 23.6 H Plt Count 590 H MPV 9.5 PT INR APTT dRVVT Confirm Interp Factor V pO2 134 H VBG pH 7.42 VBG pCO2 34.0 L VBG HCO3 22.1 VBG Total CO2 23.1 VBG O2 Sat (Calc) 100.8 H VBG Base Excess -1.7 L VBG Potassium 3.3 L Sodium 133.0 Chloride 105.0 Glucose 99 Lactate 2.3 H FiO2 21.0 Potassium Carbon Dioxide Anion Gap BUN Creatinine Est GFR ( Amer) Est GFR (Non-Af Amer) POC Glucose (mg/dL) Random Glucose Lactic Acid 1.4 Calcium Total Bilirubin AST ALT Alkaline Phosphatase Total Protein Albumin Globulin Albumin/Globulin Ratio Procalcitonin Venous Blood Potassium 3.3 L Jfxk-[id number] Ab Beta-2 GPI IgG Ab Beta-2 GPI IgM Ab Phosphatidylserine IgG Phosphatidylserine IgA Phosphatidylserine IgM Anti-Phospholipid Intrp Anti-Cardiolipin IgG Ab Anti-Cardiolipin IgA Ab Anti-Cardiolipin IgM Ab MTHFR DNA Mutation Anal MTHFR Interpretation MTHFR Reviewed By Prothrombin Mut Interp Prothrombin Gene Mutate Prothromb Gene Review 07/27/17 07/27/17 07/27/17 06:29 06:30 06:30 WBC RBC Hgb Hct MCV MCH MCHC RDW Plt Count MPV PT 13.8 H INR 1.28 H APTT 29.6 dRVVT Confirm Interp Factor V pO2 VBG pH VBG pCO2 VBG HCO3 VBG Total CO2 VBG O2 Sat (Calc) VBG Base Excess VBG Potassium Sodium 132 Chloride 104 Glucose Lactate FiO2 Potassium 3.3 L Carbon Dioxide 20 L Anion Gap 11 BUN 14 Creatinine 1.4 H Est GFR ( Amer) 45 Est GFR (Non-Af Amer) 37 POC Glucose (mg/dL) Random Glucose 84 Lactic Acid Calcium 6.9 L* Total Bilirubin 2.0 H AST 51 H D ALT 63 H Alkaline Phosphatase 166 H D Total Protein 4.1 L Albumin 1.9 L Globulin 2.2 Albumin/Globulin Ratio 0.9 L Procalcitonin 5.28 H Venous Blood Potassium Ckau-5-Ctjqgjtuduxm Ab Beta-2 GPI IgG Ab Beta-2 GPI IgM Ab Phosphatidylserine IgG Phosphatidylserine IgA Phosphatidylserine IgM Anti-Phospholipid Intrp Anti-Cardiolipin IgG Ab Anti-Cardiolipin IgA Ab Anti-Cardiolipin IgM Ab MTHFR DNA Mutation Anal MTHFR Interpretation MTHFR Reviewed By Prothrombin Mut Interp Prothrombin Gene Mutate Prothromb Gene Review 07/27/17 08:33 WBC RBC Hgb Hct MCV MCH MCHC RDW Plt Count MPV PT INR APTT dRVVT Confirm Interp Factor V pO2 VBG pH VBG pCO2 VBG HCO3 VBG Total CO2 VBG O2 Sat (Calc) VBG Base Excess VBG Potassium Sodium Chloride Glucose Lactate FiO2 Potassium Carbon Dioxide Anion Gap BUN Creatinine Est GFR ( Amer) Est GFR (Non-Af Amer) POC Glucose (mg/dL) 91 Random Glucose Lactic Acid Calcium Total Bilirubin AST ALT Alkaline Phosphatase Total Protein Albumin Globulin Albumin/Globulin Ratio Procalcitonin Venous Blood Potassium Klqz-7-Caxwvhsnxdjp Ab Beta-2 GPI IgG Ab Beta-2 GPI IgM Ab Phosphatidylserine IgG Phosphatidylserine IgA Phosphatidylserine IgM Anti-Phospholipid Intrp Anti-Cardiolipin IgG Ab Anti-Cardiolipin IgA Ab Anti-Cardiolipin IgM Ab MTHFR DNA Mutation Anal MTHFR Interpretation MTHFR Reviewed By Prothrombin Mut Interp Prothrombin Gene Mutate Prothromb Gene Review Assessment & Plan (1) Lower limb ischemia Status: Acute - Assessment and Plan (Free Text) Assessment: Patient is a 67 yo female with PMH of HTN, MVP, mild , anemia, and hx of syncopal episodes who presents to the [facility] ED for left lower extremity pain. Patient found to have absent pulses in RLE via US. Patient was taken by IR on for intervention with Dr. Sierra. IR unable to open Right femoral artery and placed EKOS catheter with alteplase drip. Patient was monitored in ICU and found overnight found to have limited motor function of RLE and taken to OR for vascular surgery. An endarterectomy of the right femoral artery, fasciotomy, and right pop/tib/peron bypass was preformed. Patient wound debrided and cleaned x 2. PATIENT ACCOUNT REPRESENTATIVE called on patient on 07/27 with transfer back to ICU for afib with RVR, hypotension, and fever of 104F. Plan: Neuro: AAOx3 Stable CV: Acute Limb Ischemia of RLE s/p intervention with vascular surgery, IR and General Surgery - Patient underwent IR intervention 07/[address] Sierra, unable to open occluded right common femoral artery and EKOS catheter placement - Vascular surgery preformed endarterectomy of right femoral artery, fasciotomy , and Right popliteal/tibial/peroneal bypass - General Surgery took patient for debridement and drainage of wound x2 on 07/20 and 07/26 - PT/OT - Vascular surgery consulted and following - General surgery consulted and following AFib with RVR - Cardizem gtt - digoxin Pulm: - Stable - Place patient on O2 NC with goal to maintain O2 sat >92% GI: - c/o diarrhea, Send off stool sample for c.diff toxin and ag testing - Consider flagyl if symptoms persist or c.diff positive - Protonix for PPX : - Stable - monitor output Renal: BUN/Cr: 14/1.4 - Received 2 Liters of fluid today - IVF 150mL Hr - Replace lytes, maintain euvolemia. Continue to monitor. ID: - Leukocytosis with WBC of 32.8, Fever of 104F - Diff Dx: wound of RLE fasciotomy, diarrhea and C. diff, bacteremia - L[place]o cultured - On daptomyocin, Meropenem - Acetaminophen for fever - ID consulted and following appreciate recs Heme: - H/H: 7.9/24.7 - Plts: 590 - Transfuse 1 unit of pRBC - Feosol Lupus Anticoagulant positive, - Continue anticoagulation with lovenox - Heme consulted and following appreciate recs DVT ppx: Lovenox GI ppx: Protonix Case and plan discussed with attending - Date & Time Date: 07/27/17 Time: 15:09 <Everton Pickett MD - Last Filed: 07/27/17 16:36> Meds - Medications Medications: Current Medications Acetaminophen (Tylenol 325mg Tab) 650 mg PO Q6H PRN PRN Reason: Headache Last Admin: 07/27/17 14:07 Dose: 650 mg Clopidogrel Bisulfate (Plavix) 75 mg PO DAILY [facility] Last Admin: 07/27/17 10:40 Dose: 75 mg Digoxin (Lanoxin) 0.25 mg IV Q6H [facility] Stop: 07/27/17 22:31 Digoxin (Lanoxin) 0.25 mg PO 1400 [facility] Docusate Sodium (Colace) 100 mg PO TID [facility] Last Admin: 07/27/17 14:18 Dose: Not Given Enoxaparin Sodium (Lovenox) 95 mg SC BID [facility] PRN Reason: Protocol Last Admin: 07/27/17 10:41 Dose: 95 mg Hydromorphone HCl (Dilaudid) 1 mg IVP Q3H PRN PRN Reason: Pain, severe (8-10) Last Admin: 07/27/17 03:36 Dose: 1 mg Sodium Chloride (Sodium Chloride 0.9%) 1,000 mls @ 150 mls/hr IV .Q6H40M [facility] Last Admin: 07/27/17 14:05 Dose: 150 mls/hr Meropenem 1g/NS 100mL IVPB (Meropenem 1g/Ns 100ml Ivpb) 1 gm in 100 mls @ 100 mls/hr IVPB Q12 [facility] PRN Reason: Protocol Stop: 08/05/17 10:01 Last Admin: 07/27/17 10:37 Dose: 100 mls/hr Daptomycin 250 mg/ Sodium (Chloride) 100 mls @ 200 mls/hr IV Q24H [facility] Stop: 08/05/17 08:16 Last Admin: 07/27/17 14:02 Dose: 200 mls/hr diltiaZEM IVPB 100mg in NS (Cardizem 100mg In Ns) 100 mls @ 5 mls/hr IV .Q20H PRN; Protocol; 5 MG/HR PRN Reason: TITRATE PER MD ORDER Last Admin: 07/27/17 08:45 Dose: 5 mg/hr, 5 mls/hr Metoprolol Tartrate (Lopressor) 2.5 mg IV Q8H [facility] Last Admin: 07/21/17 23:42 Dose: 2.5 mg Metoprolol Tartrate (Lopressor) 12.5 mg PO BID [facility] Last Admin: 07/27/17 10:37 Dose: 12.5 mg Ondansetron HCl (Zofran Inj) 4 mg IVP ONCE PRN PRN Reason: Nausea/Vomiting Pantoprazole Sodium (Protonix Ec Tab) 40 mg PO 0600 [facility] Last Admin: 07/27/17 05:46 Dose: Not Given Polyethylene Glycol (Miralax) 17 gm PO BID [facility] Last Admin: 07/27/17 10:37 Dose: 17 gm Silver Sulfadiazine (Silvadene 1% 25 Gm) 0 gm TP BID [facility] Last Admin: 07/26/17 17:59 Dose: Not Given Sucralfate (Carafate Oral Susp) 1 gm PO ACHS [facility] Last Admin: 07/27/17 14:10 Dose: 1 gm Results - Vital Signs Recent Vital Signs: Last Vital Signs Temp 102.3 F H 07/27/17 06:00 Pulse 124 H 07/27/17 10:37 Resp 20 07/27/17 06:00 BP 95/47 L 07/27/17 10:37 Pulse Ox 97 07/27/17 06:00 - Labs Result Diagrams: 07/27/17 06:29 07/27/17 06:30 Labs: Laboratory Results - last 24 hr 07/19/17 07/27/17 07/27/17 06:20 05:06 05:54 WBC RBC Hgb Hct MCV MCH MCHC RDW Plt Count MPV PT INR APTT dRVVT Confirm Interp Negative pO2 VBG pH VBG pCO2 VBG HCO3 VBG Total CO2 VBG O2 Sat (Calc) VBG Base Excess VBG Potassium Sodium Chloride Glucose Lactate FiO2 Potassium Carbon Dioxide Anion Gap BUN Creatinine Est GFR ( Amer) Est GFR (Non-Af Amer) POC Glucose (mg/dL) 123 H Random Glucose Lactic Acid 1.4 Calcium Total Bilirubin AST ALT Alkaline Phosphatase Total Protein Albumin Globulin Albumin/Globulin Ratio Procalcitonin Venous Blood Potassium Stool Occult Blood 07/27/17 07/27/17 07/27/17 06:28 06:29 06:29 WBC 32.8 H* D RBC 2.92 L Hgb 7.9 L D Hct 24.7 L MCV 84.6 MCH 27.1 MCHC 32.0 RDW 23.6 H Plt Count 590 H MPV 9.5 PT INR APTT dRVVT Confirm Interp pO2 134 H VBG pH 7.42 VBG pCO2 34.0 L VBG HCO3 22.1 VBG Total CO2 23.1 VBG O2 Sat (Calc) 100.8 H VBG Base Excess -1.7 L VBG Potassium 3.3 L Sodium 133.0 Chloride 105.0 Glucose 99 Lactate 2.3 H FiO2 21.0 Potassium Carbon Dioxide Anion Gap BUN Creatinine Est GFR ( Amer) Est GFR (Non-Af Amer) POC Glucose (mg/dL) Random Glucose Lactic Acid Calcium Total Bilirubin AST ALT Alkaline Phosphatase Total Protein Albumin Globulin Albumin/Globulin Ratio Procalcitonin 5.28 H Venous Blood Potassium 3.3 L Stool Occult Blood 07/27/17 07/27/17 07/27/17 06:30 06:30 08:33 WBC RBC Hgb Hct MCV MCH MCHC RDW Plt Count MPV PT 13.8 H INR 1.28 H APTT 29.6 dRVVT Confirm Interp pO2 VBG pH VBG pCO2 VBG HCO3 VBG Total CO2 VBG O2 Sat (Calc) VBG Base Excess VBG Potassium Sodium 132 Chloride 104 Glucose Lactate FiO2 Potassium 3.3 L Carbon Dioxide 20 L Anion Gap 11 BUN 14 Creatinine 1.4 H Est GFR ( Amer) 45 Est GFR (Non-Af Amer) 37 POC Glucose (mg/dL) 91 Random Glucose 84 Lactic Acid Calcium 6.9 L* Total Bilirubin 2.0 H AST 51 H D ALT 63 H Alkaline Phosphatase 166 H D Total Protein 4.1 L Albumin 1.9 L Globulin 2.2 Albumin/Globulin Ratio 0.9 L Procalcitonin Venous Blood Potassium Stool Occult Blood 07/27/17 14:00 WBC RBC Hgb Hct MCV MCH MCHC RDW Plt Count MPV PT INR APTT dRVVT Confirm Interp pO2 VBG pH VBG pCO2 VBG HCO3 VBG Total CO2 VBG O2 Sat (Calc) VBG Base Excess VBG Potassium Sodium Chloride Glucose Lactate FiO2 Potassium Carbon Dioxide Anion Gap BUN Creatinine Est GFR ( Amer) Est GFR (Non-Af Amer) POC Glucose (mg/dL) Random Glucose Lactic Acid Calcium Total Bilirubin AST ALT Alkaline Phosphatase Total Protein Albumin Globulin Albumin/Globulin Ratio Procalcitonin Venous Blood Potassium Stool Occult Blood Negative Attending/Attestation - Attestation I have personally seen and examined this patient.: Yes I have fully participated in the care of the patient.: Yes I have reviewed all pertinent clinical information: Yes Notes (Text): 07/27/17 16:32 67 y/o F brought back to the ICU due to increasing WBC, A-fib RVR in the setting of presumed sepsis. Found to have Wound cx + for gram + and Gram- w/ increasing WBC. COncern for bacteremia vs worsening wound infection/ necrosis. Lactate pending. ABX broadened and IV fluids started. A FIB rate controlled on Cardizem drip to keep HR< 130's. Vascular surgery following the patient post op fasciotomy. PT needed. Poor movement and motor function of the RLE. DVT P SCD in concern for GI bleed. Stool occult negative. Keep HGB> 7 and INR< 2. cc time 65 minutes
--- NOTE | 2017-07-27 14:14 | PN ---
DATE: 07/27/2017 SUBJECTIVE: The patient is seen lying in bed, in the ICU. She was transferred from telemetry due to her rapid atrial fibrillation and fever. She was placed back on intravenous diltiazem. Her blood pressure has been marginal. The dose has not been increased. CURRENT MEDICATIONS: Include Carafate, diltiazem 5 mg per hour, Colace, daptomycin, ferrous sulfate, metoprolol 12.5 mg b.i.d., metoprolol 5 mg IV q. 8 hours, Lovenox b.i.d., meropenem, Plavix 75 mg daily, and Protonix. OBJECTIVE: GENERAL: She is a middle aged woman, who appears somewhat anxious. VITAL SIGNS: Her blood pressure is 96/50 with a pulse of 120 and in atrial fibrillation, and respirations are 16. Latest temperature is 102.3. HEENT: No JVD. CHEST: A few scattered rhonchi heard. HEART: PMI displaced laterally with an irregularly irregular rhythm and a systolic murmur is present at the base. GASTROINTESTINAL: The abdomen is soft and nontender with bowel sounds. EXTREMITIES: Right foot is somewhat cool. Right lower extremity has an extensive dressing present. DIAGNOSTIC DATA: Lactic acid is 1.4, potassium is 3.3, sodium is 132, BUN and creatinine are 14 and 1.4. White count is 32.8 and hemoglobin and hematocrit are 7.9 and 24.7 with a platelet count of 590,000. IMPRESSION: 1. Recurrent atrial fibrillation with rapid ventricular response, likely exacerbated by stress at illness. 2. Persistent fever, source uncertain. 3. Marked leukocytosis. 4. Status post emergent surgery for ischemic right leg secondary to arterial thromboembolism. RECOMMENDATIONS: Digoxin will be added for heart rate control at the present time. Anticoagulation should continue. If heart rate does not respond to digoxin use, diltiazem can be increased as it is likely that slowing her heart rate will improve her hemodynamics and blood pressure as well. Continue broad spectrum antibiotics as advised. We will continue to follow along and make further recommendations as appropriate. Walt Hernandez MD
--- NOTE | 2017-07-27 16:12 | CON ---
DATE: 07/27/2017 LOCATION: The patient is seen early this morning in room 263, bed 2 right after a Code Sepsis was called. CHIEF COMPLAINT: The patient had a temperature of 104 x1 day. HISTORY OF PRESENT ILLNESS: This is a 67-year-old female with a history of hypertension, hyperlipidemia, long-term ex-smoker, mitral valve prolapse, urinary tract infection, peripheral artery disease who was initially admitted with a ischemic right foot and right leg and the patient had status post right leg wound exploration, debridement and a thrombus thrombectomy and the patient also had debridement of the wound VAC and this morning, had a temperature of 104, Infectious Disease consultation requested. The patient has mild shortness of breath. She became hypotensive, tachycardiac. No chest pain. There is mild cough. No abdominal pain. No diarrhea and no headaches. PAST MEDICAL HISTORY: Significant for mitral valve prolapse, hypertension, hyperlipidemia, and urinary tract infection with peripheral vascular disease. PAST SURGICAL HISTORY: Significant for a D&C. The patient has no recent travel. ALLERGIES: SHE IS ALLERGIC TO LEVAQUIN. MEDICATIONS: Reviewed. Her home medications include aspirin, Protonix, and losartan. PHYSICAL EXAMINATION: VITAL SIGNS: Temperature is 104, blood pressure was down to 68/43, heart rate of 114, and respiratory rate of 20. HEENT: Unremarkable. NECK: Supple. LUNGS: Decreased breath sounds. HEART: Normal S1 and S2. ABDOMEN: Examination is soft and nontender. EXTREMITIES: Examination of the foot has a wound VAC. Examination of right arm, the patient has a PICC line. Examination of the left arm is erythematous where the patient had a peripheral line in and there was edema. LABORATORY DATA: Reveals the patient to have a white count of 32,000, hemoglobin of 7, platelets of 590. BUN of 14, creatinine is 1.4, it was 1.1 yesterday and day before. Blood sugar is elevated. Alkaline phosphatase is elevated with LFT elevation and the patient also had a chest x-ray this morning, which revealed the patient had interstitial vascular congestion, diffusely marked central emphysematous changes. ASSESSMENT AND PLAN: A 67-year-old female with mitral valve prolapse, hypertension, hyperlipidemia, urinary tract infection, peripheral vascular disease, admitted with right leg ischemia, was taken to the OR, had a thrombus and thrombectomy of the artery and right leg wound exploration and debridement. Now, the patient with severe sepsis with a fever and tachycardia and with a left arm IV site cellulitis, must rule out bacteremia from the PICC line versus healthcare-associated pneumonia. The patient was given dose of vancomycin. We will start the patient on daptomycin in phase of severe sepsis and hypotension and acute kidney injury with a creatinine that is changed from 1.1. to 1.4. We will also add meropenem in this patient with severe sepsis with acute kidney injury pending blood cultures, urine cultures, sputum cultures, procalcitonin and the patient already received a vancomycin dose and chest x-ray result and also make further recommendations upon availability of initial results. Jasbir Hargrove MD
--- NOTE | 2017-07-27 16:39 | PN ---
DATE: 07/27/2017 SUBJECTIVE: She is tachypneic, tachycardic. She was transferred to ICU today for sepsis. Wound growing Gram-positive cocci and Gram-negative daysi. She has been febrile since morning. Temperature was 104 at 5 in the morning. Blood pressure dropped to 90/45. Code Sepsis was called. Thrombophilia workup showed heterozygous for factor V Leiden, a positive lupus anticoagulant, heterozygosity for MTHFR gene mutation. She is currently on Lovenox, therapeutic doses. She is complaining of pain in the right leg. No nausea or vomiting. No dark colored stools. Hemoglobin declined to 7.9, white count elevated at 32,000. REVIEW OF SYSTEMS: As per HPI. Rest of 12-point review of systems reviewed and negative. MEDICATIONS: Tylenol 650 q. 6 hours p.r.n., Plavix 75 mg daily, daptomycin, digoxin 0.25 mg q. 6 hours, diltiazem drip, Colace 100 mg p.o. t.i.d., Lovenox 95 mg subcutaneous b.i.d., Dilaudid 1 mg IV q. 3 hours p.r.n., meropenem, metoprolol 12.5 mg p.o. b.i.d. Zofran 4 mg p.r.n., MiraLax 17 g p.o. b.i.d., silver sulfadiazine, Carafate 1 mg p.o. at bedtime. LABORATORY DATA: Last white count 32,000, hemoglobin 7.9, hematocrit 24.7, platelet count 590. Sodium 132, potassium 3.3, calcium 6.9, total bilirubin 2, AST 51, ALT 63, total protein 4.1. Thrombophilia workup as per subjective. Microbiology showed Gram-positive cocci in the wound and Gram-negative daysi. PHYSICAL EXAMINATION: GENERAL: Mild distress, tachycardiac tachypneic. VITAL SIGNS: Blood pressure 95/47, heart rate is 124 per minute, temperature 102.3. HEENT: Pallor positive. NECK: No lymphadenopathy. CHEST: Air entry present and equal bilateral. No added sound. No rhonchi. No crepitations. CARDIOVASCULAR: Exam tachycardia, S1, S2 normal. . ABDOMEN: Soft, nontender. No hepatosplenomegaly. EXTREMITIES: Right extremity in dressing. Left, no petechiae, no lesions. SPINE: Nontender. MEDICAL OFFICER PSYCHIATRY: Alert and oriented x3. No focal sensory or motor deficit. ASSESSMENT: 1. Sepsis. 2. Hypercoagulable state. 3. Arterial thrombosis - right femoral, iliac, popliteal. 4. Severe anemia. 5. Leukocytosis. 6. Sepsis. PLAN: 1. She has hypercoagulable state. She is positive for factor V Leiden heterozygosity, methylenetetrahydrofolate reductase gene mutation, heterozygous, lupus anticoagulant positive. She needs lifelong anticoagulation. We will continue full dose Lovenox 95 mg subcutaneous b.i.d. She has gastrointestinal bleed leading to dropping of hematocrit. In view of arterial thrombosis, anticoagulation cannot be stopped. We can transfuse PRBC as and when needed. 2. Gastrointestinal bleed. EGD gastric ulcer superficial, colonoscopy will be planned as per Dr. Bruno. CAT scan of abdomen did not show any pathology. Tumor markers negative for colon, pancreatic cancer. 3. Sepsis, currently on IV antibiotic, meropenem, daptomycin. Dr. Hargrove following. 4. Severe anemia, hemoglobin 7.9. She is tachypneic, tachycardiac. We will transfuse 1 unit of PRBC, ordered. Discussed with the staff nurse once temperature is down, transfusion 1 unit of PRBCs to be given. We will closely monitor hemoglobin, hematocrit. 5. Leukocytosis related to sepsis. White count was normal until today. We will continue monitor white count. 6. Family members need to be tested for hypercoagulable state, especially for factor V Leiden. Discussed with patient, children and sibling needs to be tested. Discussed with the staff nurse. Discussed with the ICU . Raina Kohler MD MTDJuliet
[2017-07-27 17:11] LABS: VENOUS BLOOD GAS BASE EXCESS -6.2 mmol/L (0.0-2.0); VENOUS BLOOD PH 7.37 (7.32-7.43)
[2017-07-27 17:12] LABS: BASO # 0.02 K/mm3 (0.0-2.0); BASO % 0.1 % (0.0-3.0); EOS % 0.1 % (1.5-5.0); GRAN # 35.23 (1.4-6.5); GRAN % 95.9 % (50.0-68.0); LYMPH # 0.3 (1.2-3.4); LYMPH % 0.8 % (22.0-35.0); MEAN CELL VOLUME 82.8 fl (80.0-105.0); MEAN CORPUSCULAR HEMOGLOBIN 26.9 pg (25.0-35.0); MEAN CORPUSCULAR HGB CONC 32.5 g/dl (31.0-37.0); MEAN PLATELET VOLUME 9.4 fl (7.0-11.0); MONO # 1.1 (0.1-0.6); MONO % 3.1 % (1.0-6.0); PLATELET COUNT 543 10^3/uL (120.0-450.0); RED CELL DISTRIBUTION WIDTH 23.1 % (11.5-14.5)
[2017-07-27 17:20] LABS: ALB/GLOB RATIO 0.8 (1.1-1.8); BILIRUBIN,TOTAL 2.2 mg/dL (0.2-1.3); PHOSPHOROUS 3.5 mg/dL (2.5-4.5); POTASSIUM 4.2 mmol/L (3.6-5.0); TOTAL PROTEIN 4.1 g/dL (5.8-8.3)
[2017-07-27 17:27] LABS: WHITE BLOOD COUNT 36.7 10^3/ul (4.5-11.0)
[2017-07-27] MEDS: Magnesium Sulfate 2 GM in Sodium Chloride 0.9% 100 ML IVPB SCH ×2 (17:45→21:09)
[2017-07-27 17:53] LABS: CALCIUM 6.2 mg/dL (8.4-10.5)
[2017-07-27] MEDS: Silver Sulfadiazine 1% Cream (25 gm) TP SCH (18:15)
[2017-07-27 18:52] LABS: BAND 6 % (0-2); NEUTROPHIL 92 % (50.0-70.0)
[2017-07-27 18:53] LABS: PLATELET ESTIMATE HIGH (NORMAL)
[2017-07-27 18:54] LABS: ANISOCYTOSIS SLIGHT
[2017-07-27 18:55] LABS: HYPOCHROMIA SLIGHT
--- NOTE | 2017-07-27 19:03 | CARD ---
APPROVED REPORT EKG Measurement Heart [id number] <Conclusion> Atrial fibrillation with rapid ventricular response Nonspecific T wave abnormality, probably digitalis effect Abnormal ECG
[2017-07-27 20:30] LABS: VENOUS BLOOD PH 7.34 (7.32-7.43)
[2017-07-27] MEDS: Digoxin 500 mcg/2ml (0.5 mg/2ml) Inj IV SCH (20:45)
--- NOTE | 2017-07-27 23:06 | CP.PCM.PN ---
Subjective - Date & Time of Evaluation Date of Evaluation: 07/26/17 Time of Evaluation: 18:00 - Subjective Subjective: She underwent wound debridement in OR today. Lovenox was held since last night . She has hypercoagubale state. No bleeding from leg wound. No fever, cough. Pain in right leg. Objective - Vital Signs/Intake and Output Vital Signs (last 24 hours): Temp Pulse Resp BP Pulse Ox 98 F 98 H 59 H 102/65 75 L 07/27/17 20:00 07/27/17 22:01 07/27/17 20:09 07/27/17 22:01 07/27/17 20:09 Intake and Output: 07/27/17 07/28/17 18:59 06:59 Intake Total 3300 100 Output Total 475 Balance 2825 100 - Medications Medications: Current Medications Acetaminophen (Tylenol 325mg Tab) 650 mg PO Q6H PRN PRN Reason: Headache Last Admin: 07/27/17 14:07 Dose: 650 mg Calcium Carbonate (Caltrate) 600 mg PO BID [facility] Last Admin: 07/27/17 18:30 Dose: 600 mg Clopidogrel Bisulfate (Plavix) 75 mg PO DAILY [facility] Last Admin: 07/27/17 10:40 Dose: 75 mg Digoxin (Lanoxin) 0.25 mg PO 1400 [facility] Docusate Sodium (Colace) 100 mg PO TID [facility] Last Admin: 07/27/17 18:20 Dose: Not Given Enoxaparin Sodium (Lovenox) 95 mg SC BID [facility] PRN Reason: Protocol Last Admin: 07/27/17 20:48 Dose: 95 mg Hydromorphone HCl (Dilaudid) 1 mg IVP Q3H PRN PRN Reason: Pain, severe (8-10) Last Admin: 07/27/17 03:36 Dose: 1 mg Sodium Chloride (Sodium Chloride 0.9%) 1,000 mls @ 150 mls/hr IV .Q6H40M [facility] Last Admin: 07/27/17 22:00 Dose: 150 mls/hr Meropenem 1g/NS 100mL IVPB (Meropenem 1g/Ns 100ml Ivpb) 1 gm in 100 mls @ 100 mls/hr IVPB Q12 [facility] PRN Reason: Protocol Stop: 08/05/17 10:01 Last Admin: 07/27/17 21:57 Dose: 100 mls/hr Daptomycin 250 mg/ Sodium (Chloride) 100 mls @ 200 mls/hr IV Q24H [facility] Stop: 08/05/17 08:16 Last Admin: 07/27/17 14:02 Dose: 200 mls/hr diltiaZEM IVPB 100mg in NS (Cardizem 100mg In Ns) 100 mls @ 5 mls/hr IV .Q20H PRN; Protocol; 5 MG/HR PRN Reason: TITRATE PER MD ORDER Last Admin: 07/27/17 22:01 Dose: 5 mg/hr, 5 mls/hr Magnesium Sulfate 2 gm/ Sodium (Chloride) 104 mls @ 102 mls/hr IVPB Q3H [facility] Stop: 07/28/17 01:02 Last Admin: 07/27/17 21:09 Dose: 102 mls/hr Metoprolol Tartrate (Lopressor) 2.5 mg IV Q8H [facility] Last Admin: 07/21/17 23:42 Dose: 2.5 mg Metoprolol Tartrate (Lopressor) 12.5 mg PO BID [facility] Last Admin: 07/27/17 18:30 Dose: Not Given Ondansetron HCl (Zofran Inj) 4 mg IVP ONCE PRN PRN Reason: Nausea/Vomiting Pantoprazole Sodium (Protonix Ec Tab) 40 mg PO 0600 [facility] Last Admin: 07/27/17 05:46 Dose: Not Given Polyethylene Glycol (Miralax) 17 gm PO BID [facility] Last Admin: 07/27/17 18:26 Dose: Not Given Silver Sulfadiazine (Silvadene 1% 25 Gm) 0 gm TP BID [facility] Last Admin: 07/27/17 18:15 Dose: Not Given Sucralfate (Carafate Oral Susp) 1 gm PO ACHS [facility] Last Admin: 07/27/17 22:01 Dose: 1 gm - Labs Labs: 07/27/17 17:07 07/27/17 17:07 PT 13.8 Seconds (9.9-11.8) H 07/27/17 06:30 INR 1.28 (0.93-1.08) H 07/27/17 06:30 APTT 29.6 Seconds (23.7-30.8) 07/27/17 06:30 - Constitutional Appears: Well, Non-toxic - Head Exam Head Exam: ATRAUMATIC, NORMAL INSPECTION, NORMOCEPHALIC - Eye Exam Eye Exam: Normal appearance - ENT Exam ENT Exam: Mucous Membranes Moist, Normal Exam - Neck Exam Neck Exam: Normal Inspection - Respiratory Exam Respiratory Exam: Clear to Ausculation Bilateral, NORMAL BREATHING PATTERN - Cardiovascular Exam Cardiovascular Exam: REGULAR RHYTHM, +S1, +S2 - GI/Abdominal Exam GI & Abdominal Exam: Soft, Normal Bowel Sounds - Extremities Exam Additional comments: right leg in dressing. - Back Exam Back Exam: NORMAL INSPECTION - Neurological Exam Neurological Exam: Alert, Awake, Oriented x3 - Psychiatric Exam Psychiatric exam: Normal Affect - Skin Skin Exam: Normal Color, Warm Assessment and Plan - Assessment and Plan (Free Text) Assessment: 1. Hypercoaguable state : Start lovenox 95 mg BID. Lupus anticoagulant positive. 2. Pain : better controlled with Q3 dilaudid dose. 1mg IV stat for pain in leg. 3. Arterial thrombosis : s/p thrombectomy, wound exploreed in OR. Skin grafting not needed. 4. bedside PT, tolerating well. 5. Severe anemia. Hb/Hct stable. Discussed with staff Nurse.
[2017-07-27 23:56] LABS: BASO # 0.02 K/mm3 (0.0-2.0); BASO % 0.1 % (0.0-3.0); EOS # 0.1 (0.0-0.7); EOS % 0.3 % (1.5-5.0); GRAN # 32.62 (1.4-6.5); GRAN % 96.4 % (50.0-68.0); HEMATOCRIT 27.7 % (36.0-48.0); LYMPH # 0.4 (1.2-3.4); LYMPH % 1.2 % (22.0-35.0); MEAN CELL VOLUME 83.2 fl (80.0-105.0); MEAN CORPUSCULAR HEMOGLOBIN 27.3 pg (25.0-35.0); MEAN CORPUSCULAR HGB CONC 32.9 g/dl (31.0-37.0); MEAN PLATELET VOLUME 9.8 fl (7.0-11.0); MONO # 0.7 (0.1-0.6); RED CELL DISTRIBUTION WIDTH 21.9 % (11.5-14.5)
[2017-07-28 00:03] LABS: INR 1.49 (0.93-1.08); PARTIAL THROMBOPLASTIN TIME 42.8 Seconds (23.7-30.8)
[2017-07-28 00:10] LABS: ALB/GLOB RATIO 0.8 (1.1-1.8); BILIRUBIN,TOTAL 2.3 mg/dL (0.2-1.3); MAGNESIUM 2.2 mg/dL (1.7-2.2); PHOSPHOROUS 3.3 mg/dL (2.5-4.5); TOTAL PROTEIN 4.2 g/dL (5.8-8.3)
[2017-07-28 00:13] LABS: CALCIUM 6.3 mg/dL (8.4-10.5)
[2017-07-28 00:21] LABS: WHITE BLOOD COUNT 33.8 10^3/ul (4.5-11.0)
[2017-07-28] MEDS: Magnesium Sulfate 2 GM in Sodium Chloride 0.9% 100 ML IVPB SCH (00:41)
[2017-07-28] MEDS: HYDROmorphone 1 mg/ml ISec IVP PRN ×4 (00:47→22:15)
[2017-07-28] MEDS: Digoxin 500 mcg/2ml (0.5 mg/2ml) Inj IV SCH (01:57)
[2017-07-28] MEDS: Pantoprazole 40 mg EC Tab PO SCH (05:58)
[2017-07-28 07:16] LABS: MEAN CELL VOLUME 83.6 fl (80.0-105.0); MEAN CORPUSCULAR HGB CONC 32.3 g/dl (31.0-37.0); MEAN PLATELET VOLUME 9.5 fl (7.0-11.0); RED CELL DISTRIBUTION WIDTH 22.4 % (11.5-14.5)
[2017-07-28 07:34] LABS: HEMATOCRIT 23.5 % (36.0-48.0)
--- NOTE | 2017-07-28 07:43 | CP.PCM.PN ---
Subjective - Date & Time of Evaluation Date of Evaluation: 07/28/17 Time of Evaluation: 07:00 - Subjective Subjective: Stable in ICU. No CP or SOB. S/P transfusion yesterday. Events of yesterday noted. Now back in RSR on IV cardizem drip. V/S noted. RSR. PE: Lungs: clear Cor.: S1S2, sys. murmur Abd.: soft Ext.: right foot bandaged with wound vac.. Can't move toes. Can lift leg. Neuro: alert I/O= 8060/680 Labs pending. 07/27 labs noted Stool + OB x several. 07/27 stool neg. ECG 07/27: AF with RVR, NSSTW changes Echo:NL LV function, mod/sev. , mild to mod AI, mild MR, trace TR. Surgical spec cultures: + GPC, GNR. 07/27 BC x2 NG at 24 hrs. 07/27 CXR noted. Not read yet. Objective - Vital Signs/Intake and Output Vital Signs (last 24 hours): Temp Pulse Resp BP Pulse Ox 98 F 93 H 27 H 110/51 L 97 07/28/17 05:17 07/28/17 06:00 07/28/17 02:00 07/28/17 02:00 07/28/17 02:01 Intake and Output: 07/28/17 07/28/17 06:59 18:59 Intake Total 4760 Output Total 205 Balance 4555 - Medications Medications: Current Medications Acetaminophen (Tylenol 325mg Tab) 650 mg PO Q6H PRN PRN Reason: Headache Last Admin: 07/27/17 14:07 Dose: 650 mg Calcium Carbonate (Caltrate) 600 mg PO BID [facility] Last Admin: 07/27/17 18:30 Dose: 600 mg Clopidogrel Bisulfate (Plavix) 75 mg PO DAILY [facility] Last Admin: 07/27/17 10:40 Dose: 75 mg Digoxin (Lanoxin) 0.25 mg PO 1400 [facility] Docusate Sodium (Colace) 100 mg PO TID [facility] Last Admin: 07/27/17 18:20 Dose: Not Given Enoxaparin Sodium (Lovenox) 95 mg SC BID [facility] PRN Reason: Protocol Last Admin: 07/27/17 20:48 Dose: 95 mg Hydromorphone HCl (Dilaudid) 1 mg IVP Q3H PRN PRN Reason: Pain, severe (8-10) Last Admin: 07/28/17 05:58 Dose: 1 mg Sodium Chloride (Sodium Chloride 0.9%) 1,000 mls @ 150 mls/hr IV .Q6H40M [facility] Last Admin: 07/27/17 22:00 Dose: 150 mls/hr Meropenem 1g/NS 100mL IVPB (Meropenem 1g/Ns 100ml Ivpb) 1 gm in 100 mls @ 100 mls/hr IVPB Q12 [facility] PRN Reason: Protocol Stop: 08/05/17 10:01 Last Admin: 07/27/17 21:57 Dose: 100 mls/hr Daptomycin 250 mg/ Sodium (Chloride) 100 mls @ 200 mls/hr IV Q24H [facility] Stop: 08/05/17 08:16 Last Admin: 07/27/17 14:02 Dose: 200 mls/hr diltiaZEM IVPB 100mg in NS (Cardizem 100mg In Ns) 100 mls @ 5 mls/hr IV .Q20H PRN; Protocol; 5 MG/HR PRN Reason: TITRATE PER MD ORDER Last Admin: 07/27/17 22:01 Dose: 5 mg/hr, 5 mls/hr Metoprolol Tartrate (Lopressor) 2.5 mg IV Q8H [facility] Last Admin: 07/21/17 23:42 Dose: 2.5 mg Metoprolol Tartrate (Lopressor) 12.5 mg PO BID [facility] Last Admin: 07/27/17 18:30 Dose: Not Given Ondansetron HCl (Zofran Inj) 4 mg IVP ONCE PRN PRN Reason: Nausea/Vomiting Pantoprazole Sodium (Protonix Ec Tab) 40 mg PO 0600 [facility] Last Admin: 07/28/17 05:58 Dose: 40 mg Polyethylene Glycol (Miralax) 17 gm PO BID [facility] Last Admin: 07/27/17 18:26 Dose: Not Given Silver Sulfadiazine (Silvadene 1% 25 Gm) 0 gm TP BID [facility] Last Admin: 07/27/17 18:15 Dose: Not Given Sucralfate (Carafate Oral Susp) 1 gm PO ACHS [facility] Last Admin: 07/27/17 22:01 Dose: 1 gm - Labs Labs: 07/27/17 23:30 07/27/17 23:30 PT 16.1 Seconds (9.9-11.8) H 07/27/17 23:30 INR 1.49 (0.93-1.08) H 07/27/17 23:30 APTT 42.8 Seconds (23.7-30.8) H 07/27/17 23:30 Assessment and Plan - Assessment and Plan (Free Text) Assessment: Fever, R/O sepsis vs wound infection. Severe anemia/s/p multiple blood transfusions/Esophageal and gastric ulcers/GIB/ Stool + OB. Most recent stool neg. OB. Acute iliofemoral thrombosis, s/p surgical thrombectomy, distal bypasses and fasciotomy Atrial fibrillation. PAF likely the cause for peripheral embolization originally. Also + hypercoag. state. Valvular heart disease: mod/sev , mild/mod AI, mild MR, trace TR HBP H/O syncope CVD DJD Former Smoker Plan: Continue PO metoprolol 12.5 BID, digoxin, and cardizem drip for now. Lovenox as per Dr. Kohler Wound care as per Dr. Couch As per ID. Colonoscopy being planned by Dr. Bruno, deferred for now As per Dr. Couch, Dr. Jose F Bruno, Intensivists, and Dr. Bush Monitor I/O, H/H, labs, sats., stool for OB, etc. OOB as sybil. Will follow
--- NOTE | 2017-07-28 07:48 | RAD ---
HISTORY: poor breath sounds and hypotensive COMPARISON: 07/27/2017 6:51 a.m. FINDINGS: LUNGS: No infiltrate. Mild diffuse interstitial prominence, unchanged. Linear scar/ atelectasis at left base. PLEURA: No significant pleural effusion identified, no pneumothorax apparent. CARDIOVASCULAR: Right PICC catheter unchanged. OSSEOUS STRUCTURES: No significant abnormalities. VISUALIZED UPPER ABDOMEN: Normal. OTHER FINDINGS: None. IMPRESSION: No acute infiltrate. No interval change.
[2017-07-28] MEDS: Sucralfate 1 gm/10 ml Oral Susp UD PO SCH ×4 (08:59→22:16)
[2017-07-28] MEDS: POLYETHYLENE GLYCOL 3350 17 GM/Dose PACKET PO SCH ×2 (09:02→18:39)
[2017-07-28] MEDS: Enoxaparin 100 mg Syringe SC SCH ×2 (09:02→18:37)
[2017-07-28] MEDS: Meropenem 1g/NS 100mL IVPB 1 GM/100 ML PIGGYBACK IVPB SCH ×2 (09:03→22:16)
[2017-07-28] MEDS: Silver Sulfadiazine 1% Cream (25 gm) TP SCH ×5 (09:11→18:58)
[2017-07-28 09:50] LABS: INR 1.15 (0.93-1.08)
[2017-07-28 09:52] LABS: ALB/GLOB RATIO 0.8 (1.1-1.8); BILIRUBIN,TOTAL 1.9 mg/dL (0.2-1.3); MAGNESIUM 2.3 mg/dL (1.7-2.2); PHOSPHOROUS 3.4 mg/dL (2.5-4.5); TOTAL PROTEIN 4.2 g/dL (5.8-8.3)
[2017-07-28 09:56] LABS: CALCIUM 6.4 mg/dL (8.4-10.5)
[2017-07-28] MEDS: Sodium Chloride 0.9% 1,000 ML IV SCH ×2 (11:56→22:16)
--- NOTE | 2017-07-28 12:17 | CP.CCUPN ---
<Rajat Zelaya - Last Filed: 07/28/17 12:07> CCU Subjective - Physician Review Subjective (Free Text): 07/18/17 08:59 Pt is s/e at bedside this AM in ICU. Yesterday patient continued to be in Afib with RVR and hypotensive. Patient remained on cardizem gtt and received fluids for persistent hypotension. Overnight no acute events overnight were reported. Patient was noted to have low Hgb today. Source is under investigation as patient has had recent prior admission for low hemoglbin. GI at that time found non-bleeding stomach ulcers for which she was given pRBC and discharged. Patient has no complaints today. She denies chest pain, shob, abdominal pain, n/ v/f/c. CCU Objective - Vital Signs / Intake & Output Vital Signs (Last 4 hours): Vital Signs Pulse BP 07/28/17 09:00 94 H 115/50 L Intake and Output (Last 8hrs): Intake & Output 07/27/17 07/28/17 07/28/17 22:59 06:59 14:59 Intake Total 3400 4660 Output Total 475 205 Balance 2925 4455 Weight 227 lb 8 oz Intake: IV 1800 3160 Right Upper arm 1700 3160 Oral 1500 Blood Product 300 Red Blood Cells Cpd As1 0 Lr Unit [id number] Other 1300 Output: Drainage 75 55 Right Knee 75 55 Urine 400 150 Urine, Voided 400 150 Other: # Bowel Movements 1 1 - Physical Exam Head: Positive for: Atraumatic, Normocephalic Pupils: Positive for: PERRL Extroacular Muscles: Positive for: EOMI Conjunctiva: Positive for: Normal Mouth: Positive for: Moist Mucous Membranes Neck: Positive for: Normal Range of Motion Respiratory/Chest: Positive for: Clear to Auscultation, Good Air Exchange. Negative for: Respiratory Distress, Accessory Muscle Use Cardiovascular: Positive for: Regular Rate and Rhythm, Normal S1, S2, Other ( systolic ejection murmur grade 3/6). Negative for: Murmurs Abdomen: Positive for: Normal Bowel Sounds. Negative for: Tenderness, Distention, Peritoneal Signs Back: Positive for: Normal Inspection Upper Extremity: Positive for: Normal Inspection. Negative for: Cyanosis, Edema Lower Extremity: Positive for: Capillary Refill < 2 s (Right lower extremity: delayed cap refill), Other (Right leg with surgical dressing c/d/i, RLE cool to touch continues to improve from previous exam, Right DP and PT pulses present via Doppler, Left DP, PT present via doppler ). Negative for: NORMAL PULSES ( lle good pulses. Right lower extremity: No palpable pulses.), Normal ROM ( Decreased ROM right lower extremity), Tenderness Neurological: Positive for: GCS=15, CN II-XII Intact, Speech Normal Skin: Positive for: Cold (Right leg cool to touch, improved from 24H prior,), Other (left antecubital fossa with bullous phemgoid appearing blister and open blister that is non-oozing and erythematous ) Psychiatric: Positive for: Alert, Oriented x 3, Normal Insight, Normal Concentration - Medications Active Medications: Active Medications Generic Name Dose Route Start Last Admin Trade Name Freq PRN Reason Stop Dose Admin Acetaminophen 650 mg 07/27/17 13:59 07/27/17 14:07 Tylenol 325mg Tab PO 650 mg Q6H PRN Administration Headache Calcium Carbonate 600 mg 07/27/17 18:00 07/28/17 09:02 Caltrate PO 600 mg BID ORION Administration Clopidogrel Bisulfate 75 mg 07/18/17 10:00 07/28/17 09:02 Plavix PO 75 mg DAILY ORION Administration Digoxin 0.25 mg 07/28/17 14:00 Lanoxin PO 1400 ORION Docusate Sodium 100 mg 07/22/17 10:00 07/28/17 09:02 Colace PO 100 mg TID ORION Administration Enoxaparin Sodium 95 mg 07/24/17 18:00 07/28/17 09:02 Lovenox SC 95 mg BID ORION Administration Protocol Hydromorphone HCl 1 mg 07/25/17 08:55 07/28/17 05:58 Dilaudid IVP 1 mg Q3H PRN Administration Pain, severe (8-10) Sodium Chloride 1,000 mls @ 150 mls/hr 07/26/17 06:00 07/28/17 11:56 Sodium Chloride 0.9% IV 150 mls/hr .Q6H40M ORION Administration Meropenem 1g/NS 100mL IVPB 1 gm in 100 mls @ 100 mls/hr 07/27/17 10:00 09:03 Meropenem 1g/Ns 100ml Ivpb IVPB 08/05/17 10:01 100 mls/hr Q12 ORION Administration Protocol Daptomycin 250 mg/ Sodium 100 mls @ 200 mls/hr 07/27/17 08:15 07/28/17 08:59 Chloride IV 08/05/17 08:16 200 mls/hr Q24H ORION Administration diltiaZEM IVPB 100mg in NS 100 mls @ 5 mls/hr 07/27/17 08:46 07/27/17 22:01 Cardizem 100mg In Ns IV 5 mg/hr .Q20H PRN 5 mls/hr TITRATE PER MD ORDER Administration Protocol 5 MG/HR Calcium Gluconate 1,000 mg/ 110 mls @ 110 mls/hr 07/28/17 11:30 07/28/17 11: 39 Sodium Chloride IVPB 07/28/17 12:29 110 mls/hr ONCE ONE Administration Metoprolol Tartrate 2.5 mg 07/21/17 08:00 07/21/17 23:42 Lopressor IV 2.5 mg Q8H ORION Administration Metoprolol Tartrate 12.5 mg 07/25/17 10:00 07/28/17 09:00 Lopressor PO 12.5 mg BID ORION Administration Morphine Sulfate 15 mg 07/28/17 09:15 Morphine Extended Release Tab PO Q12 PRN Pain, severe (8-10) Ondansetron HCl 4 mg 07/26/17 11:57 Zofran Inj IVP ONCE PRN Nausea/Vomiting Pantoprazole Sodium 40 mg 07/25/17 06:00 07/28/17 05:58 Protonix Ec Tab PO 40 mg 0600 ORION Administration Polyethylene Glycol 17 gm 07/25/17 18:00 07/28/17 09:02 Miralax PO 17 gm BID ORION Administration Silver Sulfadiazine 0 gm 07/20/17 18:00 07/28/17 11:55 Silvadene 1% 25 Gm TP 25 gm BID ORION Administration Sucralfate 1 gm 07/21/17 11:30 07/28/17 11:40 Carafate Oral Susp PO 1 gm ACHS ORION Administration - Patient Studies Lab Studies: Microbiology Studies 07/26/17 13:25 Gram Stain - Final Leg - Right Wound Culture - Preliminary Gram Negative Max Leclercia Adecarboxylata Staphylococcus Aureus 07/26/17 13:25 Gram Stain - Final Leg - Right Wound Culture - Final Leclercia Adecarboxylata Staphylococcus Aureus 07/26/17 13:25 Gram Stain - Final Leg - Right Wound Culture - Final Leclercia Adecarboxylata Staphylococcus Aureus 07/27/17 06:29 Blood Culture - Preliminary Blood NO GROWTH AFTER 24 HOURS 07/27/17 06:29 Blood Culture - Preliminary Blood NO GROWTH AFTER 24 HOURS 07/25/17 18:56 Blood Culture - Preliminary Blood NO GROWTH AFTER 48 HOURS 07/25/17 23:15 Urine Culture - Final Urine,Clean Catch 50-100,000 CFU/ML. MULTIPLE SPECIES. SUGGEST REPEAT SPECIMEM. Lab Studies 07/28/17 07/28/17 07/28/17 Range/Units 09:30 09:30 05:45 WBC 29.0 H* (4.5-11.0) 10^3/ul RBC 2.81 L (3.5-6.1) 10^6/uL Hgb 7.6 L (12.0-16.0) g/dL Hct 23.5 L (36.0-48.0) % MCV 83.6 (80.0-105.0) fl MCH 27.0 (25.0-35.0) pg MCHC 32.3 (31.0-37.0) g/dl RDW 22.4 H (11.5-14.5) % Plt Count 489 H (120.0-450.0) 10^3/uL MPV 9.5 (7.0-11.0) fl Gran % (50.0-68.0) % Lymph % (Auto) (22.0-35.0) % Winston % (Auto) (1.0-6.0) % Eos % (Auto) (1.5-5.0) % Baso % (Auto) (0.0-3.0) % Gran # (1.4-6.5) Lymph # (1.2-3.4) Winston # (0.1-0.6) Eos # (0.0-0.7) Baso # (0.0-2.0) K/mm3 Neutrophils % (Manual) (50.0-70.0) % Band Neutrophils % (0-2) % Lymphocytes % (Manual) (22.0-35.0) % Monocytes % (Manual) (1.0-6.0) % Platelet Evaluation (NORMAL) Hypochromasia Anisocytosis (manual) PT 12.4 H (9.9-11.8) Seconds INR 1.15 H (0.93-1.08) APTT 39.0 H (23.7-30.8) Seconds pO2 (30-55) mm/Hg VBG pH (7.32-7.43) VBG pCO2 (40-60) VBG HCO3 (21-28) mmol/l VBG Total CO2 (22-28) mmol.L VBG O2 Sat (Calc) (40-65) % VBG Base Excess (0.0-2.0) mmol/L VBG Potassium (3.6-5.2) mmol/L Sodium 130 L (132-148) mmol/L Chloride 106 (98-107) mmol/L Glucose (65-105) mg/dl Lactate (0.7-2.1) mmol/L FiO2 % Potassium 4.0 (3.6-5.0) mmol/L Carbon Dioxide 17 L (21-33) mmol/L Anion Gap 11 (10-20) BUN 26 H (7-21) mg/dL Creatinine 1.7 H (0.7-1.2) mg/dL Est GFR ( Amer) 36 Est GFR (Non-Af Amer) 30 POC Glucose (mg/dL) (65-110) mg/dL Random Glucose 137 H (70-110) mg/dL Lactic Acid (0.7-2.1) mmol/L Calcium 6.4 L* (8.4-10.5) mg/dL Phosphorus 3.4 (2.5-4.5) mg/dL Magnesium 2.3 H (1.7-2.2) mg/dL Total Bilirubin 1.9 H (0.2-1.3) mg/dL AST 58 H (14-36) U/L ALT 55 (7-56) U/L Alkaline Phosphatase 194 H (38-126) U/L Total Protein 4.2 L (5.8-8.3) g/dL Albumin 1.8 L (3.0-4.8) g/dL Globulin 2.4 gm/dL Albumin/Globulin Ratio 0.8 L (1.1-1.8) Procalcitonin (0.19-0.49) NG/ML Venous Blood Potassium (3.6-5.2) mmol/L Stool Occult Blood (NEGATIVE) Blood Type Antibody Screen Crossmatch BBK History Checked 07/27/17 07/27/17 07/27/17 Range/Units 23:30 23:30 23:30 WBC 33.8 H* (4.5-11.0) 10^3/ul RBC 3.33 L (3.5-6.1) 10^6/uL Hgb 9.1 L (12.0-16.0) g/dL Hct 27.7 L (36.0-48.0) % MCV 83.2 (80.0-105.0) fl MCH 27.3 (25.0-35.0) pg MCHC 32.9 (31.0-37.0) g/dl RDW 21.9 H (11.5-14.5) % Plt Count 514 H (120.0-450.0) 10^3/uL MPV 9.8 (7.0-11.0) fl Gran % 96.4 H (50.0-68.0) % Lymph % (Auto) 1.2 L (22.0-35.0) % Winston % (Auto) 2.0 (1.0-6.0) % Eos % (Auto) 0.3 L (1.5-5.0) % Baso % (Auto) 0.1 (0.0-3.0) % Gran # 32.62 H (1.4-6.5) Lymph # 0.4 L (1.2-3.4) Winston # 0.7 H (0.1-0.6) Eos # 0.1 (0.0-0.7) Baso # 0.02 (0.0-2.0) K/mm3 Neutrophils % (Manual) (50.0-70.0) % Band Neutrophils % (0-2) % Lymphocytes % (Manual) (22.0-35.0) % Monocytes % (Manual) (1.0-6.0) % Platelet Evaluation (NORMAL) Hypochromasia Anisocytosis (manual) PT 16.1 H (9.9-11.8) Seconds INR 1.49 H (0.93-1.08) APTT 42.8 H (23.7-30.8) Seconds pO2 (30-55) mm/Hg VBG pH (7.32-7.43) VBG pCO2 (40-60) VBG HCO3 (21-28) mmol/l VBG Total CO2 (22-28) mmol.L VBG O2 Sat (Calc) (40-65) % VBG Base Excess (0.0-2.0) mmol/L VBG Potassium (3.6-5.2) mmol/L Sodium 131 L (132-148) mmol/L Chloride 106 (98-107) mmol/L Glucose (65-105) mg/dl Lactate (0.7-2.1) mmol/L FiO2 % Potassium 4.0 (3.6-5.0) mmol/L Carbon Dioxide 17 L (21-33) mmol/L Anion Gap 12 (10-20) BUN 22 H (7-21) mg/dL Creatinine 1.6 H (0.7-1.2) mg/dL Est GFR ( Amer) 39 Est GFR (Non-Af Amer) 32 POC Glucose (mg/dL) (65-110) mg/dL Random Glucose 127 H (70-110) mg/dL Lactic Acid (0.7-2.1) mmol/L Calcium 6.3 L* (8.4-10.5) mg/dL Phosphorus 3.3 (2.5-4.5) mg/dL Magnesium 2.2 (1.7-2.2) mg/dL Total Bilirubin 2.3 H (0.2-1.3) mg/dL AST 65 H (14-36) U/L ALT 59 H (7-56) U/L Alkaline Phosphatase 165 H (38-126) U/L Total Protein 4.2 L (5.8-8.3) g/dL Albumin 1.8 L (3.0-4.8) g/dL Globulin 2.4 gm/dL Albumin/Globulin Ratio 0.8 L (1.1-1.8) Procalcitonin (0.19-0.49) NG/ML Venous Blood Potassium (3.6-5.2) mmol/L Stool Occult Blood (NEGATIVE) Blood Type Antibody Screen Crossmatch BBK History Checked 07/27/17 07/27/17 07/27/17 Range/Units 20:20 17:07 17:07 WBC (4.5-11.0) 10^3/ul RBC (3.5-6.1) 10^6/uL Hgb (12.0-16.0) g/dL Hct (36.0-48.0) % MCV (80.0-105.0) fl MCH (25.0-35.0) pg MCHC (31.0-37.0) g/dl RDW (11.5-14.5) % Plt Count (120.0-450.0) 10^3/uL MPV (7.0-11.0) fl Gran % (50.0-68.0) % Lymph % (Auto) (22.0-35.0) % Winston % (Auto) (1.0-6.0) % Eos % (Auto) (1.5-5.0) % Baso % (Auto) (0.0-3.0) % Gran # (1.4-6.5) Lymph # (1.2-3.4) Winston # (0.1-0.6) Eos # (0.0-0.7) Baso # (0.0-2.0) K/mm3 Neutrophils % (Manual) (50.0-70.0) % Band Neutrophils % (0-2) % Lymphocytes % (Manual) (22.0-35.0) % Monocytes % (Manual) (1.0-6.0) % Platelet Evaluation (NORMAL) Hypochromasia Anisocytosis (manual) PT (9.9-11.8) Seconds INR (0.93-1.08) APTT (23.7-30.8) Seconds pO2 38 (30-55) mm/Hg VBG pH 7.34 (7.32-7.43) VBG pCO2 33.0 L (40-60) VBG HCO3 17.8 L (21-28) mmol/l VBG Total CO2 18.8 L (22-28) mmol.L VBG O2 Sat (Calc) 79.2 H (40-65) % VBG Base Excess -7.0 L (0.0-2.0) mmol/L VBG Potassium 4.1 (3.6-5.2) mmol/L Sodium 130.0 L 131 L (132-148) mmol/L Chloride 108.0 H 105 (98-107) mmol/L Glucose 163 H (65-105) mg/dl Lactate 2.0 (0.7-2.1) mmol/L FiO2 21.0 % Potassium 4.2 (3.6-5.0) mmol/L Carbon Dioxide 18 L (21-33) mmol/L Anion Gap 12 (10-20) BUN 19 (7-21) mg/dL Creatinine 1.7 H (0.7-1.2) mg/dL Est GFR ( Amer) 36 Est GFR (Non-Af Amer) 30 POC Glucose (mg/dL) (65-110) mg/dL Random Glucose 125 H (70-110) mg/dL Lactic Acid 1.9 (0.7-2.1) mmol/L Calcium 6.2 L* (8.4-10.5) mg/dL Phosphorus 3.5 (2.5-4.5) mg/dL Magnesium 1.0 L* (1.7-2.2) mg/dL Total Bilirubin 2.2 H (0.2-1.3) mg/dL AST 59 H (14-36) U/L ALT 54 (7-56) U/L Alkaline Phosphatase 150 H (38-126) U/L Total Protein 4.1 L (5.8-8.3) g/dL Albumin 1.8 L (3.0-4.8) g/dL Globulin 2.3 gm/dL Albumin/Globulin Ratio 0.8 L (1.1-1.8) Procalcitonin (0.19-0.49) NG/ML Venous Blood Potassium 4.1 (3.6-5.2) mmol/L Stool Occult Blood (NEGATIVE) Blood Type Antibody Screen Crossmatch BBK History Checked 07/27/17 07/27/17 07/27/17 Range/Units 17:07 17:07 16:21 WBC 36.7 H* (4.5-11.0) 10^3/ul RBC 2.90 L (3.5-6.1) 10^6/uL Hgb 7.8 L (12.0-16.0) g/dL Hct 24.0 L (36.0-48.0) % MCV 82.8 (80.0-105.0) fl MCH 26.9 (25.0-35.0) pg MCHC 32.5 (31.0-37.0) g/dl RDW 23.1 H (11.5-14.5) % Plt Count 543 H (120.0-450.0) 10^3/uL MPV 9.4 (7.0-11.0) fl Gran % 95.9 H (50.0-68.0) % Lymph % (Auto) 0.8 L (22.0-35.0) % Winston % (Auto) 3.1 (1.0-6.0) % Eos % (Auto) 0.1 L (1.5-5.0) % Baso % (Auto) 0.1 (0.0-3.0) % Gran # 35.23 H (1.4-6.5) Lymph # 0.3 L (1.2-3.4) Winston # 1.1 H (0.1-0.6) Eos # 0.0 (0.0-0.7) Baso # 0.02 (0.0-2.0) K/mm3 Neutrophils % (Manual) 92 H (50.0-70.0) % Band Neutrophils % 6 H (0-2) % Lymphocytes % (Manual) 1 L (22.0-35.0) % Monocytes % (Manual) 1 (1.0-6.0) % Platelet Evaluation High (NORMAL) Hypochromasia Slight Anisocytosis (manual) Slight PT (9.9-11.8) Seconds INR (0.93-1.08) APTT (23.7-30.8) Seconds pO2 48 (30-55) mm/Hg VBG pH 7.37 (7.32-7.43) VBG pCO2 31.0 L (40-60) VBG HCO3 17.9 L (21-28) mmol/l VBG Total CO2 18.9 L (22-28) mmol.L VBG O2 Sat (Calc) 91.2 H (40-65) % VBG Base Excess -6.2 L (0.0-2.0) mmol/L VBG Potassium 4.3 (3.6-5.2) mmol/L Sodium 131.0 L (132-148) mmol/L Chloride 106.0 (98-107) mmol/L Glucose 131 H (65-105) mg/dl Lactate 2.0 (0.7-2.1) mmol/L FiO2 21.0 % Potassium (3.6-5.0) mmol/L Carbon Dioxide (21-33) mmol/L Anion Gap (10-20) BUN (7-21) mg/dL Creatinine (0.7-1.2) mg/dL Est GFR ( Amer) Est GFR (Non-Af Amer) POC Glucose (mg/dL) 126 H (65-110) mg/dL Random Glucose (70-110) mg/dL Lactic Acid (0.7-2.1) mmol/L Calcium (8.4-10.5) mg/dL Phosphorus (2.5-4.5) mg/dL Magnesium (1.7-2.2) mg/dL Total Bilirubin (0.2-1.3) mg/dL AST (14-36) U/L ALT (7-56) U/L Alkaline Phosphatase (38-126) U/L Total Protein (5.8-8.3) g/dL Albumin (3.0-4.8) g/dL Globulin gm/dL Albumin/Globulin Ratio (1.1-1.8) Procalcitonin (0.19-0.49) NG/ML Venous Blood Potassium 4.3 (3.6-5.2) mmol/L Stool Occult Blood (NEGATIVE) Blood Type Antibody Screen Crossmatch BBK History Checked 07/27/17 07/27/17 07/27/17 Range/Units 14:00 11:32 06:29 WBC (4.5-11.0) 10^3/ul RBC (3.5-6.1) 10^6/uL Hgb (12.0-16.0) g/dL Hct (36.0-48.0) % MCV (80.0-105.0) fl MCH (25.0-35.0) pg MCHC (31.0-37.0) g/dl RDW (11.5-14.5) % Plt Count (120.0-450.0) 10^3/uL MPV (7.0-11.0) fl Gran % (50.0-68.0) % Lymph % (Auto) (22.0-35.0) % Winston % (Auto) (1.0-6.0) % Eos % (Auto) (1.5-5.0) % Baso % (Auto) (0.0-3.0) % Gran # (1.4-6.5) Lymph # (1.2-3.4) Winston # (0.1-0.6) Eos # (0.0-0.7) Baso # (0.0-2.0) K/mm3 Neutrophils % (Manual) (50.0-70.0) % Band Neutrophils % (0-2) % Lymphocytes % (Manual) (22.0-35.0) % Monocytes % (Manual) (1.0-6.0) % Platelet Evaluation (NORMAL) Hypochromasia Anisocytosis (manual) PT (9.9-11.8) Seconds INR (0.93-1.08) APTT (23.7-30.8) Seconds pO2 (30-55) mm/Hg VBG pH (7.32-7.43) VBG pCO2 (40-60) VBG HCO3 (21-28) mmol/l VBG Total CO2 (22-28) mmol.L VBG O2 Sat (Calc) (40-65) % VBG Base Excess (0.0-2.0) mmol/L VBG Potassium (3.6-5.2) mmol/L Sodium (132-148) mmol/L Chloride (98-107) mmol/L Glucose (65-105) mg/dl Lactate (0.7-2.1) mmol/L FiO2 % Potassium (3.6-5.0) mmol/L Carbon Dioxide (21-33) mmol/L Anion Gap (10-20) BUN (7-21) mg/dL Creatinine (0.7-1.2) mg/dL Est GFR ( Amer) Est GFR (Non-Af Amer) POC Glucose (mg/dL) 103 (65-110) mg/dL Random Glucose (70-110) mg/dL Lactic Acid (0.7-2.1) mmol/L Calcium (8.4-10.5) mg/dL Phosphorus (2.5-4.5) mg/dL Magnesium (1.7-2.2) mg/dL Total Bilirubin (0.2-1.3) mg/dL AST (14-36) U/L ALT (7-56) U/L Alkaline Phosphatase (38-126) U/L Total Protein (5.8-8.3) g/dL Albumin (3.0-4.8) g/dL Globulin gm/dL Albumin/Globulin Ratio (1.1-1.8) Procalcitonin 5.28 H (0.19-0.49) NG/ML Venous Blood Potassium (3.6-5.2) mmol/L Stool Occult Blood Negative (NEGATIVE) Blood Type Antibody Screen Crossmatch BBK History Checked 07/25/17 Range/Units 11:08 WBC (4.5-11.0) 10^3/ul RBC (3.5-6.1) 10^6/uL Hgb (12.0-16.0) g/dL Hct (36.0-48.0) % MCV (80.0-105.0) fl MCH (25.0-35.0) pg MCHC (31.0-37.0) g/dl RDW (11.5-14.5) % Plt Count (120.0-450.0) 10^3/uL MPV (7.0-11.0) fl Gran % (50.0-68.0) % Lymph % (Auto) (22.0-35.0) % Winston % (Auto) (1.0-6.0) % Eos % (Auto) (1.5-5.0) % Baso % (Auto) (0.0-3.0) % Gran # (1.4-6.5) Lymph # (1.2-3.4) Winston # (0.1-0.6) Eos # (0.0-0.7) Baso # (0.0-2.0) K/mm3 Neutrophils % (Manual) (50.0-70.0) % Band Neutrophils % (0-2) % Lymphocytes % (Manual) (22.0-35.0) % Monocytes % (Manual) (1.0-6.0) % Platelet Evaluation (NORMAL) Hypochromasia Anisocytosis (manual) PT (9.9-11.8) Seconds INR (0.93-1.08) APTT (23.7-30.8) Seconds pO2 (30-55) mm/Hg VBG pH (7.32-7.43) VBG pCO2 (40-60) VBG HCO3 (21-28) mmol/l VBG Total CO2 (22-28) mmol.L VBG O2 Sat (Calc) (40-65) % VBG Base Excess (0.0-2.0) mmol/L VBG Potassium (3.6-5.2) mmol/L Sodium (132-148) mmol/L Chloride (98-107) mmol/L Glucose (65-105) mg/dl Lactate (0.7-2.1) mmol/L FiO2 % Potassium (3.6-5.0) mmol/L Carbon Dioxide (21-33) mmol/L Anion Gap (10-20) BUN (7-21) mg/dL Creatinine (0.7-1.2) mg/dL Est GFR ( Amer) Est GFR (Non-Af Amer) POC Glucose (mg/dL) (65-110) mg/dL Random Glucose (70-110) mg/dL Lactic Acid (0.7-2.1) mmol/L Calcium (8.4-10.5) mg/dL Phosphorus (2.5-4.5) mg/dL Magnesium (1.7-2.2) mg/dL Total Bilirubin (0.2-1.3) mg/dL AST (14-36) U/L ALT (7-56) U/L Alkaline Phosphatase (38-126) U/L Total Protein (5.8-8.3) g/dL Albumin (3.0-4.8) g/dL Globulin gm/dL Albumin/Globulin Ratio (1.1-1.8) Procalcitonin (0.19-0.49) NG/ML Venous Blood Potassium (3.6-5.2) mmol/L Stool Occult Blood (NEGATIVE) Blood Type AB POSITIVE Antibody Screen Negative Crossmatch See Detail BBK History Checked Patient has bt Laboratory Results - last 24 hr 07/25/17 07/27/17 07/27/17 11:08 06:29 11:32 WBC RBC Hgb Hct MCV MCH MCHC RDW Plt Count MPV Gran % Lymph % (Auto) Winston % (Auto) Eos % (Auto) Baso % (Auto) Gran # Lymph # Winston # Eos # Baso # Neutrophils % (Manual) Band Neutrophils % Lymphocytes % (Manual) Monocytes % (Manual) Platelet Evaluation Hypochromasia Anisocytosis (manual) PT INR APTT pO2 VBG pH VBG pCO2 VBG HCO3 VBG Total CO2 VBG O2 Sat (Calc) VBG Base Excess VBG Potassium Sodium Chloride Glucose Lactate FiO2 Potassium Carbon Dioxide Anion Gap BUN Creatinine Est GFR ( Amer) Est GFR (Non-Af Amer) POC Glucose (mg/dL) 103 Random Glucose Lactic Acid Calcium Phosphorus Magnesium Total Bilirubin AST ALT Alkaline Phosphatase Total Protein Albumin Globulin Albumin/Globulin Ratio Procalcitonin 5.28 H Venous Blood Potassium Stool Occult Blood Blood Type AB POSITIVE Antibody Screen Negative Crossmatch See Detail BBK History Checked Patient has bt 07/27/17 07/27/17 07/27/17 14:00 16:21 17:07 WBC RBC Hgb Hct MCV MCH MCHC RDW Plt Count MPV Gran % Lymph % (Auto) Winston % (Auto) Eos % (Auto) Baso % (Auto) Gran # Lymph # Winston # Eos # Baso # Neutrophils % (Manual) Band Neutrophils % Lymphocytes % (Manual) Monocytes % (Manual) Platelet Evaluation Hypochromasia Anisocytosis (manual) PT INR APTT pO2 48 VBG pH 7.37 VBG pCO2 31.0 L VBG HCO3 17.9 L VBG Total CO2 18.9 L VBG O2 Sat (Calc) 91.2 H VBG Base Excess -6.2 L VBG Potassium 4.3 Sodium 131.0 L Chloride 106.0 Glucose 131 H Lactate 2.0 FiO2 21.0 Potassium Carbon Dioxide Anion Gap BUN Creatinine Est GFR ( Amer) Est GFR (Non-Af Amer) POC Glucose (mg/dL) 126 H Random Glucose Lactic Acid Calcium Phosphorus Magnesium Total Bilirubin AST ALT Alkaline Phosphatase Total Protein Albumin Globulin Albumin/Globulin Ratio Procalcitonin Venous Blood Potassium 4.3 Stool Occult Blood Negative Blood Type Antibody Screen Crossmatch BBK History Checked 07/27/17 07/27/17 07/27/17 17:07 17:07 17:07 WBC 36.7 H* RBC 2.90 L Hgb 7.8 L Hct 24.0 L MCV 82.8 MCH 26.9 MCHC 32.5 RDW 23.1 H Plt Count 543 H MPV 9.4 Gran % 95.9 H Lymph % (Auto) 0.8 L Winston % (Auto) 3.1 Eos % (Auto) 0.1 L Baso % (Auto) 0.1 Gran # 35.23 H Lymph # 0.3 L Winston # 1.1 H Eos # 0.0 Baso # 0.02 Neutrophils % (Manual) 92 H Band Neutrophils % 6 H Lymphocytes % (Manual) 1 L Monocytes % (Manual) 1 Platelet Evaluation High Hypochromasia Slight Anisocytosis (manual) Slight PT INR APTT pO2 VBG pH VBG pCO2 VBG HCO3 VBG Total CO2 VBG O2 Sat (Calc) VBG Base Excess VBG Potassium Sodium 131 L Chloride 105 Glucose Lactate FiO2 Potassium 4.2 Carbon Dioxide 18 L Anion Gap 12 BUN 19 Creatinine 1.7 H Est GFR ( Amer) 36 Est GFR (Non-Af Amer) 30 POC Glucose (mg/dL) Random Glucose 125 H Lactic Acid 1.9 Calcium 6.2 L* Phosphorus 3.5 Magnesium 1.0 L* Total Bilirubin 2.2 H AST 59 H ALT 54 Alkaline Phosphatase 150 H Total Protein 4.1 L Albumin 1.8 L Globulin 2.3 Albumin/Globulin Ratio 0.8 L Procalcitonin Venous Blood Potassium Stool Occult Blood Blood Type Antibody Screen Crossmatch BBK History Checked 07/27/17 07/27/17 07/27/17 20:20 23:30 23:30 WBC RBC Hgb Hct MCV MCH MCHC RDW Plt Count MPV Gran % Lymph % (Auto) Winston % (Auto) Eos % (Auto) Baso % (Auto) Gran # Lymph # Winston # Eos # Baso # Neutrophils % (Manual) Band Neutrophils % Lymphocytes % (Manual) Monocytes % (Manual) Platelet Evaluation Hypochromasia Anisocytosis (manual) PT 16.1 H INR 1.49 H APTT 42.8 H pO2 38 VBG pH 7.34 VBG pCO2 33.0 L VBG HCO3 17.8 L VBG Total CO2 18.8 L VBG O2 Sat (Calc) 79.2 H VBG Base Excess -7.0 L VBG Potassium 4.1 Sodium 130.0 L 131 L Chloride 108.0 H 106 Glucose 163 H Lactate 2.0 FiO2 21.0 Potassium 4.0 Carbon Dioxide 17 L Anion Gap 12 BUN 22 H Creatinine 1.6 H Est GFR ( Amer) 39 Est GFR (Non-Af Amer) 32 POC Glucose (mg/dL) Random Glucose 127 H Lactic Acid Calcium 6.3 L* Phosphorus 3.3 Magnesium 2.2 Total Bilirubin 2.3 H AST 65 H ALT 59 H Alkaline Phosphatase 165 H Total Protein 4.2 L Albumin 1.8 L Globulin 2.4 Albumin/Globulin Ratio 0.8 L Procalcitonin Venous Blood Potassium 4.1 Stool Occult Blood Blood Type Antibody Screen Crossmatch BBK History Checked 07/27/17 07/28/17 07/28/17 23:30 05:45 09:30 WBC 33.8 H* 29.0 H* RBC 3.33 L 2.81 L Hgb 9.1 L 7.6 L Hct 27.7 L 23.5 L MCV 83.2 83.6 MCH 27.3 27.0 MCHC 32.9 32.3 RDW 21.9 H 22.4 H Plt Count 514 H 489 H MPV 9.8 9.5 Gran % 96.4 H Lymph % (Auto) 1.2 L Winston % (Auto) 2.0 Eos % (Auto) 0.3 L Baso % (Auto) 0.1 Gran # 32.62 H Lymph # 0.4 L Winston # 0.7 H Eos # 0.1 Baso # 0.02 Neutrophils % (Manual) Band Neutrophils % Lymphocytes % (Manual) Monocytes % (Manual) Platelet Evaluation Hypochromasia Anisocytosis (manual) PT 12.4 H INR 1.15 H APTT 39.0 H pO2 VBG pH VBG pCO2 VBG HCO3 VBG Total CO2 VBG O2 Sat (Calc) VBG Base Excess VBG Potassium Sodium Chloride Glucose Lactate FiO2 Potassium Carbon Dioxide Anion Gap BUN Creatinine Est GFR ( Amer) Est GFR (Non-Af Amer) POC Glucose (mg/dL) Random Glucose Lactic Acid Calcium Phosphorus Magnesium Total Bilirubin AST ALT Alkaline Phosphatase Total Protein Albumin Globulin Albumin/Globulin Ratio Procalcitonin Venous Blood Potassium Stool Occult Blood Blood Type Antibody Screen Crossmatch BBK History Checked 07/28/17 09:30 WBC RBC Hgb Hct MCV MCH MCHC RDW Plt Count MPV Gran % Lymph % (Auto) Winston % (Auto) Eos % (Auto) Baso % (Auto) Gran # Lymph # Winston # Eos # Baso # Neutrophils % (Manual) Band Neutrophils % Lymphocytes % (Manual) Monocytes % (Manual) Platelet Evaluation Hypochromasia Anisocytosis (manual) PT INR APTT pO2 VBG pH VBG pCO2 VBG HCO3 VBG Total CO2 VBG O2 Sat (Calc) VBG Base Excess VBG Potassium Sodium 130 L Chloride 106 Glucose Lactate FiO2 Potassium 4.0 Carbon Dioxide 17 L Anion Gap 11 BUN 26 H Creatinine 1.7 H Est GFR ( Amer) 36 Est GFR (Non-Af Amer) 30 POC Glucose (mg/dL) Random Glucose 137 H Lactic Acid Calcium 6.4 L* Phosphorus 3.4 Magnesium 2.3 H Total Bilirubin 1.9 H AST 58 H ALT 55 Alkaline Phosphatase 194 H Total Protein 4.2 L Albumin 1.8 L Globulin 2.4 Albumin/Globulin Ratio 0.8 L Procalcitonin Venous Blood Potassium Stool Occult Blood Blood Type Antibody Screen Crossmatch BBK History Checked EKG/Cardiology Studies: Cardiology / EKG Studies 07/27/17 17:02 EKG [ELECTROCARDIOGRAM] Stat Comment: Reason For Exam: afib, reassess Fingerstick Blood Sugar Results: 126 Review of Systems - Review of Systems All systems: reviewed and no additional remarkable complaints except (as mentioned in HPI) Critical Care Progress Note - Nutrition Nutrition: Nutrition Category Date Time Status Heart Healthy Diet [DIET] Diets 07/26/17 Lunch Ordered Assessment/Plan (1) Lower limb ischemia Current Visit: Yes Status: Acute - Assessment and Plan (Free Text) Assessment: Patient is a 67 yo female with PMH of HTN, MVP, mild , anemia, and hx of syncopal episodes who presents to the [facility] [place] [facility] ED for left lower extremity pain. Patient found to have absent pulses in RLE via US. Patient was taken by IR on for intervention with Dr. Sierra. IR unable to open Right femoral artery and placed EKOS catheter with alteplase drip. Patient was monitored in ICU and found overnight found to have limited motor function of RLE and taken to OR for vascular surgery. An endarterectomy of the right femoral artery, fasciotomy, and right pop/tib/peron bypass was preformed. Patient wound debrided and cleaned x 2. [employer] called on patient on 07/27 with transfer back to ICU for afib with RVR, hypotension, and fever of 104F. Patient stablized in ICU and noted to have drop in Hemoglobin overnight with plans for transfusion. Plan: Neuro: AAOx3 Stable CV: Acute Limb Ischemia of RLE s/p intervention with vascular surgery, IR and General Surgery - Patient underwent IR intervention 07/[address] Sierra, unable to open occluded right common femoral artery and EKOS catheter placement - Vascular surgery preformed endarterectomy of right femoral artery, fasciotomy , and Right popliteal/tibial/peroneal bypass - General Surgery took patient for debridement and drainage of wound x2 on 07/20 and 07/26 - PT/OT - Vascular surgery consulted and following - General surgery consulted and following AFib with RVR - Cardizem gtt - digoxin - cardiology consulted and following appreciate recs Pulm: - Stable - Place patient on O2 NC with goal to maintain O2 sat >92% GI: - c/o diarrhea, Send off stool sample for c.diff toxin and ag testing - Consider flagyl if symptoms persist or c.diff positive - GI consulted and following - Protonix for PPX : - Stable - monitor output Renal: BUN/Cr: 22/1.6 - Patient has been given IVF almost 5 liters in past 24 hours - Likely 2/2 to hypovolemia vs. medication - Replace lytes, maintain euvolemia. Continue to monitor. ID: - Leukocytosis with WBC of 32.8 yesterday, today 33.8 - Diff Dx: bacteremia vs. wound of RLE fasciotomy vs. diarrhea and C. diff, bacteremia - [place] cultured, c. diff pending - Lactic acid 1.9 yesterday - On daptomyocin, Meropenem - Acetaminophen for fever - ID consulted and following appreciate recs Heme: - H/H: 7.6/23.5 - Plts: 489 - Transfuse total of 9 units of pRBC during admission, plan to transfuse one more today - Feosol Lupus Anticoagulant positive, - Continue anticoagulation with lovenox - Heme consulted and following appreciate recs DVT ppx: Lovenox GI ppx: Protonix Case and plan discussed with attending - Date & Time Date: 07/28/17 Time: 12:17 <Ziggy Dao - Last Filed: 07/28/17 13:20> CCU Objective - Vital Signs / Intake & Output Vital Signs (Last 4 hours): Vital Signs Temp Pulse 10/12/17 12:00 98.2 F 07/28/17 10:00 81 Intake and Output (Last 8hrs): Intake & Output 07/27/17 07/28/17 07/28/17 22:59 06:59 14:59 Intake Total 3400 4660 Output Total 475 205 300 Balance 2925 4455 -300 Weight 227 lb 8 oz Intake: IV 1800 3160 Right Upper arm 1700 3160 Oral 1500 Blood Product 300 Red Blood Cells Cpd As1 0 Lr Unit [id number] Other 1300 Output: Drainage 75 55 Right Knee 75 55 Urine 400 150 Urine, Voided 400 150 Stool 300 Other: # Bowel Movements 1 1 - Medications Active Medications: Active Medications Generic Name Dose Route Start Last Admin Trade Name Freq PRN Reason Stop Dose Admin Acetaminophen 650 mg 07/27/17 13:59 07/27/17 14:07 Tylenol 325mg Tab PO 650 mg Q6H PRN Administration Headache Calcium Carbonate 600 mg 07/27/17 18:00 07/28/17 09:02 Caltrate PO 600 mg BID ORION Administration Clopidogrel Bisulfate 75 mg 07/18/17 10:00 07/28/17 09:02 Plavix PO 75 mg DAILY ORION Administration Digoxin 0.25 mg 07/28/17 14:00 Lanoxin PO 1400 ORION Docusate Sodium 100 mg 07/22/17 10:00 07/28/17 09:02 Colace PO 100 mg TID ORION Administration Enoxaparin Sodium 95 mg 07/24/17 18:00 07/28/17 09:02 Lovenox SC 95 mg BID ORION Administration Protocol Hydromorphone HCl 1 mg 07/25/17 08:55 07/28/17 05:58 Dilaudid IVP 1 mg Q3H PRN Administration Pain, severe (8-10) Sodium Chloride 1,000 mls @ 150 mls/hr 07/26/17 06:00 07/28/17 11:56 Sodium Chloride 0.9% IV 150 mls/hr .Q6H40M ORION Administration Meropenem 1g/NS 100mL IVPB 1 gm in 100 mls @ 100 mls/hr 07/27/17 10:00 09:03 Meropenem 1g/Ns 100ml Ivpb IVPB 08/05/17 10:01 100 mls/hr Q12 ORION Administration Protocol diltiaZEM IVPB 100mg in NS 100 mls @ 5 mls/hr 07/27/17 08:46 07/27/17 22:01 Cardizem 100mg In Ns IV 5 mg/hr .Q20H PRN 5 mls/hr TITRATE PER MD ORDER Administration Protocol 5 MG/HR Metoprolol Tartrate 2.5 mg 07/21/17 08:00 07/21/17 23:42 Lopressor IV 2.5 mg Q8H ORION Administration Metoprolol Tartrate 12.5 mg 07/25/17 10:00 07/28/17 09:00 Lopressor PO 12.5 mg BID ORION Administration Morphine Sulfate 15 mg 07/28/17 09:15 Morphine Extended Release Tab PO Q12 PRN Pain, severe (8-10) Ondansetron HCl 4 mg 07/26/17 11:57 Zofran Inj IVP ONCE PRN Nausea/Vomiting Pantoprazole Sodium 40 mg 07/25/17 06:00 07/28/17 05:58 Protonix Ec Tab PO 40 mg 0600 ORION Administration Polyethylene Glycol 17 gm 07/25/17 18:00 07/28/17 09:02 Miralax PO 17 gm BID ORION Administration Silver Sulfadiazine 0 gm 07/20/17 18:00 07/28/17 11:55 Silvadene 1% 25 Gm TP 25 gm BID ORION Administration Sucralfate 1 gm 07/21/17 11:30 07/28/17 11:40 Carafate Oral Susp PO 1 gm ACHS ORION Administration - Patient Studies Lab Studies: Microbiology Studies 07/26/17 13:25 Gram Stain - Final Leg - Right Wound Culture - Preliminary Gram Negative Max Leclercia Adecarboxylata Staphylococcus Aureus 07/26/17 13:25 Gram Stain - Final Leg - Right Wound Culture - Final Leclercia Adecarboxylata Staphylococcus Aureus 07/26/17 13:25 Gram Stain - Final Leg - Right Wound Culture - Final Leclercia Adecarboxylata Staphylococcus Aureus 07/27/17 06:29 Blood Culture - Preliminary Blood NO GROWTH AFTER 24 HOURS 07/27/17 06:29 Blood Culture - Preliminary Blood NO GROWTH AFTER 24 HOURS 07/25/17 18:56 Blood Culture - Preliminary Blood NO GROWTH AFTER 48 HOURS 07/25/17 23:15 Urine Culture - Final Urine,Clean Catch 50-100,000 CFU/ML. MULTIPLE SPECIES. SUGGEST REPEAT SPECIMEM. Lab Studies 07/28/17 07/28/17 07/28/17 Range/Units 09:30 09:30 05:45 WBC 29.0 H* (4.5-11.0) 10^3/ul RBC 2.81 L (3.5-6.1) 10^6/uL Hgb 7.6 L (12.0-16.0) g/dL Hct 23.5 L (36.0-48.0) % MCV 83.6 (80.0-105.0) fl MCH 27.0 (25.0-35.0) pg MCHC 32.3 (31.0-37.0) g/dl RDW 22.4 H (11.5-14.5) % Plt Count 489 H (120.0-450.0) 10^3/uL MPV 9.5 (7.0-11.0) fl Gran % (50.0-68.0) % Lymph % (Auto) (22.0-35.0) % Winston % (Auto) (1.0-6.0) % Eos % (Auto) (1.5-5.0) % Baso % (Auto) (0.0-3.0) % Gran # (1.4-6.5) Lymph # (1.2-3.4) Winston # (0.1-0.6) Eos # (0.0-0.7) Baso # (0.0-2.0) K/mm3 Neutrophils % (Manual) (50.0-70.0) % Band Neutrophils % (0-2) % Lymphocytes % (Manual) (22.0-35.0) % Monocytes % (Manual) (1.0-6.0) % Platelet Evaluation (NORMAL) Hypochromasia Anisocytosis (manual) PT 12.4 H (9.9-11.8) Seconds INR 1.15 H (0.93-1.08) APTT 39.0 H (23.7-30.8) Seconds pO2 (30-55) mm/Hg VBG pH (7.32-7.43) VBG pCO2 (40-60) VBG HCO3 (21-28) mmol/l VBG Total CO2 (22-28) mmol.L VBG O2 Sat (Calc) (40-65) % VBG Base Excess (0.0-2.0) mmol/L VBG Potassium (3.6-5.2) mmol/L Sodium 130 L (132-148) mmol/L Chloride 106 (98-107) mmol/L Glucose (65-105) mg/dl Lactate (0.7-2.1) mmol/L FiO2 % Potassium 4.0 (3.6-5.0) mmol/L Carbon Dioxide 17 L (21-33) mmol/L Anion Gap 11 (10-20) BUN 26 H (7-21) mg/dL Creatinine 1.7 H (0.7-1.2) mg/dL Est GFR ( Amer) 36 Est GFR (Non-Af Amer) 30 POC Glucose (mg/dL) (65-110) mg/dL Random Glucose 137 H (70-110) mg/dL Lactic Acid (0.7-2.1) mmol/L Calcium 6.4 L* (8.4-10.5) mg/dL Phosphorus 3.4 (2.5-4.5) mg/dL Magnesium 2.3 H (1.7-2.2) mg/dL Total Bilirubin 1.9 H (0.2-1.3) mg/dL AST 58 H (14-36) U/L ALT 55 (7-56) U/L Alkaline Phosphatase 194 H (38-126) U/L Total Protein 4.2 L (5.8-8.3) g/dL Albumin 1.8 L (3.0-4.8) g/dL Globulin 2.4 gm/dL Albumin/Globulin Ratio 0.8 L (1.1-1.8) Procalcitonin (0.19-0.49) NG/ML Venous Blood Potassium (3.6-5.2) mmol/L Stool Occult Blood (NEGATIVE) Blood Type Antibody Screen Crossmatch BBK History Checked 07/27/17 07/27/17 07/27/17 Range/Units 23:30 23:30 23:30 WBC 33.8 H* (4.5-11.0) 10^3/ul RBC 3.33 L (3.5-6.1) 10^6/uL Hgb 9.1 L (12.0-16.0) g/dL Hct 27.7 L (36.0-48.0) % MCV 83.2 (80.0-105.0) fl MCH 27.3 (25.0-35.0) pg MCHC 32.9 (31.0-37.0) g/dl RDW 21.9 H (11.5-14.5) % Plt Count 514 H (120.0-450.0) 10^3/uL MPV 9.8 (7.0-11.0) fl Gran % 96.4 H (50.0-68.0) % Lymph % (Auto) 1.2 L (22.0-35.0) % Winston % (Auto) 2.0 (1.0-6.0) % Eos % (Auto) 0.3 L (1.5-5.0) % Baso % (Auto) 0.1 (0.0-3.0) % Gran # 32.62 H (1.4-6.5) Lymph # 0.4 L (1.2-3.4) Winston # 0.7 H (0.1-0.6) Eos # 0.1 (0.0-0.7) Baso # 0.02 (0.0-2.0) K/mm3 Neutrophils % (Manual) (50.0-70.0) % Band Neutrophils % (0-2) % Lymphocytes % (Manual) (22.0-35.0) % Monocytes % (Manual) (1.0-6.0) % Platelet Evaluation (NORMAL) Hypochromasia Anisocytosis (manual) PT 16.1 H (9.9-11.8) Seconds INR 1.49 H (0.93-1.08) APTT 42.8 H (23.7-30.8) Seconds pO2 (30-55) mm/Hg VBG pH (7.32-7.43) VBG pCO2 (40-60) VBG HCO3 (21-28) mmol/l VBG Total CO2 (22-28) mmol.L VBG O2 Sat (Calc) (40-65) % VBG Base Excess (0.0-2.0) mmol/L VBG Potassium (3.6-5.2) mmol/L Sodium 131 L (132-148) mmol/L Chloride 106 (98-107) mmol/L Glucose (65-105) mg/dl Lactate (0.7-2.1) mmol/L FiO2 % Potassium 4.0 (3.6-5.0) mmol/L Carbon Dioxide 17 L (21-33) mmol/L Anion Gap 12 (10-20) BUN 22 H (7-21) mg/dL Creatinine 1.6 H (0.7-1.2) mg/dL Est GFR ( Amer) 39 Est GFR (Non-Af Amer) 32 POC Glucose (mg/dL) (65-110) mg/dL Random Glucose 127 H (70-110) mg/dL Lactic Acid (0.7-2.1) mmol/L Calcium 6.3 L* (8.4-10.5) mg/dL Phosphorus 3.3 (2.5-4.5) mg/dL Magnesium 2.2 (1.7-2.2) mg/dL Total Bilirubin 2.3 H (0.2-1.3) mg/dL AST 65 H (14-36) U/L ALT 59 H (7-56) U/L Alkaline Phosphatase 165 H (38-126) U/L Total Protein 4.2 L (5.8-8.3) g/dL Albumin 1.8 L (3.0-4.8) g/dL Globulin 2.4 gm/dL Albumin/Globulin Ratio 0.8 L (1.1-1.8) Procalcitonin (0.19-0.49) NG/ML Venous Blood Potassium (3.6-5.2) mmol/L Stool Occult Blood (NEGATIVE) Blood Type Antibody Screen Crossmatch BBK History Checked 07/27/17 07/27/17 07/27/17 Range/Units 20:20 17:07 17:07 WBC (4.5-11.0) 10^3/ul RBC (3.5-6.1) 10^6/uL Hgb (12.0-16.0) g/dL Hct (36.0-48.0) % MCV (80.0-105.0) fl MCH (25.0-35.0) pg MCHC (31.0-37.0) g/dl RDW (11.5-14.5) % Plt Count (120.0-450.0) 10^3/uL MPV (7.0-11.0) fl Gran % (50.0-68.0) % Lymph % (Auto) (22.0-35.0) % Winston % (Auto) (1.0-6.0) % Eos % (Auto) (1.5-5.0) % Baso % (Auto) (0.0-3.0) % Gran # (1.4-6.5) Lymph # (1.2-3.4) Winston # (0.1-0.6) Eos # (0.0-0.7) Baso # (0.0-2.0) K/mm3 Neutrophils % (Manual) (50.0-70.0) % Band Neutrophils % (0-2) % Lymphocytes % (Manual) (22.0-35.0) % Monocytes % (Manual) (1.0-6.0) % Platelet Evaluation (NORMAL) Hypochromasia Anisocytosis (manual) PT (9.9-11.8) Seconds INR (0.93-1.08) APTT (23.7-30.8) Seconds pO2 38 (30-55) mm/Hg VBG pH 7.34 (7.32-7.43) VBG pCO2 33.0 L (40-60) VBG HCO3 17.8 L (21-28) mmol/l VBG Total CO2 18.8 L (22-28) mmol.L VBG O2 Sat (Calc) 79.2 H (40-65) % VBG Base Excess -7.0 L (0.0-2.0) mmol/L VBG Potassium 4.1 (3.6-5.2) mmol/L Sodium 130.0 L 131 L (132-148) mmol/L Chloride 108.0 H 105 (98-107) mmol/L Glucose 163 H (65-105) mg/dl Lactate 2.0 (0.7-2.1) mmol/L FiO2 21.0 % Potassium 4.2 (3.6-5.0) mmol/L Carbon Dioxide 18 L (21-33) mmol/L Anion Gap 12 (10-20) BUN 19 (7-21) mg/dL Creatinine 1.7 H (0.7-1.2) mg/dL Est GFR ( Amer) 36 Est GFR (Non-Af Amer) 30 POC Glucose (mg/dL) (65-110) mg/dL Random Glucose 125 H (70-110) mg/dL Lactic Acid 1.9 (0.7-2.1) mmol/L Calcium 6.2 L* (8.4-10.5) mg/dL Phosphorus 3.5 (2.5-4.5) mg/dL Magnesium 1.0 L* (1.7-2.2) mg/dL Total Bilirubin 2.2 H (0.2-1.3) mg/dL AST 59 H (14-36) U/L ALT 54 (7-56) U/L Alkaline Phosphatase 150 H (38-126) U/L Total Protein 4.1 L (5.8-8.3) g/dL Albumin 1.8 L (3.0-4.8) g/dL Globulin 2.3 gm/dL Albumin/Globulin Ratio 0.8 L (1.1-1.8) Procalcitonin (0.19-0.49) NG/ML Venous Blood Potassium 4.1 (3.6-5.2) mmol/L Stool Occult Blood (NEGATIVE) Blood Type Antibody Screen Crossmatch BBK History Checked 07/27/17 07/27/17 07/27/17 Range/Units 17:07 17:07 16:21 WBC 36.7 H* (4.5-11.0) 10^3/ul RBC 2.90 L (3.5-6.1) 10^6/uL Hgb 7.8 L (12.0-16.0) g/dL Hct 24.0 L (36.0-48.0) % MCV 82.8 (80.0-105.0) fl MCH 26.9 (25.0-35.0) pg MCHC 32.5 (31.0-37.0) g/dl RDW 23.1 H (11.5-14.5) % Plt Count 543 H (120.0-450.0) 10^3/uL MPV 9.4 (7.0-11.0) fl Gran % 95.9 H (50.0-68.0) % Lymph % (Auto) 0.8 L (22.0-35.0) % Winston % (Auto) 3.1 (1.0-6.0) % Eos % (Auto) 0.1 L (1.5-5.0) % Baso % (Auto) 0.1 (0.0-3.0) % Gran # 35.23 H (1.4-6.5) Lymph # 0.3 L (1.2-3.4) Winston # 1.1 H (0.1-0.6) Eos # 0.0 (0.0-0.7) Baso # 0.02 (0.0-2.0) K/mm3 Neutrophils % (Manual) 92 H (50.0-70.0) % Band Neutrophils % 6 H (0-2) % Lymphocytes % (Manual) 1 L (22.0-35.0) % Monocytes % (Manual) 1 (1.0-6.0) % Platelet Evaluation High (NORMAL) Hypochromasia Slight Anisocytosis (manual) Slight PT (9.9-11.8) Seconds INR (0.93-1.08) APTT (23.7-30.8) Seconds pO2 48 (30-55) mm/Hg VBG pH 7.37 (7.32-7.43) VBG pCO2 31.0 L (40-60) VBG HCO3 17.9 L (21-28) mmol/l VBG Total CO2 18.9 L (22-28) mmol.L VBG O2 Sat (Calc) 91.2 H (40-65) % VBG Base Excess -6.2 L (0.0-2.0) mmol/L VBG Potassium 4.3 (3.6-5.2) mmol/L Sodium 131.0 L (132-148) mmol/L Chloride 106.0 (98-107) mmol/L Glucose 131 H (65-105) mg/dl Lactate 2.0 (0.7-2.1) mmol/L FiO2 21.0 % Potassium (3.6-5.0) mmol/L Carbon Dioxide (21-33) mmol/L Anion Gap (10-20) BUN (7-21) mg/dL Creatinine (0.7-1.2) mg/dL Est GFR ( Amer) Est GFR (Non-Af Amer) POC Glucose (mg/dL) 126 H (65-110) mg/dL Random Glucose (70-110) mg/dL Lactic Acid (0.7-2.1) mmol/L Calcium (8.4-10.5) mg/dL Phosphorus (2.5-4.5) mg/dL Magnesium (1.7-2.2) mg/dL Total Bilirubin (0.2-1.3) mg/dL AST (14-36) U/L ALT (7-56) U/L Alkaline Phosphatase (38-126) U/L Total Protein (5.8-8.3) g/dL Albumin (3.0-4.8) g/dL Globulin gm/dL Albumin/Globulin Ratio (1.1-1.8) Procalcitonin (0.19-0.49) NG/ML Venous Blood Potassium 4.3 (3.6-5.2) mmol/L Stool Occult Blood (NEGATIVE) Blood Type Antibody Screen Crossmatch BBK History Checked 07/27/17 07/27/17 07/27/17 Range/Units 14:00 11:32 06:29 WBC (4.5-11.0) 10^3/ul RBC (3.5-6.1) 10^6/uL Hgb (12.0-16.0) g/dL Hct (36.0-48.0) % MCV (80.0-105.0) fl MCH (25.0-35.0) pg MCHC (31.0-37.0) g/dl RDW (11.5-14.5) % Plt Count (120.0-450.0) 10^3/uL MPV (7.0-11.0) fl Gran % (50.0-68.0) % Lymph % (Auto) (22.0-35.0) % Winston % (Auto) (1.0-6.0) % Eos % (Auto) (1.5-5.0) % Baso % (Auto) (0.0-3.0) % Gran # (1.4-6.5) Lymph # (1.2-3.4) Winston # (0.1-0.6) Eos # (0.0-0.7) Baso # (0.0-2.0) K/mm3 Neutrophils % (Manual) (50.0-70.0) % Band Neutrophils % (0-2) % Lymphocytes % (Manual) (22.0-35.0) % Monocytes % (Manual) (1.0-6.0) % Platelet Evaluation (NORMAL) Hypochromasia Anisocytosis (manual) PT (9.9-11.8) Seconds INR (0.93-1.08) APTT (23.7-30.8) Seconds pO2 (30-55) mm/Hg VBG pH (7.32-7.43) VBG pCO2 (40-60) VBG HCO3 (21-28) mmol/l VBG Total CO2 (22-28) mmol.L VBG O2 Sat (Calc) (40-65) % VBG Base Excess (0.0-2.0) mmol/L VBG Potassium (3.6-5.2) mmol/L Sodium (132-148) mmol/L Chloride (98-107) mmol/L Glucose (65-105) mg/dl Lactate (0.7-2.1) mmol/L FiO2 % Potassium (3.6-5.0) mmol/L Carbon Dioxide (21-33) mmol/L Anion Gap (10-20) BUN (7-21) mg/dL Creatinine (0.7-1.2) mg/dL Est GFR ( Amer) Est GFR (Non-Af Amer) POC Glucose (mg/dL) 103 (65-110) mg/dL Random Glucose (70-110) mg/dL Lactic Acid (0.7-2.1) mmol/L Calcium (8.4-10.5) mg/dL Phosphorus (2.5-4.5) mg/dL Magnesium (1.7-2.2) mg/dL Total Bilirubin (0.2-1.3) mg/dL AST (14-36) U/L ALT (7-56) U/L Alkaline Phosphatase (38-126) U/L Total Protein (5.8-8.3) g/dL Albumin (3.0-4.8) g/dL Globulin gm/dL Albumin/Globulin Ratio (1.1-1.8) Procalcitonin 5.28 H (0.19-0.49) NG/ML Venous Blood Potassium (3.6-5.2) mmol/L Stool Occult Blood Negative (NEGATIVE) Blood Type Antibody Screen Crossmatch BBK History Checked 07/25/17 Range/Units 11:08 WBC (4.5-11.0) 10^3/ul RBC (3.5-6.1) 10^6/uL Hgb (12.0-16.0) g/dL Hct (36.0-48.0) % MCV (80.0-105.0) fl MCH (25.0-35.0) pg MCHC (31.0-37.0) g/dl RDW (11.5-14.5) % Plt Count (120.0-450.0) 10^3/uL MPV (7.0-11.0) fl Gran % (50.0-68.0) % Lymph % (Auto) (22.0-35.0) % Winston % (Auto) (1.0-6.0) % Eos % (Auto) (1.5-5.0) % Baso % (Auto) (0.0-3.0) % Gran # (1.4-6.5) Lymph # (1.2-3.4) Winston # (0.1-0.6) Eos # (0.0-0.7) Baso # (0.0-2.0) K/mm3 Neutrophils % (Manual) (50.0-70.0) % Band Neutrophils % (0-2) % Lymphocytes % (Manual) (22.0-35.0) % Monocytes % (Manual) (1.0-6.0) % Platelet Evaluation (NORMAL) Hypochromasia Anisocytosis (manual) PT (9.9-11.8) Seconds INR (0.93-1.08) APTT (23.7-30.8) Seconds pO2 (30-55) mm/Hg VBG pH (7.32-7.43) VBG pCO2 (40-60) VBG HCO3 (21-28) mmol/l VBG Total CO2 (22-28) mmol.L VBG O2 Sat (Calc) (40-65) % VBG Base Excess (0.0-2.0) mmol/L VBG Potassium (3.6-5.2) mmol/L Sodium (132-148) mmol/L Chloride (98-107) mmol/L Glucose (65-105) mg/dl Lactate (0.7-2.1) mmol/L FiO2 % Potassium (3.6-5.0) mmol/L Carbon Dioxide (21-33) mmol/L Anion Gap (10-20) BUN (7-21) mg/dL Creatinine (0.7-1.2) mg/dL Est GFR ( Amer) Est GFR (Non-Af Amer) POC Glucose (mg/dL) (65-110) mg/dL Random Glucose (70-110) mg/dL Lactic Acid (0.7-2.1) mmol/L Calcium (8.4-10.5) mg/dL Phosphorus (2.5-4.5) mg/dL Magnesium (1.7-2.2) mg/dL Total Bilirubin (0.2-1.3) mg/dL AST (14-36) U/L ALT (7-56) U/L Alkaline Phosphatase (38-126) U/L Total Protein (5.8-8.3) g/dL Albumin (3.0-4.8) g/dL Globulin gm/dL Albumin/Globulin Ratio (1.1-1.8) Procalcitonin (0.19-0.49) NG/ML Venous Blood Potassium (3.6-5.2) mmol/L Stool Occult Blood (NEGATIVE) Blood Type AB POSITIVE Antibody Screen Negative Crossmatch See Detail BBK History Checked Patient has bt Laboratory Results - last 24 hr 07/25/17 07/27/17 07/27/17 11:08 06:29 11:32 WBC RBC Hgb Hct MCV MCH MCHC RDW Plt Count MPV Gran % Lymph % (Auto) Winston % (Auto) Eos % (Auto) Baso % (Auto) Gran # Lymph # Winston # Eos # Baso # Neutrophils % (Manual) Band Neutrophils % Lymphocytes % (Manual) Monocytes % (Manual) Platelet Evaluation Hypochromasia Anisocytosis (manual) PT INR APTT pO2 VBG pH VBG pCO2 VBG HCO3 VBG Total CO2 VBG O2 Sat (Calc) VBG Base Excess VBG Potassium Sodium Chloride Glucose Lactate FiO2 Potassium Carbon Dioxide Anion Gap BUN Creatinine Est GFR ( Amer) Est GFR (Non-Af Amer) POC Glucose (mg/dL) 103 Random Glucose Lactic Acid Calcium Phosphorus Magnesium Total Bilirubin AST ALT Alkaline Phosphatase Total Protein Albumin Globulin Albumin/Globulin Ratio Procalcitonin 5.28 H Venous Blood Potassium Stool Occult Blood Blood Type AB POSITIVE Antibody Screen Negative Crossmatch See Detail BBK History Checked Patient has bt 07/27/17 07/27/17 07/27/17 14:00 16:21 17:07 WBC RBC Hgb Hct MCV MCH MCHC RDW Plt Count MPV Gran % Lymph % (Auto) Winston % (Auto) Eos % (Auto) Baso % (Auto) Gran # Lymph # Winston # Eos # Baso # Neutrophils % (Manual) Band Neutrophils % Lymphocytes % (Manual) Monocytes % (Manual) Platelet Evaluation Hypochromasia Anisocytosis (manual) PT INR APTT pO2 48 VBG pH 7.37 VBG pCO2 31.0 L VBG HCO3 17.9 L VBG Total CO2 18.9 L VBG O2 Sat (Calc) 91.2 H VBG Base Excess -6.2 L VBG Potassium 4.3 Sodium 131.0 L Chloride 106.0 Glucose 131 H Lactate 2.0 FiO2 21.0 Potassium Carbon Dioxide Anion Gap BUN Creatinine Est GFR ( Amer) Est GFR (Non-Af Amer) POC Glucose (mg/dL) 126 H Random Glucose Lactic Acid Calcium Phosphorus Magnesium Total Bilirubin AST ALT Alkaline Phosphatase Total Protein Albumin Globulin Albumin/Globulin Ratio Procalcitonin Venous Blood Potassium 4.3 Stool Occult Blood Negative Blood Type Antibody Screen Crossmatch BBK History Checked 07/27/17 07/27/17 07/27/17 17:07 17:07 17:07 WBC 36.7 H* RBC 2.90 L Hgb 7.8 L Hct 24.0 L MCV 82.8 MCH 26.9 MCHC 32.5 RDW 23.1 H Plt Count 543 H MPV 9.4 Gran % 95.9 H Lymph % (Auto) 0.8 L Winston % (Auto) 3.1 Eos % (Auto) 0.1 L Baso % (Auto) 0.1 Gran # 35.23 H Lymph # 0.3 L Winston # 1.1 H Eos # 0.0 Baso # 0.02 Neutrophils % (Manual) 92 H Band Neutrophils % 6 H Lymphocytes % (Manual) 1 L Monocytes % (Manual) 1 Platelet Evaluation High Hypochromasia Slight Anisocytosis (manual) Slight PT INR APTT pO2 VBG pH VBG pCO2 VBG HCO3 VBG Total CO2 VBG O2 Sat (Calc) VBG Base Excess VBG Potassium Sodium 131 L Chloride 105 Glucose Lactate FiO2 Potassium 4.2 Carbon Dioxide 18 L Anion Gap 12 BUN 19 Creatinine 1.7 H Est GFR ( Amer) 36 Est GFR (Non-Af Amer) 30 POC Glucose (mg/dL) Random Glucose 125 H Lactic Acid 1.9 Calcium 6.2 L* Phosphorus 3.5 Magnesium 1.0 L* Total Bilirubin 2.2 H AST 59 H ALT 54 Alkaline Phosphatase 150 H Total Protein 4.1 L Albumin 1.8 L Globulin 2.3 Albumin/Globulin Ratio 0.8 L Procalcitonin Venous Blood Potassium Stool Occult Blood Blood Type Antibody Screen Crossmatch BBK History Checked 07/27/17 07/27/17 07/27/17 20:20 23:30 23:30 WBC RBC Hgb Hct MCV MCH MCHC RDW Plt Count MPV Gran % Lymph % (Auto) Winston % (Auto) Eos % (Auto) Baso % (Auto) Gran # Lymph # Winston # Eos # Baso # Neutrophils % (Manual) Band Neutrophils % Lymphocytes % (Manual) Monocytes % (Manual) Platelet Evaluation Hypochromasia Anisocytosis (manual) PT 16.1 H INR 1.49 H APTT 42.8 H pO2 38 VBG pH 7.34 VBG pCO2 33.0 L VBG HCO3 17.8 L VBG Total CO2 18.8 L VBG O2 Sat (Calc) 79.2 H VBG Base Excess -7.0 L VBG Potassium 4.1 Sodium 130.0 L 131 L Chloride 108.0 H 106 Glucose 163 H Lactate 2.0 FiO2 21.0 Potassium 4.0 Carbon Dioxide 17 L Anion Gap 12 BUN 22 H Creatinine 1.6 H Est GFR ( Amer) 39 Est GFR (Non-Af Amer) 32 POC Glucose (mg/dL) Random Glucose 127 H Lactic Acid Calcium 6.3 L* Phosphorus 3.3 Magnesium 2.2 Total Bilirubin 2.3 H AST 65 H ALT 59 H Alkaline Phosphatase 165 H Total Protein 4.2 L Albumin 1.8 L Globulin 2.4 Albumin/Globulin Ratio 0.8 L Procalcitonin Venous Blood Potassium 4.1 Stool Occult Blood Blood Type Antibody Screen Crossmatch BBK History Checked 07/27/17 07/28/17 07/28/17 23:30 05:45 09:30 WBC 33.8 H* 29.0 H* RBC 3.33 L 2.81 L Hgb 9.1 L 7.6 L Hct 27.7 L 23.5 L MCV 83.2 83.6 MCH 27.3 27.0 MCHC 32.9 32.3 RDW 21.9 H 22.4 H Plt Count 514 H 489 H MPV 9.8 9.5 Gran % 96.4 H Lymph % (Auto) 1.2 L Winston % (Auto) 2.0 Eos % (Auto) 0.3 L Baso % (Auto) 0.1 Gran # 32.62 H Lymph # 0.4 L Winston # 0.7 H Eos # 0.1 Baso # 0.02 Neutrophils % (Manual) Band Neutrophils % Lymphocytes % (Manual) Monocytes % (Manual) Platelet Evaluation Hypochromasia Anisocytosis (manual) PT 12.4 H INR 1.15 H APTT 39.0 H pO2 VBG pH VBG pCO2 VBG HCO3 VBG Total CO2 VBG O2 Sat (Calc) VBG Base Excess VBG Potassium Sodium Chloride Glucose Lactate FiO2 Potassium Carbon Dioxide Anion Gap BUN Creatinine Est GFR ( Amer) Est GFR (Non-Af Amer) POC Glucose (mg/dL) Random Glucose Lactic Acid Calcium Phosphorus Magnesium Total Bilirubin AST ALT Alkaline Phosphatase Total Protein Albumin Globulin Albumin/Globulin Ratio Procalcitonin Venous Blood Potassium Stool Occult Blood Blood Type Antibody Screen Crossmatch BBK History Checked 07/28/17 09:30 WBC RBC Hgb Hct MCV MCH MCHC RDW Plt Count MPV Gran % Lymph % (Auto) Winston % (Auto) Eos % (Auto) Baso % (Auto) Gran # Lymph # Winston # Eos # Baso # Neutrophils % (Manual) Band Neutrophils % Lymphocytes % (Manual) Monocytes % (Manual) Platelet Evaluation Hypochromasia Anisocytosis (manual) PT INR APTT pO2 VBG pH VBG pCO2 VBG HCO3 VBG Total CO2 VBG O2 Sat (Calc) VBG Base Excess VBG Potassium Sodium 130 L Chloride 106 Glucose Lactate FiO2 Potassium 4.0 Carbon Dioxide 17 L Anion Gap 11 BUN 26 H Creatinine 1.7 H Est GFR ( Amer) 36 Est GFR (Non-Af Amer) 30 POC Glucose (mg/dL) Random Glucose 137 H Lactic Acid Calcium 6.4 L* Phosphorus 3.4 Magnesium 2.3 H Total Bilirubin 1.9 H AST 58 H ALT 55 Alkaline Phosphatase 194 H Total Protein 4.2 L Albumin 1.8 L Globulin 2.4 Albumin/Globulin Ratio 0.8 L Procalcitonin Venous Blood Potassium Stool Occult Blood Blood Type Antibody Screen Crossmatch BBK History Checked EKG/Cardiology Studies: Cardiology / EKG Studies 07/27/17 17:02 EKG [ELECTROCARDIOGRAM] Stat Comment: Reason For Exam: afib, reassess Critical Care Progress Note - Nutrition Nutrition: Nutrition Category Date Time Status Heart Healthy Diet [DIET] Diets 07/26/17 Lunch Ordered Assessment/Plan - Assessment and Plan (Free Text) Plan: Patient seen and examined with resident, agree with note, with following exception/additions: Patient is a 67 yo female with PMH of HTN, MVP, mild , anemia, and hx of syncopal episodess/p endarterectomy of the right femoral artery, fasciotomy, and right pop/tib/peron bypass was preformed. Patient wound debrided and cleaned x 2. [employer] called on patient on 07/27 with transfer back to ICU for afib with RVR, hypotension, and fever of 104F. Patient stablized in ICU and noted to have drop in Hemoglobin overnight. Currently awake, alert, no major complaints. Currently afebrile HD stable, comfortable, in NSR, on Cardizem drip Limb Ischemia s.p Fem-pop bypass, fasciotomy, wound debridement Afib with RVR Lupus Anticoagulant Anemia/GIB Leukocytosis/Sepsis Recommend: - Cont with supp o2 as needed - cont with Merrem, Dapto as per ID, consider epiric treatment for Cdiff - follow up C diff - rate control - heparin drip - monitor HH - transfuse pRBC - PPI drip - follow up GI - Digoxin - follow up cardiology - follow up vascular surgery/general surgery - follow up hematology - DVT ppx - GI ppx - monitor in MICU Critical care time 35 minutes
--- NOTE | 2017-07-28 14:00 | CP.PCM.PN ---
Subjective - Date & Time of Evaluation Date of Evaluation: 07/28/17 Time of Evaluation: 13:57 - Subjective Subjective: Surgery Progress Note for Dr. Couch HPI: Patient seen and examined at bedside. Patient recently transferred to ICU for code sepsis. Complaining of L. arm pain and mild pain at fasciotomy site. No other complaints at this time. Objective - Vital Signs/Intake and Output Vital Signs (last 24 hours): Temp Pulse Resp BP Pulse Ox 98.2 F 88 27 H 115/50 L 97 07/28/17 12:00 07/28/17 13:47 07/28/17 02:00 07/28/17 09:00 07/28/17 02:01 Intake and Output: 07/28/17 07/28/17 06:59 18:59 Intake Total 4760 Output Total 205 300 Balance 4555 -300 - Medications Medications: Current Medications Acetaminophen (Tylenol 325mg Tab) 650 mg PO Q6H PRN PRN Reason: Headache Last Admin: 07/27/17 14:07 Dose: 650 mg Calcium Carbonate (Caltrate) 600 mg PO BID [facility] Last Admin: 07/28/17 09:02 Dose: 600 mg Clopidogrel Bisulfate (Plavix) 75 mg PO DAILY [facility] Last Admin: 07/28/17 09:02 Dose: 75 mg Digoxin (Lanoxin) 0.25 mg PO 1400 [facility] Docusate Sodium (Colace) 100 mg PO TID [facility] Last Admin: 07/28/17 13:48 Dose: Not Given Enoxaparin Sodium (Lovenox) 95 mg SC BID [facility] PRN Reason: Protocol Last Admin: 07/28/17 09:02 Dose: 95 mg Hydromorphone HCl (Dilaudid) 1 mg IVP Q3H PRN PRN Reason: Pain, severe (8-10) Last Admin: 07/28/17 05:58 Dose: 1 mg Sodium Chloride (Sodium Chloride 0.9%) 1,000 mls @ 150 mls/hr IV .Q6H40M [facility] Last Admin: 07/28/17 11:56 Dose: 150 mls/hr Meropenem 1g/NS 100mL IVPB (Meropenem 1g/Ns 100ml Ivpb) 1 gm in 100 mls @ 100 mls/hr IVPB Q12 [facility] PRN Reason: Protocol Stop: 08/05/17 10:01 Last Admin: 07/28/17 09:03 Dose: 100 mls/hr diltiaZEM IVPB 100mg in NS (Cardizem 100mg In Ns) 100 mls @ 5 mls/hr IV .Q20H PRN; Protocol; 5 MG/HR PRN Reason: TITRATE PER MD ORDER Last Admin: 07/27/17 22:01 Dose: 5 mg/hr, 5 mls/hr Metoprolol Tartrate (Lopressor) 2.5 mg IV Q8H [facility] Last Admin: 07/21/17 23:42 Dose: 2.5 mg Metoprolol Tartrate (Lopressor) 12.5 mg PO BID [facility] Last Admin: 07/28/17 09:00 Dose: 12.5 mg Morphine Sulfate (Morphine Extended Release Tab) 15 mg PO Q12 PRN PRN Reason: Pain, severe (8-10) Ondansetron HCl (Zofran Inj) 4 mg IVP ONCE PRN PRN Reason: Nausea/Vomiting Pantoprazole Sodium (Protonix Ec Tab) 40 mg PO 0600 [facility] Last Admin: 07/28/17 05:58 Dose: 40 mg Polyethylene Glycol (Miralax) 17 gm PO BID [facility] Last Admin: 07/28/17 09:02 Dose: 17 gm Silver Sulfadiazine (Silvadene 1% 25 Gm) 0 gm TP BID [facility] Last Admin: 07/28/17 11:55 Dose: 25 gm Sucralfate (Carafate Oral Susp) 1 gm PO ACHS [facility] Last Admin: 07/28/17 11:40 Dose: 1 gm - Labs Labs: 07/28/17 05:45 07/28/17 09:30 PT 12.4 Seconds (9.9-11.8) H 07/28/17 09:30 INR 1.15 (0.93-1.08) H 07/28/17 09:30 APTT 39.0 Seconds (23.7-30.8) H 07/28/17 09:30 - Constitutional Appears: Well, Non-toxic - Head Exam Head Exam: ATRAUMATIC, NORMAL INSPECTION, NORMOCEPHALIC - Eye Exam Eye Exam: EOMI Pupil Exam: NORMAL ACCOMODATION - ENT Exam ENT Exam: Mucous Membranes Moist - Respiratory Exam Respiratory Exam: Clear to Ausculation Bilateral, NORMAL BREATHING PATTERN - Cardiovascular Exam Cardiovascular Exam: REGULAR RHYTHM - GI/Abdominal Exam GI & Abdominal Exam: Soft, Normal Bowel Sounds. absent: Distended, Tenderness - Extremities Exam Extremities Exam: Tenderness (mild around fasciotomy site. Pulses 2+ bilaterally. Upper L. extremity at elbow is warm and tender and erythemetous. ) - Neurological Exam Neurological Exam: Alert, Awake, Oriented x3 - Psychiatric Exam Psychiatric exam: Normal Affect, Normal Mood - Skin Skin Exam: Dry, Intact, Normal Color, Warm Assessment and Plan - Assessment and Plan (Free Text) Assessment: 67 F s/p Right leg Femoral/Popliteal embolectomy. Right leg Popliteal/Tibial/ Peroneal bypass, Right leg fasciotomy. POD #11, s/p wound exploration with irrigation POD #9, s/p 2nd wound exploration, irrigation and wound vac application POD #2 Plan: -Change wound vac tomorrow -IV antibiotics as per ID, new cellulitis of L. arm - f/u CT of extremity to rule out abscess -Anti-pyretics PRN -Management as per ICU -DW Dr. Khoa Rodgers PGY1
--- NOTE | 2017-07-28 15:39 | PN ---
DATE: 07/28/2017 LOCATION: The patient is seen in the ICU 128, bed 6. SUBJECTIVE: The patient is awake and alert. The patient's daughter is at the bedside. The patient is feeling well. She states she is much improved. Her fever is resolved. PHYSICAL EXAMINATION: VITAL SIGNS: Temperature is 98, blood pressure is 115/50, respiratory rate is 22, heart rate of 93. HEENT: Unremarkable. NECK: Supple. LUNGS: Decreased breath sounds. HEART: Normal S1 and S2. ABDOMEN: Soft and nontender. EXTREMITIES: Examination of foot is noted. LABORATORY DATA: Laboratory examination reveals a white count is down to 29,000, hemoglobin of 7, platelets of 489 and the differential is noted 32, 96% granulocytosis yesterday with a 33 white count yesterday. Chemistries reveals a BUN of 26, creatinine is 1.7. LFTs are noted. Procalcitonin is 528. MANJU screen is positive with 1 to 80. Microbiology reveals the blood cultures have no growth. Leg culture has Staphylococcus aureus and Leclercia adecarboxylata. Sensitivity is pending. Review of the chest x-ray noted diffuse disease. No urinalysis is available. No urine culture is available. ASSESSMENT AND PLAN: A 67-year-old female who is ALLERGIC TO [place], who is admitted initially with acute right lower extremity ischemia status post vascular intervention and had debridement of the foot, also with past medical history significant for mitral valve prolapse, hypertension, hyperlipidemia, urinary tract infections, and peripheral vascular disease, admitted with a right leg ischemia, was taken to the OR, had a thrombus and thrombectomy and had right leg wound exploration and debridement. Yesterday, the patient was found to have severe sepsis with fever and tachycardia. The patient does have a PICC line in. Repeat blood cultures are negative. The PICC line is in the right arm. The patient also had left arm cellulitis, which is improving in the patient with a probable healthcare-associated pneumonia with an elevated procalcitonin and questionable interstitial findings on the chest x-ray and with acute kidney injury. Blood cultures negative. Elevated procalcitonin. Urinalysis and urine culture were ordered. The patient with sensitive Staph in the right leg culture and Leclercia also, both very sensitive organisms. We are awaiting for the urinalysis and urine cultures. We will discontinue the daptomycin since the sensitive Staph from the leg and the blood cultures are negative. We will make further recommendations. We will follow up closely with you, on meropenem. Jasbir Hargrove MD
[2017-07-28] MEDS: diltiaZEM IVPB 100mg in NS 100 ML IV PRN (18:38)
[2017-07-28] MEDS: Digoxin 250 mcg (0.25 mg) Tab PO SCH (18:38)
--- NOTE | 2017-07-28 21:35 | PN ---
DATE: 07/28/2017 SUBJECTIVE: The patient is lying in bed. She remains weak, but feels better than yesterday. Her heart rate is down to under 100, blood pressure is 116/52. She had multiple non melanotic and non-bloody bowel movements. Her bowel movements were brown. PHYSICAL EXAMINATION VITAL SIGNS: Currently reveal temperature of 98, blood pressure 115/50 and heart rate 94. HEENT: Reveals sclerae to be white. Conjunctivae pale. NECK: Supple. CHEST: Reveal scattered rhonchi. HEART: Reveals regular rate and rhythm. There is a 2/6 systolic murmur. ABDOMEN: Soft, nontender. EXTREMITIES: Show her right leg to be in a surgical dressing. LABORATORY DATA: Reveal white blood cell count down to 29 from 32.8, hemoglobin is down to 7.6 from 9.1. PTT is 39. Chemistries reveal BUN 26, creatinine 1.7. AST 50, ALT 55, alkaline phosphatase of 194. Stool for occult blood from today is negative. Stool for C. Diff is negative. IMPRESSION: This is a 67-year-old female status post thrombectomy for acute arterial occlusion of her right leg status post arterial bypass of the lower extremities status post debridement of the wound with a history of anemia requiring numerous blood transfusions recently with supraventricular tachycardia from atrial fibrillation with rapid ventricular rate and fever to 103 with elevated white blood cell count of 30,000. She has improved somewhat hemodynamically with her pulse under 100, blood pressure of 115 systolic. Her white blood cell count remains elevated at 29,000. There is no evidence of gastrointestinal bleeding at this time. RECOMMENDATIONS 1. We will transfuse another 2 units of packed red blood cells. 2. Continue supportive care as well as treatment with Lovenox and Plavix with close monitoring of her CBC and signs for any GI bleeding. Continue pantoprazole 40 mg once a day for known gastric ulcers. I had a lengthy discussion with the patient's daughter and the patient at the bedside regarding all her complex comorbidities including aortic stenosis, bicuspid aortic valve, atrial fibrillation with rapid ventricular rate, recent arterial thrombosis, recurrent anemia and the need for anticoagulation with the inherent risk of GI blood loss and need for blood transfusions. All their questions were answered. Satinder Bruno MD
--- NOTE | 2017-07-28 22:44 | CT ---
EXAM: CT Left Upper Extremity Without Intravenous Contrast CLINICAL HISTORY: 67 years old, female; Condition or disease; Cellulitis; Elbow; Left; Additional info: Cellulitis, R/O abscess TECHNIQUE: Axial computed tomography images of the left upper extremity without intravenous contrast. All CT scans at this facility use one or more dose reduction techniques, viz.: automated exposure control; ma/kV adjustment per patient size (including targeted exams where dose is matched to indication; i.e. head); or iterative reconstruction technique. Coronal and sagittal reformatted images were created and reviewed. COMPARISON: No relevant prior studies available. FINDINGS: Limitations: Lack of intravenous contrast. Streak artifact - mild. Suboptimal positioning. Bones/joints: No acute fracture. No dislocation. No definite cortical destruction. Soft tissues: Minimal skin thickening LEFT upper arm, elbow, forearm, hand. [id number] stranding within subcutaneous tissues of LEFT upper extremity. 2.1 x 1.6 x 2.6 cm fluid density lesion within subcutaneous tissues of LEFT antecubital fossa. Mild skin thickening LEFT lateral abdominal/pelvic wall. Moderate stranding within subcutaneous tissues of LEFT lateral abdominal wall, anterior and LEFT lateral pelvic wall. Vasculature: Atherosclerotic disease of visualized arteries. Lungs: Mosaic pattern of lung parenchyma with interlobular septal thickening of LEFT lung. Pleural space: Small LEFT pleural effusion. Other findings: Colonic diverticula. Air within lumen. IMPRESSION: 1. Probable cellulitis of LEFT upper extremity. Cannot exclude abscess within antecubital fossa. 2. Probable cellulitis of LEFT abdominal/pelvic wall. 3. Probable interstitial edema. 4. Air within bladder lumen. DDX: Recent instrumentation or cystitis. 5. Incidental/non-acute findings are described above.
[2017-07-28 22:47] LABS: URINE BILIRUBIN NEGATIVE (NEGATIVE); URINE BLOOD SMALL (NEGATIVE); URINE GLUCOSE (UA) NEGATIVE (NEGATIVE); URINE KETONE TRACE mg/dL (NEGATIVE); URINE LEUKOCYTE ESTERASE SMALL Leu/uL (NEGATIVE); URINE PROTEIN TRACE mg/dL (<30 mg/dL)
[2017-07-28 22:48] LABS: BASO # 0.02 K/mm3 (0.0-2.0); BASO % 0.1 % (0.0-3.0); EOS # 0.3 (0.0-0.7); EOS % 0.9 % (1.5-5.0); GRAN # 27.89 (1.4-6.5); GRAN % 92.7 % (50.0-68.0); HEMATOCRIT 29.4 % (36.0-48.0); LYMPH # 0.9 (1.2-3.4); LYMPH % 2.8 % (22.0-35.0); MEAN CELL VOLUME 81.9 fl (80.0-105.0); MEAN PLATELET VOLUME 10.3 fl (7.0-11.0); MONO % 3.5 % (1.0-6.0); WHITE BLOOD COUNT 30.1 10^3/ul (4.5-11.0)
[2017-07-28 22:50] LABS: URINE APPEARANCE CLOUDY (CLEAR); URINE COLOR YELLOW (YELLOW)
[2017-07-28 23:05] LABS: URINE BACTERIA LARGE (NEG)
--- NOTE | 2017-07-29 01:40 | PN ---
DATE: SUBJECTIVE: Bell is a 67-year-old white female transferred from [facility] to the ICU. She is seen in 128, bed 6 in the ICU. She is awake and alert, being attended to by her daughter. I had a long discussion with her daughter and the patient. The patient is stable at this point. She was transferred because of code sepsis is called in the patient temperature up to 104, which is now 102. The patient also had an elevated white count of over 30,000 with the left shift. The patient also was hypotensive and tachycardic at time with fluids and diltiazem. She has return of normal of her blood pressure and a reduction of a heart rate back to normal. Her C. difficile at this point is negative. She is experiencing some abdominal discomfort with some diarrhea, but her C. difficile is negative. Her blood cultures x2 are negative. Her wound cultures are showing Staph aureus and on 3 different wound sites on the right leg. The patient was responding to IV antibiotics. She has been hydrated. Her blood count did drop. She is on anticoagulation because of the factor V Leiden positivity and a lupus anticoagulant. The patient has status post thrombosed right leg, status post thrombolysis, fasciotomy, fem-fem bypass. She has lost strength in the toes of the right foot, otherwise she has good feeling and strength in the rest of the right leg. Her legs are warm and dry. Wounds are clean. PHYSICAL EXAMINATION CHEST: Her chest is clear to auscultation and percussion. HEART: Regular sinus rhythm. ABDOMEN: Obese, but benign. No tenderness noted. LABORATORY DATA: Showed a white count as high as 36,700 with hemoglobin of 7.8. Most recent study showed a drop to 29,000 with a hemoglobin of 7.6, normal platelet count. The patient is receiving Lovenox for anticoagulation. She has some mildly elevated liver enzymes, total bilirubin of 1.9, alkaline phosphatase of 194, AST of 58, total protein is 4.2 and an albumin of 1.8. Case was discussed with Dr. Bruno, also Dr. Hargrove, Dr. Kohler has seen the patient for hypercoagulable state and Dr. Shannon for rapid atrial fibrillation. The patient did have a positive MANJU at 1.80, homogeneous. Her stool has been positive for occult blood and she has had a factor V Leiden positivity. IMPRESSION: Thrombosis on the right leg and gastrointestinal bleed, most likely arteriovenous malformations because of history of aortic stenosis, sepsis with some Staphylococcus and other organisms on the wound to the right leg, at this point under control. Recurrent atrial fibrillation at this point controlled. PLAN: To continue monitoring the patient. Treated with IV antibiotics, control blood pressure and pulse, possible colonoscopy later on this week and local wound care. Alexis Bush MD
[2017-07-29] MEDS: Sodium Chloride 0.9% 1,000 ML IV SCH ×2 (04:09→06:14)
[2017-07-29] MEDS: Pantoprazole 40 mg EC Tab PO SCH (06:03)
[2017-07-29] MEDS: HYDROmorphone 1 mg/ml ISec IVP PRN ×2 (06:14→07:19)
[2017-07-29 06:37] LABS: HEMATOCRIT 28.8 % (36.0-48.0); MEAN CELL VOLUME 82.1 fl (80.0-105.0); MEAN CORPUSCULAR HEMOGLOBIN 27.1 pg (25.0-35.0); MEAN PLATELET VOLUME 10.5 fl (7.0-11.0); RED CELL DISTRIBUTION WIDTH 22.9 % (11.5-14.5)
[2017-07-29 06:48] LABS: WHITE BLOOD COUNT 26.1 10^3/ul (4.5-11.0)
[2017-07-29] MEDS ORDERED: HYDROmorphone 1 mg/ml ISec IVP STA (07:17)
[2017-07-29] MEDS: Albuterol-Ipratrop 3 mg / 0.5 (3 ml) UD IH PRN ×3 (07:55→22:10)
--- NOTE | 2017-07-29 08:15 | CP.PCM.PN ---
Subjective - Date & Time of Evaluation Date of Evaluation: 07/29/17 Time of Evaluation: 07:00 - Subjective Subjective: Vascular Surgery Note for Dr. Couch Patient seen and examined at bedside. No acute event overnight. Patient report pain in right leg but controlled with medications. Wound vac changed today. Patient complaining of generalized edema. SHe is tolerating diet and having BM. She continues to work with PT. Objective - Vital Signs/Intake and Output Vital Signs (last 24 hours): Temp Pulse Resp BP Pulse Ox 97.9 F 78 20 120/49 L 96 07/29/17 06:00 07/29/17 06:30 07/29/17 06:30 07/29/17 06:00 07/29/17 06:30 Intake and Output: 07/29/17 07/29/17 06:59 18:59 Intake Total 1800 Output Total 950 Balance 850 - Medications Medications: Current Medications Acetaminophen (Tylenol 325mg Tab) 650 mg PO Q6H PRN PRN Reason: Headache Last Admin: 07/27/17 14:07 Dose: 650 mg Albuterol/Ipratropium (Duoneb 3 Mg/0.5 Mg (3 Ml) Ud) 3 ml IH Q2H PRN PRN Reason: Shortness of Breath Last Admin: 07/29/17 07:55 Dose: 3 ml Calcium Carbonate (Caltrate) 600 mg PO BID [facility] Last Admin: 07/28/17 18:36 Dose: 600 mg Clopidogrel Bisulfate (Plavix) 75 mg PO DAILY [facility] Last Admin: 07/28/17 09:02 Dose: 75 mg Digoxin (Lanoxin) 0.25 mg PO 1400 [facility] Last Admin: 07/28/17 18:38 Dose: 0.25 mg Docusate Sodium (Colace) 100 mg PO TID [facility] Last Admin: 07/28/17 18:58 Dose: Not Given Enoxaparin Sodium (Lovenox) 95 mg SC BID [facility] PRN Reason: Protocol Last Admin: 07/28/17 18:37 Dose: 95 mg Hydromorphone HCl (Dilaudid) 1 mg IVP Q3H PRN PRN Reason: Pain, severe (8-10) Last Admin: 07/29/17 07:19 Dose: 1 mg Sodium Chloride (Sodium Chloride 0.9%) 1,000 mls @ 150 mls/hr IV .Q6H40M [facility] Last Admin: 07/29/17 06:14 Dose: 150 mls/hr Meropenem 1g/NS 100mL IVPB (Meropenem 1g/Ns 100ml Ivpb) 1 gm in 100 mls @ 100 mls/hr IVPB Q12 [facility] PRN Reason: Protocol Stop: 08/05/17 10:01 Last Admin: 07/28/17 22:16 Dose: 100 mls/hr diltiaZEM IVPB 100mg in NS (Cardizem 100mg In Ns) 100 mls @ 5 mls/hr IV .Q20H PRN; Protocol; 5 MG/HR PRN Reason: TITRATE PER MD ORDER Last Admin: 07/28/17 18:38 Dose: 5 mg/hr, 5 mls/hr Metoprolol Tartrate (Lopressor) 2.5 mg IV Q8H [facility] Last Admin: 07/21/17 23:42 Dose: 2.5 mg Metoprolol Tartrate (Lopressor) 12.5 mg PO BID [facility] Last Admin: 07/28/17 18:36 Dose: 12.5 mg Morphine Sulfate (Morphine Extended Release Tab) 15 mg PO Q12 PRN PRN Reason: Pain, severe (8-10) Ondansetron HCl (Zofran Inj) 4 mg IVP ONCE PRN PRN Reason: Nausea/Vomiting Pantoprazole Sodium (Protonix Ec Tab) 40 mg PO 0600 [facility] Last Admin: 07/29/17 06:03 Dose: Not Given Polyethylene Glycol (Miralax) 17 gm PO BID [facility] Last Admin: 07/28/17 18:39 Dose: Not Given Silver Sulfadiazine (Silvadene 1% 25 Gm) 0 gm TP BID [facility] Last Admin: 07/28/17 18:58 Dose: Not Given Sucralfate (Carafate Oral Susp) 1 gm PO ACHS [facility] Last Admin: 07/28/17 22:16 Dose: 1 gm - Labs Labs: 07/29/17 05:30 07/28/17 09:30 PT 12.4 Seconds (9.9-11.8) H 07/28/17 09:30 INR 1.15 (0.93-1.08) H 07/28/17 09:30 APTT 39.0 Seconds (23.7-30.8) H 07/28/17 09:30 - Constitutional Appears: No Acute Distress - Head Exam Head Exam: ATRAUMATIC, NORMOCEPHALIC - Eye Exam Eye Exam: Normal appearance - ENT Exam ENT Exam: Mucous Membranes Moist - Respiratory Exam Respiratory Exam: NORMAL BREATHING PATTERN - Cardiovascular Exam Cardiovascular Exam: REGULAR RHYTHM - GI/Abdominal Exam GI & Abdominal Exam: Soft - Extremities Exam Extremities Exam: Normal Capillary Refill, Pedal Edema, Tenderness (RLE) Additional comments: edema in all extremities wound vac changed - underwrap, splint and ludwin bandage applied - Neurological Exam Neurological Exam: Alert, Awake, CN II-XII Intact, Oriented x3 - Psychiatric Exam Psychiatric exam: Normal Affect, Normal Mood - Skin Skin Exam: Dry, Warm Additional comments: diffuse redness on upper L arm and back/buttock region Assessment and Plan - Assessment and Plan (Free Text) Plan: 67 F s/p Right leg Femoral/Popliteal embolectomy. Right leg Popliteal/Tibial/ Peroneal bypass, Right leg fasciotomy. POD #12, s/p wound exploration with irrigation POD #10, s/p 2nd wound exploration, irrigation and wound vac application POD #3 with new cellulitis -wound vac changed today at bedside -IV antibiotics as per ID -Management as per ICU -DW Dr. Khoa Berrios PGY1
--- NOTE | 2017-07-29 08:55 | CP.PCM.PN ---
Subjective - Date & Time of Evaluation Date of Evaluation: 07/29/17 Time of Evaluation: 07:00 - Subjective Subjective: Stable in ICU. No CP or SOB. S/P transfusion yesterday. Events of yesterday noted. Now back in RSR on IV cardizem drip. V/S noted. RSR. PE: Lungs: clear Cor.: S1S2, sys. murmur Abd.: soft Ext.: right foot bandaged with wound vac.. Can't move toes. Can lift leg. Neuro: alert I/O= 1900/1200 Labs noted: WBC=26,500, H/H 9.5/28.8, BMP-pending Stool + OB x several. 07/27 stool neg. ECG 07/27: AF with RVR, NSSTW changes Echo:NL LV function, mod/sev. , mild to mod AI, mild MR, trace TR. Surgical spec cultures: + GPC, GNR. 07/27 BC x2 NG at 48 hrs. 07/27 CXR noted. Objective - Vital Signs/Intake and Output Vital Signs (last 24 hours): Temp Pulse Resp BP Pulse Ox 97.9 F 78 20 120/49 L 96 07/29/17 06:00 07/29/17 06:30 07/29/17 06:30 07/29/17 06:00 07/29/17 06:30 Intake and Output: 07/29/17 07/29/17 06:59 18:59 Intake Total 1800 Output Total 950 Balance 850 - Medications Medications: Current Medications Acetaminophen (Tylenol 325mg Tab) 650 mg PO Q6H PRN PRN Reason: Headache Last Admin: 07/27/17 14:07 Dose: 650 mg Albuterol/Ipratropium (Duoneb 3 Mg/0.5 Mg (3 Ml) Ud) 3 ml IH Q2H PRN PRN Reason: Shortness of Breath Last Admin: 07/29/17 07:55 Dose: 3 ml Calcium Carbonate (Caltrate) 600 mg PO BID [facility] Last Admin: 07/28/17 18:36 Dose: 600 mg Clopidogrel Bisulfate (Plavix) 75 mg PO DAILY [facility] Last Admin: 07/28/17 09:02 Dose: 75 mg Digoxin (Lanoxin) 0.25 mg PO 1400 [facility] Last Admin: 07/28/17 18:38 Dose: 0.25 mg Docusate Sodium (Colace) 100 mg PO TID [facility] Last Admin: 07/28/17 18:58 Dose: Not Given Enoxaparin Sodium (Lovenox) 95 mg SC BID [facility] PRN Reason: Protocol Last Admin: 07/28/17 18:37 Dose: 95 mg Hydromorphone HCl (Dilaudid) 1 mg IVP Q3H PRN PRN Reason: Pain, severe (8-10) Last Admin: 07/29/17 07:19 Dose: 1 mg Sodium Chloride (Sodium Chloride 0.9%) 1,000 mls @ 150 mls/hr IV .Q6H40M [facility] Last Admin: 07/29/17 06:14 Dose: 150 mls/hr Meropenem 1g/NS 100mL IVPB (Meropenem 1g/Ns 100ml Ivpb) 1 gm in 100 mls @ 100 mls/hr IVPB Q12 [facility] PRN Reason: Protocol Stop: 08/05/17 10:01 Last Admin: 07/28/17 22:16 Dose: 100 mls/hr diltiaZEM IVPB 100mg in NS (Cardizem 100mg In Ns) 100 mls @ 5 mls/hr IV .Q20H PRN; Protocol; 5 MG/HR PRN Reason: TITRATE PER MD ORDER Last Admin: 07/28/17 18:38 Dose: 5 mg/hr, 5 mls/hr Metoprolol Tartrate (Lopressor) 2.5 mg IV Q8H [facility] Last Admin: 07/21/17 23:42 Dose: 2.5 mg Metoprolol Tartrate (Lopressor) 12.5 mg PO BID [facility] Last Admin: 07/28/17 18:36 Dose: 12.5 mg Morphine Sulfate (Morphine Extended Release Tab) 15 mg PO Q12 PRN PRN Reason: Pain, severe (8-10) Ondansetron HCl (Zofran Inj) 4 mg IVP ONCE PRN PRN Reason: Nausea/Vomiting Pantoprazole Sodium (Protonix Ec Tab) 40 mg PO 0600 [facility] Last Admin: 07/29/17 06:03 Dose: Not Given Polyethylene Glycol (Miralax) 17 gm PO BID [facility] Last Admin: 07/28/17 18:39 Dose: Not Given Silver Sulfadiazine (Silvadene 1% 25 Gm) 0 gm TP BID [facility] Last Admin: 07/28/17 18:58 Dose: Not Given Sucralfate (Carafate Oral Susp) 1 gm PO ACHS [facility] Last Admin: 07/28/17 22:16 Dose: 1 gm - Labs Labs: 07/29/17 05:30 07/28/17 09:30 PT 12.4 Seconds (9.9-11.8) H 07/28/17 09:30 INR 1.15 (0.93-1.08) H 07/28/17 09:30 APTT 39.0 Seconds (23.7-30.8) H 07/28/17 09:30 Assessment and Plan - Assessment and Plan (Free Text) Assessment: Fever, R/O sepsis vs wound infection. Left arm cellulitis Severe anemia/s/p multiple blood transfusions/Esophageal and gastric ulcers/GIB/ Stool + OB. Most recent stool neg. OB. Acute iliofemoral thrombosis, s/p surgical thrombectomy, distal bypasses and fasciotomy Atrial fibrillation. PAF likely the cause for peripheral embolization originally. Also + hypercoag. state. Valvular heart disease: mod/sev , mild/mod AI, mild MR, trace TR HBP H/O syncope CVD DJD Former Smoker Plan: Increase PO metoprolol to 25 mg. BID. Continue digoxin. D/C IV cardizem drip. Lovenox as per Dr. Kohler Wound care as per Dr. Couch As per ID. Colonoscopy being planned by Dr. Bruno, deferred for now As per Dr. Couch, Dr. Jose F Bruno, Intensivists, and Dr. Bush Monitor I/O, H/H, labs, sats., stool for OB, cultures, etc. OOB as sybil. Will follow
[2017-07-29 09:11] LABS: ALB/GLOB RATIO 0.7 (1.1-1.8); PHOSPHOROUS 3.5 mg/dL (2.5-4.5); POTASSIUM 3.4 mmol/L (3.6-5.0); TOTAL PROTEIN 3.7 g/dL (5.8-8.3)
--- NOTE | 2017-07-29 09:11 | PN ---
DATE: 07/29/2017 SUBJECTIVE: The patient seen early this morning in room 128, bed 6. No fevers and no chills. No abdominal pain. She feels much better. Overall, she is doing well. She is awake and alert. PHYSICAL EXAMINATION: VITAL SIGNS: Temperature is 97.9, blood pressure is 120/70, respiratory rate of 18, and heart rate of 76. HEENT: Examination of HEENT is unremarkable. NECK: Supple. LUNGS: Decreased breath sounds. HEART: Normal S1 and S2. ABDOMEN: Soft and nontender. No organomegaly. No rebound. No masses. EXTREMITIES: Examination of the foot is as described. LABORATORY EXAMINATION: Reveals a white count of 26,000, hemoglobin of 9, platelets of 511. BUN of 26 and creatinine of 1.7. Urinalysis is noted and microbiology reveals the patient to have stool C-diff antigen and toxin is negative. The blood cultures are negative. The leg cultures are noted and procalcitonin is elevated and 5.28. Dr. Bush's note is reviewed from yesterday and Dr. Bruno's note is reviewed. The patient had a CT scan of the upper extremity yesterday, also reviewed. Dr. Ziggy Dao's note is reviewed. ASSESSMENT AND PLAN: This is a 67-year-old female, who is allergic to L[place]AQU[place], who is admitted initially with acute right lower extremity ischemia, status post vascular intervention, and the patient had thrombus and had a thrombectomy and had a leg wound debridement. Also, the patient with a history of mitral valve prolapse and hyperlipidemia, urinary tract infections, peripheral vascular disease, and [id number] aortic stenosis and hypercoagulable state, atrial fibrillation, and acute iliofemoral thrombus, status post surgical thrombectomy and distal bypass and fasciotomy in the patient with a history of hypertension, long-time smoker, peripheral vascular disease, who developed severe sepsis, fever, and tachycardia. The patient does have a peripherally inserted central catheter line in the right arm. The patient did have exacerbation of the left arm with cellulitis. Currently, cultures negative, questionable healthcare-associated pneumonia with elevated procalcitonin. We will continue the current therapy. The patient appears to be improving, currently on meropenem and if the white count persists, we will consider a CAT scan of the abdomen and pelvis. The patient overall is much improved. Jasbir Hargrove MD [facility] # [id number]
[2017-07-29] MEDS: Meropenem 1g/NS 100mL IVPB 1 GM/100 ML PIGGYBACK IVPB SCH ×2 (09:17→21:37)
[2017-07-29] MEDS: Sucralfate 1 gm/10 ml Oral Susp UD PO SCH ×4 (09:17→21:37)
[2017-07-29] MEDS: Enoxaparin 100 mg Syringe SC SCH ×2 (09:18→18:14)
[2017-07-29 09:20] LABS: CALCIUM 5.9 mg/dL (8.4-10.5)
[2017-07-29] MEDS: POLYETHYLENE GLYCOL 3350 17 GM/Dose PACKET PO SCH ×2 (09:20→18:14)
[2017-07-29] MEDS: Silver Sulfadiazine 1% Cream (25 gm) TP SCH ×2 (09:20→19:18)
--- NOTE | 2017-07-29 10:06 | US ---
PROCEDURE: Left upper extremity venous ultrasound HISTORY: Arm pain and swelling. Evaluate for deep venous thrombosis. PHYSICIAN(S): Saeed Caballero MD. FINDINGS: The visualized leftinternal jugular vein is sonographically normal and compressible. No evidence of obstruction or thrombus is seen. The visualized segments of the left subclavian vein are patent with normal waveforms. No sonographic evidence of obstruction or thrombosis is seen. The visualized deep venous system of the proximal leftupper extremity is sonographically normal and compressible. Incidental note is made of a catheter in the right subclavian vein without obvious thrombus IMPRESSION: 1. No sonographic evidence for deep venous thrombosis in the visualized segments of the left upper extremity.
[2017-07-29] MEDS ORDERED: Potassium Chloride 20 mEq ER Tab PO ONE (10:26)
--- NOTE | 2017-07-29 10:51 | CP.CCUPN ---
<Rajat Zelaya - Last Filed: 07/29/17 11:01> CCU Subjective - Physician Review Subjective (Free Text): 07/29/17 10:47 Patient s/e this AM in ICU this AM. No acute events overnight. Pt has returned to NSR while on digoxin with plans to dc cardizem and transition to BB. Pt complains of shob today with associated wheezing. Pt continues to express pain of her right lower extremity which she credits to her surgery. Pt denies chest pain, abdominal pain, dysuria, n/v/f/c. CCU Objective - Vital Signs / Intake & Output Vital Signs (Last 4 hours): Vital Signs Pulse BP 07/29/17 10:00 82 07/29/17 09:19 149/77 07/29/17 09:17 143/77 Intake and Output (Last 8hrs): Intake & Output 07/28/17 07/29/17 07/29/17 22:59 06:59 14:59 Intake Total 100 1800 Output Total 950 Balance 100 850 Intake: IV 100 1800 Right Upper arm 1800 Blood Product 0 Red Blood Cells Cpd As1 0 Lr Unit [id number] Output: Urine 950 Urine, Voided 950 - Physical Exam Head: Positive for: Atraumatic, Normocephalic Pupils: Positive for: PERRL Extroacular Muscles: Positive for: EOMI Conjunctiva: Positive for: Normal Mouth: Positive for: Moist Mucous Membranes Neck: Positive for: Normal Range of Motion Respiratory/Chest: Positive for: Clear to Auscultation, Good Air Exchange. Negative for: Respiratory Distress, Accessory Muscle Use Cardiovascular: Positive for: Regular Rate and Rhythm, Normal S1, S2, Other ( systolic ejection murmur grade 3/6). Negative for: Murmurs Abdomen: Positive for: Normal Bowel Sounds. Negative for: Tenderness, Distention, Peritoneal Signs Back: Positive for: Normal Inspection Upper Extremity: Positive for: Normal Inspection. Negative for: Cyanosis, Edema Lower Extremity: Positive for: Edema (edematous in all four extremities, +2/+3) , Other (Right leg with surgical dressing c/d/i and ludwin wrap in place). Negative for: NORMAL PULSES (lle good pulses. Right lower extremity: No palpable pulses.), Normal ROM (Decreased ROM right lower extremity), Tenderness Neurological: Positive for: GCS=15, CN II-XII Intact, Speech Normal, Other ( right foot with poor proprioception, ) Skin: Positive for: Warm, Other. Negative for: Diaphoretic Psychiatric: Positive for: Alert, Oriented x 3, Normal Insight, Normal Concentration - Medications Active Medications: Active Medications Generic Name Dose Route Start Last Admin Trade Name Freq PRN Reason Stop Dose Admin Acetaminophen 650 mg 07/27/17 13:59 07/27/17 14:07 Tylenol 325mg Tab PO 650 mg Q6H PRN Administration Headache Albuterol/Ipratropium 3 ml 07/29/17 07:39 07/29/17 07:55 Duoneb 3 Mg/0.5 Mg (3 Ml) Ud IH 3 ml Q2H PRN Administration Shortness of Breath Calcium Carbonate 600 mg 07/27/17 18:00 07/29/17 09:19 Caltrate PO 600 mg BID ORION Administration Clopidogrel Bisulfate 75 mg 07/18/17 10:00 07/29/17 09:19 Plavix PO 75 mg DAILY ORION Administration Digoxin 0.25 mg 07/28/17 14:00 07/28/17 18:38 Lanoxin PO 0.25 mg 1400 ORION Administration Docusate Sodium 100 mg 07/22/17 10:00 07/29/17 09:20 Colace PO Not Given TID ORION Enoxaparin Sodium 95 mg 07/24/17 18:00 07/29/17 09:18 Lovenox SC 95 mg BID ORION Administration Protocol Sodium Chloride 1,000 mls @ 150 mls/hr 07/26/17 06:00 07/29/17 06:14 Sodium Chloride 0.9% IV 150 mls/hr .Q6H40M ORION Administration Meropenem 1g/NS 100mL IVPB 1 gm in 100 mls @ 100 mls/hr 07/27/17 10:00 09:17 Meropenem 1g/Ns 100ml Ivpb IVPB 08/05/17 10:01 100 mls/hr Q12 ORION Administration Protocol Metoprolol Tartrate 2.5 mg 07/21/17 08:00 07/21/17 23:42 Lopressor IV 2.5 mg Q8H ORION Administration Metoprolol Tartrate 25 mg 07/29/17 10:00 07/29/17 09:19 Lopressor PO 25 mg BID ORION Administration Morphine Sulfate 15 mg 07/28/17 09:15 Morphine Extended Release Tab PO Q12 PRN Pain, severe (8-10) Ondansetron HCl 4 mg 07/26/17 11:57 Zofran Inj IVP ONCE PRN Nausea/Vomiting Pantoprazole Sodium 40 mg 07/25/17 06:00 07/29/17 06:03 Protonix Ec Tab PO Not Given 0600 [facility] Polyethylene Glycol 17 gm 07/25/17 18:00 07/29/17 09:20 Miralax PO Not Given BID [facility] Silver Sulfadiazine 0 gm 07/20/17 18:00 07/29/17 09:20 Silvadene 1% 25 Gm TP 25 gm BID ORION Administration Sucralfate 1 gm 07/21/17 11:30 07/29/17 09:17 Carafate Oral Susp PO 1 gm ACHS ORION Administration - Patient Studies Lab Studies: Microbiology Studies 07/26/17 13:25 Gram Stain - Final Leg - Right Wound Culture - Final Pseudomonas Stutzeri Leclercia Adecarboxylata Staphylococcus Aureus 07/27/17 06:29 Blood Culture - Preliminary Blood NO GROWTH AFTER 48 HOURS 07/27/17 06:29 Blood Culture - Preliminary Blood NO GROWTH AFTER 48 HOURS 07/25/17 18:56 Blood Culture - Preliminary Blood NO GROWTH AFTER 3 DAYS 07/27/17 22:16 C. difficile Antigen & Toxin A,B (M - Final Stool 07/26/17 13:25 Gram Stain - Final Leg - Right Wound Culture - Final Leclercia Adecarboxylata Staphylococcus Aureus 07/26/17 13:25 Gram Stain - Final Leg - Right Wound Culture - Final Leclercia Adecarboxylata Staphylococcus Aureus Lab Studies 07/29/17 07/29/17 07/29/17 Range/Units 08:40 06:10 05:30 WBC 26.1 H* (4.5-11.0) 10^3/ul RBC 3.51 (3.5-6.1) 10^6/uL Hgb 9.5 L (12.0-16.0) g/dL Hct 28.8 L (36.0-48.0) % MCV 82.1 (80.0-105.0) fl MCH 27.1 (25.0-35.0) pg MCHC 33.0 (31.0-37.0) g/dl RDW 22.9 H (11.5-14.5) % Plt Count 511 H (120.0-450.0) 10^3/uL MPV 10.5 (7.0-11.0) fl Gran % (50.0-68.0) % Lymph % (Auto) (22.0-35.0) % Loving % (Auto) (1.0-6.0) % Eos % (Auto) (1.5-5.0) % Baso % (Auto) (0.0-3.0) % Gran # (1.4-6.5) Lymph # (1.2-3.4) Loving # (0.1-0.6) Eos # (0.0-0.7) Baso # (0.0-2.0) K/mm3 Sodium 133 (132-148) mmol/L Potassium 3.4 L (3.6-5.0) mmol/L Chloride 112 H (98-107) mmol/L Carbon Dioxide 15 L (21-33) mmol/L Anion Gap 9 L (10-20) BUN 25 H (7-21) mg/dL Creatinine 1.3 H (0.7-1.2) mg/dL Est GFR ( Amer) 49 Est GFR (Non-Af Amer) 41 POC Glucose (mg/dL) 107 (65-110) mg/dL Random Glucose 82 (70-110) mg/dL Calcium 5.9 L* (8.4-10.5) mg/dL Phosphorus 3.5 (2.5-4.5) mg/dL Total Bilirubin 1.0 (0.2-1.3) mg/dL AST 39 H D (14-36) U/L ALT 55 (7-56) U/L Alkaline Phosphatase 141 H D (38-126) U/L Total Protein 3.7 L (5.8-8.3) g/dL Albumin 1.5 L (3.0-4.8) g/dL Globulin 2.1 gm/dL Albumin/Globulin Ratio 0.7 L (1.1-1.8) Urine Color (YELLOW) Urine Appearance (CLEAR) Urine pH (4.7-8.0) Ur Specific [place] (1.005-1.035) Urine Protein (<30 mg/dL) mg/dL Urine Glucose (UA) (NEGATIVE) mg/dL Urine Ketones (NEGATIVE) mg/dL Urine Blood (NEGATIVE) Urine Nitrate (NEGATIVE) Urine Bilirubin (NEGATIVE) Urine Urobilinogen (<1 E.U./dL) E.U./dL Ur Leukocyte Esterase (NEGATIVE) [place]/uL Urine RBC (0-2) /hpf Urine WBC (0-6) /hpf Ur Epithelial Cells (0-5) /hpf Urine Bacteria (NEG) Hyaline Casts /hpf Coarse Granular Casts (0-2) /hpf Blood Type Antibody Screen Crossmatch BBK History Checked 07/28/17 07/28/17 07/28/17 Range/Units 22:30 22:30 11:07 WBC 30.1 H* (4.5-11.0) 10^3/ul RBC 3.59 (3.5-6.1) 10^6/uL Hgb 9.7 L D (12.0-16.0) g/dL Hct 29.4 L (36.0-48.0) % MCV 81.9 (80.0-105.0) fl MCH 27.0 (25.0-35.0) pg MCHC 33.0 (31.0-37.0) g/dl RDW 22.0 H (11.5-14.5) % Plt Count 524 H (120.0-450.0) 10^3/uL MPV 10.3 (7.0-11.0) fl Gran % 92.7 H (50.0-68.0) % Lymph % (Auto) 2.8 L (22.0-35.0) % Loving % (Auto) 3.5 (1.0-6.0) % Eos % (Auto) 0.9 L (1.5-5.0) % Baso % (Auto) 0.1 (0.0-3.0) % Gran # 27.89 H (1.4-6.5) Lymph # 0.9 L (1.2-3.4) Loving # 1.0 H (0.1-0.6) Eos # 0.3 (0.0-0.7) Baso # 0.02 (0.0-2.0) K/mm3 Sodium (132-148) mmol/L Potassium (3.6-5.0) mmol/L Chloride (98-107) mmol/L Carbon Dioxide (21-33) mmol/L Anion Gap (10-20) BUN (7-21) mg/dL Creatinine (0.7-1.2) mg/dL Est GFR ( Amer) Est GFR (Non-Af Amer) POC Glucose (mg/dL) (65-110) mg/dL Random Glucose (70-110) mg/dL Calcium (8.4-10.5) mg/dL Phosphorus (2.5-4.5) mg/dL Total Bilirubin (0.2-1.3) mg/dL AST (14-36) U/L ALT (7-56) U/L Alkaline Phosphatase (38-126) U/L Total Protein (5.8-8.3) g/dL Albumin (3.0-4.8) g/dL Globulin gm/dL Albumin/Globulin Ratio (1.1-1.8) Urine Color Yellow (YELLOW) Urine Appearance Cloudy (CLEAR) Urine pH 6.0 (4.7-8.0) Ur Specific [place] 1.020 (1.005-1.035) Urine Protein Trace H (<30 mg/dL) mg/dL Urine Glucose (UA) Negative (NEGATIVE) mg/dL Urine Ketones Trace H (NEGATIVE) mg/dL Urine Blood Small H (NEGATIVE) Urine Nitrate Negative (NEGATIVE) Urine Bilirubin Negative (NEGATIVE) Urine Urobilinogen 1.0 H (<1 E.U./dL) E.U./dL Ur Leukocyte Esterase Small H (NEGATIVE) [place]/uL Urine RBC 2 - 5 (0-2) /hpf Urine WBC 5 - 10 (0-6) /hpf Ur Epithelial Cells 10 - 12 (0-5) /hpf Urine Bacteria Large (NEG) Hyaline Casts None /hpf Coarse Granular Casts Trace H (0-2) /hpf Blood Type AB POSITIVE Antibody Screen Negative Crossmatch See Detail BBK History Checked Patient has bt Laboratory Results - last 24 hr 07/28/17 07/28/17 07/28/17 11:07 22:30 22:30 WBC 30.1 H* RBC 3.59 Hgb 9.7 L D Hct 29.4 L MCV 81.9 MCH 27.0 MCHC 33.0 RDW 22.0 H Plt Count 524 H MPV 10.3 Gran % 92.7 H Lymph % (Auto) 2.8 L [place] % (Auto) 3.5 Eos % (Auto) 0.9 L Baso % (Auto) 0.1 Gran # 27.89 H Lymph # 0.9 L Loving # 1.0 H Eos # 0.3 Baso # 0.02 Sodium Potassium Chloride Carbon Dioxide Anion Gap BUN Creatinine Est GFR ( Amer) Est GFR (Non-Af Amer) POC Glucose (mg/dL) Random Glucose Calcium Phosphorus Total Bilirubin AST ALT Alkaline Phosphatase Total Protein Albumin Globulin Albumin/Globulin Ratio Urine Color Yellow Urine Appearance Cloudy Urine pH 6.0 Ur Specific [place] 1.020 Urine Protein Trace H Urine Glucose (UA) Negative Urine Ketones Trace H Urine Blood Small H Urine Nitrate Negative Urine Bilirubin Negative Urine Urobilinogen 1.0 H Ur Leukocyte Esterase Small H Urine RBC 2 - 5 Urine WBC 5 - 10 Ur Epithelial Cells 10 - 12 Urine Bacteria Large Hyaline Casts None Coarse Granular Casts Trace H Blood Type AB POSITIVE Antibody Screen Negative Crossmatch See Detail BBK History Checked Patient has bt 07/29/17 07/29/17 07/29/17 05:30 06:10 08:40 WBC 26.1 H* RBC 3.51 Hgb 9.5 L Hct 28.8 L MCV 82.1 MCH 27.1 MCHC 33.0 RDW 22.9 H Plt Count 511 H MPV 10.5 Gran % Lymph % (Auto) Loving % (Auto) Eos % (Auto) Baso % (Auto) Gran # Lymph # Loving # Eos # Baso # Sodium 133 Potassium 3.4 L Chloride 112 H Carbon Dioxide 15 L Anion Gap 9 L BUN 25 H Creatinine 1.3 H Est GFR ( Amer) 49 Est GFR (Non-Af Amer) 41 POC Glucose (mg/dL) 107 Random Glucose 82 Calcium 5.9 L* Phosphorus 3.5 Total Bilirubin 1.0 AST 39 H D ALT 55 Alkaline Phosphatase 141 H D Total Protein 3.7 L Albumin 1.5 L Globulin 2.1 Albumin/Globulin Ratio 0.7 L Urine Color Urine Appearance Urine pH Ur Specific [place] Urine Protein Urine Glucose (UA) Urine Ketones Urine Blood Urine Nitrate Urine Bilirubin Urine Urobilinogen Ur Leukocyte Esterase Urine RBC Urine WBC Ur Epithelial Cells Urine Bacteria Hyaline Casts Coarse Granular Casts Blood Type Antibody Screen Crossmatch BBK History Checked Fingerstick Blood Sugar Results: 107 Review of Systems - Review of Systems All systems: reviewed and no additional remarkable complaints except Review of Systems: as mentioned in HPI Critical Care Progress Note - Nutrition Nutrition: Nutrition Category Date Time Status Heart Healthy Diet [DIET] Diets 07/26/17 Lunch Ordered Assessment/Plan (1) Lower limb ischemia Current Visit: Yes Status: Acute - Assessment and Plan (Free Text) Assessment: Patient is a 67 yo female with PMH of HTN, MVP, mild , anemia, and hx of syncopal episodes who presents to the [facility] [place] [facility] ED for left lower extremity pain. Patient found to have absent pulses in RLE via US. Patient was taken by IR on for intervention with Dr. Sierra. IR unable to open Right femoral artery and placed EKOS catheter with alteplase drip. Patient was monitored in ICU and found overnight found to have limited motor function of RLE and taken to OR for vascular surgery. An endarterectomy of the right femoral artery, fasciotomy, and right pop/tib/peron bypass was preformed. Patient wound debrided and cleaned x 2. [employer] called on patient on 07/27 with transfer back to ICU for afib with RVR, hypotension, and fever of 104F. Patient stablized in ICU. Pt has returned to RSR at this time. Plan: Neuro: AAOx3 Stable CV: Acute Limb Ischemia of RLE s/p intervention with vascular surgery, IR and General Surgery - Patient underwent IR intervention 07/[address] Sierra, unable to open occluded right common femoral artery and EKOS catheter placement - Vascular surgery preformed endarterectomy of right femoral artery, fasciotomy , and Right popliteal/tibial/peroneal bypass - General Surgery took patient for debridement and drainage of wound x2 on 07/20 and 07/26 - PT/OT - Vascular surgery consulted and following - General surgery consulted and following AFib with RVR - Pt back in RSR - Cardizem gtt discontinued - digoxin, BB - cardiology consulted and following appreciate recs Pulm: - Stable - Place patient on O2 NC with goal to maintain O2 sat >92% GI: - c/o diarrhea, Send off stool sample for c.diff toxin and ag testing - Consider flagyl if symptoms persist or c.diff positive - GI consulted and following - Protonix for PPX : - Stable - monitor output Renal: BUN/Cr: 25/1.3 - Cr improving with IVF, will hold fluids today and give lasix for edematous changes on PE - Patient noted to be + 10L in past 72H, diuresis today - Replace lytes, maintain euvolemia. Continue to monitor. ID: - Leukocytosis with WBC of 26.1 yesterday, today 32.8, trending down - Diff Dx: bacteremia vs. wound of RLE fasciotomy vs. diarrhea and C. diff, bacteremia - Bld clx negative at 48H, G stain pending c. diff negative - On daptomyocin, Meropenem - Acetaminophen for fever - ID consulted and following appreciate recs Heme: - H/H: 9.5/28.8 - Plts: 511 - Transfused total of 10 units of pRBC during admission - Feosol Lupus Anticoagulant positive, - Continue anticoagulation with lovenox per heme - Heme consulted and following appreciate recs DVT ppx: Lovenox GI ppx: Protonix Case and plan discussed with attending - Date & Time Date: 07/29/17 Time: 10:57 <Ziggy Dao - Last Filed: 07/29/17 12:14> CCU Objective - Vital Signs / Intake & Output Vital Signs (Last 4 hours): Vital Signs Pulse BP 07/29/17 10:00 82 07/29/17 09:19 149/77 07/29/17 09:17 143/77 Intake and Output (Last 8hrs): Intake & Output 07/28/17 07/29/17 07/29/17 22:59 06:59 14:59 Intake Total 100 1800 240 Output Total 950 200 Balance 100 850 40 Weight 227 lb Intake: IV 100 1800 Right Upper arm 1800 Oral 240 Blood Product 0 Red Blood Cells Cpd As1 0 Lr Unit [id number] Output: Urine 950 Urine, Voided 950 Stool 200 - Medications Active Medications: Active Medications Generic Name Dose Route Start Last Admin Trade Name Freq PRN Reason Stop Dose Admin Acetaminophen 650 mg 07/27/17 13:59 07/27/17 14:07 Tylenol 325mg Tab PO 650 mg Q6H PRN Administration Headache Albuterol/Ipratropium 3 ml 07/29/17 07:39 07/29/17 07:55 Duoneb 3 Mg/0.5 Mg (3 Ml) Ud IH 3 ml Q2H PRN Administration Shortness of Breath Calcium Carbonate 600 mg 07/27/17 18:00 07/29/17 09:19 Caltrate PO 600 mg BID ORION Administration Clopidogrel Bisulfate 75 mg 07/18/17 10:00 07/29/17 09:19 Plavix PO 75 mg DAILY ORION Administration Digoxin 0.25 mg 07/28/17 14:00 07/28/17 18:38 Lanoxin PO 0.25 mg 1400 ORION Administration Docusate Sodium 100 mg 07/22/17 10:00 07/29/17 09:20 Colace PO Not Given TID ORION Enoxaparin Sodium 95 mg 07/24/17 18:00 07/29/17 09:18 Lovenox SC 95 mg BID ORION Administration Protocol Sodium Chloride 1,000 mls @ 150 mls/hr 07/26/17 06:00 07/29/17 06:14 Sodium Chloride 0.9% IV 150 mls/hr .Q6H40M ORION Administration Meropenem 1g/NS 100mL IVPB 1 gm in 100 mls @ 100 mls/hr 07/27/17 10:00 09:17 Meropenem 1g/Ns 100ml Ivpb IVPB 08/05/17 10:01 100 mls/hr Q12 ORION Administration Protocol Metoprolol Tartrate 2.5 mg 07/21/17 08:00 07/21/17 23:42 Lopressor IV 2.5 mg Q8H ORION Administration Metoprolol Tartrate 25 mg 07/29/17 10:00 07/29/17 09:19 Lopressor PO 25 mg BID ORION Administration Morphine Sulfate 15 mg 07/28/17 09:15 Morphine Extended Release Tab PO Q12 PRN Pain, severe (8-10) Ondansetron HCl 4 mg 07/26/17 11:57 Zofran Inj IVP ONCE PRN Nausea/Vomiting Pantoprazole Sodium 40 mg 07/25/17 06:00 07/29/17 06:03 Protonix Ec Tab PO Not Given 0600 [facility] Polyethylene Glycol 17 gm 07/25/17 18:00 07/29/17 09:20 Miralax PO Not Given BID [facility] Silver Sulfadiazine 0 gm 07/20/17 18:00 07/29/17 09:20 Silvadene 1% 25 Gm TP 25 gm BID ORION Administration Sucralfate 1 gm 07/21/17 11:30 07/29/17 09:17 Carafate Oral Susp PO 1 gm ACHS ORION Administration - Patient Studies Lab Studies: Microbiology Studies 07/26/17 13:25 Gram Stain - Final Leg - Right Wound Culture - Final Pseudomonas Stutzeri Leclercia Adecarboxylata Staphylococcus Aureus 07/27/17 06:29 Blood Culture - Preliminary Blood NO GROWTH AFTER 48 HOURS 07/27/17 06:29 Blood Culture - Preliminary Blood NO GROWTH AFTER 48 HOURS 07/25/17 18:56 Blood Culture - Preliminary Blood NO GROWTH AFTER 3 DAYS 07/27/17 22:16 C. difficile Antigen & Toxin A,B (M - Final Stool 07/26/17 13:25 Gram Stain - Final Leg - Right Wound Culture - Final Leclercia Adecarboxylata Staphylococcus Aureus 07/26/17 13:25 Gram Stain - Final Leg - Right Wound Culture - Final Leclercia Adecarboxylata Staphylococcus Aureus Lab Studies 07/29/17 07/29/17 07/29/17 Range/Units 08:40 06:10 05:30 WBC 26.1 H* (4.5-11.0) 10^3/ul RBC 3.51 (3.5-6.1) 10^6/uL Hgb 9.5 L (12.0-16.0) g/dL Hct 28.8 L (36.0-48.0) % MCV 82.1 (80.0-105.0) fl MCH 27.1 (25.0-35.0) pg MCHC 33.0 (31.0-37.0) g/dl RDW 22.9 H (11.5-14.5) % Plt Count 511 H (120.0-450.0) 10^3/uL MPV 10.5 (7.0-11.0) fl Gran % (50.0-68.0) % Lymph % (Auto) (22.0-35.0) % [place] % (Auto) (1.0-6.0) % Eos % (Auto) (1.5-5.0) % Baso % (Auto) (0.0-3.0) % Gran # (1.4-6.5) Lymph # (1.2-3.4) Loving # (0.1-0.6) Eos # (0.0-0.7) Baso # (0.0-2.0) K/mm3 Sodium 133 (132-148) mmol/L Potassium 3.4 L (3.6-5.0) mmol/L Chloride 112 H (98-107) mmol/L Carbon Dioxide 15 L (21-33) mmol/L Anion Gap 9 L (10-20) BUN 25 H (7-21) mg/dL Creatinine 1.3 H (0.7-1.2) mg/dL Est GFR ( Amer) 49 Est GFR (Non-Af Amer) 41 POC Glucose (mg/dL) 107 (65-110) mg/dL Random Glucose 82 (70-110) mg/dL Calcium 5.9 L* (8.4-10.5) mg/dL Phosphorus 3.5 (2.5-4.5) mg/dL Total Bilirubin 1.0 (0.2-1.3) mg/dL AST 39 H D (14-36) U/L ALT 55 (7-56) U/L Alkaline Phosphatase 141 H D (38-126) U/L Total Protein 3.7 L (5.8-8.3) g/dL Albumin 1.5 L (3.0-4.8) g/dL Globulin 2.1 gm/dL Albumin/Globulin Ratio 0.7 L (1.1-1.8) Urine Color (YELLOW) Urine Appearance (CLEAR) Urine pH (4.7-8.0) Ur Specific [place] (1.005-1.035) Urine Protein (<30 mg/dL) mg/dL Urine Glucose (UA) (NEGATIVE) mg/dL Urine Ketones (NEGATIVE) mg/dL Urine Blood (NEGATIVE) Urine Nitrate (NEGATIVE) Urine Bilirubin (NEGATIVE) Urine Urobilinogen (<1 E.U./dL) E.U./dL Ur Leukocyte Esterase (NEGATIVE) [place]/uL Urine RBC (0-2) /hpf Urine WBC (0-6) /hpf Ur Epithelial Cells (0-5) /hpf Urine Bacteria (NEG) Hyaline Casts /hpf Coarse Granular Casts (0-2) /hpf Blood Type Antibody Screen Crossmatch BBK History Checked 07/28/17 07/28/1707/28/17 Range/Units 22:30 22:30 11:07 WBC 30.1 H* (4.5-11.0) 10^3/ul RBC 3.59 (3.5-6.1) 10^6/uL Hgb 9.7 L D (12.0-16.0) g/dL Hct 29.4 L (36.0-48.0) % MCV 81.9 (80.0-105.0) fl MCH 27.0 (25.0-35.0) pg MCHC 33.0 (31.0-37.0) g/dl RDW 22.0 H (11.5-14.5) % Plt Count 524 H (120.0-450.0) 10^3/uL MPV 10.3 (7.0-11.0) fl Gran % 92.7 H (50.0-68.0) % Lymph % (Auto) 2.8 L (22.0-35.0) % [place] % (Auto) 3.5 (1.0-6.0) % Eos % (Auto) 0.9 L (1.5-5.0) % Baso % (Auto) 0.1 (0.0-3.0) % Gran # 27.89 H (1.4-6.5) Lymph # 0.9 L (1.2-3.4) Loving # 1.0 H (0.1-0.6) Eos # 0.3 (0.0-0.7) Baso # 0.02 (0.0-2.0) K/mm3 Sodium (132-148) mmol/L Potassium (3.6-5.0) mmol/L Chloride (98-107) mmol/L Carbon Dioxide (21-33) mmol/L Anion Gap (10-20) BUN (7-21) mg/dL Creatinine (0.7-1.2) mg/dL Est GFR ( Amer) Est GFR (Non-Af Amer) POC Glucose (mg/dL) (65-110) mg/dL Random Glucose (70-110) mg/dL Calcium (8.4-10.5) mg/dL Phosphorus (2.5-4.5) mg/dL Total Bilirubin (0.2-1.3) mg/dL AST (14-36) U/L ALT (7-56) U/L Alkaline Phosphatase (38-126) U/L Total Protein (5.8-8.3) g/dL Albumin (3.0-4.8) g/dL Globulin gm/dL Albumin/Globulin Ratio (1.1-1.8) Urine Color Yellow (YELLOW) Urine Appearance Cloudy (CLEAR) Urine pH 6.0 (4.7-8.0) Ur Specific [place] 1.020 (1.005-1.035) Urine Protein Trace H (<30 mg/dL) mg/dL Urine Glucose (UA) Negative (NEGATIVE) mg/dL Urine Ketones Trace H (NEGATIVE) mg/dL Urine Blood Small H (NEGATIVE) Urine Nitrate Negative (NEGATIVE) Urine Bilirubin Negative (NEGATIVE) Urine Urobilinogen 1.0 H (<1 E.U./dL) E.U./dL Ur Leukocyte Esterase Small H (NEGATIVE) [place]/uL Urine RBC 2 - 5 (0-2) /hpf Urine WBC 5 - 10 (0-6) /hpf Ur Epithelial Cells 10 - 12 (0-5) /hpf Urine Bacteria Large (NEG) Hyaline Casts None /hpf Coarse Granular Casts Trace H (0-2) /hpf Blood Type AB POSITIVE Antibody Screen Negative Crossmatch See Detail BBK History Checked Patient has bt Laboratory Results - last 24 hr 07/28/17 07/28/17 07/28/17 11:07 22:30 22:30 WBC 30.1 H* RBC 3.59 Hgb 9.7 L D Hct 29.4 L MCV 81.9 MCH 27.0 MCHC 33.0 RDW 22.0 H Plt Count 524 H MPV 10.3 Gran % 92.7 H Lymph % (Auto) 2.8 L [place] % (Auto) 3.5 Eos % (Auto) 0.9 L Baso % (Auto) 0.1 Gran # 27.89 H Lymph # 0.9 L [place] # 1.0 H Eos # 0.3 Baso # 0.02 Sodium Potassium Chloride Carbon Dioxide Anion Gap BUN Creatinine Est GFR ( Amer) Est GFR (Non-Af Amer) POC Glucose (mg/dL) Random Glucose Calcium Phosphorus Total Bilirubin AST ALT Alkaline Phosphatase Total Protein Albumin Globulin Albumin/Globulin Ratio Urine Color Yellow Urine Appearance Cloudy Urine pH 6.0 Ur Specific [place] 1.020 Urine Protein Trace H Urine Glucose (UA) Negative Urine Ketones Trace H Urine Blood Small H Urine Nitrate Negative Urine Bilirubin Negative Urine Urobilinogen 1.0 H Ur Leukocyte Esterase Small H Urine RBC 2 - 5 Urine WBC 5 - 10 Ur Epithelial Cells 10 - 12 Urine Bacteria Large Hyaline Casts None Coarse Granular Casts Trace H Blood Type AB POSITIVE Antibody Screen Negative Crossmatch See Detail BBK History Checked Patient has bt 07/29/17 07/29/17 07/29/17 05:30 06:10 08:40 WBC 26.1 H* RBC 3.51 Hgb 9.5 L Hct 28.8 L MCV 82.1 MCH 27.1 MCHC 33.0 RDW 22.9 H Plt Count 511 H MPV 10.5 Gran % Lymph % (Auto) Loving % (Auto) Eos % (Auto) Baso % (Auto) Gran # Lymph # Loving # Eos # Baso # Sodium 133 Potassium 3.4 L Chloride 112 H Carbon Dioxide 15 L Anion Gap 9 L BUN 25 H Creatinine 1.3 H Est GFR ( Amer) 49 Est GFR (Non-Af Amer) 41 POC Glucose (mg/dL) 107 Random Glucose 82 Calcium 5.9 L* Phosphorus 3.5 Total Bilirubin 1.0 AST 39 H D ALT 55 Alkaline Phosphatase 141 H D Total Protein 3.7 L Albumin 1.5 L Globulin 2.1 Albumin/Globulin Ratio 0.7 L Urine Color Urine Appearance Urine pH Ur Specific [place] Urine Protein Urine Glucose (UA) Urine Ketones Urine Blood Urine Nitrate Urine Bilirubin Urine Urobilinogen Ur Leukocyte Esterase Urine RBC Urine WBC Ur Epithelial Cells Urine Bacteria Hyaline Casts Coarse Granular Casts Blood Type Antibody Screen Crossmatch BBK History Checked Critical Care Progress Note - Nutrition Nutrition: Nutrition Category Date Time Status Heart Healthy Diet [DIET] Diets 07/26/17 Lunch Ordered Assessment/Plan - Assessment and Plan (Free Text) Plan: Patient seen and examined with resident, agree with note, with following exception/additions: Patient is a 67 yo female with PMH of HTN, MVP, mild , anemia, and hx of syncopal episodess/p endarterectomy of the right femoral artery, fasciotomy, and right pop/tib/peron bypass was preformed. Patient wound debrided and cleaned x 2. [employer] called on patient on 07/27 with transfer back to ICU for afib with RVR, hypotension, and fever of 104F. Currently awake, alert, no major complaints. Currently afebrile HD stable, comfortable, in NSR, off Cardizem drip HH stable Wound dressing changed today by surgery Limb Ischemia s.p Fem-pop bypass, fasciotomy, wound debridement Afib with RVR Lupus Anticoagulant Anemia/GIB Leukocytosis/Sepsis Recommend: - Cont with supp o2 as needed - cont with Merrem, Dapto as per ID, - follow up C diff - rate control - Lovenox 95mg BID - monitor HH, HH stable today - follow up GI - consider Lasix 40mg IV x 1 - Digoxin - follow up cardiology - follow up vascular surgery/general surgery - follow up hematology - DVT ppx - GI ppx - transfer to telemetry STABLE
--- NOTE | 2017-07-29 13:13 | PN ---
LOCATION: Seen in the ICU, bed 6. SUBJECTIVE: The patient is a 67-year-old white female, status post rapid atrial fibrillation, status post code sepsis growing Staphylococcus aureus in her wounds, status post clotted thrombosed right leg, thrombectomy, fasciotomy, fem-fem bypass. The patient still has residual weakness in the toes of the right foot, history of GI bleed with possible AVMs, history of aortic stenosis. The patient is in the ICU. She has improved. Her C. diff was negative. PHYSICAL EXAMINATION: ABDOMEN: She has no bowel symptoms at this point. CHEST: She has had some mild wheezing but had cleared. Her chest had cleared except for decreased breath sounds at the bases. HEART: Regular sinus rhythm. Systolic ejection murmur at the left sternal border. EXTREMITIES: Without cyanosis, clubbing, or edema. Her wounds are clean and dry in the right leg. Her foot is warm. Pulses are intact. She still has most of strength in the toes of the right foot. LABORATORY DATA: Her hemoglobin at this point is at 9.5. White count has dropped from 36,000 to 26,000. Her BUN and creatinine is stable at 25 and 1.3, potassium 3.4, bicarb is 15. IMPRESSION: Status post sepsis, most likely source is the right leg from her fasciotomy and fem-fem bypass, hypercoagulable state, factor V Leiden positive, positive lupus anticoagulant, chronic GI bleed, history of recent atrial fibrillation, aortic stenosis. The patient is in improved condition today. Continue IV antibiotics and anticoagulation. If possible, colonoscopy in several days. Alexis Bush MD
--- NOTE | 2017-07-29 14:33 | PN ---
DATE: 07/29/2017 SUBJECTIVE: The patient is lying in bed. She states that she feels a little bit better. She denies any rectal bleeding, melena, abdominal pain, nausea, vomiting, fevers, or chills. Review of her blood work shows that she is heterozygous for factor V Leiden deficiency and she is also lupus anticoagulant positive. OBJECTIVE: VITAL SIGNS: Reveal temperature of 97.9, blood pressure 149/77, and heart rate 78. HEENT: Reveals sclerae to be white. Conjunctivae pale. NECK: Supple. CHEST: Reveal scattered rhonchi. HEART: Reveals an irregularly irregular rate. There is a 2/6 systolic murmur. ABDOMEN: Obese and soft. EXTREMITIES: Show her right leg to be in a surgical dressing. The patient is also noted to have anasarca with edema of all 4 of her extremities as well as her torso. LABORATORY DATA: Reveal white blood cell count down to 26.1, hemoglobin up to 9.5, BUN 25, creatinine 1.3, bicarb is 15 with AST down to 39, and ALT down to 141. Her albumin is down to 1.5 with a total protein of 3.7. Wound cultures are positive for Leclercia as well as Staph aureus and Pseudomonas. IMPRESSION AND PLAN: 1. Status post arterial occlusion of her right leg from a thrombus, requiring thrombectomy, arterial bypass, currently on Plavix and Lovenox. 2. Recurrent anemia with heme-positive stool. She does have superficial gastric ulcers and is currently being treated with proton pump inhibitor and Carafate suspension. The anemia is exacerbated by the requirement for Plavix and Lovenox. 3. [id number]-gfywon aortic stenosis, which predisposes the patient to bleeding angiodysplasia. 4. Hypercoagulable state with heterozygous factor V Leiden deficiency as well as lupus anticoagulant positivity. 5. Systemic inflammatory response syndrome with fever to 103 and elevated white blood cell count, which is trending downward. Her long-term prognosis is guarded. Recommendations are continue current treatment. If the patient continues to improve, I hope to do a colonoscopy early next week. Her last stool for occult blood was negative. Satinder Bruno MD
[2017-07-29] MEDS: Digoxin 250 mcg (0.25 mg) Tab PO SCH (15:18)
[2017-07-29] MEDS: Morphine 15 mg SR Tab PO PRN (21:43)
[2017-07-30] MEDS: Pantoprazole 40 mg EC Tab PO SCH (05:22)
--- NOTE | 2017-07-30 07:11 | CP.PCM.PN ---
Subjective - Date & Time of Evaluation Date of Evaluation: 07/30/17 Time of Evaluation: 07:00 - Subjective Subjective: Stable on 2R. No CP or SOB. Pain in leg. V/S noted. RSR. PE: Lungs: clear Cor.: S1S2, sys. murmur Abd.: soft Ext.: right foot bandaged with wound vac.. Can't move toes. Can lift leg. Neuro: alert I/O= 760/500 recorded Labs 07/29 noted. Today's labs pending. Stool + OB x several. 07/27 stool neg. ECG 07/27: AF with RVR, NSSTW changes Echo:NL LV function, mod/sev. , mild to mod AI, mild MR, trace TR. Surgical spec cultures: + GPC, GNR. 07/27 BC x2 NG at 3 days. 07/27 CXR noted. Objective - Vital Signs/Intake and Output Vital Signs (last 24 hours): Temp Pulse Resp BP Pulse Ox 98.3 F 79 20 132/67 96 07/30/17 05:35 07/30/17 05:35 07/30/17 05:35 07/30/17 05:35 07/30/17 05:35 Intake and Output: 07/30/17 07/30/17 06:59 18:59 Intake Total 520 Output Total 300 Balance 220 - Medications Medications: Current Medications Acetaminophen (Tylenol 325mg Tab) 650 mg PO Q6H PRN PRN Reason: Headache Last Admin: 07/27/17 14:07 Dose: 650 mg Albuterol/Ipratropium (Duoneb 3 Mg/0.5 Mg (3 Ml) Ud) 3 ml IH Q2H PRN PRN Reason: Shortness of Breath Last Admin: 07/29/17 22:10 Dose: 3 ml Calcium Carbonate (Caltrate) 600 mg PO BID [facility] Last Admin: 07/29/17 18:14 Dose: 600 mg Clopidogrel Bisulfate (Plavix) 75 mg PO DAILY [facility] Last Admin: 07/29/17 09:19 Dose: 75 mg Digoxin (Lanoxin) 0.25 mg PO 1400 [facility] Last Admin: 07/29/17 15:18 Dose: 0.25 mg Docusate Sodium (Colace) 100 mg PO TID [facility] Last Admin: 07/29/17 18:14 Dose: 100 mg Enoxaparin Sodium (Lovenox) 95 mg SC BID [facility] PRN Reason: Protocol Last Admin: 07/29/17 18:14 Dose: 95 mg Sodium Chloride (Sodium Chloride 0.9%) 1,000 mls @ 150 mls/hr IV .Q6H40M [facility] Last Admin: 07/29/17 06:14 Dose: 150 mls/hr Meropenem 1g/NS 100mL IVPB (Meropenem 1g/Ns 100ml Ivpb) 1 gm in 100 mls @ 100 mls/hr IVPB Q12 [facility] PRN Reason: Protocol Stop: 08/05/17 10:01 Last Admin: 07/29/17 21:37 Dose: 100 mls/hr Metoprolol Tartrate (Lopressor) 2.5 mg IV Q8H [facility] Last Admin: 07/21/17 23:42 Dose: 2.5 mg Metoprolol Tartrate (Lopressor) 25 mg PO BID [facility] Last Admin: 07/29/17 18:17 Dose: 25 mg Morphine Sulfate (Morphine Extended Release Tab) 15 mg PO Q12 PRN PRN Reason: Pain, severe (8-10) Last Admin: 07/29/17 21:43 Dose: 15 mg Ondansetron HCl (Zofran Inj) 4 mg IVP ONCE PRN PRN Reason: Nausea/Vomiting Pantoprazole Sodium (Protonix Ec Tab) 40 mg PO 0600 [facility] Last Admin: 07/30/17 05:22 Dose: 40 mg Polyethylene Glycol (Miralax) 17 gm PO BID [facility] Last Admin: 07/29/17 18:14 Dose: 17 gm Silver Sulfadiazine (Silvadene 1% 25 Gm) 0 gm TP BID [facility] Last Admin: 07/29/17 19:18 Dose: Not Given Sucralfate (Carafate Oral Susp) 1 gm PO ACHS [facility] Last Admin: 07/29/17 21:37 Dose: 1 gm - Labs Labs: 07/29/17 05:30 07/29/17 08:40 PT 12.4 Seconds (9.9-11.8) H 07/28/17 09:30 INR 1.15 (0.93-1.08) H 07/28/17 09:30 APTT 39.0 Seconds (23.7-30.8) H 07/28/17 09:30 Assessment and Plan - Assessment and Plan (Free Text) Assessment: Fever, R/O sepsis vs wound infection. Left arm cellulitis Severe anemia/s/p multiple blood transfusions/Esophageal and gastric ulcers/GIB/ Stool + OB. Most recent stool neg. OB. Acute iliofemoral thrombosis, s/p surgical thrombectomy, distal bypasses and fasciotomy Atrial fibrillation. PAF likely the cause for peripheral embolization originally. Also + hypercoag. state. Valvular heart disease: mod/sev , mild/mod AI, mild MR, trace TR HBP H/O syncope CVD DJD Former Smoker Plan: Await today's labs. Continue PO metoprolol 25 mg. BID. Continue digoxin. Lovenox as per Dr. Kohler Wound care as per Dr. Couch AB as per ID. Colonoscopy being planned by Dr. Bruno, deferred for now As per Dr. Couch, Dr. Jose F Bruno, and Dr. Bush Monitor I/O, H/H, labs, sats., stool for OB, cultures, etc. OOB as sybil. Will follow
[2017-07-30] MEDS: Albuterol-Ipratrop 3 mg / 0.5 (3 ml) UD IH PRN ×2 (07:56→13:46)
[2017-07-30 08:21] LABS: ALB/GLOB RATIO 0.8 (1.1-1.8); BILIRUBIN,TOTAL 1.2 mg/dL (0.2-1.3); CALCIUM 7.7 mg/dL (8.4-10.5); MAGNESIUM 2.1 mg/dL (1.7-2.2); PHOSPHOROUS 3.8 mg/dL (2.5-4.5); POTASSIUM 4.4 mmol/L (3.6-5.0); TOTAL PROTEIN 4.4 g/dL (5.8-8.3)
--- NOTE | 2017-07-30 08:22 | CP.PCM.PN ---
Subjective - Date & Time of Evaluation Date of Evaluation: 07/30/17 Time of Evaluation: 07:00 - Subjective Subjective: Surgery Note Patient seen and examined at bedside. Reports minimal wheezing overnight, otherwise no acute events reported. R leg pain is well controlled on oral medications. Reports swelling is still present. Continues to work with PT/OT and reports tolerating ambulation well. Dressings were changed at bedside and patient tolerated it well. Denies any F/C/NS, N/V/D. Objective - Vital Signs/Intake and Output Vital Signs (last 24 hours): Temp Pulse Resp BP Pulse Ox 98.3 F 79 20 132/67 96 07/30/17 05:35 07/30/17 05:35 07/30/17 05:35 07/30/17 05:35 07/30/17 05:35 Intake and Output: 07/30/17 07/30/17 06:59 18:59 Intake Total 520 Output Total 300 Balance 220 - Medications Medications: Current Medications Acetaminophen (Tylenol 325mg Tab) 650 mg PO Q6H PRN PRN Reason: Headache Last Admin: 07/27/17 14:07 Dose: 650 mg Albuterol/Ipratropium (Duoneb 3 Mg/0.5 Mg (3 Ml) Ud) 3 ml IH Q2H PRN PRN Reason: Shortness of Breath Last Admin: 07/30/17 07:56 Dose: 3 ml Calcium Carbonate (Caltrate) 600 mg PO BID [facility] Last Admin: 07/29/17 18:14 Dose: 600 mg Clopidogrel Bisulfate (Plavix) 75 mg PO DAILY [facility] Last Admin: 07/29/17 09:19 Dose: 75 mg Digoxin (Lanoxin) 0.25 mg PO 1400 [facility] Last Admin: 07/29/17 15:18 Dose: 0.25 mg Docusate Sodium (Colace) 100 mg PO TID [facility] Last Admin: 07/29/17 18:14 Dose: 100 mg Enoxaparin Sodium (Lovenox) 95 mg SC BID [facility] PRN Reason: Protocol Last Admin: 07/29/17 18:14 Dose: 95 mg Sodium Chloride (Sodium Chloride 0.9%) 1,000 mls @ 150 mls/hr IV .Q6H40M [facility] Last Admin: 07/29/17 06:14 Dose: 150 mls/hr Meropenem 1g/NS 100mL IVPB (Meropenem 1g/Ns 100ml Ivpb) 1 gm in 100 mls @ 100 mls/hr IVPB Q12 [facility] PRN Reason: Protocol Stop: 08/05/17 10:01 Last Admin: 07/29/17 21:37 Dose: 100 mls/hr Metoprolol Tartrate (Lopressor) 25 mg PO BID [facility] Last Admin: 07/29/17 18:17 Dose: 25 mg Morphine Sulfate (Morphine Extended Release Tab) 15 mg PO Q12 PRN PRN Reason: Pain, severe (8-10) Last Admin: 07/29/17 21:43 Dose: 15 mg Ondansetron HCl (Zofran Inj) 4 mg IVP ONCE PRN PRN Reason: Nausea/Vomiting Pantoprazole Sodium (Protonix Ec Tab) 40 mg PO 0600 [facility] Last Admin: 07/30/17 05:22 Dose: 40 mg Polyethylene Glycol (Miralax) 17 gm PO BID [facility] Last Admin: 07/29/17 18:14 Dose: 17 gm Silver Sulfadiazine (Silvadene 1% 25 Gm) 0 gm TP BID [facility] Last Admin: 07/29/17 19:18 Dose: Not Given Sucralfate (Carafate Oral Susp) 1 gm PO ACHS [facility] Last Admin: 07/29/17 21:37 Dose: 1 gm - Labs Labs: 07/29/17 05:30 07/29/17 08:40 PT 12.4 Seconds (9.9-11.8) H 07/28/17 09:30 INR 1.15 (0.93-1.08) H 07/28/17 09:30 APTT 39.0 Seconds (23.7-30.8) H 07/28/17 09:30 - Constitutional Appears: Non-toxic, No Acute Distress - Head Exam Head Exam: ATRAUMATIC, NORMOCEPHALIC - Eye Exam Eye Exam: absent: Conjunctival injection - Respiratory Exam Respiratory Exam: Wheezes. absent: Accessory Muscle Use, Respiratory Distress - Cardiovascular Exam Cardiovascular Exam: REGULAR RHYTHM - GI/Abdominal Exam GI & Abdominal Exam: Soft. absent: Guarding, Tenderness, Rebound - Extremities Exam Additional comments: Healed wound on L antecubital region. Right LE wound with wound vac in place and mild-mod tenderness of region to palpation. Non-tender eschar on heel. Skin tear noted on dorsum of foot. Pedal edema present. DP and TP pulses detected with Doppler. - Neurological Exam Neurological Exam: Alert, Awake, Oriented x3 - Skin Skin Exam: Intact, Normal Color, Warm Assessment and Plan - Assessment and Plan (Free Text) Assessment: 67F s/p Right leg Femoral/Popliteal embolectomy. Right leg Popliteal/Tibial/ Peroneal bypass, Right leg fasciotomy on POD#13, s/p wound exploration with irrigation on POD#11, s/p 2nd wound exploration, irrigation with wound vac application on POD#3, s/p wound vac change POD#1. Plan: - tentative wound vac change on wednesday 08/01 - IV ABX per ID - medical management per primary - vascular checks Discuss with Dr. Couch
[2017-07-30] MEDS: Sucralfate 1 gm/10 ml Oral Susp UD PO SCH ×4 (08:51→21:02)
[2017-07-30 09:38] LABS: MEAN CELL VOLUME 80.5 fl (80.0-105.0); MEAN CORPUSCULAR HEMOGLOBIN 26.7 pg (25.0-35.0); MEAN CORPUSCULAR HGB CONC 33.2 g/dl (31.0-37.0); MEAN PLATELET VOLUME 9.8 fl (7.0-11.0); RED CELL DISTRIBUTION WIDTH 21.6 % (11.5-14.5); WHITE BLOOD COUNT 13.4 10^3/ul (4.5-11.0)
[2017-07-30] MEDS: Meropenem 1g/NS 100mL IVPB 1 GM/100 ML PIGGYBACK IVPB SCH ×2 (11:03→21:01)
[2017-07-30] MEDS: Silver Sulfadiazine 1% Cream (25 gm) TP SCH ×2 (11:06→17:26)
[2017-07-30] MEDS: Enoxaparin 80 mg Syringe SC SCH ×2 (11:20→21:01)
--- NOTE | 2017-07-30 12:03 | PN ---
SUBJECTIVE: A 67-year-old white female, transferred from ICU to the floor. PHYSICAL EXAMINATION: GENERAL: The patient is well. She is awake, alert and oriented x3. She is stable. VITAL SIGNS: Stable. She is afebrile, blood pressure 132/67, heart rate is 79. The patient is maintaining her hemoglobin at 9.5; white count is down to 26,100, but we are waiting for today's results. The patient has no further bleeding, has no diarrhea; has some itching and some wheezing, minimal. She is continuing her IV antibiotics. She is afebrile. CHEST: Clear to auscultation and percussion. HEART: Regular sinus rhythm. She is no longer in atrial fibrillation. Her wound dressings were clean today. She still has her wound VAC in place. She is draining minimally. She is doing physical therapy and occupational therapy. She will be out of bed to chair today. PLAN: I did lower her dose of Lovenox, she is on Plavix, because of her continued GI bleeding, possible AVM, she is for possible colonoscopy and search for AVMs on Tuesday or Tuesday with Dr. Bruno. The patient is status post lysis and thrombectomy of the right lower leg, bypass and fasciotomy. Wounds are clean and dry. The patient is doing well. BUN and creatinine are 31 and 1.4, we will keep an eye on this. The patient is encouraged to eat because of the low protein in the blood. We will also add some extra boost with protein. Alexis Bush MD
[2017-07-30] MEDS: Digoxin 250 mcg (0.25 mg) Tab PO SCH (14:24)
--- NOTE | 2017-07-30 16:47 | PN ---
DATE: 07/30/2017 SUBJECTIVE: The patient is in bed in no acute distress, nontoxic. OBJECTIVE: VITAL SIGNS: On exam, the patient's temperature is 98, blood pressure is 132/60, respiratory rate of 18. HEENT: Unremarkable. NECK: Supple. LUNGS: Have decreased breath sounds. HEART: Normal S1, S2. ABDOMEN: Soft, nontender. LABORATORY EXAMINATION: Reveals a white count of 26,000, hemoglobin of 9, platelets of 511. Chemistry reveals a BUN of 31, creatinine of 1.4 and . Blood cultures are negative. ASSESSMENT AND PLAN: A 67-year-old female, who is allergic to Levaquin, who was admitted initially with acute right lower extremity ischemia status post vascular intervention, status post thrombus and thrombectomy and leg wound debridement and history of mitral valve prolapse, hyperlipidemia, urinary tract infection, peripheral vascular disease, moderate to severe aortic stenosis, hypercoagulable state, atrial fibrillation, acute iliofemoral thrombus, status post surgical thrombectomy and distal bypass and fasciotomy, history of hypertension, long-time smoker, developed severe sepsis with fever and tachycardia and does have a PICC line in her right arm, although the cultures are negative. She did have a left arm cellulitis and IV site was present, now improving, most likely a healthcare-associated pneumonia and elevated procalcitonin. Currently, on meropenem with day #4 of meropenem. The patient is doing well. Leukocytosis is improving. Renal function is improving. We will continue the meropenem for now. The patient did have a negative blood cultures from 07/27/2017. The leg cultures are positive for Leclercia adecarboxylata and Staphylococcus aureus and another leg cultures also positive and heavy growth, I have been told by Dr. Elma Couch that the leg is clean. We will continue the present treatment. The third leg culture is Pseudomonas in addition to the Staphylococcus aureus and Leclercia. The Pseudomonas is sensitive to meropenem and Staphylococcus aureus is also sensitive. Overall, the patient is improving. Jasbir Hargrove MD
[2017-07-30] MEDS: Morphine 15 mg SR Tab PO PRN (21:12)
[2017-07-31] MEDS: Pantoprazole 40 mg EC Tab PO SCH (05:08)
[2017-07-31 06:56] LABS: BASO # 0.06 K/mm3 (0.0-2.0); BASO % 0.5 % (0.0-3.0); EOS # 0.7 (0.0-0.7); EOS % 5.8 % (1.5-5.0); GRAN # 7.92 (1.4-6.5); GRAN % 64.2 % (50.0-68.0); HEMATOCRIT 28.3 % (36.0-48.0); LYMPH # 2.4 (1.2-3.4); LYMPH % 19.4 % (22.0-35.0); MEAN CELL VOLUME 80.2 fl (80.0-105.0); MEAN CORPUSCULAR HEMOGLOBIN 26.1 pg (25.0-35.0); MEAN CORPUSCULAR HGB CONC 32.5 g/dl (31.0-37.0); MEAN PLATELET VOLUME 10.1 fl (7.0-11.0); MONO # 1.2 (0.1-0.6); MONO % 10.1 % (1.0-6.0); RED CELL DISTRIBUTION WIDTH 21.9 % (11.5-14.5); WHITE BLOOD COUNT 12.3 10^3/ul (4.5-11.0)
[2017-07-31 07:12] LABS: ALB/GLOB RATIO 0.7 (1.1-1.8); BILIRUBIN,TOTAL 1.2 mg/dL (0.2-1.3); CALCIUM 7.6 mg/dL (8.4-10.5); POTASSIUM 3.9 mmol/L (3.6-5.0); TOTAL PROTEIN 4.4 g/dL (5.8-8.3)
[2017-07-31] MEDS: Albuterol-Ipratrop 3 mg / 0.5 (3 ml) UD IH PRN ×3 (07:48→22:57)
--- NOTE | 2017-07-31 07:59 | CP.PCM.PN ---
Subjective - Date & Time of Evaluation Date of Evaluation: 07/31/17 Time of Evaluation: 07:00 - Subjective Subjective: Stable on 2R. No CP or SOB. Was OOB to chair. V/S noted. RSR> AF with mod. VR this AM. PE: Lungs: clear Cor.: S1S2, sys. murmur Abd.: soft Ext.: right foot bandaged with wound vac.. Can't move toes. Can lift leg. Neuro: alert I/O= 400/1300 recorded Labs noted. WBC = 12,300, H/H = 9.2/28.3 Stool + OB x several. 07/27 stool neg. ECG 07/27: AF with RVR, NSSTW changes Echo:NL LV function, mod/sev. , mild to mod AI, mild MR, trace TR. Surgical spec cultures: + multiple orgs 07/27 BC x2 NG at 4 days. 07/27 CXR noted. Objective - Vital Signs/Intake and Output Vital Signs (last 24 hours): Temp Pulse Resp BP Pulse Ox 97.8 F 91 H 20 117/60 97 07/31/17 06:00 07/31/17 06:00 07/31/17 06:00 07/31/17 06:00 07/31/17 06:00 Intake and Output: 07/31/17 07/31/17 06:59 18:59 Intake Total 400 Output Total 1300 Balance -900 - Medications Medications: Current Medications Acetaminophen (Tylenol 325mg Tab) 650 mg PO Q6H PRN PRN Reason: Headache Last Admin: 07/27/17 14:07 Dose: 650 mg Albuterol/Ipratropium (Duoneb 3 Mg/0.5 Mg (3 Ml) Ud) 3 ml IH Q2H PRN PRN Reason: Shortness of Breath Last Admin: 07/31/17 07:48 Dose: 3 ml Calcium Carbonate (Caltrate) 600 mg PO BID [facility] Last Admin: 07/30/17 17:26 Dose: 600 mg Clopidogrel Bisulfate (Plavix) 75 mg PO DAILY [facility] Last Admin: 07/30/17 11:02 Dose: 75 mg Digoxin (Lanoxin) 0.25 mg PO 1400 [facility] Last Admin: 07/30/17 14:24 Dose: 0.25 mg Docusate Sodium (Colace) 100 mg PO TID [facility] Last Admin: 07/30/17 17:25 Dose: 100 mg Enoxaparin Sodium (Lovenox) 80 mg SC Q12H [facility] PRN Reason: Protocol Last Admin: 07/30/17 21:01 Dose: 80 mg Sodium Chloride (Sodium Chloride 0.9%) 1,000 mls @ 150 mls/hr IV .Q6H40M [facility] Last Admin: 07/29/17 06:14 Dose: 150 mls/hr Meropenem 1g/NS 100mL IVPB (Meropenem 1g/Ns 100ml Ivpb) 1 gm in 100 mls @ 100 mls/hr IVPB Q12 [facility] PRN Reason: Protocol Stop: 08/05/17 10:01 Last Admin: 07/30/17 21:01 Dose: 100 mls/hr Metoprolol Tartrate (Lopressor) 25 mg PO BID [facility] Last Admin: 07/30/17 17:26 Dose: 25 mg Morphine Sulfate (Morphine Extended Release Tab) 15 mg PO Q12 PRN PRN Reason: Pain, severe (8-10) Last Admin: 07/30/17 21:12 Dose: 15 mg Ondansetron HCl (Zofran Inj) 4 mg IVP ONCE PRN PRN Reason: Nausea/Vomiting Pantoprazole Sodium (Protonix Ec Tab) 40 mg PO 0600 [facility] Last Admin: 07/31/17 05:08 Dose: 40 mg Silver Sulfadiazine (Silvadene 1% 25 Gm) 0 gm TP BID [facility] Last Admin: 07/30/17 17:26 Dose: 25 gm Sucralfate (Carafate Oral Susp) 1 gm PO ACHS [facility] Last Admin: 07/30/17 21:02 Dose: 1 gm - Labs Labs: 07/31/17 06:30 07/31/17 06:30 PT 12.4 Seconds (9.9-11.8) H 07/28/17 09:30 INR 1.15 (0.93-1.08) H 07/28/17 09:30 APTT 39.0 Seconds (23.7-30.8) H 07/28/17 09:30 Assessment and Plan - Assessment and Plan (Free Text) Assessment: Fever, R/O sepsis vs wound infection. Left arm cellulitis Severe anemia/s/p multiple blood transfusions/Esophageal and gastric ulcers/GIB/ Stool + OB. Most recent stool neg. OB. Acute iliofemoral thrombosis, s/p surgical thrombectomy, distal bypasses and fasciotomy Atrial fibrillation. PAF likely the cause for peripheral embolization originally. Also + hypercoag. state. Valvular heart disease: mod/sev , mild/mod AI, mild MR, trace TR HBP H/O syncope CVD DJD Former Smoker Plan: Continue PO metoprolol 25 mg. BID. Continue digoxin. Lovenox as per Dr. Kohler Wound care as per Dr. Couch AB as per ID. Colonoscopy being planned by Dr. Bruno. As per Dr. Couch, Dr. Jose F Bruno, and Dr. Bush Monitor I/O, H/H, labs, sats., stool for OB, cultures, etc. OOB as sybil. Will follow
--- NOTE | 2017-07-31 08:24 | CP.PCM.PN ---
Subjective - Date & Time of Evaluation Date of Evaluation: 07/31/17 Time of Evaluation: 07:00 - Subjective Subjective: Vascular Surgery- Dr. Couch Pt Seen and and examine at bedside this AM. No acute events overnight. c/o numbness of Right medial hallux. in left antecubital fossa, mass is present. No fluctuance or induration. Pt stated Pt using IC frequently. Tolerating current diet. Wound vac in place w/ no leaks. Denies F/C CP/SOB N/V/D Objective - Vital Signs/Intake and Output Vital Signs (last 24 hours): Temp Pulse Resp BP Pulse Ox 97.8 F 91 H 20 117/60 97 07/31/17 06:00 07/31/17 06:00 07/31/17 06:00 07/31/17 06:00 07/31/17 06:00 Intake and Output: 07/31/17 07/31/17 06:59 18:59 Intake Total 400 Output Total 1300 Balance -900 - Medications Medications: Current Medications Acetaminophen (Tylenol 325mg Tab) 650 mg PO Q6H PRN PRN Reason: Headache Last Admin: 07/27/17 14:07 Dose: 650 mg Acetylcysteine (Acetylcysteine 20%) 4 ml IH BIDRESP [facility] Albuterol/Ipratropium (Duoneb 3 Mg/0.5 Mg (3 Ml) Ud) 3 ml IH Q2H PRN PRN Reason: Shortness of Breath Last Admin: 07/31/17 07:48 Dose: 3 ml Calcium Carbonate (Caltrate) 600 mg PO BID [facility] Last Admin: 07/30/17 17:26 Dose: 600 mg Clopidogrel Bisulfate (Plavix) 75 mg PO DAILY [facility] Last Admin: 07/30/17 11:02 Dose: 75 mg Digoxin (Lanoxin) 0.25 mg PO 1400 [facility] Last Admin: 07/30/17 14:24 Dose: 0.25 mg Docusate Sodium (Colace) 100 mg PO TID [facility] Last Admin: 07/30/17 17:25 Dose: 100 mg Enoxaparin Sodium (Lovenox) 80 mg SC Q12H [facility] PRN Reason: Protocol Last Admin: 07/30/17 21:01 Dose: 80 mg Sodium Chloride (Sodium Chloride 0.9%) 1,000 mls @ 150 mls/hr IV .Q6H40M [facility] Last Admin: 07/29/17 06:14 Dose: 150 mls/hr Meropenem 1g/NS 100mL IVPB (Meropenem 1g/Ns 100ml Iv[facility]) 1 gm in 100 mls @ 100 mls/hr IVPB Q12 [facility] PRN Reason: Protocol Stop: 08/05/17 10:01 Last Admin: 07/30/17 21:01 Dose: 100 mls/hr Metoprolol Tartrate (Lopressor) 25 mg PO BID [facility] Last Admin: 07/30/17 17:26 Dose: 25 mg Morphine Sulfate (Morphine Extended Release Tab) 15 mg PO Q12 PRN PRN Reason: Pain, severe (8-10) Last Admin: 07/30/17 21:12 Dose: 15 mg Ondansetron HCl (Zofran Inj) 4 mg IVP ONCE PRN PRN Reason: Nausea/Vomiting Pantoprazole Sodium (Protonix Ec Tab) 40 mg PO 0600 [facility] Last Admin: 07/31/17 05:08 Dose: 40 mg Silver Sulfadiazine (Silvadene 1% 25 Gm) 0 gm TP BID [facility] Last Admin: 07/30/17 17:26 Dose: 25 gm Sucralfate (Carafate Oral Susp) 1 gm PO ACHS [facility] Last Admin: 07/30/17 21:02 Dose: 1 gm - Labs Labs: 07/31/17 06:30 07/31/17 06:30 PT 12.4 Seconds (9.9-11.8) H 07/28/17 09:30 INR 1.15 (0.93-1.08) H 07/28/17 09:30 APTT 39.0 Seconds (23.7-30.8) H 07/28/17 09:30 - Constitutional Appears: Non-toxic, No Acute Distress - ENT Exam ENT Exam: Mucous Membranes Moist Assessment and Plan - Assessment and Plan (Free Text) Assessment: 67F s/p Right leg Femoral/Popliteal embolectomy. Right leg Popliteal/Tibial/ Peroneal bypass, Right leg fasciotomy on POD#14, s/p wound exploration with irrigation on POD#12, s/p 2nd wound exploration, irrigation with wound vac application on POD#4, s/p wound vac change POD#2. Plan: - wound vac change on wednesday 08/01 - IV ABX per ID - medical management per primary - vascular checks - warm compress on left antecubital fossa - mucomyst for congestion - further recs per Dr. Khoa Fernandez PGY1
[2017-07-31] MEDS: Sucralfate 1 gm/10 ml Oral Susp UD PO SCH ×4 (08:39→21:34)
[2017-07-31] MEDS: Acetylcysteine 20% Inhal Soln (4ml) IH SCH ×2 (09:44→22:57)
--- NOTE | 2017-07-31 10:37 | PN ---
DATE: 07/31/2017 SUBJECTIVE: The patient is in bed in no acute distress, nontoxic. No fevers. PHYSICAL EXAMINATION: VITAL SIGNS: On exam, temperature is 98.0, blood pressure is 117/60, respiratory rate of 16. HEENT: Unremarkable. NECK: Supple. LUNGS: Decreased breath sounds. HEART: Normal S1 and S2. ABDOMEN: Soft and nontender. LABORATORY EXAMINATION: Reveals the white count is down to 12,300, hemoglobin of 9, platelets of 472. Chemistries were noted. BUN of 27, creatinine of 1.3, alk phos is 224, and urinalysis is noted. Microbiology reveals the patient has Leclercia adecarboxylata from the leg culture in addition to the Staph aureus, another culture. The patient also has Pseudomonas, Staph aureus pansensitive, so is the Gram-negative Leclercia. Review of orders reveals the patient to be on meropenem, which is active. ASSESSMENT/PLAN: This is a 67-year-old who is allergic to LEVAQUIN, was initially admitted with acute right lower extremity ischemia, status post vascular intervention, status post thrombus and thrombectomy and the right leg wound debridement and the patient with a history of mitral valve prolapse, hyperlipidemia, urinary tract infections, peripheral vascular disease, uhzawvri-yw-icnrtp aortic stenosis, hypercoagulable state, atrial fibrillation, acute iliofemoral thrombus, status post surgical thrombectomy and a distal bypass and fasciotomy and hypertension, long-time smoker, developed severe sepsis on postprocedure day #1, with fever and tachycardia with a left arm cellulitis where the intravenous site was. The patient had a right arm peripherally inserted central catheter line cultures negative, most likely with healthcare-associated pneumonia with an elevated procalcitonin on day #5 of meropenem with leukocytosis, improving. We will continue the meropenem, follow the leukocytosis, and local wound care from the leg. Overall, the patient is much improved. Dr. Bush's progress note from yesterday is noted in face of gastrointestinal bleed and possible arteriovenous malformation. We will follow with you. Jasbir Hargrove MD
[2017-07-31] MEDS: Meropenem 1g/NS 100mL IVPB 1 GM/100 ML PIGGYBACK IVPB SCH ×2 (10:50→21:27)
[2017-07-31] MEDS: Enoxaparin 80 mg Syringe SC SCH ×2 (10:50→21:27)
[2017-07-31] MEDS: Silver Sulfadiazine 1% Cream (25 gm) TP SCH ×2 (10:59→18:12)
--- NOTE | 2017-07-31 11:43 | PN ---
DATE: SUBJECTIVE: A 67-year-old white female doing stable today at 117/60, pulse 91, afebrile. White count has dropped only from 36,000 down to 12,300, hemoglobin is stable at 9.2, platelet count is stable at 472. Potassium is 3.9, BUN and creatinine have dropped to 27 and 1.3. The patient is awake, alert, and oriented x3. Neurological examination is grossly intact. The patient still has sensation in the toes of the right foot, but no movement. Her wound vac is in place with minimal drainage. Her wound is clean and dry. She does have some residual swelling in the left upper extremity with intubated area in the left antecubital space. Her chest is clear to auscultation. Heart examination is regular sinus rhythm. Abdomen is soft. The patient is status post thrombectomy, fasciotomy, fem-fem bypass in the right leg, status post rapid atrial fibrillation, status post code sepsis with temperature of 104 and white count of 230,000. Microbiology shows Clostridium difficile negative. Staphylococcus aureus in the wounds. No growth in the urine or in the blood. The patient is continued on IV antibiotics. The patient is stable. Continue IV antibiotics, physical therapy, and local wound care. Alexis Bush MD
[2017-07-31] MEDS: Digoxin 250 mcg (0.25 mg) Tab PO SCH (14:03)
[2017-08-01] MEDS: Pantoprazole 40 mg EC Tab PO SCH (05:10)
[2017-08-01] MEDS: Albuterol-Ipratrop 3 mg / 0.5 (3 ml) UD IH PRN ×2 (07:56→21:00)
[2017-08-01] MEDS: Acetylcysteine 20% Inhal Soln (4ml) IH SCH ×2 (07:56→21:00)
[2017-08-01] MEDS: Sucralfate 1 gm/10 ml Oral Susp UD PO SCH ×4 (08:08→23:01)
[2017-08-01] MEDS: Enoxaparin 80 mg Syringe SC SCH ×2 (09:14→23:01)
[2017-08-01] MEDS: Meropenem 1g/NS 100mL IVPB 1 GM/100 ML PIGGYBACK IVPB SCH ×2 (09:15→23:02)
--- NOTE | 2017-08-01 09:16 | CP.PCM.PN ---
Subjective - Date & Time of Evaluation Date of Evaluation: 08/01/17 Time of Evaluation: 07:00 - Subjective Subjective: Stable on 2R. No CP or SOB. Was OOB to chair. V/S noted. RSR. In and out of AF with mod. VR. PE: Lungs: clear Cor.: S1S2, sys. murmur Abd.: soft Ext.: right foot bandaged with wound vac.. Can't move toes. Can lift leg. Neuro: alert I/O= 540/3600 recorded Labs 07/31 noted. WBC = 12,300, H/H = 9.2/28.3 Stool + OB x several. 07/27 stool neg. ECG 07/27: AF with RVR, NSSTW changes Echo:NL LV function, mod/sev. , mild to mod AI, mild MR, trace TR. Surgical spec cultures: + multiple orgs 07/27 BC x2 NG at 4 days. 07/27 CXR noted. Objective - Vital Signs/Intake and Output Vital Signs (last 24 hours): Temp Pulse Resp BP Pulse Ox 98.3 F 81 20 153/74 H 98 08/01/17 06:00 08/01/17 06:00 08/01/17 06:00 08/01/17 06:00 08/01/17 06:00 Intake and Output: 08/01/17 08/01/17 06:59 18:59 Intake Total 200 Output Total 2400 Balance -2200 - Medications Medications: Current Medications Acetaminophen (Tylenol 325mg Tab) 650 mg PO Q6H PRN PRN Reason: Headache Last Admin: 07/27/17 14:07 Dose: 650 mg Acetylcysteine (Acetylcysteine 20%) 4 ml IH BIDRESP [facility] Last Admin: 08/01/17 07:56 Dose: 4 ml Albuterol/Ipratropium (Duoneb 3 Mg/0.5 Mg (3 Ml) Ud) 3 ml IH Q2H PRN PRN Reason: Shortness of Breath Last Admin: 08/01/17 07:56 Dose: 3 ml Clopidogrel Bisulfate (Plavix) 75 mg PO DAILY [facility] Last Admin: 07/31/17 10:51 Dose: 75 mg Digoxin (Lanoxin) 0.25 mg PO 1400 [facility] Last Admin: 07/31/17 14:03 Dose: 0.25 mg Docusate Sodium (Colace) 100 mg PO TID [facility] Last Admin: 07/31/17 18:12 Dose: 100 mg Enoxaparin Sodium (Lovenox) 80 mg SC Q12H [facility] PRN Reason: Protocol Last Admin: 07/31/17 21:27 Dose: 80 mg Sodium Chloride (Sodium Chloride 0.9%) 1,000 mls @ 150 mls/hr IV .Q6H40M [facility] Last Admin: 07/29/17 06:14 Dose: 150 mls/hr Meropenem 1g/NS 100mL IVPB (Meropenem 1g/Ns 100ml Ivpb) 1 gm in 100 mls @ 100 mls/hr IVPB Q12 [facility] PRN Reason: Protocol Stop: 08/05/17 10:01 Last Admin: 07/31/17 21:27 Dose: 100 mls/hr Metoprolol Tartrate (Lopressor) 25 mg PO BID [facility] Last Admin: 07/31/17 18:12 Dose: 25 mg Morphine Sulfate (Morphine Extended Release Tab) 15 mg PO Q12 PRN PRN Reason: Pain, severe (8-10) Last Admin: 07/30/17 21:12 Dose: 15 mg Ondansetron HCl (Zofran Inj) 4 mg IVP ONCE PRN PRN Reason: Nausea/Vomiting Pantoprazole Sodium (Protonix Ec Tab) 40 mg PO 0600 [facility] Last Admin: 08/01/17 05:10 Dose: 40 mg Silver Sulfadiazine (Silvadene 1% 25 Gm) 0 gm TP BID [facility] Last Admin: 07/31/17 18:12 Dose: 25 gm Sucralfate (Carafate Oral Susp) 1 gm PO ACHS [facility] Last Admin: 08/01/17 08:08 Dose: 1 gm - Labs Labs: 07/31/17 06:30 07/31/17 06:30 PT 12.4 Seconds (9.9-11.8) H 07/28/17 09:30 INR 1.15 (0.93-1.08) H 07/28/17 09:30 APTT 39.0 Seconds (23.7-30.8) H 07/28/17 09:30 Assessment and Plan - Assessment and Plan (Free Text) Assessment: Fever, R/O sepsis vs wound infection. Left arm cellulitis Severe anemia/s/p multiple blood transfusions/Esophageal and gastric ulcers/GIB/ Stool + OB. Most recent stool neg. OB. Acute iliofemoral thrombosis, s/p surgical thrombectomy, distal bypasses and fasciotomy Atrial fibrillation. PAF likely the cause for peripheral embolization originally. Also + hypercoag. state. Valvular heart disease: mod/sev , mild/mod AI, mild MR, trace TR HBP H/O syncope CVD DJD Former Smoker Plan: Continue PO metoprolol: increase to 25 mg. TID. Continue digoxin. Lovenox as per Dr. Kohler Wound care as per Dr. Couch AB as per ID. Colonoscopy being planned by Dr. Bruno. As per Dr. Couch, Dr. Jose F Bruno, and Dr. Bush Monitor I/O, H/H, labs, sats., stool for OB, cultures, etc. OOB as sybil. Will follow
--- NOTE | 2017-08-01 10:03 | PN ---
DATE: 07/29/2017 SUBJECTIVE: She is comfortable today. She was transferred to ICU for sepsis and hypotension, blood pressure is better control, she is on IV antibiotics. She also has GI bleeding. Currently, none. Hemoglobin is stable today at 9.5 g/dL. She has leukocytosis with white count of declining to 26,000, previously it was 36,000. Temperature curve trending down. She is in hypercoagulable state with factor V Leiden, MTHFR gene mutation and lupus anticoagulant positive. She is currently on therapeutic dosage of Lovenox. She also has swelling of the left arm. Complaining of shortness of breath. REVIEW OF SYSTEMS: As per HPI. Rest of 12-point review of systems reviewed and negative. PHYSICAL EXAMINATION: GENERAL: Comfortable in bed, mild distress due to tachypnea. VITAL SIGNS: Blood pressure 110/70, heart rate is 95 per minute, temperature is 98.7, respiratory rate 20 per minute. HEENT: Pallor positive. NECK: No lymphadenopathy. CHEST: Air entry present, equal and bilateral. Rhonchi present. LUNGS: Occasional crepitation at bases. CARDIOVASCULAR: S1, S2 normal. Tachycardia present. ABDOMEN: Soft, nontender, obese. EXTREMITIES: Right extremities in dressing; no petechiae, no rash, left arm; superficial edema present, nontender. MEDICATIONS: Tylenol 650 q. 6 hours p.r.n., DuoNeb p.r.n., Plavix 75 mg daily, digoxin 0.25 mg daily, Colace 100 mg t.i.d., Lovenox 95 mg b.i.d., meropenem, Lopressor 2.5 mg p.o. b.i.d., morphine sulfate p.r.n., MiraLax 12 g p.o. b.i.d., silver sulfadiazine local application, Carafate 1 g p.o. at bedtime. LABORATORY DATA: White count 26,000, hemoglobin 9.5, hematocrit 28 and platelet count 511. Sodium 123, potassium 3.4, calcium 5.9. ASSESSMENT AND PLAN: Hypercoagulable state, arterial thrombosis, status post thrombectomy, status post fasciotomy. Continue therapeutic Lovenox [address] Couch following, Vascular surgery. She will need physical therapy. Sepsis, resolving. Currently on IV antibiotics as per Dr. Hargrove. Doppler of upper extremity did not show any evidence of deep venous thrombosis in the left arm. Hemoglobin and hematocrit stable now. We will closely monitor. No recent gastrointestinal bleed. Dr. Bruno following. She will need colonoscopy prior to discharge. Discussed with daughter. Discussed with ICU resident. Raina Kohler MD MTDD
[2017-08-01] MEDS: Silver Sulfadiazine 1% Cream (25 gm) TP SCH ×2 (10:05→18:51)
--- NOTE | 2017-08-01 10:50 | PN ---
DATE: SUBJECTIVE: A 67-year-old female, afebrile. PHYSICAL EXAMINATION GENERAL: Afebrile. VITAL SIGNS: Stable, blood pressure 152/88, heart rate 92. LABORATORY DATA: Last H and H was 9.2 and 28.3. White count 12.3. ASSESSMENT AND PLAN: The patient is scheduled for colonoscopy tomorrow with Dr. Bruno. The patient has no further bleeding, has no further fever or chills. Her cultures so far has gently improved staph from her wound. Blood cultures negative. The patient is afebrile. Vital signs are stable. The Clostridium difficile was negative. She is stable at this point. Her wounds, she still has a wound VAC on the right leg. Bandages have been changed by surgery. The patient has been out of bed to chair, doing physical therapy. We are planning colonoscopy and possible rehab in the near future. Case will be discussed with Dr. Couch. Alexis Bush MD
--- NOTE | 2017-08-01 12:25 | CP.PCM.PN ---
Subjective - Date & Time of Evaluation Date of Evaluation: 08/01/17 Time of Evaluation: 12:20 - Subjective Subjective: Surgery Note for Dr. Couch Patient seen and examined at bedside. Patient resting comfortably in bed with no new complaints at this time. R leg pain is well controlled on oral medications and patient still reporting some swelling. Continues to work with PT /OT and reports tolerating ambulation well. Patient is using incentive spirometer and tolerating her diet well. Denies any F/C/NS, N/V/D. Objective - Vital Signs/Intake and Output Vital Signs (last 24 hours): Temp Pulse Resp BP Pulse Ox 97.5 F L 87 20 151/79 H 98 08/01/17 12:00 08/01/17 12:00 08/01/17 12:00 08/01/17 12:00 08/01/17 06:00 Intake and Output: 08/01/17 08/01/17 06:59 18:59 Intake Total 200 Output Total 2400 Balance -2200 - Medications Medications: Current Medications Acetaminophen (Tylenol 325mg Tab) 650 mg PO Q6H PRN PRN Reason: Headache Last Admin: 07/27/17 14:07 Dose: 650 mg Acetylcysteine (Acetylcysteine 20%) 4 ml IH BIDRESP [facility] Last Admin: 08/01/17 07:56 Dose: 4 ml Albuterol/Ipratropium (Duoneb 3 Mg/0.5 Mg (3 Ml) Ud) 3 ml IH Q2H PRN PRN Reason: Shortness of Breath Last Admin: 08/01/17 07:56 Dose: 3 ml Clopidogrel Bisulfate (Plavix) 75 mg PO DAILY [facility] Last Admin: 08/01/17 09:14 Dose: 75 mg Digoxin (Lanoxin) 0.25 mg PO 1400 [facility] Last Admin: 07/31/17 14:03 Dose: 0.25 mg Docusate Sodium (Colace) 100 mg PO TID [facility] Last Admin: 08/01/17 09:14 Dose: 100 mg Enoxaparin Sodium (Lovenox) 80 mg SC Q12H [facility] PRN Reason: Protocol Last Admin: 08/01/17 09:14 Dose: 80 mg Sodium Chloride (Sodium Chloride 0.9%) 1,000 mls @ 150 mls/hr IV .Q6H40M [facility] Last Admin: 07/29/17 06:14 Dose: 150 mls/hr Meropenem 1g/NS 100mL IVPB (Meropenem 1g/Ns 100ml Ivpb) 1 gm in 100 mls @ 100 mls/hr IVPB Q12 [facility] PRN Reason: Protocol Stop: 08/05/17 10:01 Last Admin: 08/01/17 09:15 Dose: 100 mls/hr Metoprolol Tartrate (Lopressor) 25 mg PO TID [facility] Last Admin: 08/01/17 09:56 Dose: Not Given Ondansetron HCl (Zofran Inj) 4 mg IVP ONCE PRN PRN Reason: Nausea/Vomiting Pantoprazole Sodium (Protonix Ec Tab) 40 mg PO 0600 [facility] Last Admin: 08/01/17 05:10 Dose: 40 mg Polyethylene Glycol/Electrolytes (Golytely) 4,000 ml PO ONCE ONE Stop: 08/01/17 14:01 Silver Sulfadiazine (Silvadene 1% 25 Gm) 0 gm TP BID [facility] Last Admin: 08/01/17 10:05 Dose: 25 gm Sucralfate (Carafate Oral Susp) 1 gm PO ACHS [facility] Last Admin: 08/01/17 08:08 Dose: 1 gm - Labs Labs: 07/31/17 06:30 07/31/17 06:30 PT 12.4 Seconds (9.9-11.8) H 07/28/17 09:30 INR 1.15 (0.93-1.08) H 07/28/17 09:30 APTT 39.0 Seconds (23.7-30.8) H 07/28/17 09:30 - Constitutional Appears: Non-toxic, No Acute Distress - Head Exam Head Exam: NORMAL INSPECTION - Eye Exam Eye Exam: EOMI - ENT Exam ENT Exam: Mucous Membranes Moist - Respiratory Exam Respiratory Exam: NORMAL BREATHING PATTERN. absent: Accessory Muscle Use, Wheezes, Respiratory Distress - Cardiovascular Exam Cardiovascular Exam: REGULAR RHYTHM. absent: Bradycardia, Tachycardia - GI/Abdominal Exam GI & Abdominal Exam: Soft. absent: Distended, Tenderness - Extremities Exam Additional comments: Healed wound on L antecubital region with new area of induration approximately 2cm x 2cm. Right LE wound with wound vac in place and mod tenderness of region to palpation. Non-tender eschar on heel. Skin tear on dorsum of foot. Pedal edema present. DP and TP pulses detected with Doppler. Unable to move toes of right foot Numbness of right great toe - Neurological Exam Neurological Exam: Alert, Awake - Psychiatric Exam Psychiatric exam: Normal Affect, Normal Mood - Skin Skin Exam: Normal Color, Warm Assessment and Plan - Assessment and Plan (Free Text) Assessment: 67F s/p Right leg Femoral/Popliteal embolectomy. Right leg Popliteal/Tibial/ Peroneal bypass, Right leg fasciotomy on POD#15, s/p wound exploration with irrigation on POD#13, s/p 2nd wound exploration, irrigation with wound vac application on POD#5, s/p wound vac change POD#3. Plan: - wound vac change Tuesday (08/02) - IV abx per ID - continue daily vascular checks - will discuss with Dr. Khoa Chaudhry
--- NOTE | 2017-08-01 13:43 | PN ---
DATE: 08/01/2017 SUBJECTIVE: The patient is sitting in chair, comfortable. She feels weak. She denies any rectal bleeding, melena, in fact, she is constipated without having had a bowel movement in several days. She denies any chest pain, shortness of breath, nausea,or vomiting. She denies any leg pain. OBJECTIVE: VITAL SIGNS: Reveal temperature of 98.3, blood pressure of 153/74, and heart rate of 74. HEENT: Reveal sclerae to be white. Conjunctivae pale. NECK: Supple. CHEST: Reveal lungs to be clear. HEART: Reveals an irregular rate. There is a 2/6 systolic murmur. ABDOMEN: Obese, soft, and nontender. EXTREMITIES: Show her right leg to be in a dressing with a wound vac in place. She also has anasarca of her extremities as well as her torso. LABORATORY DATA: Revealed white blood cell count 12.3, hemoglobin 10.2, and platelet count of 472,000. Chemistries reveal BUN 27, creatinine 1.3, AST 53, alk phos 224, albumin of 1.8, and total protein of 4.4. IMPRESSION: This 67-year-old female admitted to the hospital with occlusion of her right iliofemoral artery, status post thrombectomy and arterial bypass of her right leg with history of chronic recurrent anemia, on Plavix and Lovenox with hypercoagulable state, atrial fibrillation, status post systemic inflammatory response syndrome with fever to 104 and elevated white blood cell count to 30,000, which have improved. Her hemoglobin has been stable as 9.2 over the last 4 days. Her white blood cell count is down 12.3. RECOMMENDATIONS: I will prepped the patient for colonoscopy for tomorrow, this is necessary as the patient was found to be profoundly anemic with a hemoglobin in the 4 g range several weeks ago and the patient has been found to have heme-positive stools and has required 10 units of packed red blood cells since her hospitalization and will need lifelong anticoagulation with warfarin due to her hypercoagulable state. The patient is agreeable She is aware of the risks and benefits involved. Satinder Bruno MD [facility] # [id number]
--- NOTE | 2017-08-01 13:59 | CP.PCM.PN ---
Subjective - Date & Time of Evaluation Date of Evaluation: 08/01/17 Time of Evaluation: 11:50 - Subjective Subjective: Comfortable on a chair, no fevers overnight, not in distress. Objective - Vital Signs/Intake and Output Vital Signs (last 24 hours): Temp Pulse Resp BP Pulse Ox 98.3 F 92 H 20 150/88 98 08/01/17 06:00 08/01/17 09:14 08/01/17 06:00 08/01/17 09:14 08/01/17 06:00 Intake and Output: 08/01/17 08/01/17 06:59 18:59 Intake Total 200 Output Total 2400 Balance -2200 - Medications Medications: Current Medications Acetaminophen (Tylenol 325mg Tab) 650 mg PO Q6H PRN PRN Reason: Headache Last Admin: 07/27/17 14:07 Dose: 650 mg Acetylcysteine (Acetylcysteine 20%) 4 ml IH BIDRESP [facility] Last Admin: 08/01/17 07:56 Dose: 4 ml Albuterol/Ipratropium (Duoneb 3 Mg/0.5 Mg (3 Ml) Ud) 3 ml IH Q2H PRN PRN Reason: Shortness of Breath Last Admin: 08/01/17 07:56 Dose: 3 ml Clopidogrel Bisulfate (Plavix) 75 mg PO DAILY [facility] Last Admin: 08/01/17 09:14 Dose: 75 mg Digoxin (Lanoxin) 0.25 mg PO 1400 [facility] Last Admin: 07/31/17 14:03 Dose: 0.25 mg Docusate Sodium (Colace) 100 mg PO TID [facility] Last Admin: 08/01/17 09:14 Dose: 100 mg Enoxaparin Sodium (Lovenox) 80 mg SC Q12H [facility] PRN Reason: Protocol Last Admin: 08/01/17 09:14 Dose: 80 mg Sodium Chloride (Sodium Chloride 0.9%) 1,000 mls @ 150 mls/hr IV .Q6H40M [facility] Last Admin: 07/29/17 06:14 Dose: 150 mls/hr Meropenem 1g/NS 100mL IVPB (Meropenem 1g/Ns 100ml Iv[facility]) 1 gm in 100 mls @ 100 mls/hr IVPB Q12 [facility] PRN Reason: Protocol Stop: 08/05/17 10:01 Last Admin: 08/01/17 09:15 Dose: 100 mls/hr Metoprolol Tartrate (Lopressor) 25 mg PO TID [facility] Last Admin: 08/01/17 09:56 Dose: Not Given Ondansetron HCl (Zofran Inj) 4 mg IVP ONCE PRN PRN Reason: Nausea/Vomiting Pantoprazole Sodium (Protonix Ec Tab) 40 mg PO 0600 [facility] Last Admin: 08/01/17 05:10 Dose: 40 mg Silver Sulfadiazine (Silvadene 1% 25 Gm) 0 gm TP BID [facility] Last Admin: 08/01/17 10:05 Dose: 25 gm Sucralfate (Carafate Oral Susp) 1 gm PO ACHS [facility] Last Admin: 08/01/17 08:08 Dose: 1 gm - Labs Labs: 07/31/17 06:30 07/31/17 06:30 PT 12.4 Seconds (9.9-11.8) H 07/28/17 09:30 INR 1.15 (0.93-1.08) H 07/28/17 09:30 APTT 39.0 Seconds (23.7-30.8) H 07/28/17 09:30 - Constitutional Appears: Non-toxic, No Acute Distress - Head Exam Head Exam: NORMAL INSPECTION - Neck Exam Neck Exam: absent: Meningismus - Respiratory Exam Respiratory Exam: Decreased Breath Sounds - Cardiovascular Exam Cardiovascular Exam: +S1, +S2 - GI/Abdominal Exam GI & Abdominal Exam: Soft. absent: Tenderness - Extremities Exam Additional comments: lower extremities with dressings in place Assessment and Plan - Assessment and Plan (Free Text) Plan: Assessment Severe sepsis with infected right leg wound (growing MSSA, Leclercia and Pseudomas) due to ischemia S/P thrombectomy of acute iliofemoral thrombus, distal bypass and fasciotomy / debridement, as well as left arm cellulitis and HCAP mitral valve prolapse dyslipidemia history of UTI's moderate to severe aortic stenosis atrial fibrillation hyercoagulable state Plan Continue Merrem (day 6); WBC count is trending down and will continue to trend continue local wound care will monitor clinically
[2017-08-01] MEDS ORDERED: Peg-Electrolyte Oral Soln 4L (Golytely) PO ONE (14:00)
[2017-08-01] MEDS: Digoxin 250 mcg (0.25 mg) Tab PO SCH (14:13)
--- NOTE | 2017-08-01 14:48 | CON ---
DATE: 08/01/2017 NEUROLOGY CONSULTATION CHIEF COMPLAINT: Right foot drop. HISTORY OF PRESENT ILLNESS: A 67-year-old woman with past medical history of hypertension, mitral valve prolapse, history of stomach ulcers, admitted for acute ischemic limb of the right lower extremity. During the course, the patient was admitted to [facility] on 07/16/2017, underwent vascular intervention on 07/17/2017 and vascular surgery on 07/17/2017 for right femoral endarterectomy, right popliteal, tibial, and peroneal bypass and fasciotomy, currently postoperative day #15. Now has a right foot drop, therefore, I was consulted, difficulty dorsiflexing the right foot. She does have more features of a residual ischemic limb that has already been intervened. She has a wound VAC which is ongoing and IV antibiotics as per ID. Through record, she has also had some underlying sepsis as well and being managed by antibiotics and had atrial fibrillation and AVR which cardiology is onboard and the patient is on Lovenox, therapeutic. The patient is also on Plavix as well for antiplatelet factor, poor arterial supply. PAST MEDICAL HISTORY: Hypertension, mitral valve prolapse, and history of stomach ulcers. REVIEW OF SYSTEMS: A 14-point review of systems is negative except as per the HPI. SOCIAL HISTORY: No illicit drug use, smoking, or EtOH abuse. FAMILY HISTORY: Noncontributory. ALLERGIES: ALLERGIC TO LEVOFLOXACIN. MEDICATIONS: Reviewed by nurse reconciliation sheet. PHYSICAL EXAMINATION: VITAL SIGNS: Temperature is 97.5, pulse rate 87, blood pressure 151/79, respiratory rate 20, and oxygen saturation 98% on nasal cannula. GENERAL EXAM: The patient is sitting up in bed, no acute distress. HEENT: Atraumatic and normocephalic. PERRLA. Extraocular muscles are intact. NECK: Supple. No JVD. No adenopathy noted. LUNGS: Clear to auscultation. No adventitious sounds. HEART: S1 and S2. Normal rate and rhythm. No murmurs, rubs, or gallops. ABDOMEN: Soft, nontender, and nondistended. Bowel sounds are present. EXTREMITIES: No clubbing. No cyanosis. Peripheral pulses are 2+ felt bilaterally. NEUROLOGIC EXAM: The patient is alert and oriented to person, place, month, and year. Speech is fluent without any errors. Cranial nerves II through XII are intact. Motor exam: Moves all extremities equally except for right foot drop, has a healed wound on the left anterior cubital region with new areas of induration, approximately 2 cm x 2 cm. Right lower extremity wound with wound VAC in place and moderate tenderness on palpation. Detailed dorsalis pedis and tibialis posterior detected with Doppler. Unable to move the right toes with numbness of the right great toe. Sensory exam: Light touch, pinprick, proprioception decreased up to the calves bilaterally. The DTRs are 2+ throughout, 1 at the knees and ankles. Coordination: [id number] intact. Gait is deferred for now. LABORATORY DATA: Sodium is 135, potassium 3.9, chloride of 110, carbon dioxide 21, BUN of 27, creatinine of 1.3, and random glucose of 82. Has methylenetetrahydrofolate DNA mutation noted. ASSESSMENT AND PLAN: This is a 67-year-old woman with past medical history of hypertension, mitral valve prolapse, mild aortic stenosis, anemia, history of syncopal episodes, who presented to [facility] for left lower extremity pain, found to have absent pulses on the right lower extremity by ultrasound, was found to have a right lower extremity ischemic limb, therefore, status post right femoral endarterectomy/fasciotomy and right popliteal, tibial, peroneal bypass which was performed, postoperative day #15, has now right foot drop. She also had an episode of rapid ventricular rate, atrial fibrillation, hypotension, and fevers and is currently being on antibiotics for sepsis. At this time, cardiology is onboard for the management of her atrial fibrillation. She is on therapeutic Lovenox and has methylenetetrahydrofolate DNA mutation. At this time, her right foot drop is secondary to an ischemic limb, which can be rehabilitated with physical therapy and occupational therapy and will need TENS unit to be done with therapy in order to activate the surrounding muscles of the right foot in order to improve. Approximately, it will take average of 6 months of recovery for her right foot drop to come back and will need accustomed ankle-foot orthosis and now recommend acute rehab. At this time if there is any numbness could consider low-dose gabapentin 100 mg p.o. at bedtime for neuropathic relief and continue her current present medical management. Dwain Conrad MD
[2017-08-01] MEDS: Morphine 15 mg Immediate Release Tab PO PRN (15:00)
[2017-08-01 15:08] LABS: BASO # 0.1 K/mm3 (0.0-2.0); BASO % 0.6 % (0.0-3.0); EOS # 0.5 (0.0-0.7); EOS % 2.9 % (1.5-5.0); GRAN # 10.63 (1.4-6.5); GRAN % 68.1 % (50.0-68.0); HEMATOCRIT 29.9 % (36.0-48.0); LYMPH # 3.2 (1.2-3.4); LYMPH % 20.8 % (22.0-35.0); MEAN CELL VOLUME 80.8 fl (80.0-105.0); MEAN CORPUSCULAR HEMOGLOBIN 26.8 pg (25.0-35.0); MEAN CORPUSCULAR HGB CONC 33.1 g/dl (31.0-37.0); MEAN PLATELET VOLUME 10.2 fl (7.0-11.0); MONO # 1.2 (0.1-0.6); MONO % 7.6 % (1.0-6.0); RED CELL DISTRIBUTION WIDTH 21.1 % (11.5-14.5); WHITE BLOOD COUNT 15.6 10^3/ul (4.5-11.0)
[2017-08-01 15:17] LABS: ALB/GLOB RATIO 0.7 (1.1-1.8); ALKALINE PHOSPHATASE 219 U/L (38-126); ALT/SGPT 51 U/L (7-56); AST/SGOT 37 U/L (14-36); BLOOD UREA NITROGEN 20 mg/dL (7-21); CALCIUM 7.7 mg/dL (8.4-10.5); CARBON DIOXIDE 23 mmol/L (21-33); CHLORIDE 110 mmol/L (98-107); GFR AFRICAN-AMERICAN > 60; GLUCOSE,RANDOM 107 mg/dL (70-110); POTASSIUM 3.6 mmol/L (3.6-5.0); SODIUM 138 mmol/L (132-148); TOTAL PROTEIN 4.8 g/dL (5.8-8.3)
--- NOTE | 2017-08-01 23:17 | CP.PCM.PN ---
Subjective - Date & Time of Evaluation Date of Evaluation: 08/01/17 Time of Evaluation: 08:00 - Subjective Subjective: DATE: 08/01/2017 SUBJECTIVE: She is comfortable . pain controlled with current meds. Hb/Hct stable. wound vac draining serosanguinous fluid. able to stand up but cannot walk. neuro evaluation for right foot drop indicate related to limb ischemia. REVIEW OF SYSTEMS: As per HPI. Rest of 12-point review of systems reviewed and negative. PHYSICAL EXAMINATION: GENERAL: Comfortable in bed, mild distress due to tachypnea. VITAL SIGNS: reviewed. HEENT: Pallor positive. NECK: No lymphadenopathy. CHEST: Air entry present, equal and bilateral. Rhonchi present. LUNGS: Occasional crepitation at bases. CARDIOVASCULAR: S1, S2 normal. Tachycardia present. ABDOMEN: Soft, nontender, obese. EXTREMITIES: Right extremities in dressing; no petechiae, no rash, left arm; superficial edema present, nontender. MEDICATIONS: Tylenol 650 q. 6 hours p.r.n., DuoNeb p.r.n., Plavix 75 mg daily, digoxin 0.25 mg daily, Colace 100 mg t.i.d., Lovenox 95 mg b.i.d., meropenem, Lopressor 2.5 mg p.o. b.i.d., morphine sulfate p.r.n., MiraLax 12 g p.o. b.i.d., silver sulfadiazine local application, Carafate 1 g p.o. at bedtime. LABORATORY DATA: reviewed. ASSESSMENT AND PLAN: Hypercoagulable state, arterial thrombosis, status post thrombectomy, status post fasciotomy. Continue therapeutic Lovenox 95 mg q. 12 hours. 2. . Hemoglobin and hematocrit stable now. colonoscopy planned for tomorrow. 3. right foot drop : neuro evaluated. PT. sepsis : on IV antibiotics, improved. 4. CV : stable. Raina Kohler MD Objective - Vital Signs/Intake and Output Vital Signs (last 24 hours): Temp Pulse Resp BP Pulse Ox 97.7 F 78 18 142/67 98 08/01/17 17:52 08/01/17 18:50 08/01/17 17:52 08/01/17 18:50 08/01/17 06:00 Intake and Output: 08/01/17 08/02/17 18:59 06:59 Intake Total 700 Output Total 800 Balance -100 - Medications Medications: Current Medications Acetaminophen (Tylenol 325mg Tab) 650 mg PO Q6H PRN PRN Reason: Headache Last Admin: 07/27/17 14:07 Dose: 650 mg Acetylcysteine (Acetylcysteine 20%) 4 ml IH BIDRESP [facility] Last Admin: 08/01/17 07:56 Dose: 4 ml Albuterol/Ipratropium (Duoneb 3 Mg/0.5 Mg (3 Ml) Ud) 3 ml IH Q2H PRN PRN Reason: Shortness of Breath Last Admin: 08/01/17 07:56 Dose: 3 ml Clopidogrel Bisulfate (Plavix) 75 mg PO DAILY [facility] Last Admin: 08/01/17 09:14 Dose: 75 mg Digoxin (Lanoxin) 0.25 mg PO 1400 [facility] Last Admin: 08/01/17 14:13 Dose: 0.25 mg Docusate Sodium (Colace) 100 mg PO TID [facility] Last Admin: 08/01/17 18:50 Dose: 100 mg Enoxaparin Sodium (Lovenox) 80 mg SC Q12H [facility] PRN Reason: Protocol Last Admin: 08/01/17 23:01 Dose: 80 mg Sodium Chloride (Sodium Chloride 0.9%) 1,000 mls @ 150 mls/hr IV .Q6H40M [facility] Last Admin: 07/29/17 06:14 Dose: 150 mls/hr Meropenem 1g/NS 100mL IVPB (Meropenem 1g/Ns 100ml Ivpb) 1 gm in 100 mls @ 100 mls/hr IVPB Q12 [facility] PRN Reason: Protocol Stop: 08/05/17 10:01 Last Admin: 08/01/17 23:02 Dose: 100 mls/hr Metoprolol Tartrate (Lopressor) 25 mg PO TID [facility] Last Admin: 08/01/17 18:50 Dose: 25 mg Morphine Sulfate (Morphine Immediate Release Tab) 15 mg PO BID PRN PRN Reason: Pain, moderate (4-7) Last Admin: 08/01/17 15:00 Dose: 15 mg Ondansetron HCl (Zofran Inj) 4 mg IVP ONCE PRN PRN Reason: Nausea/Vomiting Pantoprazole Sodium (Protonix Ec Tab) 40 mg PO 0600 [facility] Last Admin: 08/01/17 05:10 Dose: 40 mg Silver Sulfadiazine (Silvadene 1% 25 Gm) 0 gm TP BID [facility] Last Admin: 08/01/17 18:51 Dose: 25 gm Sucralfate (Carafate Oral Susp) 1 gm PO ACHS [facility] Last Admin: 08/01/17 23:01 Dose: 1 gm - Labs Labs: 08/01/17 14:55 08/01/17 14:55 PT 12.4 Seconds (9.9-11.8) H 07/28/17 09:30 INR 1.15 (0.93-1.08) H 07/28/17 09:30 APTT 39.0 Seconds (23.7-30.8) H 07/28/17 09:30
[2017-08-02] MEDS: Pantoprazole 40 mg EC Tab PO SCH (06:28)
[2017-08-02 06:37] LABS: HEMATOCRIT 30.7 % (36.0-48.0); MEAN CELL VOLUME 81.6 fl (80.0-105.0); MEAN CORPUSCULAR HEMOGLOBIN 26.6 pg (25.0-35.0); MEAN CORPUSCULAR HGB CONC 32.6 g/dl (31.0-37.0); MEAN PLATELET VOLUME 10.2 fl (7.0-11.0); RED CELL DISTRIBUTION WIDTH 21.8 % (11.5-14.5); WHITE BLOOD COUNT 14.1 10^3/ul (4.5-11.0)
[2017-08-02] MEDS: Acetylcysteine 20% Inhal Soln (4ml) IH SCH ×2 (07:40→19:33)
[2017-08-02] MEDS: Albuterol-Ipratrop 3 mg / 0.5 (3 ml) UD IH PRN ×2 (07:41→19:33)
--- NOTE | 2017-08-02 08:14 | CP.PCM.PN ---
Subjective - Date & Time of Evaluation Date of Evaluation: 08/02/17 Time of Evaluation: 07:00 - Subjective Subjective: Stable on 2R. No CP or SOB. For colonoscopy today. V/S noted. RSR. In and out of AF with mod. VR. PE: Lungs: clear Cor.: S1S2, sys. murmur Abd.: soft Ext.: right foot bandaged with wound vac.. Can't move toes. Can lift leg. Neuro: alert I/O= 700/800 recorded Labs noted. WBC = 14,100, H/H = 08/15.7 Stool + OB x several. 07/27 stool neg. ECG 07/27: AF with RVR, NSSTW changes Echo:NL LV function, mod/sev. , mild to mod AI, mild MR, trace TR. Surgical spec cultures: + multiple orgs 07/27 BC x2 NG at 5 days. 07/27 CXR noted. Objective - Vital Signs/Intake and Output Vital Signs (last 24 hours): Temp Pulse Resp BP Pulse Ox 97.7 F 74 20 136/69 96 08/02/17 05:35 08/02/17 06:00 08/02/17 05:35 08/02/17 05:35 08/02/17 05:35 - Medications Medications: Current Medications Acetaminophen (Tylenol 325mg Tab) 650 mg PO Q6H PRN PRN Reason: Headache Last Admin: 07/27/17 14:07 Dose: 650 mg Acetylcysteine (Acetylcysteine 20%) 4 ml IH BIDRESP [facility] Last Admin: 08/02/17 07:40 Dose: 4 ml Albuterol/Ipratropium (Duoneb 3 Mg/0.5 Mg (3 Ml) Ud) 3 ml IH Q2H PRN PRN Reason: Shortness of Breath Last Admin: 08/02/17 07:41 Dose: 3 ml Clopidogrel Bisulfate (Plavix) 75 mg PO DAILY [facility] Last Admin: 08/01/17 09:14 Dose: 75 mg Digoxin (Lanoxin) 0.25 mg PO 1400 [facility] Last Admin: 08/01/17 14:13 Dose: 0.25 mg Docusate Sodium (Colace) 100 mg PO TID [facility] Last Admin: 08/01/17 18:50 Dose: 100 mg Enoxaparin Sodium (Lovenox) 80 mg SC Q12H [facility] PRN Reason: Protocol Last Admin: 08/01/17 23:01 Dose: 80 mg Sodium Chloride (Sodium Chloride 0.9%) 1,000 mls @ 150 mls/hr IV .Q6H40M [facility] Last Admin: 07/29/17 06:14 Dose: 150 mls/hr Meropenem 1g/NS 100mL IVPB (Meropenem 1g/Ns 100ml Ivpb) 1 gm in 100 mls @ 100 mls/hr IVPB Q12 [facility] PRN Reason: Protocol Stop: 08/05/17 10:01 Last Admin: 08/01/17 23:02 Dose: 100 mls/hr Metoprolol Tartrate (Lopressor) 25 mg PO TID [facility] Last Admin: 08/01/17 18:50 Dose: 25 mg Morphine Sulfate (Morphine Immediate Release Tab) 15 mg PO BID PRN PRN Reason: Pain, moderate (4-7) Last Admin: 08/01/17 15:00 Dose: 15 mg Ondansetron HCl (Zofran Inj) 4 mg IVP ONCE PRN PRN Reason: Nausea/Vomiting Pantoprazole Sodium (Protonix Ec Tab) 40 mg PO 0600 [facility] Last Admin: 08/02/17 06:28 Dose: Not Given Silver Sulfadiazine (Silvadene 1% 25 Gm) 0 gm TP BID [facility] Last Admin: 08/01/17 18:51 Dose: 25 gm Sucralfate (Carafate Oral Susp) 1 gm PO ACHS [facility] Last Admin: 08/01/17 23:01 Dose: 1 gm - Labs Labs: 08/02/17 06:29 08/01/17 14:55 PT 12.4 Seconds (9.9-11.8) H 07/28/17 09:30 INR 1.15 (0.93-1.08) H 07/28/17 09:30 APTT 39.0 Seconds (23.7-30.8) H 07/28/17 09:30 Assessment and Plan - Assessment and Plan (Free Text) Assessment: Fever, R/O sepsis vs wound infection. Left arm cellulitis Severe anemia/s/p multiple blood transfusions/Esophageal and gastric ulcers/GIB/ Stool + OB. Most recent stool neg. OB. Acute iliofemoral thrombosis, s/p surgical thrombectomy, distal bypasses and fasciotomy Atrial fibrillation. PAF likely the cause for peripheral embolization originally. Also + hypercoag. state. Valvular heart disease: mod/sev , mild/mod AI, mild MR, trace TR HBP H/O syncope CVD DJD Former Smoker Right foot drop Plan: Continue PO metoprolol: increase to 50 BID. Continue digoxin. Lovenox as per Dr. Kohler Wound care as per Dr. Couch AB as per ID. Colonoscopy today. As per Dr. Couch, Dr. Jose F Bruno, and Dr. Bush Monitor I/O, H/H, labs, sats., stool for OB, cultures, etc. OOB as sybil. PT/Rehab when ready Will follow
[2017-08-02] MEDS ORDERED: Sodium Chloride 0.9% 1,000 ML IV SCH ×2 (08:24→08:45)
[2017-08-02] MEDS: Sucralfate 1 gm/10 ml Oral Susp UD PO SCH ×4 (08:31→22:04)
[2017-08-02] MEDS: Silver Sulfadiazine 1% Cream (25 gm) TP SCH (10:00)
[2017-08-02] MEDS: Meropenem 1g/NS 100mL IVPB 1 GM/100 ML PIGGYBACK IVPB SCH ×2 (11:00→22:03)
[2017-08-02] MEDS ORDERED: Propofol 10 mg/ml Inj (20 ML) ONE (11:59)
[2017-08-02] MEDS ORDERED: Lidocaine 2% Inj (20ml) ONE (11:59)
[2017-08-02] MEDS ORDERED: Etomidate 20 mg/10ml Inj IV ONE (12:00)
--- NOTE | 2017-08-02 12:30 | CP.PCM.PN ---
Subjective - Date & Time of Evaluation Date of Evaluation: 08/02/17 Time of Evaluation: 10:30 - Subjective Subjective: Comfortable, not in distress, afebrile, less pain in the left arm and leg. Objective - Vital Signs/Intake and Output Vital Signs (last 24 hours): Temp Pulse Resp BP Pulse Ox 97.7 F 62 20 136/69 96 08/02/17 05:35 08/02/17 05:35 08/02/17 05:35 08/02/17 05:35 08/02/17 05:35 - Medications Medications: Current Medications Acetaminophen (Tylenol 325mg Tab) 650 mg PO Q6H PRN PRN Reason: Headache Last Admin: 07/27/17 14:07 Dose: 650 mg Acetylcysteine (Acetylcysteine 20%) 4 ml IH BIDRESP [facility] Last Admin: 08/01/17 21:00 Dose: 4 ml Albuterol/Ipratropium (Duoneb 3 Mg/0.5 Mg (3 Ml) Ud) 3 ml IH Q2H PRN PRN Reason: Shortness of Breath Last Admin: 08/01/17 21:00 Dose: 3 ml Clopidogrel Bisulfate (Plavix) 75 mg PO DAILY [facility] Last Admin: 08/01/17 09:14 Dose: 75 mg Digoxin (Lanoxin) 0.25 mg PO 1400 [facility] Last Admin: 08/01/17 14:13 Dose: 0.25 mg Docusate Sodium (Colace) 100 mg PO TID [facility] Last Admin: 08/01/17 18:50 Dose: 100 mg Enoxaparin Sodium (Lovenox) 80 mg SC Q12H [facility] PRN Reason: Protocol Last Admin: 08/01/17 23:01 Dose: 80 mg Sodium Chloride (Sodium Chloride 0.9%) 1,000 mls @ 150 mls/hr IV .Q6H40M [facility] Last Admin: 07/29/17 06:14 Dose: 150 mls/hr Meropenem 1g/NS 100mL IVPB (Meropenem 1g/Ns 100ml Ivpb) 1 gm in 100 mls @ 100 mls/hr IVPB Q12 [facility] PRN Reason: Protocol Stop: 08/05/17 10:01 Last Admin: 08/01/17 23:02 Dose: 100 mls/hr Metoprolol Tartrate (Lopressor) 25 mg PO TID [facility] Last Admin: 08/01/17 18:50 Dose: 25 mg Morphine Sulfate (Morphine Immediate Release Tab) 15 mg PO BID PRN PRN Reason: Pain, moderate (4-7) Last Admin: 08/01/17 15:00 Dose: 15 mg Ondansetron HCl (Zofran Inj) 4 mg IVP ONCE PRN PRN Reason: Nausea/Vomiting Pantoprazole Sodium (Protonix Ec Tab) 40 mg PO 0600 [facility] Last Admin: 08/02/17 06:28 Dose: Not Given Silver Sulfadiazine (Silvadene 1% 25 Gm) 0 gm TP BID [facility] Last Admin: 08/01/17 18:51 Dose: 25 gm Sucralfate (Carafate Oral Susp) 1 gm PO ACHS [facility] Last Admin: 08/01/17 23:01 Dose: 1 gm - Labs Labs: 08/02/17 06:29 08/01/17 14:55 PT 12.4 Seconds (9.9-11.8) H 07/28/17 09:30 INR 1.15 (0.93-1.08) H 07/28/17 09:30 APTT 39.0 Seconds (23.7-30.8) H 07/28/17 09:30 - Constitutional Appears: Non-toxic, No Acute Distress - Head Exam Head Exam: NORMAL INSPECTION - Neck Exam Neck Exam: absent: Meningismus - Respiratory Exam Respiratory Exam: Decreased Breath Sounds - Cardiovascular Exam Cardiovascular Exam: +S1, +S2 - GI/Abdominal Exam GI & Abdominal Exam: Soft. absent: Tenderness - Extremities Exam Additional comments: decreased swelling of the left arm Assessment and Plan - Assessment and Plan (Free Text) Plan: Assessment Severe sepsis with infected right leg wound (growing MSSA, Leclercia and Pseudomas) due to ischemia S/P thrombectomy of acute iliofemoral thrombus, distal bypass and fasciotomy / debridement, as well as left arm cellulitis and HCAP mitral valve prolapse dyslipidemia history of UTI's moderate to severe aortic stenosis atrial fibrillation hyercoagulable state Plan Continue Merrem (day 6); WBC count is trending down and will continue to trend continue local wound care will continue to monitor clinically
[2017-08-02] MEDS ORDERED: Labetalol 5 mg/ml Inj 20ML IVP PRN (12:51)
[2017-08-02] MEDS: Sodium Chloride 0.9% 1,000 ML IV SCH ×2 (13:00→22:05)
[2017-08-02] MEDS ORDERED: Labetalol 5 mg/ml Inj 20ML ONE (13:06)
[2017-08-02] MEDS ORDERED: HYDROmorphone 1 mg/ml ISec IVP STA (13:56)
[2017-08-02] MEDS ORDERED: HYDROmorphone 1 mg/ml ISec ONE (13:57)
[2017-08-02] MEDS ORDERED: HYDROmorphone 1 mg/ml ISec IVP ONE (13:57)
--- NOTE | 2017-08-02 15:07 | CP.PCM.PN ---
Subjective - Date & Time of Evaluation Date of Evaluation: 08/02/17 Time of Evaluation: 07:00 - Subjective Subjective: General Surgery Note for Dr. Couch Patient seen and examined at bedside. Patient lying in bed complaining she is thirsty. She has pain in R leg when lifting above hip joint and with palpation. Yesterday, patient fell while doing PT. Denied trauma. Patient was NPO for colonoscopy. Objective - Vital Signs/Intake and Output Vital Signs (last 24 hours): Temp Pulse Resp BP Pulse Ox 97.7 F 76 16 174/91 H 99 08/02/17 13:33 08/02/17 13:33 08/02/17 13:33 08/02/17 13:33 08/02/17 13:33 - Medications Medications: Current Medications Acetaminophen (Tylenol 325mg Tab) 650 mg PO Q6H PRN PRN Reason: Headache Last Admin: 07/27/17 14:07 Dose: 650 mg Acetylcysteine (Acetylcysteine 20%) 4 ml IH BIDRESP [facility] Last Admin: 08/02/17 07:40 Dose: 4 ml Albuterol/Ipratropium (Duoneb 3 Mg/0.5 Mg (3 Ml) Ud) 3 ml IH Q2H PRN PRN Reason: Shortness of Breath Last Admin: 08/02/17 07:41 Dose: 3 ml Clopidogrel Bisulfate (Plavix) 75 mg PO DAILY [facility] Last Admin: 08/01/17 09:14 Dose: 75 mg Digoxin (Lanoxin) 0.25 mg PO 1400 [facility] Last Admin: 08/01/17 14:13 Dose: 0.25 mg Docusate Sodium (Colace) 100 mg PO TID [facility] Last Admin: 08/02/17 10:00 Dose: Not Given Enoxaparin Sodium (Lovenox) 80 mg SC Q12H [facility] PRN Reason: Protocol Last Admin: 08/01/17 23:01 Dose: 80 mg Meropenem 1g/NS 100mL IVPB (Meropenem 1g/Ns 100ml Ivpb) 1 gm in 100 mls @ 100 mls/hr IVPB Q12 [facility] PRN Reason: Protocol Stop: 08/05/17 10:01 Last Admin: 08/01/17 23:02 Dose: 100 mls/hr Sodium Chloride (Sodium Chloride 0.9%) 1,000 mls @ 100 mls/hr IV .Q10H [facility] Labetalol HCl (Trandate) 10 mg IVP ONCE PRN PRN Reason: Systolic Blood Pressure Last Admin: 08/02/17 13:04 Dose: 10 mg Metoprolol Tartrate (Lopressor) 50 mg PO BID [facility] Morphine Sulfate (Morphine Immediate Release Tab) 15 mg PO BID PRN PRN Reason: Pain, moderate (4-7) Last Admin: 08/01/17 15:00 Dose: 15 mg Ondansetron HCl (Zofran Inj) 4 mg IVP ONCE PRN PRN Reason: Nausea/Vomiting Pantoprazole Sodium (Protonix Ec Tab) 40 mg PO 0600 [facility] Last Admin: 08/02/17 06:28 Dose: Not Given Silver Sulfadiazine (Silvadene 1% 25 Gm) 0 gm TP BID [facility] Sucralfate (Carafate Oral Susp) 1 gm PO ACHS [facility] Last Admin: 08/02/17 11:57 Dose: Not Given - Labs Labs: 08/02/17 06:29 08/01/17 14:55 PT 12.4 Seconds (9.9-11.8) H 07/28/17 09:30 INR 1.15 (0.93-1.08) H 07/28/17 09:30 APTT 39.0 Seconds (23.7-30.8) H 07/28/17 09:30 - Constitutional Appears: Other (uncomfortable) - Head Exam Head Exam: ATRAUMATIC, NORMOCEPHALIC - Eye Exam Eye Exam: Normal appearance - ENT Exam ENT Exam: Mucous Membranes Dry Additional comments: extremmly dry skin on face - flaking - Respiratory Exam Respiratory Exam: NORMAL BREATHING PATTERN - Cardiovascular Exam Cardiovascular Exam: REGULAR RHYTHM - GI/Abdominal Exam GI & Abdominal Exam: Soft. absent: Distended, Tenderness - Extremities Exam Additional comments: Healed wound on L antecubital region with new area of raised induration approximately 2cm x 2cm. Right LE wound with wound vac in place and mod tenderness of region to palpation. Non-tender eschar on heel. Skin tear on dorsum of foot. Pedal edema present. DP and TP pulses detected with Doppler. Unable to move toes of right foot Numbness of right great toe edema in extremities slightly improved - Back Exam Additional comments: erythema and edema on lower back and buttocks - Neurological Exam Neurological Exam: Alert, Awake, CN II-XII Intact, Oriented x3 - Psychiatric Exam Psychiatric exam: Normal Affect, Normal Mood - Skin Skin Exam: Dry, Warm Additional comments: dry and flaky skin on face erythema on back and buttocks Assessment and Plan - Assessment and Plan (Free Text) Plan: 67F s/p Right leg Femoral/Popliteal embolectomy. Right leg Popliteal/Tibial/ Peroneal bypass, Right leg fasciotomy on POD#16, s/p wound exploration with irrigation on POD#14, s/p 2nd wound exploration, irrigation with wound vac application on POD#6 - IV fluids - Nutritional supplement to increase protein intake - wound vac changed today, will change again Sunday 08/05 - Possible OR tuesday for STSG and closure - IV abx per ID - continue daily vascular checks - discussed with Dr. Khoa Berrios PGY1
[2017-08-02] MEDS: Digoxin 250 mcg (0.25 mg) Tab PO SCH (15:20)
--- NOTE | 2017-08-02 20:18 | PN ---
DATE: SUBJECTIVE: A 67-year-old white female status post colonoscopy by Dr. Bruno today, found non-bleeding polyp in the colon. No evidence of AVM's in the colon or the terminal ileum. The patient tolerated the procedure well. PHYSICAL EXAMINATION: GENERAL: The patient is awake, alert and oriented x3. VITAL SIGNS: Blood pressure 128/62, heart rate of 76 and regular. The patient is afebrile. CHEST: Clear to auscultation. HEART: Regular sinus rhythm. EXTREMITIES: She does have an indurated lesion in the left antecubital region, which is stable. There is less swelling in the upper and lower extremities. The patient also has a drop foot and decrease strength in the toes of the right foot and a wound VAC is applied. LABORATORY DATA: The patient's H and H today are 10 and 30.7, 14,100 white count. Potassium of 3.6. ASSESSMENT AND PLAN: The patient is status post gastrointestinal bleed, status post thrombectomy and clotted right leg, hypercoagulable state found by Dr. Kohler. The patient is on Lovenox and Plavix. The patient is also status post rapid atrial fibrillation, controlled with medication. She is status post fasciotomy and bypass of the right leg. She will be needing a skin graft to close her wound approximately in 6 days from today. The patient is on IV antibiotics after having a Cod Sepsis with elevated white count to over 30,000. Clostridium difficile negative. Blood cultures have been negative. Wound cultures are growing Staph aureus, non-MRSA. Alexis Buhs MD
[2017-08-02] MEDS: Enoxaparin 80 mg Syringe SC SCH (22:02)
[2017-08-03] MEDS: Morphine 15 mg Immediate Release Tab PO PRN (01:45)
[2017-08-03] MEDS: Pantoprazole 40 mg EC Tab PO SCH (06:51)
[2017-08-03] MEDS: Acetylcysteine 20% Inhal Soln (4ml) IH SCH ×2 (07:54→19:12)
[2017-08-03] MEDS: Albuterol-Ipratrop 3 mg / 0.5 (3 ml) UD IH PRN ×2 (07:54→19:14)
[2017-08-03] MEDS: Sucralfate 1 gm/10 ml Oral Susp UD PO SCH ×4 (08:20→22:59)
--- NOTE | 2017-08-03 09:20 | CP.PCM.PN ---
Subjective - Date & Time of Evaluation Date of Evaluation: 08/03/17 Time of Evaluation: 06:55 - Subjective Subjective: General Surgery Note for Dr. Couch Patient seen and examined at bedside. No acute event overnight. She is s/p colonoscopy POD #1, which showed rectal polyp, diverticula, and hemorrhoids. Wound vac was changed yesterday. Patient has mild RLE pain. She still complaining of dry mouth. No other complaints today. Objective - Vital Signs/Intake and Output Vital Signs (last 24 hours): Temp Pulse Resp BP Pulse Ox 97.9 F 82 18 152/66 H 97 08/03/17 06:00 08/03/17 06:00 08/03/17 06:00 08/03/17 06:00 08/03/17 06:00 Intake and Output: 08/03/17 08/03/17 06:59 18:59 Intake Total 360 Output Total 750 Balance -390 - Medications Medications: Current Medications Acetaminophen (Tylenol 325mg Tab) 650 mg PO Q6H PRN PRN Reason: Headache Last Admin: 07/27/17 14:07 Dose: 650 mg Acetylcysteine (Acetylcysteine 20%) 4 ml IH BIDRESP [facility] Last Admin: 08/03/17 07:54 Dose: 4 ml Albuterol/Ipratropium (Duoneb 3 Mg/0.5 Mg (3 Ml) Ud) 3 ml IH Q2H PRN PRN Reason: Shortness of Breath Last Admin: 08/03/17 07:54 Dose: 3 ml Clopidogrel Bisulfate (Plavix) 75 mg PO DAILY [facility] Last Admin: 08/01/17 09:14 Dose: 75 mg Digoxin (Lanoxin) 0.25 mg PO 1400 [facility] Last Admin: 08/02/17 15:20 Dose: 0.25 mg Docusate Sodium (Colace) 100 mg PO TID [facility] Last Admin: 08/02/17 17:49 Dose: Not Given Enoxaparin Sodium (Lovenox) 80 mg SC Q12H [facility] PRN Reason: Protocol Last Admin: 08/02/17 22:02 Dose: 80 mg Meropenem 1g/NS 100mL IVPB (Meropenem 1g/Ns 100ml Ivpb) 1 gm in 100 mls @ 100 mls/hr IVPB Q12 [facility] PRN Reason: Protocol Stop: 08/05/17 10:01 Last Admin: 08/02/17 22:03 Dose: 100 mls/hr Sodium Chloride (Sodium Chloride 0.9%) 1,000 mls @ 100 mls/hr IV .Q10H [facility] Last Admin: 08/02/17 22:05 Dose: 100 mls/hr Labetalol HCl (Trandate) 10 mg IVP ONCE PRN PRN Reason: Systolic Blood Pressure Last Admin: 08/02/17 13:04 Dose: 10 mg Metoprolol Tartrate (Lopressor) 50 mg PO BID [facility] Last Admin: 08/02/17 17:50 Dose: 50 mg Morphine Sulfate (Morphine Immediate Release Tab) 15 mg PO BID PRN PRN Reason: Pain, moderate (4-7) Last Admin: 08/03/17 01:45 Dose: 15 mg Ondansetron HCl (Zofran Inj) 4 mg IVP ONCE PRN PRN Reason: Nausea/Vomiting Pantoprazole Sodium (Protonix Ec Tab) 40 mg PO 0600 [facility] Last Admin: 08/03/17 06:51 Dose: 40 mg Silver Sulfadiazine (Silvadene 1% 25 Gm) 0 gm TP BID [facility] Sucralfate (Carafate Oral Susp) 1 gm PO ACHS [facility] Last Admin: 08/03/17 08:20 Dose: 1 gm - Labs Labs: 08/02/17 06:29 08/01/17 14:55 PT 12.4 Seconds (9.9-11.8) H 07/28/17 09:30 INR 1.15 (0.93-1.08) H 07/28/17 09:30 APTT 39.0 Seconds (23.7-30.8) H 07/28/17 09:30 - Constitutional Appears: No Acute Distress - Head Exam Head Exam: ATRAUMATIC, NORMOCEPHALIC - Eye Exam Eye Exam: Normal appearance Pupil Exam: PERRL - ENT Exam ENT Exam: Mucous Membranes Dry - Respiratory Exam Respiratory Exam: NORMAL BREATHING PATTERN - Cardiovascular Exam Cardiovascular Exam: REGULAR RHYTHM - GI/Abdominal Exam GI & Abdominal Exam: absent: Distended, Firm, Guarding, Tenderness - Extremities Exam Extremities Exam: Normal Capillary Refill Additional comments: L antecubital with raised induration 2cm x 2cm. Right LE wound with wound vac in place. Non-tender eschar on heel. Skin tear on dorsum of foot. DP and TP pulses detected with Doppler. Unable to move toes of right foot Paresthesia of right great toe - Back Exam Additional comments: erythema and edema on lower back and buttocks - Neurological Exam Neurological Exam: Alert, Awake, Oriented x3 - Psychiatric Exam Psychiatric exam: Normal Affect, Normal Mood - Skin Skin Exam: Dry, Warm Additional comments: erythema and edema on lower back and buttocks Assessment and Plan - Assessment and Plan (Free Text) Plan: 67F s/p Right leg Femoral/Popliteal embolectomy. Right leg Popliteal/Tibial/ Peroneal bypass, Right leg fasciotomy on POD#17, s/p wound exploration with irrigation on POD#15, s/p 2nd wound exploration, irrigation with wound vac application on POD#7 - Continue IV fluids and Nutritional supplements - wound vac change again Sunday 08/05 - OR tuesday for STSG and closure - IV abx per ID - continue daily vascular checks - discussed with Dr. Khoa Berrios PGY1
[2017-08-03] MEDS: Silver Sulfadiazine 1% Cream (25 gm) TP SCH (10:00)
[2017-08-03] MEDS: Enoxaparin 80 mg Syringe SC SCH ×2 (10:00→22:59)
[2017-08-03 10:46] LABS: BASO # 0.06 K/mm3 (0.0-2.0); BASO % 0.6 % (0.0-3.0); EOS # 0.3 (0.0-0.7); EOS % 2.9 % (1.5-5.0); GRAN # 6.78 (1.4-6.5); GRAN % 63.5 % (50.0-68.0); HEMATOCRIT 29.6 % (36.0-48.0); LYMPH # 2.5 (1.2-3.4); LYMPH % 23.3 % (22.0-35.0); MEAN CORPUSCULAR HEMOGLOBIN 27.1 pg (25.0-35.0); MEAN CORPUSCULAR HGB CONC 33.1 g/dl (31.0-37.0); MEAN PLATELET VOLUME 9.8 fl (7.0-11.0); MONO % 9.7 % (1.0-6.0); RED CELL DISTRIBUTION WIDTH 21.4 % (11.5-14.5); WHITE BLOOD COUNT 10.7 10^3/ul (4.5-11.0)
[2017-08-03 10:51] LABS: ALB/GLOB RATIO 0.7 (1.1-1.8); ALKALINE PHOSPHATASE 176 U/L (38-126); ALT/SGPT 41 U/L (7-56); AST/SGOT 27 U/L (14-36); BILIRUBIN,TOTAL 0.7 mg/dL (0.2-1.3); BLOOD UREA NITROGEN 11 mg/dL (7-21); CALCIUM 7.2 mg/dL (8.4-10.5); CARBON DIOXIDE 24 mmol/L (21-33); CHLORIDE 107 mmol/L (98-107); GFR AFRICAN-AMERICAN > 60; GLUCOSE,RANDOM 103 mg/dL (70-110); POTASSIUM 3.2 mmol/L (3.6-5.0); SODIUM 136 mmol/L (132-148); TOTAL PROTEIN 4.7 g/dL (5.8-8.3)
--- NOTE | 2017-08-03 12:10 | CP.PCM.PN ---
Subjective - Date & Time of Evaluation Date of Evaluation: 08/03/17 Time of Evaluation: 10:15 - Subjective Subjective: Comfortable in bed, has some nausea, controlled with Zofran, no fevers overnight. Objective - Vital Signs/Intake and Output Vital Signs (last 24 hours): Temp Pulse Resp BP Pulse Ox 97.9 F 82 18 152/66 H 97 08/03/17 06:00 08/03/17 06:00 08/03/17 06:00 08/03/17 06:00 08/03/17 06:00 Intake and Output: 08/03/17 08/03/17 06:59 18:59 Intake Total 360 Output Total 750 Balance -390 - Medications Medications: Current Medications Acetaminophen (Tylenol 325mg Tab) 650 mg PO Q6H PRN PRN Reason: Headache Last Admin: 07/27/17 14:07 Dose: 650 mg Acetylcysteine (Acetylcysteine 20%) 4 ml IH BIDRESP [facility] Last Admin: 08/03/17 07:54 Dose: 4 ml Albuterol/Ipratropium (Duoneb 3 Mg/0.5 Mg (3 Ml) Ud) 3 ml IH Q2H PRN PRN Reason: Shortness of Breath Last Admin: 08/03/17 07:54 Dose: 3 ml Clopidogrel Bisulfate (Plavix) 75 mg PO DAILY [facility] Last Admin: 08/01/17 09:14 Dose: 75 mg Digoxin (Lanoxin) 0.25 mg PO 1400 [facility] Last Admin: 08/02/17 15:20 Dose: 0.25 mg Docusate Sodium (Colace) 100 mg PO TID [facility] Last Admin: 08/02/17 17:49 Dose: Not Given Enoxaparin Sodium (Lovenox) 80 mg SC Q12H [facility] PRN Reason: Protocol Last Admin: 08/02/17 22:02 Dose: 80 mg Meropenem 1g/NS 100mL IVPB (Meropenem 1g/Ns 100ml Ivpb) 1 gm in 100 mls @ 100 mls/hr IVPB Q12 [facility] PRN Reason: Protocol Stop: 08/05/17 10:01 Last Admin: 08/02/17 22:03 Dose: 100 mls/hr Sodium Chloride (Sodium Chloride 0.9%) 1,000 mls @ 100 mls/hr IV .Q10H [facility] Last Admin: 08/02/17 22:05 Dose: 100 mls/hr Labetalol HCl (Trandate) 10 mg IVP ONCE PRN PRN Reason: Systolic Blood Pressure Last Admin: 08/02/17 13:04 Dose: 10 mg Metoprolol Tartrate (Lopressor) 50 mg PO BID [facility] Last Admin: 08/02/17 17:50 Dose: 50 mg Morphine Sulfate (Morphine Immediate Release Tab) 15 mg PO BID PRN PRN Reason: Pain, moderate (4-7) Last Admin: 08/03/17 01:45 Dose: 15 mg Ondansetron HCl (Zofran Inj) 4 mg IVP ONCE PRN PRN Reason: Nausea/Vomiting Pantoprazole Sodium (Protonix Ec Tab) 40 mg PO 0600 [facility] Last Admin: 08/03/17 06:51 Dose: 40 mg Silver Sulfadiazine (Silvadene 1% 25 Gm) 0 gm TP BID [facility] Sucralfate (Carafate Oral Susp) 1 gm PO ACHS [facility] Last Admin: 08/03/17 08:20 Dose: 1 gm - Labs Labs: 08/02/17 06:29 08/01/17 14:55 PT 12.4 Seconds (9.9-11.8) H 07/28/17 09:30 INR 1.15 (0.93-1.08) H 07/28/17 09:30 APTT 39.0 Seconds (23.7-30.8) H 07/28/17 09:30 - Constitutional Appears: Non-toxic - Head Exam Head Exam: NORMAL INSPECTION - Neck Exam Neck Exam: absent: Meningismus - Respiratory Exam Respiratory Exam: Decreased Breath Sounds - Cardiovascular Exam Cardiovascular Exam: +S1, +S2 - GI/Abdominal Exam GI & Abdominal Exam: Soft. absent: Tenderness - Extremities Exam Additional comments: right leg with dressings in place Assessment and Plan - Assessment and Plan (Free Text) Plan: Assessment Severe sepsis with infected right leg wound (growing MSSA, Leclercia and Pseudomas) due to ischemia S/P thrombectomy of acute iliofemoral thrombus, distal bypass and fasciotomy / debridement, as well as left arm cellulitis and HCAP non-bleeding polyp in the colon mitral valve prolapse dyslipidemia history of UTI's moderate to severe aortic stenosis atrial fibrillation hyercoagulable state Plan Continue Merrem (day 7); WBC count is trending down and will continue to trend continue local wound care will continue to monitor clinically
[2017-08-03] MEDS: Digoxin 250 mcg (0.25 mg) Tab PO SCH (13:31)
--- NOTE | 2017-08-03 13:35 | PN ---
SUBJECTIVE: Status post colonoscopy yesterday, doing well with her wound VAC and physical therapy and occupational therapy. The patient is still on Lovenox and Plavix for anticoagulation. She is scheduled for a skin graft with Dr. Couch next week. She still continues on IV antibiotics. She is afebrile. Vital signs are stable. Her hemoglobin is stable at 9.8. Her white count is 10.7, which has improved. The patient is doing well, tolerating her diet. We are stopping IV fluids because of some swelling. We are encouraging her to eat protein to absorb some of the fluid. Chest is clear to auscultation. Heart examination is regular sinus rhythm. She is status post atrial fib. Her wounds are clean and dry. PLAN: Continue present therapy. Alexis Bush MD
[2017-08-03] MEDS: Meropenem 1g/NS 100mL IVPB 1 GM/100 ML PIGGYBACK IVPB SCH ×2 (13:44→23:00)
[2017-08-03] MEDS: Sodium Chloride 0.9% 1,000 ML IV SCH (13:47)
--- NOTE | 2017-08-03 15:47 | PN ---
DATE: 08/03/2017 SUBJECTIVE: The patient is seen lying in bed in telemetry. She complains of some nausea this morning. Colonoscopy yesterday revealed only a small polyp. CURRENT MEDICATIONS: Include Mucomyst, Carafate, Colace, DuoNeb inhalers, digoxin 0.25 mg daily, metoprolol 50 mg b.i.d., Lovenox 80 mg q. 12 hours, meropenem, Plavix 75 mg daily, Protonix 40 mg daily. PHYSICAL EXAMINATION GENERAL: She is a middle-aged woman who appears somewhat uncomfortable due to her nausea. VITAL SIGNS: Her blood pressure is 136/60; pulse of 62, atrial fibrillation; respirations of 14; she is afebrile. HEENT: No JVD. CHEST: A few scattered rhonchi heard. HEART: PMI normal position. The rhythm is irregularly irregular. Systolic murmur is present in the left sternal border. ABDOMEN: Soft, nontender, normoactive bowel sounds. EXTREMITIES: Erythema of the left upper extremity is improved. Her right leg is wrapped; however, her toes appear warm. DIAGNOSTIC DATA: Potassium is 3.2 and it has been replaced. BUN and creatinine 11 and 0.8. Hemoglobin and hematocrit 9.8 and 29.6 with a white count of 10.7, platelet count of 454,000. Albumin is 2.0. IMPRESSION: 1. Status post surgical thrombectomy and distal bypass with fasciotomy for thromboembolic event involving right iliofemoral artery. 2. Paroxysmal atrial fibrillation. 3. Bicuspid aortic valve with moderately severe aortic stenosis and moderate aortic insufficiency. 4. Left arm cellulitis. RECOMMENDATIONS: 1. Current medications will be continued for now. Continue anticoagulation that appears appropriate. Close monitoring of her CBC is advised. The possibility of small bowel AVMs exist as her upper and lower endoscopies were fairly unrevealing. 2. Rate control therapy for atrial fibrillation will continue for now. From a cardiac standpoint, she is stable for additional wound closure surgery and grafting as planned in the next few days. Eventual rehabilitation placement will be necessary. We will continue to follow and make further recommendations as appropriate. Walt Hernandez MD [facility] # [id number]
--- NOTE | 2017-08-03 17:24 | PN ---
DATE OF SERVICE: 08/03/2017 SUBJECTIVE: The patient is lying in bed, comfortable. She denies any rectal bleeding, melena, nausea, vomiting, or abdominal pain. OBJECTIVE: VITAL SIGNS: Reveal temperature of 97.9, blood pressure 152/66, heart rate of 82. HEENT: Reveal sclerae to be white. Conjunctivae pink. NECK: Supple. CHEST: Reveals lungs to be clear. HEART: Reveals an irregular rate. There is a 2/6 systolic murmur. ABDOMEN: Obese, soft, nontender. EXTREMITIES: Show her right lower extremity to be in a dressing. She has anasarca in all her extremities and her torso. LABORATORY DATA: Reveal white blood cell count down to 10.7, hemoglobin 9.8. Chemistries reveal potassium 3.2, albumin is up to 2. IMPRESSION: 1. Chronic recurrent anemia. 2. New-onset atrial fibrillation. 3. Recent arterial occlusion of her right leg by thrombus, status post thrombectomy and right lower extremity arterial bypass. 4. Aortic stenosis. 5. Deconditioning. 6. Status post systemic inflammatory response syndrome. RECOMMENDATIONS: 1. The patient has been restarted on Plavix and Lovenox. 2. She is to have skin graft at the right lower extremity surgical site early next week. 3. Follow serial hematocrits. 4. Encourage the patient to increase oral intake. 5. Continue iron replacement, PPI, and follow serial hematocrits. Satinder Bruno MD
[2017-08-04] MEDS: Pantoprazole 40 mg EC Tab PO SCH (05:43)
[2017-08-04 06:04] LABS: HEMATOCRIT 28.1 % (36.0-48.0); MEAN CELL VOLUME 81.4 fl (80.0-105.0); MEAN CORPUSCULAR HGB CONC 33.1 g/dl (31.0-37.0); MEAN PLATELET VOLUME 9.5 fl (7.0-11.0); RED CELL DISTRIBUTION WIDTH 21.6 % (11.5-14.5)
[2017-08-04] MEDS: Sucralfate 1 gm/10 ml Oral Susp UD PO SCH ×4 (08:11→22:18)
[2017-08-04] MEDS: Acetylcysteine 20% Inhal Soln (4ml) IH SCH ×2 (08:26→19:13)
[2017-08-04] MEDS: Albuterol-Ipratrop 3 mg / 0.5 (3 ml) UD IH PRN ×2 (08:26→19:13)
--- NOTE | 2017-08-04 08:39 | CP.PCM.PN ---
Subjective - Date & Time of Evaluation Date of Evaluation: 08/04/17 Time of Evaluation: 07:00 - Subjective Subjective: Stable on 2R. No CP or SOB. V/S noted. Mostly AF with mod. VR. PE: Lungs: clear Cor.: S1S2, sys. murmur Abd.: soft Ext.: right foot bandaged with wound vac.. Can't move toes. Can lift leg. Neuro: alert I/O= 629/750 recorded Labs noted. WBC = 9,100, H/H = 9.3/28.1. BMP pending. Stool + OB x several. 07/27 stool neg. ECG 07/27: AF with RVR, NSSTW changes Echo:NL LV function, mod/sev. , mild to mod AI, mild MR, trace TR. Surgical spec cultures: + multiple orgs 07/27 BC x2 NG at 5 days. 07/27 CXR noted. Colonoscopy noted. Objective - Vital Signs/Intake and Output Vital Signs (last 24 hours): Temp Pulse Resp BP Pulse Ox 97.9 F 87 20 143/64 97 08/04/17 06:00 08/04/17 06:00 08/04/17 06:00 08/04/17 06:00 08/03/17 06:00 Intake and Output: 08/04/17 08/04/17 06:59 18:59 Intake Total 620 Output Total 750 Balance -130 - Medications Medications: Current Medications Acetaminophen (Tylenol 325mg Tab) 650 mg PO Q6H PRN PRN Reason: Headache Last Admin: 07/27/17 14:07 Dose: 650 mg Acetylcysteine (Acetylcysteine 20%) 4 ml IH BIDRESP [facility] Last Admin: 08/04/17 08:26 Dose: 4 ml Albuterol/Ipratropium (Duoneb 3 Mg/0.5 Mg (3 Ml) Ud) 3 ml IH Q2H PRN PRN Reason: Shortness of Breath Last Admin: 08/04/17 08:26 Dose: 3 ml Clopidogrel Bisulfate (Plavix) 75 mg PO DAILY [facility] Last Admin: 08/03/17 10:00 Dose: 75 mg Digoxin (Lanoxin) 0.25 mg PO 1400 [facility] Last Admin: 08/03/17 13:31 Dose: 0.25 mg Docusate Sodium (Colace) 100 mg PO TID [facility] Last Admin: 08/03/17 17:38 Dose: 100 mg Enoxaparin Sodium (Lovenox) 80 mg SC Q12H [facility] PRN Reason: Protocol Last Admin: 08/03/17 22:59 Dose: 80 mg Meropenem 1g/NS 100mL IVPB (Meropenem 1g/Ns 100ml Ivpb) 1 gm in 100 mls @ 100 mls/hr IVPB Q12 [facility] PRN Reason: Protocol Stop: 08/05/17 10:01 Last Admin: 08/03/17 23:00 Dose: 100 mls/hr Labetalol HCl (Trandate) 10 mg IVP ONCE PRN PRN Reason: Systolic Blood Pressure Last Admin: 08/02/17 13:04 Dose: 10 mg Metoprolol Tartrate (Lopressor) 50 mg PO BID [facility] Last Admin: 08/03/17 17:39 Dose: 50 mg Morphine Sulfate (Morphine Immediate Release Tab) 15 mg PO BID PRN PRN Reason: Pain, moderate (4-7) Last Admin: 08/03/17 01:45 Dose: 15 mg Pantoprazole Sodium (Protonix Ec Tab) 40 mg PO 0600 [facility] Last Admin: 08/04/17 05:43 Dose: 40 mg Silver Sulfadiazine (Silvadene 1% 25 Gm) 0 gm TP BID [facility] Last Admin: 08/03/17 10:00 Dose: 1 gm Sucralfate (Carafate Oral Susp) 1 gm PO ACHS [facility] Last Admin: 08/04/17 08:11 Dose: 1 gm - Labs Labs: 08/04/17 05:40 08/03/17 10:30 PT 12.4 Seconds (9.9-11.8) H 07/28/17 09:30 INR 1.15 (0.93-1.08) H 07/28/17 09:30 APTT 39.0 Seconds (23.7-30.8) H 07/28/17 09:30 Assessment and Plan - Assessment and Plan (Free Text) Assessment: Fever, R/O sepsis vs wound infection. Left arm cellulitis Severe anemia/s/p multiple blood transfusions/Esophageal and gastric ulcers/GIB/ Stool + OB. Most recent stool neg. OB. Acute iliofemoral thrombosis, s/p surgical thrombectomy, distal bypasses and fasciotomy Atrial fibrillation. PAF likely the cause for peripheral embolization originally. Also + hypercoag. state. Valvular heart disease: mod/sev , mild/mod AI, mild MR, trace TR HBP H/O syncope CVD DJD Former Smoker Right foot drop Colonic Polyp Plan: Continue PO metoprolol. Continue digoxin. Lovenox as per Dr. Kohler Wound care as per Dr. Couch AB as per ID. As per Dr. Couch, Dr. Jose F Bruno, and Dr. Bush Monitor I/O, H/H, labs, sats., stool for OB, cultures, etc. OOB as sybil. PT/Rehab when ready Will follow
--- NOTE | 2017-08-04 08:51 | PN ---
DATE: 08/04/2017 SUBJECTIVE: The patient is lying in bed comfortable. She denies any abdominal pain, nausea, vomiting, rectal bleeding, melena, chest pain or shortness of breath. PHYSICAL EXAMINATION: VITAL SIGNS: Reveal temperature of 97.9, blood pressure 143/64, heart rate of 87. HEENT: Reveal sclerae to be white. Conjunctivae pale. NECK: Supple. CHEST: Reveal lungs to be clear. HEART: Reveals an irregular rate. There is a 2/6 systolic murmur. ABDOMEN: Obese, soft, nontender. EXTREMITIES: Show decreasing anasarca. She has a surgical dressing over her right leg. LABORATORY DATA: Reveal hemoglobin of 9.3, platelet count of 390,000. Chemistries reveal a potassium of 3.2 from yesterday. Pathology from colonoscopy reveals a tubular adenoma in the rectum. IMPRESSION: 1. Chronic recurrent anemia. 2. History of arterial thrombosis of the right leg, status post thrombectomy and arterial bypass. 3. Atrial fibrillation, on Lovenox and Plavix. 4. Aortic stenosis. 5. Deconditioning. RECOMMENDATIONS: 1. Follow serial hematocrits. 2. Continue PPI for recent superficial gastric ulcer. 3. Continue iron replacement. Satinder Bruno MD
[2017-08-04] MEDS: Potassium Chloride 20 mEq ER Tab PO SCH ×2 (09:18→17:47)
[2017-08-04] MEDS: Enoxaparin 80 mg Syringe SC SCH ×2 (09:19→22:24)
[2017-08-04] MEDS: Silver Sulfadiazine 1% Cream (25 gm) TP SCH (09:34)
[2017-08-04] MEDS: Meropenem 1g/NS 100mL IVPB 1 GM/100 ML PIGGYBACK IVPB SCH ×2 (10:13→22:18)
[2017-08-04] MEDS: Digoxin 250 mcg (0.25 mg) Tab PO SCH (14:56)
--- NOTE | 2017-08-04 15:52 | CP.PCM.PN ---
Subjective - Date & Time of Evaluation Date of Evaluation: 08/04/17 Time of Evaluation: 15:49 - Subjective Subjective: Surgery Pt s&e. NAEON. Denies F/C/N/V/D/Cp/SOB. Objective - Vital Signs/Intake and Output Vital Signs (last 24 hours): Temp Pulse Resp BP Pulse Ox 97.9 F 64 20 138/62 97 08/04/17 06:00 08/04/17 09:19 08/04/17 06:00 08/04/17 09:19 08/03/17 06:00 Intake and Output: 08/04/17 08/04/17 06:59 18:59 Intake Total 620 Output Total 750 Balance -130 - Medications Medications: Current Medications Acetaminophen (Tylenol 325mg Tab) 650 mg PO Q6H PRN PRN Reason: Headache Last Admin: 07/27/17 14:07 Dose: 650 mg Acetylcysteine (Acetylcysteine 20%) 4 ml IH BIDRESP [facility] Last Admin: 08/04/17 08:26 Dose: 4 ml Albuterol/Ipratropium (Duoneb 3 Mg/0.5 Mg (3 Ml) Ud) 3 ml IH Q2H PRN PRN Reason: Shortness of Breath Last Admin: 08/04/17 08:26 Dose: 3 ml Clopidogrel Bisulfate (Plavix) 75 mg PO DAILY [facility] Last Admin: 08/04/17 09:18 Dose: 75 mg Digoxin (Lanoxin) 0.25 mg PO 1400 [facility] Last Admin: 08/04/17 14:56 Dose: 0.25 mg Docusate Sodium (Colace) 100 mg PO TID [facility] Last Admin: 08/04/17 14:56 Dose: 100 mg Enoxaparin Sodium (Lovenox) 80 mg SC Q12H [facility] PRN Reason: Protocol Last Admin: 08/04/17 09:19 Dose: 80 mg Meropenem 1g/NS 100mL IVPB (Meropenem 1g/Ns 100ml Ivpb) 1 gm in 100 mls @ 100 mls/hr IVPB Q12 [facility] PRN Reason: Protocol Stop: 08/05/17 10:01 Last Admin: 08/04/17 10:13 Dose: 100 mls/hr Labetalol HCl (Trandate) 10 mg IVP ONCE PRN PRN Reason: Systolic Blood Pressure Last Admin: 08/02/17 13:04 Dose: 10 mg Metoprolol Tartrate (Lopressor) 50 mg PO BID [facility] Last Admin: 08/04/17 09:19 Dose: 50 mg Morphine Sulfate (Morphine Immediate Release Tab) 15 mg PO BID PRN PRN Reason: Pain, moderate (4-7) Last Admin: 08/03/17 01:45 Dose: 15 mg Pantoprazole Sodium (Protonix Ec Tab) 40 mg PO 0600 [facility] Last Admin: 08/04/17 05:43 Dose: 40 mg Potassium Chloride (K-Dur 20 Meq Er Tab) 20 meq PO BID [facility] Last Admin: 08/04/17 09:18 Dose: 20 meq Silver Sulfadiazine (Silvadene 1% 25 Gm) 0 gm TP BID [facility] Last Admin: 08/04/17 09:34 Dose: Not Given Sucralfate (Carafate Oral Susp) 1 gm PO ACHS [facility] Last Admin: 08/04/17 12:10 Dose: 1 gm - Labs Labs: 08/04/17 05:40 08/03/17 10:30 PT 12.4 Seconds (9.9-11.8) H 07/28/17 09:30 INR 1.15 (0.93-1.08) H 07/28/17 09:30 APTT 39.0 Seconds (23.7-30.8) H 07/28/17 09:30 - Constitutional Appears: No Acute Distress - Head Exam Head Exam: ATRAUMATIC, NORMAL INSPECTION, NORMOCEPHALIC - Eye Exam Eye Exam: EOMI, Normal appearance, PERRL Pupil Exam: NORMAL ACCOMODATION, PERRL - ENT Exam ENT Exam: Mucous Membranes Moist, Normal Exam - Neck Exam Neck Exam: Full ROM, Normal Inspection. absent: Lymphadenopathy - Respiratory Exam Respiratory Exam: Clear to Ausculation Bilateral, NORMAL BREATHING PATTERN - Cardiovascular Exam Cardiovascular Exam: REGULAR RHYTHM, +S1, +S2. absent: Murmur - GI/Abdominal Exam GI & Abdominal Exam: Soft, Normal Bowel Sounds. absent: Distended, Tenderness - Extremities Exam Extremities Exam: absent: Normal Inspection Additional comments: Dressing C/D/I. distal Doppler signs - Back Exam Back Exam: NORMAL INSPECTION - Neurological Exam Neurological Exam: Alert, Awake, CN II-XII Intact, Normal Gait, Oriented x3 - Psychiatric Exam Psychiatric exam: Normal Affect, Normal Mood - Skin Skin Exam: Dry, Intact, Normal Color, Warm. absent: Erythema Assessment and Plan - Assessment and Plan (Free Text) Assessment: 67F s/p Right leg Femoral/Popliteal embolectomy. Right leg Popliteal/Tibial/ Peroneal bypass, Right leg fasciotomy on POD#18, s/p wound exploration with irrigation on POD#16, s/p 2nd wound exploration, irrigation with wound vac application on POD#8 - wound vac change again Sunday 08/05 - OR tuesday for Split Thickness Skin Graft and closure - IV abx per ID - continue daily vascular checks - discussed with Dr. Couch
--- NOTE | 2017-08-04 20:11 | PN ---
DATE: SUBJECTIVE: This is a 67-year-old white female status post colonoscopy, no evidence of bleeding, status post GI bleed, status post right leg thrombosis, treated with a fem-fem bypass fasciotomy, thrombolysis by Dr. Elma Couch. Patient currently has a wound VAC on the right leg. She has lost the strength in the toes of the right foot. She is status post rapid atrial fibrillation, controlled. She is now on Lovenox and Plavix. Her H and H has been stable. Her white count has dropped. She is still having elevated white count with possible sepsis from Staph aureus in the wounds. Vital signs are stable today. Patient is doing physical therapy and occupational therapy. She is tolerating her diet well. She is sitting in chair, doing physical therapy. She did stand for periods of time yesterday. PLAN: A skin graft early next week and then subacute rehab at [facility] in [place]. Patient is currently finishing a course of IV antibiotics and white count has dropped to normal. She is afebrile. Vital signs are stable. Examinations are unchanged and wounds are clean and dry. Her foot is warm. There is decreased swelling. There is a left antecubital indurated mass which is non erythematous, not fluctuant and indurated at this point that we have discussed with Surgery at this point to continue close observation. Alexis Bush MD
--- NOTE | 2017-08-04 20:49 | CP.PCM.PN ---
Subjective - Date & Time of Evaluation Date of Evaluation: 08/04/17 Time of Evaluation: 08:50 - Subjective Subjective: Less pain in the left leg, no fevers overnight. Objective - Vital Signs/Intake and Output Vital Signs (last 24 hours): Temp Pulse Resp BP Pulse Ox 97.9 F 87 20 143/64 97 08/04/17 06:00 08/04/17 06:00 08/04/17 06:00 08/04/17 06:00 08/03/17 06:00 Intake and Output: 08/04/17 08/04/17 06:59 18:59 Intake Total 620 Output Total 750 Balance -130 - Medications Medications: Current Medications Acetaminophen (Tylenol 325mg Tab) 650 mg PO Q6H PRN PRN Reason: Headache Last Admin: 07/27/17 14:07 Dose: 650 mg Acetylcysteine (Acetylcysteine 20%) 4 ml IH BIDRESP [facility] Last Admin: 08/03/17 19:12 Dose: 4 ml Albuterol/Ipratropium (Duoneb 3 Mg/0.5 Mg (3 Ml) Ud) 3 ml IH Q2H PRN PRN Reason: Shortness of Breath Last Admin: 08/03/17 19:14 Dose: 3 ml Clopidogrel Bisulfate (Plavix) 75 mg PO DAILY [facility] Last Admin: 08/03/17 10:00 Dose: 75 mg Digoxin (Lanoxin) 0.25 mg PO 1400 [facility] Last Admin: 08/03/17 13:31 Dose: 0.25 mg Docusate Sodium (Colace) 100 mg PO TID [facility] Last Admin: 08/03/17 17:38 Dose: 100 mg Enoxaparin Sodium (Lovenox) 80 mg SC Q12H [facility] PRN Reason: Protocol Last Admin: 08/03/17 22:59 Dose: 80 mg Meropenem 1g/NS 100mL IVPB (Meropenem 1g/Ns 100ml Ivpb) 1 gm in 100 mls @ 100 mls/hr IVPB Q12 [facility] PRN Reason: Protocol Stop: 08/05/17 10:01 Last Admin: 08/03/17 23:00 Dose: 100 mls/hr Labetalol HCl (Trandate) 10 mg IVP ONCE PRN PRN Reason: Systolic Blood Pressure Last Admin: 08/02/17 13:04 Dose: 10 mg Metoprolol Tartrate (Lopressor) 50 mg PO BID [facility] Last Admin: 08/03/17 17:39 Dose: 50 mg Morphine Sulfate (Morphine Immediate Release Tab) 15 mg PO BID PRN PRN Reason: Pain, moderate (4-7) Last Admin: 08/03/17 01:45 Dose: 15 mg Pantoprazole Sodium (Protonix Ec Tab) 40 mg PO 0600 [facility] Last Admin: 08/04/17 05:43 Dose: 40 mg Silver Sulfadiazine (Silvadene 1% 25 Gm) 0 gm TP BID [facility] Last Admin: 08/03/17 10:00 Dose: 1 gm Sucralfate (Carafate Oral Susp) 1 gm PO ACHS [facility] Last Admin: 08/03/17 22:59 Dose: 1 gm - Labs Labs: 08/04/17 05:40 08/03/17 10:30 PT 12.4 Seconds (9.9-11.8) H 07/28/17 09:30 INR 1.15 (0.93-1.08) H 07/28/17 09:30 APTT 39.0 Seconds (23.7-30.8) H 07/28/17 09:30 - Constitutional Appears: Non-toxic, No Acute Distress - Head Exam Head Exam: NORMAL INSPECTION - ENT Exam ENT Exam: Mucous Membranes Moist - Neck Exam Neck Exam: absent: Meningismus - Respiratory Exam Respiratory Exam: Decreased Breath Sounds - Cardiovascular Exam Cardiovascular Exam: +S1, +S2 - GI/Abdominal Exam GI & Abdominal Exam: Soft. absent: Tenderness - Extremities Exam Additional comments: left leg with dressings and wound vacuum in place Assessment and Plan - Assessment and Plan (Free Text) Plan: Assessment Severe sepsis with infected right leg wound (growing MSSA, Leclercia and Pseudomas) due to ischemia S/P thrombectomy of acute iliofemoral thrombus, distal bypass and fasciotomy / debridement, as well as left arm cellulitis and HCAP non-bleeding polyp in the colon mitral valve prolapse dyslipidemia history of UTI's moderate to severe aortic stenosis atrial fibrillation hyercoagulable state Plan Continue Merrem (day 9); WBC count is trending down and will continue to trend continue local wound care, wound vacuum by Surgery - for skin grafting and closure of wound next Tuesday - will continue antibiotics until wound closure will continue to monitor clinically
[2017-08-05] MEDS: Pantoprazole 40 mg EC Tab PO SCH (05:39)
[2017-08-05 07:14] LABS: BLOOD UREA NITROGEN 8 mg/dL (7-21); CARBON DIOXIDE 25 mmol/L (21-33); CHLORIDE 106 mmol/L (98-107); GFR AFRICAN-AMERICAN > 60; GLUCOSE,RANDOM 83 mg/dL (70-110); POTASSIUM 3.3 mmol/L (3.6-5.0); SODIUM 135 mmol/L (132-148)
[2017-08-05] MEDS: Acetylcysteine 20% Inhal Soln (4ml) IH SCH ×2 (07:39→19:46)
[2017-08-05] MEDS: Albuterol-Ipratrop 3 mg / 0.5 (3 ml) UD IH PRN ×2 (07:39→19:46)
--- NOTE | 2017-08-05 07:52 | CP.PCM.PN ---
Subjective - Date & Time of Evaluation Date of Evaluation: 08/05/17 Time of Evaluation: 07:00 - Subjective Subjective: Stable on 3R. No CP or SOB. She feels OK. Getting PT. V/S noted. P = 68 PE: Lungs: clear Cor.: S1S2, sys. murmur Abd.: soft Ext.: right foot bandaged with wound vac.. Can't move toes. Can lift leg. Neuro: alert I/O= 540/500 recorded Labs 08/04 noted. WBC = 9,100, H/H = 9.3/28.1, K+ = 3.3 Stool + OB x several. 07/27 stool neg. ECG 07/27: AF with RVR, NSSTW changes Echo:NL LV function, mod/sev. , mild to mod AI, mild MR, trace TR. Surgical spec cultures: + multiple orgs 07/27 BC x2 NG at 5 days. 07/27 CXR noted. Colonoscopy noted. Objective - Vital Signs/Intake and Output Vital Signs (last 24 hours): Temp Pulse Resp BP Pulse Ox 97.5 F L 68 20 163/84 H 97 08/04/17 16:00 08/04/17 16:00 08/04/17 16:00 08/04/17 17:47 08/04/17 16:00 Intake and Output: 08/05/17 08/05/17 06:59 18:59 Intake Total 540 Output Total 500 Balance 40 - Medications Medications: Current Medications Acetaminophen (Tylenol 325mg Tab) 650 mg PO Q6H PRN PRN Reason: Headache Last Admin: 07/27/17 14:07 Dose: 650 mg Acetylcysteine (Acetylcysteine 20%) 4 ml IH BIDRESP [facility] Last Admin: 08/05/17 07:39 Dose: 4 ml Albuterol/Ipratropium (Duoneb 3 Mg/0.5 Mg (3 Ml) Ud) 3 ml IH Q2H PRN PRN Reason: Shortness of Breath Last Admin: 08/05/17 07:39 Dose: 3 ml Clopidogrel Bisulfate (Plavix) 75 mg PO DAILY [facility] Last Admin: 08/04/17 09:18 Dose: 75 mg Digoxin (Lanoxin) 0.25 mg PO 1400 [facility] Last Admin: 08/04/17 14:56 Dose: 0.25 mg Docusate Sodium (Colace) 100 mg PO TID [facility] Last Admin: 08/04/17 17:48 Dose: 100 mg Enoxaparin Sodium (Lovenox) 80 mg SC Q12H [facility] PRN Reason: Protocol Last Admin: 08/04/17 22:24 Dose: 80 mg Meropenem 1g/NS 100mL IVPB (Meropenem 1g/Ns 100ml Ivpb) 1 gm in 100 mls @ 100 mls/hr IVPB Q12 [facility] PRN Reason: Protocol Stop: 08/05/17 10:01 Last Admin: 08/04/17 22:18 Dose: 100 mls/hr Labetalol HCl (Trandate) 10 mg IVP ONCE PRN PRN Reason: Systolic Blood Pressure Last Admin: 08/02/17 13:04 Dose: 10 mg Metoprolol Tartrate (Lopressor) 50 mg PO BID [facility] Last Admin: 08/04/17 17:47 Dose: 50 mg Morphine Sulfate (Morphine Immediate Release Tab) 15 mg PO BID PRN PRN Reason: Pain, moderate (4-7) Last Admin: 08/03/17 01:45 Dose: 15 mg Pantoprazole Sodium (Protonix Ec Tab) 40 mg PO 0600 [facility] Last Admin: 08/05/17 05:39 Dose: 40 mg Potassium Chloride (K-Dur 20 Meq Er Tab) 20 meq PO BID [facility] Last Admin: 08/04/17 17:47 Dose: 20 meq Silver Sulfadiazine (Silvadene 1% 25 Gm) 0 gm TP BID [facility] Last Admin: 08/04/17 09:34 Dose: Not Given Sucralfate (Carafate Oral Susp) 1 gm PO ACHS [facility] Last Admin: 08/04/17 22:18 Dose: 1 gm - Labs Labs: 08/04/17 05:40 08/05/17 06:52 PT 12.4 Seconds (9.9-11.8) H 07/28/17 09:30 INR 1.15 (0.93-1.08) H 07/28/17 09:30 APTT 39.0 Seconds (23.7-30.8) H 07/28/17 09:30 Assessment and Plan - Assessment and Plan (Free Text) Assessment: Fever, R/O sepsis vs wound infection. Left arm cellulitis Severe anemia/s/p multiple blood transfusions/Esophageal and gastric ulcers/GIB/ Stool + OB. Most recent stool neg. OB. Acute iliofemoral thrombosis, s/p surgical thrombectomy, distal bypasses and fasciotomy Atrial fibrillation. PAF likely the cause for peripheral embolization originally. Also + hypercoag. state. Valvular heart disease: mod/sev , mild/mod AI, mild MR, trace TR HBP H/O syncope CVD DJD Former Smoker Right foot drop Colonic Polyp Plan: PO KCL Continue PO metoprolol. Continue PO digoxin. Lovenox as per Dr. Kohler Wound care as per Dr. Couch. Closure and skin graft Tues planned. AB as per ID. As per Dr. Couch, Dr. Jose F Bruno, and Dr. Bush Monitor I/O, H/H, labs, stool for OB, cultures, etc. OOB as sybil. PT/Rehab when ready Will follow
--- NOTE | 2017-08-05 08:53 | CP.PCM.PN ---
Subjective - Date & Time of Evaluation Date of Evaluation: 08/05/17 Time of Evaluation: 07:15 - Subjective Subjective: Vascular Surgery Note for Dr. Couch Patient seen and examined at bedside. No acute event overnight. Patient complaining of pain in R leg. She also states she feels more thirsty than yesterday. Wound vac to be changed this AM. Patient denies fever/chills, chest pain, shortness of breath, abdominal pain, nausea/vomiting, diarrhea. Objective - Vital Signs/Intake and Output Vital Signs (last 24 hours): Temp Pulse Resp BP Pulse Ox 97.5 F L 68 20 163/84 H 97 08/04/17 16:00 08/04/17 16:00 08/04/17 16:00 08/04/17 17:47 08/04/17 16:00 Intake and Output: 08/05/17 08/05/17 06:59 18:59 Intake Total 540 Output Total 500 Balance 40 - Medications Medications: Current Medications Acetaminophen (Tylenol 325mg Tab) 650 mg PO Q6H PRN PRN Reason: Headache Last Admin: 07/27/17 14:07 Dose: 650 mg Acetylcysteine (Acetylcysteine 20%) 4 ml IH BIDRESP [facility] Last Admin: 08/05/17 07:39 Dose: 4 ml Albuterol/Ipratropium (Duoneb 3 Mg/0.5 Mg (3 Ml) Ud) 3 ml IH Q2H PRN PRN Reason: Shortness of Breath Last Admin: 08/05/17 07:39 Dose: 3 ml Clopidogrel Bisulfate (Plavix) 75 mg PO DAILY [facility] Last Admin: 08/04/17 09:18 Dose: 75 mg Digoxin (Lanoxin) 0.25 mg PO 1400 [facility] Last Admin: 08/04/17 14:56 Dose: 0.25 mg Docusate Sodium (Colace) 100 mg PO TID [facility] Last Admin: 08/04/17 17:48 Dose: 100 mg Enoxaparin Sodium (Lovenox) 80 mg SC Q12H [facility] PRN Reason: Protocol Last Admin: 08/04/17 22:24 Dose: 80 mg Meropenem 1g/NS 100mL IVPB (Meropenem 1g/Ns 100ml Ivpb) 1 gm in 100 mls @ 100 mls/hr IVPB Q12 [facility] PRN Reason: Protocol Stop: 08/05/17 10:01 Last Admin: 08/04/17 22:18 Dose: 100 mls/hr Labetalol HCl (Trandate) 10 mg IVP ONCE PRN PRN Reason: Systolic Blood Pressure Last Admin: 08/02/17 13:04 Dose: 10 mg Metoprolol Tartrate (Lopressor) 50 mg PO BID [facility] Last Admin: 08/04/17 17:47 Dose: 50 mg Morphine Sulfate (Morphine Immediate Release Tab) 15 mg PO BID PRN PRN Reason: Pain, moderate (4-7) Last Admin: 08/03/17 01:45 Dose: 15 mg Pantoprazole Sodium (Protonix Ec Tab) 40 mg PO 0600 [facility] Last Admin: 08/05/17 05:39 Dose: 40 mg Potassium Chloride (K-Dur 20 Meq Er Tab) 20 meq PO BID [facility] Last Admin: 08/04/17 17:47 Dose: 20 meq Silver Sulfadiazine (Silvadene 1% 25 Gm) 0 gm TP BID [facility] Last Admin: 08/04/17 09:34 Dose: Not Given Sucralfate (Carafate Oral Susp) 1 gm PO ACHS [facility] Last Admin: 08/04/17 22:18 Dose: 1 gm - Labs Labs: 08/04/17 05:40 08/05/17 06:52 PT 12.4 Seconds (9.9-11.8) H 07/28/17 09:30 INR 1.15 (0.93-1.08) H 07/28/17 09:30 APTT 39.0 Seconds (23.7-30.8) H 07/28/17 09:30 - Constitutional Appears: No Acute Distress - Head Exam Head Exam: ATRAUMATIC, NORMOCEPHALIC - Eye Exam Eye Exam: Normal appearance Pupil Exam: PERRL - ENT Exam ENT Exam: Mucous Membranes Dry - Respiratory Exam Respiratory Exam: NORMAL BREATHING PATTERN - Cardiovascular Exam Cardiovascular Exam: REGULAR RHYTHM - GI/Abdominal Exam GI & Abdominal Exam: Soft. absent: Distended, Firm, Tenderness - Extremities Exam Extremities Exam: Tenderness (rle) Additional comments: dressing clean dry and intact on RLE wound vac to be changed today - Neurological Exam Neurological Exam: Alert, Awake, CN II-XII Intact, Oriented x3 - Psychiatric Exam Psychiatric exam: Normal Affect, Normal Mood - Skin Skin Exam: Dry, Warm Additional comments: dry flaky skin on face erythema on back and buttocks improving Assessment and Plan - Assessment and Plan (Free Text) Plan: 67F s/p Right leg Femoral/Popliteal embolectomy. Right leg Popliteal/Tibial/ Peroneal bypass, Right leg fasciotomy on POD#19, s/p wound exploration with irrigation on POD#17, s/p 2nd wound exploration, irrigation with wound vac application on POD#9 - IV fluids - wound vac change today - Scheduled for Split Thickness Skin Graft and closure in OR tuesday - IV antibiotics as per Infectious disease - continue daily vascular checks - discussed with Dr. Khoa Berrios PGY1
[2017-08-05] MEDS ORDERED: Potassium Chloride 20 mEq ER Tab PO ONE (08:56)
[2017-08-05] MEDS ORDERED: Sodium Chloride 0.9% 1,000 ML IV SCH (09:00)
[2017-08-05] MEDS: Sucralfate 1 gm/10 ml Oral Susp UD PO SCH ×4 (09:41→21:25)
[2017-08-05] MEDS: Enoxaparin 80 mg Syringe SC SCH ×2 (09:42→21:20)
[2017-08-05] MEDS: Meropenem 1g/NS 100mL IVPB 1 GM/100 ML PIGGYBACK IVPB SCH (09:46)
[2017-08-05] MEDS: Sodium Chloride 0.9% 1,000 ML IV SCH (09:47)
--- NOTE | 2017-08-05 10:00 | PN ---
DATE: 08/05/2017 SUBJECTIVE: The patient is in bed, in no acute distress. OBJECTIVE: VITAL SIGNS: On exam, temperature is 97, blood pressure is 160/80, respiratory rate of 18 and heart rate of 87. EXAMINATION OF HEENT: Unremarkable. NECK: Supple. LUNGS: Have decreased breath sounds. HEART EXAM: Normal S1 and S2. ABDOMINAL EXAMINATION: Soft. LABORATORY EXAMINATION: Reveals the white count is 9000, hemoglobin of 9 and platelets of 390. BUN of 8 and creatinine of 0.7. Urinalysis is noted. ASSESSMENT AND PLAN: A 67-year-old female with severe sepsis, infected right leg wound with methicillin-susceptible Staphylococcus aureus, and pseudomonas due to ischemia and status post thrombectomy of an acute iliofemoral thrombus, distal bypass and fasciotomy and debridement as well as the left arm cellulitis and healthcare-associated pneumonia, non-bleeding polyp in the colon. Mitral valve prolapse, dyslipidemia, history of urinary tract infection, [id number] aortic stenosis, atrial fibrillation and hypercoagulable state. Currently on day #10 of meropenem and and we will continue meropenem. We will discuss with Dr. Couch and Dr. Bush's note from yesterday is reviewed and a skin graft early next week and then subacute rehab [facility], is the plan. We will follow with you. Jasbir Hargrove MD
[2017-08-05] MEDS ORDERED: HYDROmorphone 1 mg/ml ISec IVP STA (11:08)
[2017-08-05] MEDS: POLYETHYLENE GLYCOL 3350 17 GM/Dose PACKET PO SCH (12:24)
[2017-08-05] MEDS: Potassium Chloride 20 mEq ER Tab PO SCH ×2 (12:24→17:35)
--- NOTE | 2017-08-05 12:54 | PN ---
SUBJECTIVE: The patient is transferred out of telemetry. She is stable, status post rapid atrial fibrillation, status post right leg thrombosis with thrombolysis, attempted bypass and fasciotomy. The patient has a wound VAC on the right leg. She has lost the strength in the toes of the right foot. She is status post GI bleed, recent EDG and colonoscopy did not reveal any evidence of bleeding. Her hemoglobin has been stable. She is on Lovenox and Plavix because of hypercoagulable state. The patient is awake, alert and oriented x3 neurologically . She is status post sepsis with staph. She is on IV antibiotics. She is afebrile. Her white count is normal. PLAN: To continue monitoring her blood counts and physical therapy and occupational therapy. She is planned for Dr. Couch to do a skin graft early next week. Alexis Bush MD
--- NOTE | 2017-08-05 13:50 | PN ---
DATE: 08/05/2017 SUBJECTIVE: The patient is lying in bed comfortable. She has not had a bowel movement since her colonoscopy several days ago. She denies any rectal bleeding or melena. OBJECTIVE: VITAL SIGNS: Reveal temperature of 97.5, blood pressure 163/84, heart rate of 68. HEENT: Reveal sclerae to be white. Conjunctivae pale. NECK: Supple. CHEST: Reveal lungs to be clear. HEART: Reveals regular rate and rhythm. ABDOMEN: Obese, soft, nontender. No mass. EXTREMITIES: Show her right leg to be in a surgical dressing. She has had decreasing anasarca of her extremities and torso. LABORATORY DATA: No new CBC is available. Chemistries reveal potassium of 3.3. IMPRESSION: 1. Anemia. 2. Status post arterial occlusion of her right leg by thrombus, status post thrombectomy and arterial bypass. 3. Aortic stenosis. 4. Atrial fibrillation, on Lovenox and Plavix. 5. Hypercoagulable state. RECOMMENDATIONS: 1. Follow serial hematocrits. 2. Continue Plavix and warfarin. 3. Further wound care of her right leg as per Vascular Surgery. Satinder Bruno MD
[2017-08-05] MEDS: Digoxin 250 mcg (0.25 mg) Tab PO SCH (14:46)
[2017-08-05] MEDS: Silver Sulfadiazine 1% Cream (25 gm) TP SCH ×2 (14:54→18:41)
[2017-08-05] MEDS ORDERED: DiphenhydrAMINE 50 mg/ml Inj IVP STA (16:51)
[2017-08-06 06:38] LABS: HEMATOCRIT 30.9 % (36.0-48.0); MEAN CELL VOLUME 83.7 fl (80.0-105.0); MEAN CORPUSCULAR HEMOGLOBIN 26.8 pg (25.0-35.0); MEAN PLATELET VOLUME 9.7 fl (7.0-11.0); RED CELL DISTRIBUTION WIDTH 21.5 % (11.5-14.5); WHITE BLOOD COUNT 9.1 10^3/ul (4.5-11.0)
[2017-08-06] MEDS: Pantoprazole 40 mg EC Tab PO SCH (06:39)
[2017-08-06 06:56] LABS: BLOOD UREA NITROGEN 7 mg/dL (7-21); CARBON DIOXIDE 29 mmol/L (21-33); CHLORIDE 105 mmol/L (98-107); GFR AFRICAN-AMERICAN > 60; GLUCOSE,RANDOM 87 mg/dL (70-110); MAGNESIUM 1.4 mg/dL (1.7-2.2); POTASSIUM 3.4 mmol/L (3.6-5.0); SODIUM 136 mmol/L (132-148)
[2017-08-06 06:58] LABS: CALCIUM 6.9 mg/dL (8.4-10.5)
[2017-08-06] MEDS ORDERED: Potassium Chloride 20 mEq ER Tab PO ONE (07:49)
[2017-08-06] MEDS: Acetylcysteine 20% Inhal Soln (4ml) IH SCH ×2 (08:31→20:37)
[2017-08-06] MEDS: Albuterol-Ipratrop 3 mg / 0.5 (3 ml) UD IH PRN ×2 (08:31→20:33)
--- NOTE | 2017-08-06 08:55 | CP.PCM.PN ---
Subjective - Date & Time of Evaluation Date of Evaluation: 08/06/17 Time of Evaluation: 08:46 - Subjective Subjective: Surgery Pt s&e. NAEON. Denies F/C/N/V/D/CP/SOB. WOund vac changed yesterday . Tolerated it well. Objective - Vital Signs/Intake and Output Vital Signs (last 24 hours): Temp Pulse Resp BP Pulse Ox 97.9 F 76 20 145/66 99 08/06/17 08:04 08/06/17 08:04 08/06/17 08:04 08/06/17 08:04 08/06/17 08:04 Intake and Output: 08/06/17 08/06/17 06:59 18:59 Intake Total 1920 Output Total 1100 Balance 820 - Medications Medications: Current Medications Acetaminophen (Tylenol 325mg Tab) 650 mg PO Q6H PRN PRN Reason: Headache Last Admin: 07/27/17 14:07 Dose: 650 mg Acetylcysteine (Acetylcysteine 20%) 4 ml IH B[facility]RESP [facility] Last Admin: 08/06/17 08:31 Dose: 4 ml Albuterol/Ipratropium (Duoneb 3 Mg/0.5 Mg (3 Ml) Ud) 3 ml IH Q2H PRN PRN Reason: Shortness of Breath Last Admin: 08/06/17 08:31 Dose: 3 ml Clopidogrel Bisulfate (Plavix) 75 mg PO DAILY [facility] Last Admin: 08/05/17 09:44 Dose: 75 mg Digoxin (Lanoxin) 0.25 mg PO 1400 [facility] Last Admin: 08/05/17 14:46 Dose: 0.25 mg Docusate Sodium (Colace) 100 mg PO TID [facility] Last Admin: 08/05/17 17:37 Dose: 100 mg Enoxaparin Sodium (Lovenox) 80 mg SC Q12H [facility] PRN Reason: Protocol Last Admin: 08/05/17 21:20 Dose: 80 mg Sodium Chloride (Sodium Chloride 0.9%) 1,000 mls @ 75 mls/hr IV .[id number] [facility] Last Admin: 08/05/17 09:47 Dose: 75 mls/hr Labetalol HCl (Trandate) 10 mg IVP ONCE PRN PRN Reason: Systolic Blood Pressure Last Admin: 08/02/17 13:04 Dose: 10 mg Metoprolol Tartrate (Lopressor) 50 mg PO BID [facility] Last Admin: 08/05/17 17:32 Dose: 50 mg Pantoprazole Sodium (Protonix Ec Tab) 40 mg PO 0600 [facility] Last Admin: 08/06/17 06:39 Dose: 40 mg Polyethylene Glycol (Miralax) 17 gm PO DAILY [facility] Last Admin: 08/05/17 12:24 Dose: 17 gm Potassium Chloride (K-Dur 20 Meq Er Tab) 20 meq PO BID [facility] Last Admin: 08/05/17 17:35 Dose: 20 meq Silver Sulfadiazine (Silvadene 1% 25 Gm) 0 gm TP BID [facility] Last Admin: 08/05/17 18:41 Dose: Not Given Sucralfate (Carafate Oral Susp) 1 gm PO ACHS [facility] Last Admin: 08/05/17 21:25 Dose: Not Given Tramadol HCl (Ultram) 50 mg PO TID PRN PRN Reason: Pain, moderate (4-7) - Labs Labs: 08/06/17 06:20 08/06/17 06:20 PT 12.4 Seconds (9.9-11.8) H 07/28/17 09:30 INR 1.15 (0.93-1.08) H 07/28/17 09:30 APTT 39.0 Seconds (23.7-30.8) H 07/28/17 09:30 - Constitutional Appears: No Acute Distress - Head Exam Head Exam: ATRAUMATIC, NORMAL INSPECTION, NORMOCEPHALIC - Eye Exam Eye Exam: EOMI, Normal appearance, PERRL Pupil Exam: NORMAL ACCOMODATION, PERRL - ENT Exam ENT Exam: Mucous Membranes Moist, Normal Exam - Neck Exam Neck Exam: Full ROM, Normal Inspection. absent: Lymphadenopathy - Respiratory Exam Respiratory Exam: Clear to Ausculation Bilateral, NORMAL BREATHING PATTERN - Cardiovascular Exam Cardiovascular Exam: REGULAR RHYTHM, +S1, +S2. absent: Murmur - GI/Abdominal Exam GI & Abdominal Exam: Soft, Normal Bowel Sounds. absent: Distended, Tenderness - Extremities Exam Extremities Exam: Normal Capillary Refill, Tenderness. absent: Full ROM, Joint Swelling, Pedal Edema Additional comments: L UE has 2x3 cm palpable firm mass R LE dressing C/D/I - Neurological Exam Neurological Exam: Alert, Awake, CN II-XII Intact, Oriented x3. absent: Normal Gait - Psychiatric Exam Psychiatric exam: Normal Affect, Normal Mood - Skin Skin Exam: Dry, Warm Assessment and Plan - Assessment and Plan (Free Text) Assessment: 67F s/p Right leg Femoral/Popliteal embolectomy. Right leg Popliteal/Tibial/ Peroneal bypass, Right leg fasciotomy on POD#20, s/p wound exploration with irrigation on POD#18, s/p 2nd wound exploration, irrigation with wound vac application on POD#10 - wound vac change today - Scheduled for Split Thickness Skin Graft and closure in OR tuesday - IV antibiotics as per Infectious disease - continue daily vascular checks - discussed with Dr. Couch
[2017-08-06] MEDS: Enoxaparin 80 mg Syringe SC SCH ×2 (09:44→22:41)
[2017-08-06] MEDS: Potassium Chloride 20 mEq ER Tab PO SCH ×2 (09:44→17:43)
[2017-08-06] MEDS: Sucralfate 1 gm/10 ml Oral Susp UD PO SCH ×4 (09:45→22:40)
[2017-08-06] MEDS: POLYETHYLENE GLYCOL 3350 17 GM/Dose PACKET PO SCH (09:45)
[2017-08-06] MEDS: Silver Sulfadiazine 1% Cream (25 gm) TP SCH ×2 (09:45→17:43)
[2017-08-06] MEDS ORDERED: DAPTOmycin 500 mg Inj (Cubicin) IV SCH (10:00)
[2017-08-06] MEDS: Sodium Chloride 0.9% 1,000 ML IV SCH (11:24)
--- NOTE | 2017-08-06 12:13 | PN ---
DATE: 08/06/2017 SUBJECTIVE: The patient is in bed, in no acute distress. She is complaining of a rash. OBJECTIVE: VITAL SIGNS: On exam, temperature is 97, blood pressure is 140/60 and respiratory rate of 16. EXAMINATION OF HEENT: Unremarkable. NECK: Supple. LUNGS: Have decreased breath sounds. HEART EXAM: Normal S1 and S2. ABDOMINAL EXAMINATION: Soft and nontender. LABORATORY EXAMINATION: Reveals the patient has a white count of 9.1, hemoglobin of 9 and platelets of 293. Chemistries reveal a BUN of 7, creatinine of 0.7. Urine cultures are negative. Stool C. diff antigen and toxin are negative, blood cultures are negative and the leg cultures are sensitive staph and . The patient also has another culture which has pseudomonas, the staph is sensitive, is also sensitive. REVIEW OF ORDERS: Reveals the patient to be off of antibiotics. The meropenem was discontinued yesterday. ASSESSMENT AND PLAN: A 67-year-old female with severe sepsis, infected right leg wound infection with sensitive Staphylococcus aureus and pseudomonas with ischemia, status post thrombectomy and acute iliofemoral thrombus and distal bypass, fasciotomy, debridement as well as left arm cellulitis and healthcare-associated nonbleeding polyp, mitral valve prolapse, dyslipidemia, history of urinary tract infection, [id number] aortic stenosis, atrial fibrillation, hypercoagulable state. Currently, the patient developed a new maculopapular rash approximately 1 to 2 hours after being given Dilaudid. The patient off of meropenem. We will most likely need to put the patient on antibiotics to continue through the previous skin graft early next week and post skin graft. The patient did have acute kidney injury. The patient is on tramadol and unable to give Zyvox. We will start daptomycin. The patient do have renal disease, unable to use vancomycin. THE PATIENT DOES HAVE AN ALLERGY TO LEVAQUIN ALREADY. We will follow closely with you. Jasbir Hargrove MD
--- NOTE | 2017-08-06 12:51 | PN ---
DATE: 08/06/2017 SUBJECTIVE: The patient is seen lying in bed on 3R. She is comfortable at rest. She is tentatively scheduled for a split thickness skin graft next week. CURRENT MEDICATIONS: Remain Azactam, Carafate, Colace, daptomycin, DuoNeb inhaler, digoxin 0.25 mg daily, potassium 20 mEq b.i.d., metoprolol 50 mg b.i.d., Lovenox 80 mg q. 12 hours, MiraLax, Plavix 75 mg daily, Protonix 40 mg daily. OBJECTIVE: GENERAL: She is a middle-aged woman, who appears comfortable at rest. VITAL SIGNS: Her blood pressure is 146/66, her pulse is 70 and respirations are 14. She is afebrile. HEENT: No JVD. CHEST: A few scattered rhonchi. HEART: Systolic murmur is present at the left sternal border. ABDOMEN: Soft. Nontender. Normoactive bowel sounds. EXTREMITIES: Her right leg is wrapped. Toes are warm. DIAGNOSTIC DATA: Potassium is 3.4 and has been replaced. BUN and creatinine are 7 and 0.7. White count is 9.1, hemoglobin and hematocrit 9.9 and 30.0, and platelet count of 293,000. IMPRESSION: 1. Recent surgical thrombectomy, fasciotomy, and distal bypass for acute iliofemoral thrombosis. 2. Paroxysmal atrial fibrillation. 3. Bicuspid aortic valve with moderate aortic stenosis. 4. History of hypertension. 5. Recent gastrointestinal bleeding. RECOMMENDATIONS: Her current medications, we will continue for now. She appears stable and optimized to proceed with surgery as scheduled for next week. Aggressive physical therapy will be necessary given her prolonged hospital stay and bed rest. We will continue to follow and make further recommendations as appropriate. Walt Hernandez MD
--- NOTE | 2017-08-06 14:14 | PN ---
DATE: 08/06/2017 SUBJECTIVE: The patient is lying in bed comfortable. She had several bowel movements with MiraLax. She denies any rectal bleeding or melena. She denies abdominal pain, chest pain or shortness of breath. OBJECTIVE: VITAL SIGNS: Reveal temperature of 97.9, blood pressure 145/66 and heart rate of 76. HEENT: Reveal sclerae to be white. Conjunctivae pink. NECK: Supple. CHEST: Reveal lungs to be clear. HEART: Exam reveals an irregular rate. There is a 2/6 systolic murmur. ABDOMEN: Soft, obese, nontender. No mass. EXTREMITIES: Show her right leg to be covered with a surgical dressing. She has mild anasarca in all her extremities and her torso. LABORATORY DATA: Revealed hemoglobin up to 9.9; white blood cell count 9.1; platelet count 293,000. Electrolytes show potassium is 6.9. IMPRESSION: 1. Chronic recurrent anemia, on warfarin and Plavix for atrial fibrillation, hypercoagulable state and recent arterial thrombus of her right leg. 2. Acute arterial occlusion by thrombus of her right leg requiring thrombectomy and arterial bypass. 3. New-onset atrial fibrillation. 4. Hypercoagulable state. 5. Aortic stenosis. 6. Deconditioning. RECOMMENDATIONS: 1. Continue current treatment including PPI and Carafate for a recently diagnosed gastric ulcer. 2. Follow serial hematocrits. 3. Continue Plavix and warfarin. Satinder Bruno MD
[2017-08-06] MEDS: Aztreonam 1 Gm in NS 100mL 100 ML IV SCH ×2 (14:21→22:39)
[2017-08-06] MEDS: Digoxin 250 mcg (0.25 mg) Tab PO SCH (14:24)
--- NOTE | 2017-08-06 20:29 | PN ---
DATE: 08/06/2017 SUBJECTIVE: The patient has no complaints of any chest pain or shortness of breath. She had a rash yesterday, that has improved, she said it was not itchy. PHYSICAL EXAMINATION: VITAL SIGNS: Temperature is 97.9, pulse is 76, blood pressure is 145/66, respiration is 20. GENERAL: The patient is lying in bed, flat, comfortable. HEENT: No oral lesion. Anicteric sclerae. Moist mucosa. NECK: No JVD, adenopathy, or thyromegaly. CARDIOVASCULAR: S1 and S2, regular. No murmurs, rubs, or gallops. LUNGS: Clear to auscultation bilaterally. No wheeze, rales, or rhonchi. ABDOMEN: Bowel sounds are positive, soft, nontender and nondistended. EXTREMITIES: No cyanosis, clubbing or edema. LABORATORY DATA: Potassium is 3.4. ASSESSMENT: 1. Sepsis, improved. 2. Aortic stenosis, right atrial fibrillation. 3. Right iliofemoral thrombosis status post thrombectomy. 4. Bicuspid aortic valve. 5. Hypertension. 6. Anemia secondary to gastric ulcer. 7. Dyslipidemia. PLAN: The patient is currently on aztreonam for antibiotics. She is going to continue with sucralfate. She is on Colace for constipation. She is going to be on nebulizer treatment with DuoNeb. She is on potassium replacement. She is on Lovenox for DVT prophylaxis. She is receiving IV fluids with normal saline. Brandyn Sanchez MD
[2017-08-07] MEDS: Aztreonam 1 Gm in NS 100mL 100 ML IV SCH ×3 (06:18→21:52)
[2017-08-07] MEDS: Pantoprazole 40 mg EC Tab PO SCH (06:19)
[2017-08-07] MEDS: Albuterol-Ipratrop 3 mg / 0.5 (3 ml) UD IH PRN ×2 (07:39→20:06)
[2017-08-07] MEDS: Acetylcysteine 20% Inhal Soln (4ml) IH SCH ×2 (07:39→20:07)
[2017-08-07 08:41] LABS: HEMATOCRIT 29.8 % (36.0-48.0); MEAN CELL VOLUME 83.5 fl (80.0-105.0); MEAN CORPUSCULAR HEMOGLOBIN 26.9 pg (25.0-35.0); MEAN CORPUSCULAR HGB CONC 32.2 g/dl (31.0-37.0); MEAN PLATELET VOLUME 10.3 fl (7.0-11.0); RED CELL DISTRIBUTION WIDTH 21.2 % (11.5-14.5); WHITE BLOOD COUNT 9.8 10^3/ul (4.5-11.0)
--- NOTE | 2017-08-07 09:18 | CP.PCM.PN ---
Subjective - Date & Time of Evaluation Date of Evaluation: 08/07/17 Time of Evaluation: 09:16 - Subjective Subjective: Vascular Surgery: Dr Couch Pt seen and examined. No acute events overnight. Resting comfortably. Has been OOB to chair. Working on increasing her PO protein intake Objective - Vital Signs/Intake and Output Vital Signs (last 24 hours): Temp Pulse Resp BP Pulse Ox 97.7 F 71 20 142/86 96 08/07/17 07:58 08/07/17 07:58 08/07/17 07:58 08/07/17 07:58 08/07/17 07:58 Intake and Output: 08/07/17 08/07/17 06:59 18:59 Intake Total 2380 120 Output Total 425 Balance 1955 120 - Medications Medications: Current Medications Acetaminophen (Tylenol 325mg Tab) 650 mg PO Q6H PRN PRN Reason: Headache Last Admin: 07/27/17 14:07 Dose: 650 mg Acetylcysteine (Acetylcysteine 20%) 4 ml IH BIDRESP [facility] Last Admin: 08/07/17 07:39 Dose: 4 ml Albuterol/Ipratropium (Duoneb 3 Mg/0.5 Mg (3 Ml) Ud) 3 ml IH Q2H PRN PRN Reason: Shortness of Breath Last Admin: 08/07/17 07:39 Dose: 3 ml Clopidogrel Bisulfate (Plavix) 75 mg PO DAILY [facility] Last Admin: 08/06/17 09:44 Dose: 75 mg Digoxin (Lanoxin) 0.25 mg PO 1400 [facility] Last Admin: 08/06/17 14:24 Dose: 0.25 mg Docusate Sodium (Colace) 100 mg PO TID [facility] Last Admin: 08/06/17 17:43 Dose: 100 mg Enoxaparin Sodium (Lovenox) 80 mg SC Q12H [facility] PRN Reason: Protocol Last Admin: 08/06/17 22:41 Dose: 80 mg Sodium Chloride (Sodium Chloride 0.9%) 1,000 mls @ 75 mls/hr IV .[id number] [facility] Last Admin: 08/06/17 11:24 Dose: 75 mls/hr Aztreonam (Azactam 1 Gm) 100 mls @ 100 mls/hr IV Q8 [facility] PRN Reason: Protocol Stop: 08/15/17 14:01 Last Admin: 08/07/17 06:18 Dose: 100 mls/hr Daptomycin 630 mg/ Sodium (Chloride) 100 mls @ 200 mls/hr IV Q24H [facility] Stop: 08/15/17 11:01 Last Admin: 08/06/17 11:30 Dose: 200 mls/hr Labetalol HCl (Trandate) 10 mg IVP ONCE PRN PRN Reason: Systolic Blood Pressure Last Admin: 08/02/17 13:04 Dose: 10 mg Metoprolol Tartrate (Lopressor) 50 mg PO BID [facility] Last Admin: 08/06/17 17:43 Dose: 50 mg Pantoprazole Sodium (Protonix Ec Tab) 40 mg PO 0600 [facility] Last Admin: 08/07/17 06:19 Dose: 40 mg Polyethylene Glycol (Miralax) 17 gm PO DAILY [facility] Last Admin: 08/06/17 09:45 Dose: 17 gm Potassium Chloride (K-Dur 20 Meq Er Tab) 20 meq PO BID [facility] Last Admin: 08/06/17 17:43 Dose: 20 meq Silver Sulfadiazine (Silvadene 1% 25 Gm) 0 gm TP BID [facility] Last Admin: 08/06/17 17:43 Dose: 1 gm Sucralfate (Carafate Oral Susp) 1 gm PO ACHS [facility] Last Admin: 08/06/17 22:40 Dose: 1 gm Tramadol HCl (Ultram) 50 mg PO TID PRN PRN Reason: Pain, moderate (4-7) Last Admin: 08/06/17 17:46 Dose: 50 mg - Labs Labs: 08/07/17 08:24 08/06/17 06:20 PT 12.4 Seconds (9.9-11.8) H 07/28/17 09:30 INR 1.15 (0.93-1.08) H 07/28/17 09:30 APTT 39.0 Seconds (23.7-30.8) H 07/28/17 09:30 - Constitutional Appears: Non-toxic, No Acute Distress - Eye Exam Eye Exam: Normal appearance - ENT Exam ENT Exam: Normal Exam - Respiratory Exam Respiratory Exam: absent: Accessory Muscle Use, Respiratory Distress - Cardiovascular Exam Cardiovascular Exam: REGULAR RHYTHM - Extremities Exam Additional comments: right leg in dressing - c/d/i adequate perfusion/cap refill of distal extremity - Psychiatric Exam Psychiatric exam: Normal Affect, Normal Mood - Skin Skin Exam: Normal Color, Warm Assessment and Plan - Assessment and Plan (Free Text) Assessment: 67F s/p Right leg Femoral/Popliteal embolectomy. Right leg Popliteal/Tibial/ Peroneal bypass, Right leg fasciotomy on POD#21, s/p wound exploration with irrigation on POD#19, s/p 2nd wound exploration, irrigation with wound vac application on POD#11 - continue wound vac to suction - Scheduled for Split Thickness Skin Graft and closure in OR tuesday -NPO@MN tuesday night - IV antibiotics as per Infectious disease - continue daily vascular checks - discussed with Dr. Khoa Miller, PGY3
[2017-08-07] MEDS: Sucralfate 1 gm/10 ml Oral Susp UD PO SCH ×4 (09:38→21:52)
[2017-08-07] MEDS: Enoxaparin 80 mg Syringe SC SCH ×2 (09:38→21:52)
[2017-08-07] MEDS: POLYETHYLENE GLYCOL 3350 17 GM/Dose PACKET PO SCH ×2 (10:44→10:49)
[2017-08-07] MEDS: Potassium Chloride 20 mEq ER Tab PO SCH ×2 (10:44→18:53)
[2017-08-07] MEDS: Silver Sulfadiazine 1% Cream (25 gm) TP SCH (10:47)
--- NOTE | 2017-08-07 11:56 | PN ---
DATE: 08/07/2017 SUBJECTIVE: The patient is seen earlier this morning at 368. She states the rash has improved , she still has some itching. No fever and no chills. PHYSICAL EXAMINATION: VITAL SIGNS: Temperature is 97, blood pressure is 140/80, respiratory rate of 18, and heart rate of 71. HEENT: Unremarkable. NECK: Supple. LUNGS: Decreased breath sounds. HEART: Normal S1 and S2. ABDOMEN: Soft and nontender. LABORATORY DATA: Reveals a white count of 9.8, hemoglobin of 9, and platelets of 301. Coagulation is noted. Chemistries reveals the BUN of 7, creatinine of 0.7, calcium is 6.9, and procalcitonin is 5.28. Urine cultures, no growth. Stool C. diff is negative. Review of orders reveals the patient to be on aztreonam and daptomycin. Dr. Sanchez's note from yesterday is reviewed. ASSESSMENT AND PLAN: This is a 67-year-old female with severe sepsis, infected right leg wound infection, sensitive Staphylococcus aureus and Pseudomonas with ischemia, status post thrombectomy and acute iliofemoral thrombus and distal bypass, fasciotomy, debridement as well as left arm cellulitis and healthcare-associated pneumonia, mitral valve prolapse, dyslipidemia, history of urinary tract infection with [id number] aortic stenosis, atrial fibrillation, hypercoagulation, who developed a new maculopapular rash 1 to 2 hours after Dilaudid. The rash has improved and doubt to be on meropenem. Currently, on daptomycin and Azactam. The patient is scheduled for skin graft early next week. We will continue with the antibiotics, and post graft, unable to give Zyvox because of the tramadol. The patient had renal disease, unable to use vancomycin. We will continue daptomycin and Azactam. THE PATIENT IS ALLERGIC TO LEVAQUIN. Now, with a new rash probably secondary to Dilaudid, although the meropenem is possibility less likely so. Jasbir Hargrove MD
[2017-08-07] MEDS ORDERED: Potassium Chloride 20 mEq ER Tab PO ONE (13:12)
--- NOTE | 2017-08-07 14:02 | PN ---
DATE: 08/07/2017 SUBJECTIVE: The patient has no complaints of any chest pain. No shortness of breath. No headache. PHYSICAL EXAMINATION: VITAL SIGNS: Temperature is 97.7, pulse is 71, blood pressure 142/86, and respirations 20. GENERAL: The patient is lying in bed, flat, comfortable. HEENT: No oral lesion. Anicteric sclerae. Moist mucosa. NECK: No JVD, adenopathy, or thyromegaly. CARDIOVASCULAR: S1 and S2, regular. No murmurs, rubs, or gallops. LUNGS: Clear to auscultation bilaterally. No wheeze, rales, or rhonchi. ABDOMEN: Bowel sounds are positive, soft, nontender and nondistended. EXTREMITIES: No cyanosis, clubbing or edema. LABS: White count of 9.8, hemoglobin 9.6, and potassium 3.4. ASSESSMENT: 1. Sepsis, improved. 2. Aortic stenosis. 3. Right iliofemoral thrombosis status post thrombectomy. 4. Bicuspid aortic valve. 5. Hypertension. 6. Dyslipidemia. 7. Anemia secondary to gastric ulcer. PLAN: The patient is currently comfortable. She is on aztreonam for antibiotics. She is on Colace for constipation. The patient is on potassium replacement. The patient is on digoxin. The patient is going to be on Protonix daily. The patient is going to continue with Tylenol and Ultram as needed. We will also order a.m. chemistry to follow the patient's potassium. This is coverage for Dr. Bush. Brandyn Sanchez MD
[2017-08-07] MEDS: Digoxin 250 mcg (0.25 mg) Tab PO SCH (14:38)
[2017-08-07] MEDS: Sodium Chloride 0.9% 1,000 ML IV SCH (21:53)
[2017-08-08] MEDS: Pantoprazole 40 mg EC Tab PO SCH (06:25)
[2017-08-08] MEDS: Sodium Chloride 0.9% 1,000 ML IV SCH ×2 (06:25→09:18)
[2017-08-08] MEDS: Aztreonam 1 Gm in NS 100mL 100 ML IV SCH ×3 (06:25→21:57)
[2017-08-08 06:37] LABS: HEMATOCRIT 31.1 % (36.0-48.0); MEAN CELL VOLUME 83.2 fl (80.0-105.0); MEAN CORPUSCULAR HEMOGLOBIN 26.5 pg (25.0-35.0); MEAN CORPUSCULAR HGB CONC 31.8 g/dl (31.0-37.0); MEAN PLATELET VOLUME 10.5 fl (7.0-11.0); RED CELL DISTRIBUTION WIDTH 21.6 % (11.5-14.5); WHITE BLOOD COUNT 10.3 10^3/ul (4.5-11.0)
[2017-08-08 06:59] LABS: ALB/GLOB RATIO 0.8 (1.1-1.8); ALKALINE PHOSPHATASE 138 U/L (38-126); ALT/SGPT 44 U/L (7-56); AST/SGOT 31 U/L (14-36); BILIRUBIN,TOTAL 0.7 mg/dL (0.2-1.3); BLOOD UREA NITROGEN 6 mg/dL (7-21); CALCIUM 7.4 mg/dL (8.4-10.5); CARBON DIOXIDE 30 mmol/L (21-33); CHLORIDE 104 mmol/L (95-110); GFR AFRICAN-AMERICAN > 60; GLUCOSE,RANDOM 82 mg/dL (70-110); MAGNESIUM 1.4 mg/dL (1.7-2.2); POTASSIUM 3.8 mmol/L (3.6-5.0); SODIUM 137 mmol/L (132-148); TOTAL PROTEIN 4.8 g/dL (5.8-8.3)
[2017-08-08] MEDS: Acetylcysteine 20% Inhal Soln (4ml) IH SCH ×2 (07:51→21:12)
[2017-08-08] MEDS: Albuterol-Ipratrop 3 mg / 0.5 (3 ml) UD IH PRN (07:52)
[2017-08-08] MEDS ORDERED: Magnesium Sulfate 2 GM in Sodium Chloride 0.9% 100 ML IVPB ONE (08:09)
--- NOTE | 2017-08-08 08:16 | CP.PCM.PN ---
Subjective - Date & Time of Evaluation Date of Evaluation: 08/08/17 Time of Evaluation: 08:32 - Subjective Subjective: Vascular Surgery Note for Dr. Couch Patient seen and examined at bedside. No acute event overnight. Patient is lying in bed comnfortably. She states she is thirsty. Pain is well controlled. She is schedule for Skin graft tomorrow at 10 am in OR. Patient also complaining about going to bathroom frequently. Denies fever/chills, chest pain , shortness of breath, abdominal pain, nausea/vomiting, diarrhea, constipation. Objective - Vital Signs/Intake and Output Vital Signs (last 24 hours): Temp Pulse Resp BP Pulse Ox 98.5 F 79 20 172/80 H 98 08/07/17 17:25 08/07/17 17:30 08/07/17 17:25 08/07/17 17:30 08/07/17 17:25 Intake and Output: 08/08/17 08/08/17 06:59 18:59 Intake Total 400 240 Output Total 1000 600 Balance -600 -360 - Medications Medications: Current Medications Acetaminophen (Tylenol 325mg Tab) 650 mg PO Q6H PRN PRN Reason: Headache Last Admin: 07/27/17 14:07 Dose: 650 mg Acetylcysteine (Acetylcysteine 20%) 4 ml IH BIDRESP [facility] Last Admin: 08/08/17 07:51 Dose: 4 ml Albuterol/Ipratropium (Duoneb 3 Mg/0.5 Mg (3 Ml) Ud) 3 ml IH Q2H PRN PRN Reason: Shortness of Breath Last Admin: 08/08/17 07:52 Dose: 3 ml Digoxin (Lanoxin) 0.25 mg PO 1400 [facility] Last Admin: 08/07/17 14:38 Dose: 0.25 mg Docusate Sodium (Colace) 100 mg PO TID [facility] Last Admin: 08/07/17 17:34 Dose: Not Given Enoxaparin Sodium (Lovenox) 80 mg SC Q12H [facility] PRN Reason: Protocol Stop: 08/08/17 23:59 Last Admin: 08/07/17 21:52 Dose: 80 mg Sodium Chloride (Sodium Chloride 0.9%) 1,000 mls @ 75 mls/hr IV .[id number] [facility] Last Admin: 08/08/17 06:25 Dose: 75 mls/hr Aztreonam (Azactam 1 Gm) 100 mls @ 100 mls/hr IV Q8 [facility] PRN Reason: Protocol Stop: 08/15/17 14:01 Last Admin: 08/08/17 06:25 Dose: 100 mls/hr Daptomycin 630 mg/ Sodium (Chloride) 100 mls @ 200 mls/hr IV Q24H [facility] Stop: 08/15/17 11:01 Last Admin: 08/07/17 10:41 Dose: 200 mls/hr Magnesium Sulfate 2 gm/ Sodium (Chloride) 104 mls @ 102 mls/hr IVPB ONCE ONE Stop: 08/08/17 09:10 Labetalol HCl (Trandate) 10 mg IVP ONCE PRN PRN Reason: Systolic Blood Pressure Last Admin: 08/02/17 13:04 Dose: 10 mg Metoprolol Tartrate (Lopressor) 50 mg PO BID [facility] Last Admin: 08/07/17 17:30 Dose: 50 mg Pantoprazole Sodium (Protonix Ec Tab) 40 mg PO 0600 [facility] Last Admin: 08/08/17 06:25 Dose: 40 mg Polyethylene Glycol (Miralax) 17 gm PO DAILY [facility] Last Admin: 08/07/17 10:49 Dose: Not Given Potassium Chloride (K-Dur 20 Meq Er Tab) 20 meq PO BID [facility] Last Admin: 08/07/17 18:53 Dose: 20 meq Silver Sulfadiazine (Silvadene 1% 25 Gm) 0 gm TP BID [facility] Last Admin: 08/07/17 10:47 Dose: Not Given Sucralfate (Carafate Oral Susp) 1 gm PO ACHS [facility] Last Admin: 08/07/17 21:52 Dose: 1 gm Tramadol HCl (Ultram) 50 mg PO TID PRN PRN Reason: Pain, moderate (4-7) Last Admin: 08/06/17 17:46 Dose: 50 mg - Labs Labs: 08/08/17 06:26 08/08/17 06:26 PT 12.4 Seconds (9.9-11.8) H 07/28/17 09:30 INR 1.15 (0.93-1.08) H 07/28/17 09:30 APTT 39.0 Seconds (23.7-30.8) H 07/28/17 09:30 - Constitutional Appears: No Acute Distress - Head Exam Head Exam: ATRAUMATIC, NORMOCEPHALIC - Eye Exam Eye Exam: EOMI, Normal appearance Pupil Exam: PERRL - ENT Exam ENT Exam: Mucous Membranes Dry (improved, slightly dry still) - Respiratory Exam Respiratory Exam: NORMAL BREATHING PATTERN - Cardiovascular Exam Cardiovascular Exam: REGULAR RHYTHM - GI/Abdominal Exam GI & Abdominal Exam: Soft. absent: Distended, Tenderness - Extremities Exam Extremities Exam: Normal Capillary Refill Additional comments: LUE 2 cm x 2 cm raised area with fluctuance, tender to palpation RLE dressing clean, dry, and intact - DP and PT pulses present, +sensation, unable to move all toes - Back Exam Back Exam: absent: CVA tenderness (L), CVA tenderness (R) - Neurological Exam Neurological Exam: Alert, Awake, CN II-XII Intact, Oriented x3 - Psychiatric Exam Psychiatric exam: Normal Affect, Normal Mood - Skin Skin Exam: Dry, Warm Additional comments: dry skin on left cheek diffuse erythema improving Assessment and Plan - Assessment and Plan (Free Text) Plan: 67F s/p Right leg Femoral/Popliteal embolectomy. Right leg Popliteal/Tibial/ Peroneal bypass, Right leg fasciotomy on POD#22, s/p wound exploration with irrigation on POD#20, s/p 2nd wound exploration, irrigation with wound vac application on POD#12 -OR tomorow at 10 Am for Split Thickness Skin Graft and closure -NPO past MN -IV antibiotics as per Infectious disease -Daily vascular checks -Continue wound vac on suction -Discussed with Dr. Khoa Griggs PGY1
[2017-08-08] MEDS: Enoxaparin 80 mg Syringe SC SCH (09:14)
[2017-08-08] MEDS: Potassium Chloride 20 mEq ER Tab PO SCH ×2 (09:15→17:31)
[2017-08-08] MEDS: Sucralfate 1 gm/10 ml Oral Susp UD PO SCH ×4 (09:16→21:58)
[2017-08-08] MEDS: Silver Sulfadiazine 1% Cream (25 gm) TP SCH (10:29)
--- NOTE | 2017-08-08 11:10 | PN ---
SUBJECTIVE: A 67-year-old white female, being prepped for tomorrow for a skin graft to the right lower extremity, status post fasciotomy, thrombectomy, fem-fem bypass; status post rapid atrial fibrillation, controlled; status post sepsis with staph, controlled; status post GI bleed which has stopped. Hemoglobin currently is 9.9, platelet count is 283, white count is 10.3. BUN and creatinine are stable. Potassium is 3.8. PHYSICAL EXAMINATION: VITAL SIGNS: Blood pressure 151/89. The patient is afebrile. EXTREMITIES: There is decreased swelling in the upper and lower extremities, still loss of strength in the toes of the right foot. PLAN: The patient is medically cleared for her procedure, her skin graft, tomorrow with Dr. Couch and we will follow postoperatively. Alexis Bush MD
--- NOTE | 2017-08-08 12:13 | PN ---
DATE: 08/08/2017 SUBJECTIVE: The patient is lying in bed comfortable. She had a large bowel movement earlier this morning without any blood. She denies any nausea, vomiting or abdominal pain. OBJECTIVE: VITAL SIGNS: Reveal temperature of 97.9, blood pressure 151/89 and heart rate of 79. HEENT: Reveal sclerae to be white. Conjunctivae pink. NECK: Supple. CHEST: Reveals lungs to be clear. HEART EXAM: Reveals an irregular rate with 2/6 systolic murmur. ABDOMEN: Obese, soft, nontender. EXTREMITIES: Show right lower leg to be in a dressing with a wound VAC in place. There is also decreasing anasarca with trace edema of her hands, arms and extremities as well as torso. LABORATORY DATA: Reveal hemoglobin of 9.9 which is stable, white blood cell count 10.3. Chemistries reveal potassium of 3.8, BUN 6 and creatinine 0.6. IMPRESSION: 1. Anemia. 2. Gastric ulcers. 3. History of arterial thrombosis of her right leg, status post thrombectomy and right lower extremity arterial bypass. 4. Hypercoagulable state, on Plavix. 5. Atrial fibrillation, on Lovenox. Her hemoglobin has been stable over the last week. RECOMMENDATIONS: The patient is scheduled for grafting of her surgical wounds in her right leg tomorrow. Plans are for the patient to be discharged to subacute rehab after her wound graft tomorrow. Satinder Bruno MD
[2017-08-08] MEDS: Digoxin 250 mcg (0.25 mg) Tab PO SCH (14:23)
--- NOTE | 2017-08-08 22:28 | CP.PCM.PN ---
Subjective - Date & Time of Evaluation Date of Evaluation: 08/08/17 Time of Evaluation: 07:00 - Subjective Subjective: She is feeling better. leg pain is controlled with current meds. Able to stand with support. No fever , cough. Hb stable. Objective - Vital Signs/Intake and Output Vital Signs (last 24 hours): Temp Pulse Resp BP Pulse Ox 97.8 F 71 20 156/90 H 98 08/08/17 16:00 08/08/17 16:00 08/08/17 16:00 08/08/17 17:31 08/08/17 16:00 Intake and Output: 08/08/17 08/09/17 18:59 06:59 Intake Total 240 360 Output Total 600 600 Balance -360 -240 - Medications Medications: Current Medications Acetaminophen (Tylenol 325mg Tab) 650 mg PO Q6H PRN PRN Reason: Headache Last Admin: 07/27/17 14:07 Dose: 650 mg Acetylcysteine (Acetylcysteine 20%) 4 ml IH BIDRESP [facility] Last Admin: 08/08/17 21:12 Dose: Not Given Albuterol/Ipratropium (Duoneb 3 Mg/0.5 Mg (3 Ml) Ud) 3 ml IH Q2H PRN PRN Reason: Shortness of Breath Last Admin: 08/08/17 07:52 Dose: 3 ml Digoxin (Lanoxin) 0.25 mg PO 1400 [facility] Last Admin: 08/08/17 14:23 Dose: 0.25 mg Enoxaparin Sodium (Lovenox) 80 mg SC Q12H [facility] PRN Reason: Protocol Stop: 08/08/17 23:59 Last Admin: 08/08/17 09:14 Dose: 80 mg Aztreonam (Azactam 1 Gm) 100 mls @ 100 mls/hr IV Q8 [facility] PRN Reason: Protocol Stop: 08/15/17 14:01 Last Admin: 08/08/17 21:57 Dose: 100 mls/hr Daptomycin 630 mg/ Sodium (Chloride) 100 mls @ 200 mls/hr IV Q24H [facility] Stop: 08/15/17 11:01 Last Admin: 08/08/17 13:02 Dose: 200 mls/hr Labetalol HCl (Trandate) 10 mg IVP ONCE PRN PRN Reason: Systolic Blood Pressure Last Admin: 08/02/17 13:04 Dose: 10 mg Metoprolol Tartrate (Lopressor) 50 mg PO BID [facility] Last Admin: 08/08/17 17:31 Dose: 50 mg Pantoprazole Sodium (Protonix Ec Tab) 40 mg PO 0600 [facility] Last Admin: 08/08/17 06:25 Dose: 40 mg Potassium Chloride (K-Dur 20 Meq Er Tab) 20 meq PO BID [facility] Last Admin: 08/08/17 17:31 Dose: 20 meq Silver Sulfadiazine (Silvadene 1% 25 Gm) 0 gm TP BID [facility] Last Admin: 08/08/17 10:29 Dose: Not Given Sucralfate (Carafate Oral Susp) 1 gm PO ACHS [facility] Last Admin: 08/08/17 21:58 Dose: 1 gm Tramadol HCl (Ultram) 50 mg PO TID PRN PRN Reason: Pain, moderate (4-7) Last Admin: 08/08/17 12:34 Dose: 50 mg - Labs Labs: 08/08/17 06:26 08/08/17 06:26 PT 12.4 Seconds (9.9-11.8) H 07/28/17 09:30 INR 1.15 (0.93-1.08) H 07/28/17 09:30 APTT 39.0 Seconds (23.7-30.8) H 07/28/17 09:30 - Constitutional Appears: Chronically Ill - Head Exam Head Exam: ATRAUMATIC, NORMAL INSPECTION, NORMOCEPHALIC - Eye Exam Eye Exam: Normal appearance - ENT Exam ENT Exam: Mucous Membranes Moist - Neck Exam Neck Exam: Normal Inspection - Respiratory Exam Respiratory Exam: Clear to Ausculation Bilateral, NORMAL BREATHING PATTERN - Cardiovascular Exam Cardiovascular Exam: REGULAR RHYTHM, +S1, +S2 - GI/Abdominal Exam GI & Abdominal Exam: Soft, Normal Bowel Sounds - Extremities Exam Extremities Exam: Normal Capillary Refill, Normal Inspection - Back Exam Back Exam: NORMAL INSPECTION - Neurological Exam Neurological Exam: Alert, Awake, Oriented x3 - Skin Skin Exam: Pallor Assessment and Plan - Assessment and Plan (Free Text) Assessment: 1. Hypercoaguable state, arterial thrombosis. s/p thrombectomy, fasciotomy, femoral bypass. On Lovenox BID. Hold pm dose for OR tomorrow. Recommend that she will continue current dose of Lovenox upon discharge also as full dose anticoagulation is crucial for extensive arterial thrombosis. She will be transitioned to oral anticoagualtion in 4-6 weeks. 2. Anemia : Hb stable. not required PRBCs in past few days. 3. Colonoscopy : no lesions responsible for active bleeding. 4. resume lovenox pm dose tomorrow.
[2017-08-09 07:10] LABS: ALB/GLOB RATIO 0.8 (1.1-1.8); ALKALINE PHOSPHATASE 137 U/L (38-126); ALT/SGPT 30 U/L (7-56); AST/SGOT 34 U/L (14-36); BILIRUBIN,TOTAL 0.6 mg/dL (0.2-1.3); BLOOD UREA NITROGEN 4 mg/dL (7-21); CALCIUM 7.3 mg/dL (8.4-10.5); CARBON DIOXIDE 28 mmol/L (21-33); CHLORIDE 104 mmol/L (98-107); GFR AFRICAN-AMERICAN > 60; GLUCOSE,RANDOM 87 mg/dL (70-110); POTASSIUM 3.7 mmol/L (3.6-5.0); SODIUM 136 mmol/L (132-148); TOTAL PROTEIN 4.8 g/dL (5.8-8.3)
[2017-08-09 07:11] LABS: HEMATOCRIT 30.7 % (36.0-48.0); MEAN CELL VOLUME 83.7 fl (80.0-105.0); MEAN CORPUSCULAR HGB CONC 32.2 g/dl (31.0-37.0); MEAN PLATELET VOLUME 10.4 fl (7.0-11.0); WHITE BLOOD COUNT 10.6 10^3/ul (4.5-11.0)
[2017-08-09] MEDS: Acetylcysteine 20% Inhal Soln (4ml) IH SCH (07:37)
[2017-08-09 07:50] LABS: INR 1.23 (0.93-1.08); PARTIAL THROMBOPLASTIN TIME 28.5 Seconds (25.1-36.5)
[2017-08-09 08:27] LABS: MAGNESIUM 1.7 mg/dL (1.7-2.2)
[2017-08-09] MEDS: Sucralfate 1 gm/10 ml Oral Susp UD PO SCH ×5 (08:53→21:59)
[2017-08-09] MEDS ORDERED: Lidocaine 1% w Epi 1:100,000 Inj ONE ×2 (09:17→11:11)
[2017-08-09] MEDS ORDERED: Mineral Oil Light Sterile 25 ml ONE ×3 (09:17→11:32)
[2017-08-09] MEDS ORDERED: Midazolam 2 MG/2 ML VIAL ONE (10:18)
[2017-08-09] MEDS ORDERED: Propofol 10 mg/ml Inj (20 ML) ONE (10:18)
[2017-08-09] MEDS: Potassium Chloride 20 mEq ER Tab PO SCH ×2 (10:30→17:08)
[2017-08-09] MEDS: Silver Sulfadiazine 1% Cream (25 gm) TP SCH (10:30)
[2017-08-09] MEDS ORDERED: ePHEDrine 50 mg/ml Inj ONE (10:49)
[2017-08-09] MEDS ORDERED: Phenylephrine 10 mg/ml Inj ONE (10:54)
--- NOTE | 2017-08-09 10:58 | RAD ---
HISTORY: check picc placement COMPARISON: 07/27/2017 FINDINGS: LUNGS: No active pulmonary disease. PLEURA: No significant pleural effusion identified, no pneumothorax apparent. CARDIOVASCULAR: Mild cardiomegaly OSSEOUS STRUCTURES: No significant abnormalities. VISUALIZED UPPER ABDOMEN: Normal. OTHER FINDINGS: None. IMPRESSION: The right-sided PICC line terminates in the mid SVC at the level of the aortic arch
--- NOTE | 2017-08-09 12:38 | PCM.SURG1 ---
Surgeon's Initial Post Op Note - Surgeon's Notes Surgeon: Dr. Couch Supervisor Pipe Finishing: Marlene Lockett PGY2, Yash PGY1 Type of Anesthesia: General LMA Pre-Operative Diagnosis: R LE open wound. L UE abscess/hematoma Operative Findings: 30x7cm open wound R LE. L antecubital hematoma Post-Operative Diagnosis: Same Operation Performed: Split thickness skin graft from R thigh to R lower leg. Incision and drainage of L UE. Specimen/Specimens Removed: R UE hematoma Estimated Blood Loss: EBL {In ML}: 20 Blood Products Given: N/A Drains Used: Wound Vac Post-Op Condition: Good Date of Surgery/Procedure: 08/09/17 Time of Surgery/Procedure: 12:39
[2017-08-09] MEDS ORDERED: HYDROmorphone 0.5 mg/0.5 ml ISec IVP PRN (12:51)
[2017-08-09] MEDS ORDERED: Lactated Ringer's 1,000 ML IV SCH (13:00)
[2017-08-09] MEDS: Aztreonam 1 Gm in NS 100mL 100 ML IV SCH ×2 (14:23→21:50)
[2017-08-09] MEDS: Morphine 4 mg/ml ISec IVP PRN (16:04)
[2017-08-09] MEDS: Digoxin 250 mcg (0.25 mg) Tab PO SCH (17:08)
--- NOTE | 2017-08-09 21:04 | PN ---
DATE: SUBJECTIVE: A 67-year-old white female status post skin graft by Dr. Couch today to the right lower leg with again replacement of her wound VAC. Patient is doing well status post skin graft. PHYSICAL EXAMINATION GENERAL: Patient tolerated her procedure well. She is afebrile at this point. VITAL SIGNS: Stable. Blood pressure is 178/81. CHEST: Clear to auscultation and percussion. LABORATORY DATA: Her potassium is 2.7, hemoglobin is 9.9, white count is . She is afebrile. Alexis Bush MD
--- NOTE | 2017-08-09 21:43 | OP ---
PROCEDURE DATE: 08/09/2017 PREOPERATIVE DIAGNOSIS: Right leg ischemia status post fasciotomy. POSTOPERATIVE DIAGNOSES: Right leg ischemia status post fasciotomy, muscle necrosis, and left arm abscess. PROCEDURES: Debridement of nonviable muscle, right leg; split-thickness skin graft of the right leg of an area of 3 cm x 30 cm; incision and drainage, left arm abscess. SURGEON: Elma Couch MD. CASH CONTROL SPECIALIST: Levy. TYPE OF ANESTHESIA: General. DESCRIPTION OF PROCEDURE: Patient was brought to the OR and placed supine on the OR table. After adequate general anesthesia had been accomplished, the entire right leg was prepped with Betadine solution and draped out as a sterile field. The wound VAC dressing was removed and the muscle was examined. The open area measured approximately 3 x 30 cm. Just on the medial side of the exposed area close to the tibia, there was an area of black eschar. On exploring that area, it was found that there was necrosis of the muscle there. Approximately 5 x 5 x 5 cm of muscle was debrided back to bleeding viable muscle. Next, using mineral oil, the skin was harvested from the thigh and meshed 1:3 using the mesher. Approximately, 20 sq. cm of skin was harvested. The donor site was covered with lidocaine with epinephrine-soaked gauze. The skin was meshed using a mesher and then tagged onto the exposed area using skin boom. Upon completion of that, the Adaptic was placed over the skin and a new wound VAC was placed. The leg splint was placed on the leg and secured in place using an Ismael wrap. Next, the left arm and decubital area was prepped with ChloraPrep and draped out as a sterile field. There was an area of 6 x 6 cm in the antecubital fossa that was raised and was fluctuant to palpation. An incision was made and the content of the abscess consist of old blood was evacuated and it was also sent for culture. The wound was packed with Nu gauze and a sterile dressing was applied. Patient tolerated the procedure well and was awakened in the OR and taken to the recovery room in stable condition. Elma Couch MD [facility] # [id number] MTDD
[2017-08-10] MEDS: Aztreonam 1 Gm in NS 100mL 100 ML IV SCH ×3 (05:03→22:08)
[2017-08-10] MEDS: Pantoprazole 40 mg EC Tab PO SCH (05:03)
[2017-08-10 07:44] LABS: HEMATOCRIT 27.3 % (36.0-48.0); MEAN CELL VOLUME 83.7 fl (80.0-105.0); MEAN CORPUSCULAR HEMOGLOBIN 27.3 pg (25.0-35.0); MEAN CORPUSCULAR HGB CONC 32.6 g/dl (31.0-37.0); MEAN PLATELET VOLUME 9.9 fl (7.0-11.0); RED CELL DISTRIBUTION WIDTH 20.6 % (11.5-14.5); WHITE BLOOD COUNT 11.5 10^3/ul (4.5-11.0)
[2017-08-10] MEDS: Sucralfate 1 gm/10 ml Oral Susp UD PO SCH ×4 (08:22→22:08)
[2017-08-10 08:48] VITALS: RESP 20
--- NOTE | 2017-08-10 09:56 | CP.PCM.PN ---
Subjective - Date & Time of Evaluation Date of Evaluation: 08/10/17 Time of Evaluation: 09:00 - Subjective Subjective: Vascular Surgery Note for Dr. Couch Patient seen and examined at bedside. No acute event overnight. She is s/p RLE skin graft and LUE hematoma evacuation POD #1. Patient is lying in bed comfortably. Pain is well controlled. Tolerating diet. Denies fever/chills, chest pain, shortness of breath, abdominal pain, nausea/vomiting, diarrhea, constipation. Objective - Vital Signs/Intake and Output Vital Signs (last 24 hours): Temp Pulse Resp BP Pulse Ox 98 F 76 20 134/82 97 08/10/17 08:47 08/10/17 08:47 08/10/17 08:47 08/10/17 08:47 08/10/17 08:47 Intake and Output: 08/10/17 08/10/17 06:59 18:59 Intake Total 300 Output Total 950 Balance -650 - Medications Medications: Current Medications Acetaminophen (Tylenol 325mg Tab) 650 mg PO Q6H PRN PRN Reason: Headache Last Admin: 07/27/17 14:07 Dose: 650 mg Acetylcysteine (Acetylcysteine 20%) 4 ml IH BIDRESP [facility] Last Admin: 08/09/17 07:37 Dose: Not Given Albuterol/Ipratropium (Duoneb 3 Mg/0.5 Mg (3 Ml) Ud) 3 ml IH Q2H PRN PRN Reason: Shortness of Breath Last Admin: 08/08/17 07:52 Dose: 3 ml Digoxin (Lanoxin) 0.25 mg PO 1400 [facility] Last Admin: 08/09/17 17:08 Dose: 0.25 mg Aztreonam (Azactam 1 Gm) 100 mls @ 100 mls/hr IV Q8 [facility] PRN Reason: Protocol Stop: 08/15/17 14:01 Last Admin: 08/10/17 05:03 Dose: 100 mls/hr Daptomycin 630 mg/ Sodium (Chloride) 100 mls @ 200 mls/hr IV Q24H [facility] Stop: 08/15/17 11:01 Last Admin: 08/09/17 16:05 Dose: 200 mls/hr Labetalol HCl (Trandate) 10 mg IVP ONCE PRN PRN Reason: Systolic Blood Pressure Last Admin: 08/02/17 13:04 Dose: 10 mg Metoprolol Tartrate (Lopressor) 50 mg PO BID [facility] Last Admin: 08/09/17 17:08 Dose: 50 mg Morphine Sulfate (Morphine) 4 mg IVP Q4H PRN PRN Reason: Pain, severe (8-10) Last Admin: 08/09/17 16:04 Dose: 4 mg Ondansetron HCl (Zofran Inj) 4 mg IVP Q6H PRN PRN Reason: Nausea/Vomiting Last Admin: 08/09/17 18:47 Dose: 4 mg Pantoprazole Sodium (Protonix Ec Tab) 40 mg PO 0600 [facility] Last Admin: 08/10/17 05:03 Dose: 40 mg Potassium Chloride (K-Dur 20 Meq Er Tab) 20 meq PO BID [facility] Last Admin: 08/09/17 17:08 Dose: 20 meq Silver Sulfadiazine (Silvadene 1% 25 Gm) 0 gm TP BID [facility] Last Admin: 08/09/17 10:30 Dose: Not Given Sucralfate (Carafate Oral Susp) 1 gm PO ACHS [facility] Last Admin: 08/10/17 08:22 Dose: Not Given Tramadol HCl (Ultram) 50 mg PO TID PRN PRN Reason: Pain, moderate (4-7) Last Admin: 08/08/17 12:34 Dose: 50 mg - Labs Labs: 08/10/17 07:30 08/09/17 05:05 PT 13.6 SECONDS (9.4-12.5) H 08/09/17 05:05 INR 1.23 (0.93-1.08) H 08/09/17 05:05 APTT 28.5 Seconds (25.1-36.5) 08/09/17 05:05 - Constitutional Appears: No Acute Distress - Head Exam Head Exam: ATRAUMATIC, NORMOCEPHALIC - Eye Exam Eye Exam: Normal appearance - ENT Exam ENT Exam: Mucous Membranes Moist - Respiratory Exam Respiratory Exam: NORMAL BREATHING PATTERN - Cardiovascular Exam Cardiovascular Exam: REGULAR RHYTHM - GI/Abdominal Exam GI & Abdominal Exam: Soft. absent: Distended, Tenderness - Extremities Exam Additional comments: LUE dressing clean dry intact RLE dressings are intact - wound vac on suction - Neurological Exam Neurological Exam: Alert, Awake, CN II-XII Intact, Oriented x3 - Psychiatric Exam Psychiatric exam: Normal Affect, Normal Mood - Skin Skin Exam: Dry, Normal Color, Warm Assessment and Plan - Assessment and Plan (Free Text) Plan: 67F s/p s/p RLE skin graft and LUE hematoma evacuation POD #1 -Restart Anticoagulation/Anti-platelet therapy -Monitor Hgb -Physical therapy -Daily vascular checks -Continue wound vac on suction -Discussed with Dr. Khoa Berrios PGY1
[2017-08-10] MEDS: Enoxaparin 80 mg Syringe SC SCH ×2 (10:40→22:09)
[2017-08-10] MEDS: Potassium Chloride 20 mEq ER Tab PO SCH ×2 (10:41→18:10)
--- NOTE | 2017-08-10 11:22 | PN ---
DATE: 08/10/2017 SUBJECTIVE: The patient is lying in bed comfortable. She had some mild nausea yesterday after her skin graft of her right lower extremity and thrombectomy of a of her left arm. PHYSICAL EXAMINATION: VITAL SIGNS: Reveal temperature of 98, blood pressure of 134/82, and heart rate of 76. HEENT: Reveals sclerae to be white. Conjunctivae are pale. NECK: Supple. CHEST: Reveal lungs to be clear. CARDIOVASCULAR: Heart exam reveals a irregular rate. There is a II/ systolic murmur. GASTROINTESTINAL: Abdomen is soft and nontender. EXTREMITIES: Show her right leg to be in a surgical dressing as well as her left elbow. LABORATORY DATA: Revealed hemoglobin of 8.9, white blood cell count of 11.5, BUN of 4, and creatinine of 0.6. IMPRESSION: 1. Chronic anemia. 2. Status post arterial occlusion of her right leg by thrombus, status post thrombectomy, arterial bypass. 3. New-onset atrial fibrillation, on Lovenox and Plavix. 4. Hypercoagulable state. RECOMMENDATIONS: 1. Continue postoperative wound care. 2. Continue Plavix and Lovenox. 3. Continue iron replacement and PPI for history of ulcer disease. Satinder Bruno MD
--- NOTE | 2017-08-10 13:08 | CP.PCM.PN ---
Subjective - Date & Time of Evaluation Date of Evaluation: 08/10/17 Time of Evaluation: 10:25 - Subjective Subjective: Patient is feeling better today, no fevers, less pain on the left arm and right leg. Objective - Vital Signs/Intake and Output Vital Signs (last 24 hours): Temp Pulse Resp BP Pulse Ox 98 F 76 20 134/82 97 08/10/17 08:47 08/10/17 08:47 08/10/17 08:47 08/10/17 08:47 08/10/17 08:47 Intake and Output: 08/10/17 08/10/17 06:59 18:59 Intake Total 300 Output Total 950 Balance -650 - Medications Medications: Current Medications Acetaminophen (Tylenol 325mg Tab) 650 mg PO Q6H PRN PRN Reason: Headache Last Admin: 07/27/17 14:07 Dose: 650 mg Acetylcysteine (Acetylcysteine 20%) 4 ml IH BIDRESP [facility] Last Admin: 08/09/17 07:37 Dose: Not Given Albuterol/Ipratropium (Duoneb 3 Mg/0.5 Mg (3 Ml) Ud) 3 ml IH Q2H PRN PRN Reason: Shortness of Breath Last Admin: 08/08/17 07:52 Dose: 3 ml Digoxin (Lanoxin) 0.25 mg PO 1400 [facility] Last Admin: 08/09/17 17:08 Dose: 0.25 mg Aztreonam (Azactam 1 Gm) 100 mls @ 100 mls/hr IV Q8 [facility] PRN Reason: Protocol Stop: 08/15/17 14:01 Last Admin: 08/10/17 05:03 Dose: 100 mls/hr Daptomycin 630 mg/ Sodium (Chloride) 100 mls @ 200 mls/hr IV Q24H [facility] Stop: 08/15/17 11:01 Last Admin: 08/09/17 16:05 Dose: 200 mls/hr Labetalol HCl (Trandate) 10 mg IVP ONCE PRN PRN Reason: Systolic Blood Pressure Last Admin: 08/02/17 13:04 Dose: 10 mg Metoprolol Tartrate (Lopressor) 50 mg PO BID [facility] Last Admin: 08/09/17 17:08 Dose: 50 mg Morphine Sulfate (Morphine) 4 mg IVP Q4H PRN PRN Reason: Pain, severe (8-10) Last Admin: 08/09/17 16:04 Dose: 4 mg Ondansetron HCl (Zofran Inj) 4 mg IVP Q6H PRN PRN Reason: Nausea/Vomiting Last Admin: 08/09/17 18:47 Dose: 4 mg Pantoprazole Sodium (Protonix Ec Tab) 40 mg PO 0600 [facility] Last Admin: 08/10/17 05:03 Dose: 40 mg Potassium Chloride (K-Dur 20 Meq Er Tab) 20 meq PO BID [facility] Last Admin: 08/09/17 17:08 Dose: 20 meq Silver Sulfadiazine (Silvadene 1% 25 Gm) 0 gm TP BID [facility] Last Admin: 08/09/17 10:30 Dose: Not Given Sucralfate (Carafate Oral Susp) 1 gm PO ACHS [facility] Last Admin: 08/10/17 08:22 Dose: Not Given Tramadol HCl (Ultram) 50 mg PO TID PRN PRN Reason: Pain, moderate (4-7) Last Admin: 08/08/17 12:34 Dose: 50 mg - Labs Labs: 08/10/17 07:30 08/09/17 05:05 PT 13.6 SECONDS (9.4-12.5) H 08/09/17 05:05 INR 1.23 (0.93-1.08) H 08/09/17 05:05 APTT 28.5 Seconds (25.1-36.5) 08/09/17 05:05 - Constitutional Appears: Non-toxic - Head Exam Head Exam: NORMAL INSPECTION - ENT Exam ENT Exam: Mucous Membranes Moist - Neck Exam Neck Exam: absent: Meningismus - Respiratory Exam Respiratory Exam: Decreased Breath Sounds. absent: Rales - Cardiovascular Exam Cardiovascular Exam: +S1, +S2 - GI/Abdominal Exam GI & Abdominal Exam: Soft. absent: Tenderness - Extremities Exam Additional comments: left arm and right leg with dressings in place Assessment and Plan - Assessment and Plan (Free Text) Plan: Assessment Severe sepsis with infected right leg wound (growing MSSA, Leclercia and Pseudomas) due to ischemia S/P thrombectomy of acute iliofemoral thrombus, distal bypass and fasciotomy / debridement, as well as left arm purulent cellulitis and (S/P HCAP), S/P debridement of right leg, I and D of the left arm and application of STSG POD #1 new onset rash, R/O due to Dilaudid R/O due to Merrem non-bleeding polyp in the colon mitral valve prolapse dyslipidemia history of UTI's moderate to severe aortic stenosis atrial fibrillation hyercoagulable state Plan Continue Daptomycin and Azactam (day 11); WBC count is trending down and will continue to trend; follow up OR cx taken yesterday continue local wound care, wound vacuum by Surgery will continue to follow clinically
--- NOTE | 2017-08-10 14:50 | PN ---
DATE: 08/10/2017 SUBJECTIVE: The patient is seen lying in bed on 3R. She underwent skin grafting of her right leg wound yesterday. She is currently comfortable. Plan is being made for transfer to rehabilitation center. CURRENT MEDICATIONS: Remain Mucomyst, Azactam, Carafate, daptomycin, DuoNeb inhaler, Ecotrin, potassium, digoxin 0.25 mg daily, Lopressor 50 mg b.i.d., Lovenox 80 mg q. 12 hours, Plavix 75 mg daily, Protonix, and Ultram p.r.n. PHYSICAL EXAMINATION GENERAL: She is a middle-aged woman, who appears comfortable at rest. VITAL SIGNS: Her blood pressure is 134/80 with a pulse of 90, irregularly irregular, respirations 14. She is afebrile. HEENT: No JVD. CHEST: A few scattered rhonchi heard. HEART: PMI displaced laterally with an irregularly irregular rhythm, systolic murmur is present at the base. ABDOMEN: Soft and nontender with normoactive bowel sounds. EXTREMITIES: Right leg is wrapped and dressed. The toes are warm. DIAGNOSTIC DATA: White count 11.5, hemoglobin and hematocrit 8.9 and 27.3 with a platelet count of 280,000. IMPRESSION: 1. Stable thigh skin grafting of right leg wound. 2. Status post thromboembolic event to her right leg, likely secondary to left atrial thrombus, status post thrombectomy and peripheral bypass surgery. 3. Persistent atrial fibrillation with controlled rate. 4. Bicuspid aortic valve with moderate aortic stenosis and insufficiency. 5. Rest of problems as noted. RECOMMENDATIONS: At this time, continued anticoagulant therapy is advised. If no further procedures are felt to be necessary, switching to an oral anticoagulant would be appropriate. At this time, rate control therapy for atrial fibrillation will be planned. We will continue to follow and make further recommendations as appropriate. Walt Hernandez MD
[2017-08-10] MEDS: Digoxin 250 mcg (0.25 mg) Tab PO SCH (15:26)
--- NOTE | 2017-08-10 23:18 | CP.PCM.PN ---
Subjective - Date & Time of Evaluation Date of Evaluation: 08/10/17 Time of Evaluation: 11:00 - Subjective Subjective: She is comfortable in bed. Underwent wound exploration, skin grafting yesterday. Minimal bleed from skin grafting site. No pain in right leg. No fever. Hb/Hct stable. Objective - Vital Signs/Intake and Output Vital Signs (last 24 hours): Temp Pulse Resp BP Pulse Ox 98.3 F 85 20 125/63 95 08/10/17 16:00 08/10/17 18:10 08/10/17 16:00 08/10/17 18:10 08/10/17 16:00 Intake and Output: 08/10/17 08/11/17 18:59 06:59 Intake Total 420 Output Total 400 Balance 20 - Medications Medications: Current Medications Acetaminophen (Tylenol 325mg Tab) 650 mg PO Q6H PRN PRN Reason: Headache Last Admin: 07/27/17 14:07 Dose: 650 mg Acetylcysteine (Acetylcysteine 20%) 4 ml IH BIDRESP [facility] Last Admin: 08/09/17 07:37 Dose: Not Given Albuterol/Ipratropium (Duoneb 3 Mg/0.5 Mg (3 Ml) Ud) 3 ml IH Q2H PRN PRN Reason: Shortness of Breath Last Admin: 08/08/17 07:52 Dose: 3 ml Aspirin (Ecotrin) 81 mg PO DAILY [facility] Last Admin: 08/10/17 10:41 Dose: 81 mg Clopidogrel Bisulfate (Plavix) 75 mg PO DAILY [facility] Last Admin: 08/10/17 10:41 Dose: 75 mg Digoxin (Lanoxin) 0.25 mg PO 1400 [facility] Last Admin: 08/10/17 15:26 Dose: 0.25 mg Enoxaparin Sodium (Lovenox) 80 mg SC Q12H [facility] PRN Reason: Protocol Last Admin: 08/10/17 22:09 Dose: 80 mg Aztreonam (Azactam 1 Gm) 100 mls @ 100 mls/hr IV Q8 [facility] PRN Reason: Protocol Stop: 08/15/17 14:01 Last Admin: 08/10/17 22:08 Dose: 100 mls/hr Daptomycin 630 mg/ Sodium (Chloride) 100 mls @ 200 mls/hr IV Q24H [facility] Stop: 08/15/17 11:01 Last Admin: 08/10/17 11:15 Dose: 200 mls/hr Labetalol HCl (Trandate) 10 mg IVP ONCE PRN PRN Reason: Systolic Blood Pressure Last Admin: 08/02/17 13:04 Dose: 10 mg Metoprolol Tartrate (Lopressor) 50 mg PO BID [facility] Last Admin: 08/10/17 18:10 Dose: 50 mg Morphine Sulfate (Morphine) 4 mg IVP Q4H PRN PRN Reason: Pain, severe (8-10) Last Admin: 08/09/17 16:04 Dose: 4 mg Ondansetron HCl (Zofran Inj) 4 mg IVP Q6H PRN PRN Reason: Nausea/Vomiting Last Admin: 08/09/17 18:47 Dose: 4 mg Pantoprazole Sodium (Protonix Ec Tab) 40 mg PO 0600 [facility] Last Admin: 08/10/17 05:03 Dose: 40 mg Potassium Chloride (K-Dur 20 Meq Er Tab) 20 meq PO BID [facility] Last Admin: 08/10/17 18:10 Dose: 20 meq Silver Sulfadiazine (Silvadene 1% 25 Gm) 0 gm TP BID [facility] Last Admin: 08/09/17 10:30 Dose: Not Given Sucralfate (Carafate Oral Susp) 1 gm PO ACHS [facility] Last Admin: 08/10/17 22:08 Dose: Not Given Tramadol HCl (Ultram) 50 mg PO TID PRN PRN Reason: Pain, moderate (4-7) Last Admin: 08/08/17 12:34 Dose: 50 mg - Labs Labs: 08/10/17 07:30 08/09/17 05:05 PT 13.6 SECONDS (9.4-12.5) H 08/09/17 05:05 INR 1.23 (0.93-1.08) H 08/09/17 05:05 APTT 28.5 Seconds (25.1-36.5) 08/09/17 05:05 - Constitutional Appears: Chronically Ill - Head Exam Head Exam: ATRAUMATIC, NORMAL INSPECTION, NORMOCEPHALIC - Eye Exam Eye Exam: Normal appearance Pupil Exam: NORMAL ACCOMODATION - ENT Exam ENT Exam: absent: Mucous Membranes Dry, Mucous Membranes Moist, Normal Exam, Normal External Ear Exam, Normal Oropharynx, TM's Normal Bilaterally - Neck Exam Neck Exam: absent: Full ROM, Lymphadenopathy, Meningismus, Normal Inspection, Tenderness, Thyromegaly - Respiratory Exam Respiratory Exam: Clear to Ausculation Bilateral, NORMAL BREATHING PATTERN - Cardiovascular Exam Cardiovascular Exam: absent: Bradycardia, Tachycardia, Clicks, Diastolic murmur , Gallop, Irregular Rhythm, REGULAR RHYTHM, JVD, RRR, Rubs, +S1, +S2, +S4, Murmur - GI/Abdominal Exam GI & Abdominal Exam: absent: Bruit, Distended, Firm, Guarding, Rigid, Soft, Tenderness, Diminished Bowel Sounds, Hernia, Hyperactive Bowel Sounds, Hypoactive Bowel Sounds, Normal Bowel Sounds, Organomegaly, Pulsatile Mass, Rebound, Mass - Back Exam Back Exam: NORMAL INSPECTION Additional comments: right leg in dressing. - Neurological Exam Neurological Exam: Alert, Awake, Oriented x3 - Psychiatric Exam Psychiatric exam: Normal Affect - Skin Skin Exam: Pallor, Warm Assessment and Plan - Assessment and Plan (Free Text) Assessment: 1. Hypercoaguable state: continue lovenox BID, continue in rehab also for next 6 -8 weeks. 2. Skin grafting done yesterday. 3. Hb/ct stable. GI work up negative. 4. Renal : sable. Thank you Dr. Bush for allowing us to participate in her care.
[2017-08-11] MEDS: Morphine 4 mg/ml ISec IVP PRN (00:36)
[2017-08-11] MEDS: Aztreonam 1 Gm in NS 100mL 100 ML IV SCH ×3 (05:39→21:56)
[2017-08-11] MEDS: Pantoprazole 40 mg EC Tab PO SCH (05:41)
--- NOTE | 2017-08-11 07:23 | CP.PCM.PN ---
Subjective - Date & Time of Evaluation Date of Evaluation: 08/11/17 Time of Evaluation: 07:43 - Subjective Subjective: Vascular Surgery Note for Dr. Couch Patient seen and examined at bedside. No acute event overnight. She is s/p RLE skin graft and LUE hematoma evacuation POD #2. Patient is resting in bed comfortably. Pain is controlled with medications. Patient worked with physical therapy yesterday using [email or web address]. She is tolerating diet and having bowel movement. Denies fever/chills, chest pain, shortness of breath, abdominal pain, nausea/vomiting, diarrhea, constipation. Objective - Vital Signs/Intake and Output Vital Signs (last 24 hours): Temp Pulse Resp BP Pulse Ox 98.3 F 85 20 125/63 95 08/10/17 16:00 08/10/17 18:10 08/10/17 16:00 08/10/17 18:10 08/10/17 16:00 Intake and Output: 08/11/17 08/11/17 06:59 18:59 Intake Total 540 Output Total 400 Balance 140 - Medications Medications: Current Medications Acetaminophen (Tylenol 325mg Tab) 650 mg PO Q6H PRN PRN Reason: Headache Last Admin: 07/27/17 14:07 Dose: 650 mg Acetylcysteine (Acetylcysteine 20%) 4 ml IH BIDRESP [facility] Last Admin: 08/09/17 07:37 Dose: Not Given Albuterol/Ipratropium (Duoneb 3 Mg/0.5 Mg (3 Ml) Ud) 3 ml IH Q2H PRN PRN Reason: Shortness of Breath Last Admin: 08/08/17 07:52 Dose: 3 ml Aspirin (Ecotrin) 81 mg PO DAILY [facility] Last Admin: 08/10/17 10:41 Dose: 81 mg Clopidogrel Bisulfate (Plavix) 75 mg PO DAILY [facility] Last Admin: 08/10/17 10:41 Dose: 75 mg Digoxin (Lanoxin) 0.25 mg PO 1400 [facility] Last Admin: 08/10/17 15:26 Dose: 0.25 mg Enoxaparin Sodium (Lovenox) 80 mg SC Q12H [facility] PRN Reason: Protocol Last Admin: 08/10/17 22:09 Dose: 80 mg Aztreonam (Azactam 1 Gm) 100 mls @ 100 mls/hr IV Q8 [facility] PRN Reason: Protocol Stop: 08/15/17 14:01 Last Admin: 08/11/17 05:39 Dose: 100 mls/hr Daptomycin 630 mg/ Sodium (Chloride) 100 mls @ 200 mls/hr IV Q24H [facility] Stop: 08/15/17 11:01 Last Admin: 08/10/17 11:15 Dose: 200 mls/hr Labetalol HCl (Trandate) 10 mg IVP ONCE PRN PRN Reason: Systolic Blood Pressure Last Admin: 08/02/17 13:04 Dose: 10 mg Metoprolol Tartrate (Lopressor) 50 mg PO BID [facility] Last Admin: 08/10/17 18:10 Dose: 50 mg Morphine Sulfate (Morphine) 4 mg IVP Q4H PRN PRN Reason: Pain, severe (8-10) Last Admin: 08/11/17 00:36 Dose: 4 mg Ondansetron HCl (Zofran Inj) 4 mg IVP Q6H PRN PRN Reason: Nausea/Vomiting Last Admin: 08/11/17 00:36 Dose: 4 mg Pantoprazole Sodium (Protonix Ec Tab) 40 mg PO 0600 [facility] Last Admin: 08/11/17 05:41 Dose: 40 mg Potassium Chloride (K-Dur 20 Meq Er Tab) 20 meq PO BID [facility] Last Admin: 08/10/17 18:10 Dose: 20 meq Silver Sulfadiazine (Silvadene 1% 25 Gm) 0 gm TP BID [facility] Last Admin: 08/09/17 10:30 Dose: Not Given Sucralfate (Carafate Oral Susp) 1 gm PO ACHS [facility] Last Admin: 08/10/17 22:08 Dose: Not Given Tramadol HCl (Ultram) 50 mg PO TID PRN PRN Reason: Pain, moderate (4-7) Last Admin: 08/08/17 12:34 Dose: 50 mg - Labs Labs: 08/10/17 07:30 08/09/17 05:05 PT 13.6 SECONDS (9.4-12.5) H 08/09/17 05:05 INR 1.23 (0.93-1.08) H 08/09/17 05:05 APTT 28.5 Seconds (25.1-36.5) 08/09/17 05:05 - Constitutional Appears: No Acute Distress - Head Exam Head Exam: ATRAUMATIC, NORMOCEPHALIC - Eye Exam Eye Exam: EOMI, Normal appearance Pupil Exam: PERRL - ENT Exam ENT Exam: Mucous Membranes Moist - Respiratory Exam Respiratory Exam: NORMAL BREATHING PATTERN - Cardiovascular Exam Cardiovascular Exam: REGULAR RHYTHM - GI/Abdominal Exam GI & Abdominal Exam: Soft. absent: Distended, Tenderness - Extremities Exam Extremities Exam: Tenderness (RLE/LUE) Additional comments: RLE thigh has 4 x 4's open to air - trimmed this morning POTUS boot on RLE with zafar roll underneath DP/PT pulses present LUE dressing changed today Assessment and Plan - Assessment and Plan (Free Text) Plan: 67F s/p RLE skin graft and LUE hematoma evacuation POD #2 -Physical therapy -Daily vascular checks -Continue wound vac on suction -Discussed with Dr. Khoa Berrios PGY1
[2017-08-11] MEDS: Sucralfate 1 gm/10 ml Oral Susp UD PO SCH ×4 (08:15→22:05)
--- NOTE | 2017-08-11 08:57 | PN ---
DATE: 08/10/2017 SUBJECTIVE: A 67-year-old white female postop day #1 from skin graft to the right lower extremity, wound VAC in place, skin graft from the right upper thigh. The patient is doing well. Vital signs are stable. She is status post GI bleed, rapid atrial fibrillation, status post sepsis from wound, status post thrombosed right leg and status post thrombolysis and thrombectomy and fem-fem bypass. PHYSICAL EXAMINATION: VITAL SIGNS: Stable. The patient is afebrile. Physical examination is unchanged. HEART: Regular sinus rhythm. CHEST: Clear to auscultation and percussion. She has a systolic ejection murmur in the left sternal border. Alexis Bush MD
[2017-08-11] MEDS: Potassium Chloride 20 mEq ER Tab PO SCH ×2 (09:40→18:36)
[2017-08-11] MEDS: Enoxaparin 80 mg Syringe SC SCH ×2 (09:41→21:56)
[2017-08-11 10:10] LABS: BASO # 0.12 K/mm3 (0.0-2.0); BASO % 1.4 % (0.0-3.0); EOS # 0.2 (0.0-0.7); EOS % 2.3 % (1.5-5.0); GRAN # 2.78 (1.4-6.5); GRAN % 31.2 % (50.0-68.0); HEMATOCRIT 27.4 % (36.0-48.0); LYMPH % 56.5 % (22.0-35.0); MEAN CELL VOLUME 84.8 fl (80.0-105.0); MEAN CORPUSCULAR HEMOGLOBIN 26.9 pg (25.0-35.0); MEAN CORPUSCULAR HGB CONC 31.8 g/dl (31.0-37.0); MEAN PLATELET VOLUME 10.4 fl (7.0-11.0); MONO # 0.8 (0.1-0.6); MONO % 8.6 % (1.0-6.0); RED CELL DISTRIBUTION WIDTH 20.7 % (11.5-14.5); WHITE BLOOD COUNT 8.9 10^3/ul (4.5-11.0)
[2017-08-11 10:13] LABS: ALB/GLOB RATIO 0.8 (1.1-1.8); ALKALINE PHOSPHATASE 115 U/L (38-126); ALT/SGPT 55 U/L (7-56); AST/SGOT 74 U/L (14-36); BILIRUBIN,TOTAL 0.7 mg/dL (0.2-1.3); BLOOD UREA NITROGEN 6 mg/dL (7-21); CALCIUM 7.5 mg/dL (8.4-10.5); CARBON DIOXIDE 29 mmol/L (21-33); CHLORIDE 102 mmol/L (95-110); GFR AFRICAN-AMERICAN > 60; GLUCOSE,RANDOM 122 mg/dL (70-110); SODIUM 132 mmol/L (132-148); TOTAL PROTEIN 4.8 g/dL (5.8-8.3)
--- NOTE | 2017-08-11 11:50 | PN ---
DATE: 08/11/2017 SUBJECTIVE: The patient is lying in bed comfortable. She denies any rectal bleeding or melena. OBJECTIVE: VITAL SIGNS: Reveal temperature of 98, blood pressure of 152/60 and heart rate 79. HEENT: Reveal sclerae to be white. Conjunctivae pale. NECK: Supple. CHEST: Reveals lungs to be clear. HEART EXAM: Reveals an irregular rate. There is a 2/6 systolic murmur. ABDOMEN: Obese, soft, nontender. EXTREMITIES: Show right leg to be covered loosely by surgical dressing. There is less anasarca in her extremities and torso. LABORATORY DATA: Reveal hemoglobin 8.7, white blood cell count 8.9. Chemistries reveal normal electrolytes. Albumin is 2.1. IMPRESSION: 1. Chronic anemia. 2. History of gastric ulcer. 3. Status post arterial occlusion by thrombus of her right lower extremity, status post thrombectomy and arterial bypass of her right lower extremity, status post skin grafting. 4. New-onset atrial fibrillation. 5. Hypercoagulable state. RECOMMENDATIONS: 1. Continue Plavix and Lovenox. 2. Follow serial hematocrits. Satinder Bruno MD
--- NOTE | 2017-08-11 12:54 | CP.PCM.PN ---
Subjective - Date & Time of Evaluation Date of Evaluation: 08/11/17 Time of Evaluation: 10:40 - Subjective Subjective: Comfortable, no fevers, less pain in the left arm and right leg. Objective - Vital Signs/Intake and Output Vital Signs (last 24 hours): Temp Pulse Resp BP Pulse Ox 98.3 F 85 20 125/63 95 08/10/17 16:00 08/10/17 18:10 08/10/17 16:00 08/10/17 18:10 08/10/17 16:00 Intake and Output: 08/11/17 08/11/17 06:59 18:59 Intake Total 540 Output Total 400 Balance 140 - Medications Medications: Current Medications Acetaminophen (Tylenol 325mg Tab) 650 mg PO Q6H PRN PRN Reason: Headache Last Admin: 07/27/17 14:07 Dose: 650 mg Acetylcysteine (Acetylcysteine 20%) 4 ml IH BIDRESP [facility] Last Admin: 08/09/17 07:37 Dose: Not Given Albuterol/Ipratropium (Duoneb 3 Mg/0.5 Mg (3 Ml) Ud) 3 ml IH Q2H PRN PRN Reason: Shortness of Breath Last Admin: 08/08/17 07:52 Dose: 3 ml Aspirin (Ecotrin) 81 mg PO DAILY [facility] Last Admin: 08/10/17 10:41 Dose: 81 mg Clopidogrel Bisulfate (Plavix) 75 mg PO DAILY [facility] Last Admin: 08/10/17 10:41 Dose: 75 mg Digoxin (Lanoxin) 0.25 mg PO 1400 [facility] Last Admin: 08/10/17 15:26 Dose: 0.25 mg Enoxaparin Sodium (Lovenox) 80 mg SC Q12H [facility] PRN Reason: Protocol Last Admin: 08/10/17 22:09 Dose: 80 mg Aztreonam (Azactam 1 Gm) 100 mls @ 100 mls/hr IV Q8 [facility] PRN Reason: Protocol Stop: 08/15/17 14:01 Last Admin: 08/11/17 05:39 Dose: 100 mls/hr Daptomycin 630 mg/ Sodium (Chloride) 100 mls @ 200 mls/hr IV Q24H [facility] Stop: 08/15/17 11:01 Last Admin: 08/10/17 11:15 Dose: 200 mls/hr Labetalol HCl (Trandate) 10 mg IVP ONCE PRN PRN Reason: Systolic Blood Pressure Last Admin: 08/02/17 13:04 Dose: 10 mg Metoprolol Tartrate (Lopressor) 50 mg PO BID [facility] Last Admin: 08/10/17 18:10 Dose: 50 mg Morphine Sulfate (Morphine) 4 mg IVP Q4H PRN PRN Reason: Pain, severe (8-10) Last Admin: 08/11/17 00:36 Dose: 4 mg Ondansetron HCl (Zofran Inj) 4 mg IVP Q6H PRN PRN Reason: Nausea/Vomiting Last Admin: 08/11/17 00:36 Dose: 4 mg Pantoprazole Sodium (Protonix Ec Tab) 40 mg PO 0600 [facility] Last Admin: 08/11/17 05:41 Dose: 40 mg Potassium Chloride (K-Dur 20 Meq Er Tab) 20 meq PO BID [facility] Last Admin: 08/10/17 18:10 Dose: 20 meq Silver Sulfadiazine (Silvadene 1% 25 Gm) 0 gm TP BID [facility] Last Admin: 08/09/17 10:30 Dose: Not Given Sucralfate (Carafate Oral Susp) 1 gm PO ACHS [facility] Last Admin: 08/10/17 22:08 Dose: Not Given Tramadol HCl (Ultram) 50 mg PO TID PRN PRN Reason: Pain, moderate (4-7) Last Admin: 08/08/17 12:34 Dose: 50 mg - Labs Labs: 08/10/17 07:30 08/09/17 05:05 PT 13.6 SECONDS (9.4-12.5) H 08/09/17 05:05 INR 1.23 (0.93-1.08) H 08/09/17 05:05 APTT 28.5 Seconds (25.1-36.5) 08/09/17 05:05 - Constitutional Appears: Non-toxic - Head Exam Head Exam: NORMAL INSPECTION - ENT Exam ENT Exam: Mucous Membranes Moist - Neck Exam Neck Exam: absent: Meningismus - Respiratory Exam Respiratory Exam: Decreased Breath Sounds - Cardiovascular Exam Cardiovascular Exam: +S1, +S2 - GI/Abdominal Exam GI & Abdominal Exam: Soft. absent: Tenderness - Extremities Exam Additional comments: left arm and right leg with dressings in place Assessment and Plan - Assessment and Plan (Free Text) Plan: Assessment Severe sepsis with infected right leg wound (growing MSSA, Leclercia and Pseudomas) due to ischemia S/P thrombectomy of acute iliofemoral thrombus, distal bypass and fasciotomy / debridement, as well as left arm purulent cellulitis and (S/P HCAP), S/P debridement of right leg, I and D of the left arm and application of STSG POD #2 new onset rash, R/O due to Dilaudid R/O due to Merrem non-bleeding polyp in the colon mitral valve prolapse dyslipidemia history of UTI's moderate to severe aortic stenosis atrial fibrillation hyercoagulable state Plan Continue Daptomycin and Azactam (day 12 total); WBC count is trending down and will continue to trend; OR cx are negative but patient has been on antibiotics prior to surgery continue local wound care, wound vacuum by Surgery will continue to monitor clinically
[2017-08-11] MEDS: Digoxin 250 mcg (0.25 mg) Tab PO SCH (13:26)
--- NOTE | 2017-08-11 14:15 | PN ---
DATE: 08/11/2017 SUBJECTIVE: This is a 67-year-old white female, postop day #2 from skin graft to the right lower extremity, reestablishing of her wound VAC. PHYSICAL EXAMINATION: GENERAL: The patient is comfortable. She has minimal pain. VITAL SIGNS: Stable. She is afebrile. Blood pressure is 152/68, temperature 98 degrees. CHEST: Clear to auscultation and percussion. HEART: Regular sinus rhythm. Systolic ejection murmur at the left sternal border consistent with aortic stenosis. No further bleeding. LABORATORY DATA: Stable. PLAN: Most likely for subacute rehab in 4 days. Plan is to continue IV antibiotics and local wound care. Alexis Bush MD
[2017-08-12] MEDS: Aztreonam 1 Gm in NS 100mL 100 ML IV SCH ×2 (05:10→13:39)
[2017-08-12] MEDS: Pantoprazole 40 mg EC Tab PO SCH (05:11)
[2017-08-12 06:44] VITALS: TEMP 97.7; O2SAT 97
[2017-08-12] MEDS: Enoxaparin 80 mg Syringe SC SCH (09:11)
[2017-08-12] MEDS: Potassium Chloride 20 mEq ER Tab PO SCH (09:12)
[2017-08-12] MEDS: Sucralfate 1 gm/10 ml Oral Susp UD PO SCH ×2 (09:13→15:42)
[2017-08-12 09:19] VITALS: BP 140/70; PULSE 68
[2017-08-12] MEDS ORDERED: HYDROmorphone 1 mg/ml ISec IVP STA (10:18)
--- NOTE | 2017-08-12 11:09 | CP.PCM.PN ---
Subjective - Date & Time of Evaluation Date of Evaluation: 08/12/17 Time of Evaluation: 07:00 - Subjective Subjective: Vascular Surgery Note for Dr. Couch Patient seen and examined at bedside. No acute event overnight. She is s/p RLE skin graft and LUE hematoma evacuation POD #3. Patient is resting in bed comfortably. Patient expected to be discharged to subacute rehab today. Pain is controlled and improving. Patient continues to work with physical therapy. Dressings were changed today. Wound vac removed. She is tolerating diet, urinating without difficulty and having bowel movements. Denies fever/chills, chest pain, shortness of breath, abdominal pain, nausea/vomiting, diarrhea, constipation. Objective - Vital Signs/Intake and Output Vital Signs (last 24 hours): Temp Pulse Resp BP Pulse Ox 97.7 F 68 20 140/70 97 08/12/17 08:58 08/12/17 09:12 08/12/17 08:58 08/12/17 09:12 08/12/17 08:58 Intake and Output: 08/12/17 08/12/17 06:59 18:59 Intake Total 1100 Output Total 1800 Balance -700 - Medications Medications: Current Medications Acetaminophen (Tylenol 325mg Tab) 650 mg PO Q6H PRN PRN Reason: Headache Last Admin: 07/27/17 14:07 Dose: 650 mg Acetylcysteine (Acetylcysteine 20%) 4 ml IH BIDRESP [facility] Last Admin: 08/09/17 07:37 Dose: Not Given Albuterol/Ipratropium (Duoneb 3 Mg/0.5 Mg (3 Ml) Ud) 3 ml IH Q2H PRN PRN Reason: Shortness of Breath Last Admin: 08/08/17 07:52 Dose: 3 ml Aspirin (Ecotrin) 81 mg PO DAILY [facility] Last Admin: 08/12/17 09:13 Dose: 81 mg Clopidogrel Bisulfate (Plavix) 75 mg PO DAILY [facility] Last Admin: 08/12/17 09:13 Dose: 75 mg Digoxin (Lanoxin) 0.25 mg PO 1400 [facility] Last Admin: 08/11/17 13:26 Dose: 0.25 mg Enoxaparin Sodium (Lovenox) 80 mg SC Q12H [facility] PRN Reason: Protocol Last Admin: 08/12/17 09:11 Dose: 80 mg Aztreonam (Azactam 1 Gm) 100 mls @ 100 mls/hr IV Q8 [facility] PRN Reason: Protocol Stop: 08/15/17 14:01 Last Admin: 08/12/17 05:10 Dose: 100 mls/hr Daptomycin 630 mg/ Sodium (Chloride) 100 mls @ 200 mls/hr IV Q24H [facility] Stop: 08/15/17 11:01 Last Admin: 08/11/17 11:33 Dose: 200 mls/hr Labetalol HCl (Trandate) 10 mg IVP ONCE PRN PRN Reason: Systolic Blood Pressure Last Admin: 08/02/17 13:04 Dose: 10 mg Metoprolol Tartrate (Lopressor) 50 mg PO BID [facility] Last Admin: 08/12/17 09:12 Dose: 50 mg Morphine Sulfate (Morphine) 4 mg IVP Q4H PRN PRN Reason: Pain, severe (8-10) Last Admin: 08/11/17 00:36 Dose: 4 mg Ondansetron HCl (Zofran Inj) 4 mg IVP Q6H PRN PRN Reason: Nausea/Vomiting Last Admin: 08/11/17 00:36 Dose: 4 mg Pantoprazole Sodium (Protonix Ec Tab) 40 mg PO 0600 [facility] Last Admin: 08/12/17 05:11 Dose: 40 mg Potassium Chloride (K-Dur 20 Meq Er Tab) 20 meq PO BID [facility] Last Admin: 08/12/17 09:12 Dose: 20 meq Silver Sulfadiazine (Silvadene 1% 25 Gm) 0 gm TP BID [facility] Last Admin: 08/09/17 10:30 Dose: Not Given Sucralfate (Carafate Oral Susp) 1 gm PO ACHS [facility] Last Admin: 08/12/17 09:13 Dose: Not Given Tramadol HCl (Ultram) 50 mg PO TID PRN PRN Reason: Pain, moderate (4-7) Last Admin: 08/11/17 11:32 Dose: 50 mg - Labs Labs: 08/11/17 09:55 08/11/17 09:55 PT 13.6 SECONDS (9.4-12.5) H 08/09/17 05:05 INR 1.23 (0.93-1.08) H 08/09/17 05:05 APTT 28.5 Seconds (25.1-36.5) 08/09/17 05:05 - Constitutional Appears: No Acute Distress - Head Exam Head Exam: ATRAUMATIC, NORMOCEPHALIC - Eye Exam Eye Exam: Normal appearance Pupil Exam: PERRL - ENT Exam ENT Exam: Mucous Membranes Dry - Respiratory Exam Respiratory Exam: NORMAL BREATHING PATTERN - Cardiovascular Exam Cardiovascular Exam: REGULAR RHYTHM - GI/Abdominal Exam GI & Abdominal Exam: Soft. absent: Distended, Tenderness - Extremities Exam Additional comments: RLE thigh has 4 x 4's open to air - trimmed this morning Polymem foam on RLE fasciotomy/skin graft wound and covered with abdominal pads. Kerlix on top of that then wrapped in Ismael bandage. Nonadhesive dressing on forefoot wound and right medial lower leg incision. Foam heel cup/boot for right heel ulcer. Left upper extremity wound dressed with 4 x 4's and tape bilateral DP/PT pulses present - Neurological Exam Neurological Exam: Alert, Awake, CN II-XII Intact, Oriented x3 - Psychiatric Exam Psychiatric exam: Normal Affect, Normal Mood - Skin Skin Exam: Dry, Normal Color, Warm Additional comments: dry, flaky skin various parts of body Assessment and Plan - Assessment and Plan (Free Text) Plan: 67F s/p RLE skin graft and LUE hematoma evacuation POD #3 -Continue Physical therapy at subacute rehab -IV antibiotics as per ID - they will change daptomycin to different agent -Dressing changes Tuesday, Tuesday, and Tuesday as per discharge instructions -Follow up with Wound care and Dr. Couch as outpatient -[facility]
--- NOTE | 2017-08-12 11:21 | PN ---
DATE: SUBJECTIVE: The patient is a 67-year-old white female doing well post skin graft right leg, wound VAC right leg, status post thrombolysis, thrombectomy, fem-pop, status post GI bleed, status post rapid atrial fibrillation, and history of aortic stenosis. The patient had normal colonoscopy and EGD. The patient's hemoglobin is stable. She does have a hypocoagulable state. She is on antibiotics for non-resistant Staph and sepsis from her wounds. PHYSICAL EXAMINATION: GENERAL: She is stable. VITAL SIGNS: BP is 140/70. Vital signs are stable. HEART: There is a systolic ejection murmur at the left sternal border. LUNGS: Clear. ABDOMEN: Soft. Her bowel sounds are positive. EXTREMITIES: She does have loss of strength in the toes on the right foot. Physical examination is otherwise unchanged. NEUROLOGIC: She is awake and alert x3. LABORATORY DATA: Her white count is normal 8.9. Hemoglobin is stable at 8.7. ASSESSMENT AND PLAN: The patient is being seen by Dr. Couch, probably discharge sometime today or tomorrow to follow up with wound care and physical therapy. Alexis Bush MD
--- NOTE | 2017-08-12 12:14 | CP.PCM.PN ---
Subjective - Date & Time of Evaluation Date of Evaluation: 08/12/17 Time of Evaluation: 10:00 - Subjective Subjective: Comfortable, less pain in the leg and arm, no fevers overnight, no diarrhea. Objective - Vital Signs/Intake and Output Vital Signs (last 24 hours): Temp Pulse Resp BP Pulse Ox 97.7 F 73 20 133/86 97 08/12/17 08:58 08/12/17 08:58 08/12/17 08:58 08/12/17 08:58 08/12/17 08:58 Intake and Output: 08/12/17 08/12/17 06:59 18:59 Intake Total 1100 Output Total 1800 Balance -700 - Medications Medications: Current Medications Acetaminophen (Tylenol 325mg Tab) 650 mg PO Q6H PRN PRN Reason: Headache Last Admin: 07/27/17 14:07 Dose: 650 mg Acetylcysteine (Acetylcysteine 20%) 4 ml IH BIDRESP [facility] Last Admin: 08/09/17 07:37 Dose: Not Given Albuterol/Ipratropium (Duoneb 3 Mg/0.5 Mg (3 Ml) Ud) 3 ml IH Q2H PRN PRN Reason: Shortness of Breath Last Admin: 08/08/17 07:52 Dose: 3 ml Aspirin (Ecotrin) 81 mg PO DAILY [facility] Last Admin: 08/11/17 09:39 Dose: 81 mg Clopidogrel Bisulfate (Plavix) 75 mg PO DAILY [facility] Last Admin: 08/11/17 09:41 Dose: 75 mg Digoxin (Lanoxin) 0.25 mg PO 1400 [facility] Last Admin: 08/11/17 13:26 Dose: 0.25 mg Enoxaparin Sodium (Lovenox) 80 mg SC Q12H [facility] PRN Reason: Protocol Last Admin: 08/11/17 21:56 Dose: 80 mg Aztreonam (Azactam 1 Gm) 100 mls @ 100 mls/hr IV Q8 [facility] PRN Reason: Protocol Stop: 08/15/17 14:01 Last Admin: 08/12/17 05:10 Dose: 100 mls/hr Daptomycin 630 mg/ Sodium (Chloride) 100 mls @ 200 mls/hr IV Q24H [facility] Stop: 08/15/17 11:01 Last Admin: 08/11/17 11:33 Dose: 200 mls/hr Labetalol HCl (Trandate) 10 mg IVP ONCE PRN PRN Reason: Systolic Blood Pressure Last Admin: 08/02/17 13:04 Dose: 10 mg Metoprolol Tartrate (Lopressor) 50 mg PO BID [facility] Last Admin: 08/11/17 18:37 Dose: 50 mg Morphine Sulfate (Morphine) 4 mg IVP Q4H PRN PRN Reason: Pain, severe (8-10) Last Admin: 08/11/17 00:36 Dose: 4 mg Ondansetron HCl (Zofran Inj) 4 mg IVP Q6H PRN PRN Reason: Nausea/Vomiting Last Admin: 08/11/17 00:36 Dose: 4 mg Pantoprazole Sodium (Protonix Ec Tab) 40 mg PO 0600 [facility] Last Admin: 08/12/17 05:11 Dose: 40 mg Potassium Chloride (K-Dur 20 Meq Er Tab) 20 meq PO BID [facility] Last Admin: 08/11/17 18:36 Dose: 20 meq Silver Sulfadiazine (Silvadene 1% 25 Gm) 0 gm TP BID [facility] Last Admin: 08/09/17 10:30 Dose: Not Given Sucralfate (Carafate Oral Susp) 1 gm PO ACHS [facility] Last Admin: 08/11/17 22:05 Dose: Not Given Tramadol HCl (Ultram) 50 mg PO TID PRN PRN Reason: Pain, moderate (4-7) Last Admin: 08/11/17 11:32 Dose: 50 mg - Labs Labs: 08/11/17 09:55 08/11/17 09:55 PT 13.6 SECONDS (9.4-12.5) H 08/09/17 05:05 INR 1.23 (0.93-1.08) H 08/09/17 05:05 APTT 28.5 Seconds (25.1-36.5) 08/09/17 05:05 - Constitutional Appears: Non-toxic - Head Exam Head Exam: NORMAL INSPECTION - ENT Exam ENT Exam: Mucous Membranes Moist - Neck Exam Neck Exam: absent: Lymphadenopathy, Meningismus - Respiratory Exam Respiratory Exam: Decreased Breath Sounds - Cardiovascular Exam Cardiovascular Exam: +S1, +S2 - GI/Abdominal Exam GI & Abdominal Exam: Soft. absent: Tenderness - Extremities Exam Additional comments: right leg and left arm with dressings in place Assessment and Plan - Assessment and Plan (Free Text) Plan: Assessment Severe sepsis with infected right leg wound (growing MSSA, Leclercia and Pseudomas) due to ischemia S/P thrombectomy of acute iliofemoral thrombus, distal bypass and fasciotomy / debridement, as well as left arm purulent cellulitis and (S/P HCAP), S/P debridement of right leg, I and D of the left arm and application of STSG POD #3 new onset rash, R/O due to Dilaudid R/O due to Merrem non-bleeding polyp in the colon mitral valve prolapse dyslipidemia history of UTI's moderate to severe aortic stenosis atrial fibrillation hyercoagulable state Plan Continue Daptomycin and Azactam (day 13 total); WBC count is trending down and will continue to trend; OR cx are negative but patient has been on antibiotics prior to surgery - would continue antibiotics for at least another week - will check a CPK level today (last one checked was 07/17/2017) continue local wound care, wound vacuum by Surgery
[2017-08-12] MEDS: Digoxin 250 mcg (0.25 mg) Tab PO SCH (13:39)
[2017-08-12 13:46] VITALS: PULSE 78
--- NOTE | 2017-08-12 19:03 | PN ---
DATE: 08/12/2017 SUBJECTIVE: The patient is lying in bed comfortable. She denies any rectal bleeding, abdominal pain, nausea, vomiting. PHYSICAL EXAMINATION: VITAL SIGNS: Reveal temperature of 97.7, heart rate of 73, blood pressure of 140/70. HEENT: Reveal sclerae to be white. Conjunctivae pink. NECK: Supple. CHEST: Reveal lungs to be clear. HEART: Exam reveals an irregular rate. There is a 2/6 systolic murmur. ABDOMEN: Obese, soft. EXTREMITIES: Show right leg to be in a surgical dressing. LABORATORY DATA: Reveal no new laboratory data from this morning. IMPRESSION: 1. Anemia. 2. Gastric ulcer. 3. History of acute arterial occlusion by thrombus of her right leg status post thrombectomy and arterial bypass surgery, status post wound graft and placement of wound VAC. 4. New-onset atrial fibrillation. 5. Hypercoagulable state. RECOMMENDATIONS: 1. Continue PPI, iron replacement and Carafate suspension. 2. Continue Plavix and Lovenox. 3. The patient is to be transferred to subacute rehab. Satinder Bruno MD
== END 2017-08-12 17:00 | DRG 270 ==
LOC: ED 10:12 → ERH 15:12 → CCU 17:45 → 2RNO 07-24 06:21 → CCU 07-27 09:31 → 2RNO 07-29 14:25 → 3RNO 08-04 11:14
PROVIDERS: ADMIT Internal Medicine Medical Oncology; ATTEND Internal Medicine
PROC: 0KXS0ZZ Transfer Right Lower Leg Muscle, Open Approach (ICD-10-PCS; 2017-07-16)
PROC: 0KNS0ZZ Release Right Lower Leg Muscle, Open Approach (ICD-10-PCS; 2017-07-16)
PROC: 0JPW0XZ Removal of Tunneled Vascular Access Device from Lower Extremity Subcutaneous Tissue and Fascia, Open Approach (ICD-10-PCS; 2017-07-16)
PROC: 04CK3ZZ Extirpation of Matter from Right Femoral Artery, Percutaneous Approach (ICD-10-PCS; 2017-07-16)
PROC: 047K3ZZ Dilation of Right Femoral Artery, Percutaneous Approach (ICD-10-PCS; 2017-07-16)
PROC: 04HK33Z Insertion of Infusion Device into Right Femoral Artery, Percutaneous Approach (ICD-10-PCS; 2017-07-16)
PROC: 3E05317 Introduction of Other Thrombolytic into Peripheral Artery, Percutaneous Approach (ICD-10-PCS; 2017-07-16)
PROC: 041 Lower Arteries, Bypass (ICD-10-PCS; principal; 2017-07-16 20:37)
PROC: 04CK0ZZ Extirpation of Matter from Right Femoral Artery, Open Approach (ICD-10-PCS; 2017-07-16 20:37)
PROC: 5A1935Z Respiratory Ventilation, Less than 24 Consecutive Hours (ICD-10-PCS; 2017-07-17)
PROC: 0BH17EZ Insertion of Endotracheal Airway into Trachea, Via Natural or Artificial Opening (ICD-10-PCS; 2017-07-17)
PROC: 30233N1 Transfusion of Nonautologous Red Blood Cells into Peripheral Vein, Percutaneous Approach (ICD-10-PCS; 2017-07-18)
PROC: 0KDS0ZZ Extraction of Right Lower Leg Muscle, Open Approach (ICD-10-PCS; 2017-07-19)
PROC: 02HV33Z Insertion of Infusion Device into Superior Vena Cava, Percutaneous Approach (ICD-10-PCS; 2017-07-19)
PROC: B548ZZA Ultrasonography of Superior Vena Cava, Guidance (ICD-10-PCS; 2017-07-19)
PROC: 0KDS0ZZ Extraction of Right Lower Leg Muscle, Open Approach (ICD-10-PCS; 2017-07-26)
PROC: 0DBP8ZZ Excision of Rectum, Via Natural or Artificial Opening Endoscopic (ICD-10-PCS; 2017-08-02)
PROC: 0HRKX74 Replacement of Right Lower Leg Skin with Autologous Tissue Substitute, Partial Thickness, External Approach (ICD-10-PCS; 2017-08-09)
PROC: 0KBS0ZZ Excision of Right Lower Leg Muscle, Open Approach (ICD-10-PCS; 2017-08-09)
PROC: 0X9C0ZX Drainage of Left Elbow Region, Open Approach, Diagnostic (ICD-10-PCS; 2017-08-09)
PROC: 0HBHXZZ Excision of Right Upper Leg Skin, External Approach (ICD-10-PCS; 2017-08-09)
DX: I74.3 Embolism and thrombosis of arteries of the lower extremities (principal); A41.2 Sepsis due to unspecified staphylococcus; I47.2 Ventricular tachycardia; N17.9 Acute kidney failure, unspecified; J18.9 Pneumonia, unspecified organism; K25.4 Chronic or unspecified gastric ulcer with hemorrhage; I47.1 Supraventricular tachycardia; D68.62 Lupus anticoagulant syndrome; I48.0 Paroxysmal atrial fibrillation; R65.20 Severe sepsis without septic shock; T81.4XXA Infection following a procedure, initial encounter; T79.A0XA Compartment syndrome, unspecified, initial encounter; I97.89 Other postprocedural complications and disorders of the circulatory system, not elsewhere classified; L02.414 Cutaneous abscess of left upper limb; N39.0 Urinary tract infection, site not specified; L03.114 Cellulitis of left upper limb; I48.1 Persistent atrial fibrillation; G83.11 Monoplegia of lower limb affecting right dominant side; I10 Essential (primary) hypertension; K57.30 Diverticulosis of large intestine without perforation or abscess without bleeding; K64.8 Other hemorrhoids; D12.8 Benign neoplasm of rectum; E78.00 Pure hypercholesterolemia, unspecified; I35.2 Nonrheumatic aortic (valve) stenosis with insufficiency; M17.11 Unilateral primary osteoarthritis, right knee; I34.1 Nonrheumatic mitral (valve) prolapse; M21.371 Foot drop, right foot; D50.9 Iron deficiency anemia, unspecified; K20.9 Esophagitis, unspecified; K59.00 Constipation, unspecified; I67.9 Cerebrovascular disease, unspecified; R21 Rash and other nonspecific skin eruption; Y95 Nosocomial condition; Y83.8 Other surgical procedures as the cause of abnormal reaction of the patient, or of later complication, without mention of misadventure at the time of the procedure; Z88.1 Allergy status to other antibiotic agents; Z87.891 Personal history of nicotine dependence; Z82.49 Family history of ischemic heart disease and other diseases of the circulatory system

== ENCOUNTER 2019-03-09 09:22 | Outpatient (CLI) | payer MEDICARE, BC | END 2019-03-09 09:23 | disposition home or self-care (01) | LOC: RAD 09:22 ==